=== PATIENT | female | born 2000 | race African-American/Black ===

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

== ENCOUNTER 2020-06-28 12:19 | Emergency (ER) | payer OTHER ==
--- OUTSIDE RECORDS SUMMARY | 2020-06-28 12:22 | XMS REPORT | Summary of Care ---
:1999 Author Organization [facility] Address [address] [place] [address] Care Team Providers Name Role Phone Lucy Quezada Primary Care Provider Reason for Referral (Routine) Status Reason Specialty Diagnoses / Referred By Referred To Procedures Contact Contact New Request Maternal Diagnoses Supervision of high risk in first trimester Johnna Portillo Medicine Procedures CONSULT MATERNAL MEDICINE ULTRASOUND Preferred Location: [facility] [address] [place] [address] Reason for Visit Reason Comments Care Encounter Details Date Type Department Care Team Description 04/19/2020 Routine [facility]- Johnna Portillo upervision of high risk in first trimester (Primary Dx); Visit [facility] Primigravida in first trimester; [address] [facility] [address] Elevated blood pressure reading without diagnosis of hypertension; [facility] Nausea and vomiting in prior t o 22 weeks gestation; [place], [place] Gonorrhea [phone] Allergies No Known Allergiesdocumented as of this encounter (statuses as of 04/19/2020) Medications Medication Sig Dispensed Refills Start Date End Date Status vit Take 1 Packet by 30 Each 6 04/19/2020 Active 68-yymt-nxnfu-dha mouth daily. (SELECT-OB + DHA) 29 mg iron-1 mg -250 mg combo packIndications: Supervision of high risk in first trimester documented as of this encounter (statuses as of 04/19/2020) Active Problems Problem Noted Date Nausea and vomiting in prior to 22 weeks ges tation 04/19/2020 Gonorrhea 04/19/2020 Supervision of high risk in first trimester 03/22/2020 Primigravida in first trimester 03/22/2020 Elevated blood pressure reading without diagnosis of h ypertension 03/22/2020 Left breast lump 03/22/2020 BMI 25.0-25.9,adult 03/22/2020 Estimated Date of Delivery Comments Yes 12/04/2020 Based on last menstr ual period of 02/28/2020 (Approximate) documented as of this encounter (statuses as of 04/19/2020) Social History Tobacco Use Types Packs/Day Years Used Date Never Smoker Smokeless Tobacco: Never Used Alcohol Use Drinks/Week oz/Week Comments Not Currently Estimated Date of Delivery Comments Yes 12/04/2020 Based on last menstr ual period of 02/28/2020 (Approximate) Sex Assigned at Date Recorded Not on file Job Start Date Occupation Industry Not on file Not on file Not on file Travel History Travel Start Travel End No recent travel history available. COVID-19 Exposure Response Date Recorded In the last month, have you been in contact with No / Unsure 04/19/2020 10:03 AM CDT someone who was confirmed or suspected to have Coronavirus / COVID-19? documented as of this encounter Last Filed Vital Signs Vital Sign Reading Time Taken Comments Blood Pressure 138/85 04/19/2020 10:03 AM CDT Pulse 70 04/19/2020 10:03 AM CDT Temperature 36.8 C (98.2 F) 04/19/2020 10:03 AM CDT Respiratory Rate 16 04/19/2020 10:03 AM CDT Oxygen Saturation - - Inhaled Oxygen Concentration - - Weight 67.2 kg (148 lb 3 oz) 04/19/2020 10:03 AM CDT Height 160 cm (5' 3") 04/19/2020 10:03 AM CDT Body Mass Index 26.25 04/19/2020 10:03 AM CDT documented in this encounter Progress Notes Johnna Portillo, TC - 04/19/2020 9:30 AM CDT Chief complaint: Chief Complaint Patient presents with Care HPI CC: Follow Up Visit Tea Collazo is a 19 year old, , /White female. Patient's last menstrual period was 02/28/2020 (approximate). She is 7w2d with an intrauterine . Her estimated date of delivery is 12/04/2020, by Last Menstrual Period. She has no complaints today. She denies FM, contractions, LOFand bleeding today. Patient denies current or past physical, sexual or emotional abuse. Histories OB History Para Term AB Living 1 0 SAB TAB Ectopic Multiple Live Births # Outcome Date GA Lbr Mau/2nd Weight Sex Delivery Anes PTL Lv 1 Current Past Medical History: Diagnosis Date Anemia 2009 as a child, not on meds Anxiety 2018 not on meds Gonorrhea 04/19/2020 Hypertension 2012 never been put on meds Family History Problem Relation Age of Onset No Significant Medical Problems Mother Diabetes Father Hypertension Father Heart Father Family Status Relation Name Status Mo Alive Fa Alive No past surgical history on file. Social History Socioeconomic History Marital status: Single Spouse name: Not on file Number of children: Not on file Years of education: Not on file Highest education level: Not on file Occupational History Not on file Social Needs Financial resource strain: Not on file Food insecurity: Worry: Not on file Inability: Not on file Transportation needs: Medical: Not on file Non-medical: Not on file Tobacco Use Smoking status: Never Smoker Smokeless tobacco: Never Used Substance and Sexual Activity Alcohol use: Not Currently Drug use: Not Currently Sexual activity: Yes Partners: Male control/protection: None Comment: Last intercourse: 03/10/2020 Lifestyle Physical activity: Days per week: Not on file Minutes per session: Not on file Stress: Not on file Relationships Social connections: Talks on phone: Not on file Gets together: Not on file Attends quaker service: Not on file Active member of club or organization: Not on file Attends meetings of clubs or organizations: Not on file Relationship status: Not on file Intimate partner violence: Fear of current or ex partner: Not on file Emotionally abused: Not on file Physically abused: Not on file Forced sexual activity: Not on file Other Topics Concern Not on file Social History Narrative Patient lives with her father, patient feels safe at home. Patient denies any cats. Social History Substance and Sexual Activity Sexual Activity Yes Partners: Male control/protection: None Comment: Last intercourse: 03/10/2020 Labs Labs are pending. Radiology No new radiology. Allergies Tea has No Known Allergies. Medications Tea has a current medication list which includes the following prescription(s): vit 14-myvf-wwiya-dha. Review of Systems BP 138/85 (BP Location: Right arm, Patient Position: Sitting, BP CUFF SIZE: Adult Medium) | Pulse 70 | Temp 36.8 C (98.2 F) (Oral) | Resp 16 | Ht 5' 3" (1.6 m) | Wt 148 lb 3 oz (67.2 kg) | LMP 02/28/2020 (Approximate) | BMI 26.25 kg/m Pregravid BMI: 25.7 Physical Exam PHYSICAL: General Exam: Neurological: Normal Abdomen: Normal Extremities: Normal Pelvic Exam: Uterus: 8cm Weeks Assessment/Plan Supervision of high risk in first trimester (primary encounter diagnosis) Primigravida in first trimester Comment: Routine Visit Plan: POCT URINALYSIS W SPECIFIC GRAVITY, CONSULT MATERNAL MEDICINE ULTRASOUND Preferred Location: [facility] vit 88-ssxh-qwote-dha (SELECT-OB + DHA) 29 mg iron-1 mg -250 mg combo pack Denies zika virus risk, signs and symptoms such as fever,rash,joint pain, conjunctivitis (red eyes), muscle pain, headaches; outside [place] travel to areas affected by zika, and FOB exposure to zika.Educated on use of mosquito repellent. Elevated blood pressure reading without diagnosis of hypertension Comment: elevated ion initial visit x3 Plan: PROTEIN QUANT U/24H, CREATININE U 24 HR Nausea and vomiting in prior to 22 weeks gestation Comment: patient complains of symptoms Plan: patient declines need for medication. Gonorrhea Comment: complete medication Plan: GC & CHLAMYDIA AMPLIFIED ASSAY Return to clinic in 4 weeks. Discussed treatment options. Medications as ordered. Reviewed patient instructions and provided printed copy. This visit did not involve counseling and coordination that comprised more than 50% of the visit time. TC Parker 04/19/2020 10:17 AM documented in this encounter Plan of Treatment Name Type Priority Associated Diagnoses Order S chedule GC & CHLAMYDIA AMPLIFIED LAB Routine Gonorrhea Exp ected: 04/19/2020, ASSAY Expires: 2020 PROTEIN QUANT U/24H LAB Routine Elevated blood pressu re Ordered: 04/19/2020 reading without diagnosis of hypertension CREATININE U 24 HR LAB Routine Elevated blood pressur e Ordered: 04/19/2020 reading without diagnosis of hypertension Health Maintenance Due Date Last Done Comments INFLUENZA VACCINE (#1) 2020 HPV VACCINES (1 - Female 03/13/2021 Postpon ed from 2010 2-dose series) ( or ) WELL CARE VISIT: 12-21 YEARS 03/21/2021 Pos tponed from 2011 (yearly) ( or ) CHLAMYDIA SCREENING 03/22/2021 03/22/2020, 03/22/2020 DTaP,Tdap,and Td Vaccines (1 03/22/2021 Pos tponed from 2010 - Tdap) (Alternative Neil delines) Depression Screening 03/22/2021 03/22/2020 MENINGOCOCCAL B VACCINES (1 03/22/2021 Post poned from 2009 of 2 - Risk Bexsero 2-dose (Preg nant or series) ) MENINGOCOCCAL VACCINE Aged Out No longer eligible based on patient's age to complete this to pic PNEUMOCOCCAL 0-64 YEARS Aged Out No longe r eligible based COMBINED SERIES on patient's age to complete this to pic documented as of this encounter Procedures Procedure Name Priority Date/Time Associated Diagnosis Comme nts POCT URINALYSIS Routine 04/19/2020 10:06 AM Supervision of eliseo villa Results for this CDT risk in procedure are in first trimester the results section. documented in this encounter Results POCT URINALYSIS W SPECIFIC GRAVITY (04/19/2020 10:06 AM CDT) Pathologist Sig nature POCT U SP GRAV . 1.005 - 1.025 mg/dl POCT PH U . 5 - 8 mg/dl POCT U LEUK EST . Negative - Negative POCT U NIT . Negative - Negative POCT U PROT trace Negative - Negative POCT U GLU negative Negative - Negative POCT U KETONE . Negative - Negative POCT U UROBILI . 0.2 - 1 mg/dl POCT U BILI . Negative - Negative POCT U BLD . Negative - Negative POCT U COLOR POCT U APPEAR Specimen Urine - URINE, CLEAN CATCH documented in this encounter Visit Diagnoses Diagnosis Supervision of high risk in fi rst trimester - Primary Unspecified high-risk Primigravida in first trimester Elevated blood pressure reading without diagnosis of hypertension Nausea and vomiting in prior t o 22 weeks gestation Mild hyperemesis gravidarum, unspecified as to episode of care Gonorrhea Gonococcal infection (acute) of lower ge nitourinary tract documented in this encounter Insurance Payer Benefit Plan / Subscriber ID Effective Phone Address T ype Group Dates [facility] xxxxxxxxx 2020-Prese P.O. BOX Medic aid HEALTH CHOICE - HE[place] nt [id number] 1 MANAGED MEDICAID [place], [place] MEDICAID [phone] documented as of this encounter
--- OUTSIDE RECORDS SUMMARY | 2020-06-28 12:22 | XMS REPORT | Clinical Summary ---
:1999 Author Organization [facility] Address [address] [place] [address] Care Team Providers Name Role Phone Asked, No Pcp Primary Care Provider Unavailable Allergies Active Allergy Reactions Severity Noted Date Comments Honey Anaphylaxis High 03/27/2018 Medications No known medications Active Problems Problem Noted Date Ingestion of unknown medication 03/27/2018 Major depressive disorder, recurrent episode, severe 0 03/27/2018 Family History Medical History Relation Name Comments Depression Father Relation Name Status Comments Father Social History Tobacco Use Types Packs/Day Years Used Date Never Smoker Smokeless Tobacco: Never Used Alcohol Use Drinks/Week oz/Week Comments No Sex Assigned at Date Recorded Not on file Last Filed Vital Signs Not on file Plan of Treatment Not on file Results Not on fileafter 06/28/2019 Advance Directives For more information, please contact: [phone] Type Date Recorded 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
--- OUTSIDE RECORDS SUMMARY | 2020-06-28 12:22 | XMS REPORT | Summary of Care ---
:1999 Author Organization [facility] Address [address] [place] [address] Care Team Providers Name Role Phone Lucy Quezada Primary Care Provider Reason for Referral (Routine) Status Reason Specialty Diagnoses / Referred By Referred To Procedures Contact Contact New Request Maternal Diagnoses Supervision of high risk in first trimester Johnna Portillo Medicine Procedures CONSULT MATERNAL MEDICINE ULTRASOUND Preferred Location: [facility] [address] [place] [address] Reason for Visit Reason Comments Care Encounter Details Date Type Department Care Team Description 04/19/2020 Routine [facility]- Johnna Portillo upervision of high risk in first trimester (Primary Dx); Visit [facility] Primigravida in first trimester; [address] [facility] [address] Elevated blood pressure reading without diagnosis of hypertension; [facility] Nausea and vomiting in prior t o 22 weeks gestation; [place], [place] Gonorrhea [phone] [phone] Allergies No Known Allergiesdocumented as of this encounter (statuses as of 04/19/2020) Medications Medication Sig Dispensed Refills Start Date End Date Status vit Take 1 Packet by 30 Each 6 04/19/2020 Active 60-kuqa-uuxwg-dha mouth daily. (SELECT-OB + DHA) 29 mg [...] file Gets together: Not on file Attends spiritism service: Not on file Active member of [...] list which includes the following prescription(s): vit 99-sutg-psobd-dha. Review of Systems BP 138/85 (BP Location: [...] GRAVITY, CONSULT MATERNAL MEDICINE ULTRASOUND Preferred Location: [facility] vit 74-byli-rafgw-dha (SELECT-OB + DHA) 29 mg iron-1 mg [...] documented in this encounter Plan of Treatment Date Type Specialty Care Team Description 05/17/2020 Routine Visit [facility] Fany Portillo R, NETWORK STRATEGIST [address] [place], [place] [address] [phone] Name Type Priority Associated Diagnoses Date/Ti me PROTEIN QUANT U/24H LAB Routine Elevated blood pressu re 04/19/2020 10:24 AM CDT reading without diagnosis of hypertension CREATININE U 24 HR LAB Routine Elevated blood pressur e 04/19/2020 10:24 AM CDT reading without diagnosis of hypertension Name Type Priority Associated Diagnoses Order S chedule GC & CHLAMYDIA AMPLIFIED LAB Routine Gonorrhea Exp ected: 04/19/2020, ASSAY Expires: 2020 Health Maintenance Due Date Last Done Comments [...] Diagnoses Diagnosis Supervision of high risk in rst trimester - Primary Unspecified high-risk Primigravida in first trimester Elevated blood pressure reading without diagnosis of hypertension Nausea and vomiting in prior t o 22 weeks gestation Mild hyperemesis gravidarum, unspecified as to episode of care Gonorrhea Gonococcal infection (acute) of lower ge nitourinary tract documented in this encounter Insurance Payer Benefit Plan / Subscriber ID Effective Phone Address T e Group [facility] xxxxxxxxx 2020-Prese P.O. BOX Medic aid HEALTH CHOICE - HEALTH CHOICE nt [id number] 1 MANAGED MEDICAID [place], [place] MED[place]ID [phone] documented as of this encounter
--- OUTSIDE RECORDS SUMMARY | 2020-06-28 12:22 | XMS REPORT | Summary of Care ---
:1999 Author Organization [facility] Address [address] [place] [address] Care Team Providers Name Role Phone Lucy Quezada Primary Care Provider Reason for Referral (Routine) Status Reason Specialty Diagnoses / Referred By Referred To Procedures Contact Contact New Request Maternal Diagnoses Supervision of high risk in first trimester Johnna Portillo Medicine Procedures CONSULT MATERNAL MEDICINE ULTRASOUND Preferred Location: [facility] [address] [place] [address] Reason for Visit Reason Comments Care Encounter Details Date Type Department Care Team Description 04/19/2020 Routine [facility]- Johnna Portillo upervision of high risk in first trimester (Primary Dx); Visit [facility] Primigravida in first trimester; [address] [facility] [address] Elevated blood pressure reading without diagnosis of hypertension; [facility] Nausea and vomiting in prior t o 22 weeks gestation; [place], [place] Gonorrhea [address] [phone] Allergies No Known Allergiesdocumented as of this encounter (statuses as of 04/19/2020) Medications Medication Sig Dispensed Refills Start Date End Date Status vit Take 1 Packet by 30 Each 6 04/19/2020 Active 25-ssdn-erigd-dha mouth daily. (SELECT-OB + DHA) 29 mg [...] file Gets together: Not on file Attends denominational service: Not on file Active member of [...] list which includes the following prescription(s): vit 52-qscx-pqgec-dha. Review of Systems BP 138/85 (BP Location: [...] GRAVITY, CONSULT MATERNAL MEDICINE ULTRASOUND Preferred Location: [facility] vit 60-jxbw-gdzyt-dha (SELECT-OB + DHA) 29 mg iron-1 mg [...] Treatment Date Type Specialty Care Team Description 05/08/2020 Phlebotomist Associate Visit Maternal Medicine 05/17/2020 Routine Visit [facility] Johnna Portillo, DERMATOLOGIST [address] [place] [address] [phone] Name Type Priority Associated Diagnoses Date/Ti me [...] ID Effective Phone Address T e Group [facility] xxxxxxxxx 2020-Prese P.O. BOX Medic aid HEALTH CHOICE - HEALTH CHOICE nt [id number] 1 MANAGED MEDICAID [place]ID [phone] documented as of this encounter
--- OUTSIDE RECORDS SUMMARY | 2020-06-28 12:22 | XMS REPORT | Summary of Care ---
:1999 Author Organization [facility] Address [address] [place] [address] Care Team Providers Name Role Phone Lucy Quezada Primary Care Provider Reason for Referral (Routine) Status Reason Specialty Diagnoses / Referred By Referred To Procedures Contact Contact New Request Maternal Diagnoses Supervision of high risk in first trimester Johnna Portillo Medicine Procedures CONSULT MATERNAL MEDICINE ULTRASOUND Preferred Location: [facility] [address] [place] [address] Reason for Visit Reason Comments Care Encounter Details Date Type Department Care Team Description 04/19/2020 Routine [facility]- Johnna Portillo upervision of high risk in first trimester (Primary Dx); Visit [facility] Primigravida in first trimester; [address] [facility] [address] Elevated blood pressure reading without diagnosis of hypertension; [facility] Nausea and vomiting in prior t o 22 weeks gestation; [place], [place] Gonorrhea [phone] [phone] Allergies No Known Allergiesdocumented as of this encounter (statuses as of 04/19/2020) Medications Medication Sig Dispensed Refills Start Date End Date Status vit Take 1 Packet by 30 Each 6 04/19/2020 Active 53-idlh-zbowx-dha mouth daily. (SELECT-OB + DHA) 29 mg [...] file Gets together: Not on file Attends sikh service: Not on file Active member of [...] list which includes the following prescription(s): vit 85-vune-mkanv-dha. Review of Systems BP 138/85 (BP Location: [...] GRAVITY, CONSULT MATERNAL MEDICINE ULTRASOUND Preferred Location: [facility], [place]) vit 05-ojqh-gzfgy-dha (SELECT-OB + DHA) 29 mg iron-1 mg [...] Routine Visit [facility]ell[facility] Fany Portillo R, CODING SUPPORT SPECIALIST [address] [place] [id number] [phone] Name Type Priority Associated Diagnoses Order S [...] on patient's age to complete this to [facility] PNEUMOCOCCAL 0-64 YEARS Aged Out No longe r eligible based COMBINED SERIES on patient's age to complete this to [facility] documented as of this encounter Procedures Procedure [...] Subscriber ID Effective Phone Address T e [facility] xxxxxxxxx 2020-Prese P.O. BOX Medic aid HEALTH CHOICE - HEALTH CHOICE nt [id number] 1 MANAGED MEDICAID [place], [place] [phone] documented as of this encounter
--- OUTSIDE RECORDS SUMMARY | 2020-06-28 12:22 | XMS REPORT | Summary of Care ---
:1999 Author Organization [facility] Address [address] [place] [address] Care Team Providers Name Role Phone Lucy Quezada Primary Care Provider Reason for Referral (Routine) Status Reason Specialty Diagnoses / Referred By Referred To Procedures Contact Contact New Request Maternal Diagnoses Supervision of high risk in first trimester Johnna Portillo Medicine Procedures CONSULT MATERNAL MEDICINE ULTRASOUND Preferred Location: [facility] [address] [place] [address] Reason for Visit Reason Comments Care Encounter Details Date Type Department Care Team Description 04/19/2020 Routine [facility]- Johnna Portillo upervision of high risk in first trimester (Primary Dx); Visit [facility] Primigravida in first trimester; [address] [facility] [address] Elevated blood pressure reading without diagnosis of hypertension; [facility] Nausea and vomiting in prior t o 22 weeks gestation; [place], [place]hea [phone] [phone] Allergies No Known Allergiesdocumented as of this encounter (statuses as of 04/19/2020) Medications Medication Sig Dispensed Refills Start Date End Date Status vit Take 1 Packet by 30 Each 6 04/19/2020 Active 09-thae-jocdy-dha mouth daily. (SELECT-OB + DHA) 29 mg [...] file Gets together: Not on file Attends orthodox service: Not on file Active member of [...] list which includes the following prescription(s): vit 39-yeyn-korex-dha. Review of Systems BP 138/85 (BP Location: [...] CONSULT MATERNAL MEDICINE ULTRASOUND Preferred Location: [facility] vit 07-xdvo-gcndz-dha (SELECT-OB + DHA) 29 mg iron-1 mg [...] Routine Visit [facility] Fany Portillo R, MINUTE CLERK FOR BASIC TRAFFIC [address] [place] [phone] [phone] Name Type Priority Associated Diagnoses Order S [...] on patient's age to complete this to [facility] PNEUMOCOCCAL 0-64 YEARS Aged Out No longe r eligible based COMBINED SERIES on patient's age to complete this to [facility] documented as of this encounter Procedures [...] Subscriber ID Effective Phone Address T e [facility] xxxxxxxxx 2020-Prese P.O. BOX Medic aid HEALTH CHOICE - [place] nt [id number] 1 MANAGED MEDICAID [place], [place] [phone] documented as of this encounter
--- OUTSIDE RECORDS SUMMARY | 2020-06-28 12:22 | XMS REPORT | Continuity of Care Document ---
:1999 Author Organization [facility] t Address [address] [place] [address] Care Team Providers Name Role Phone Asked, No Pcp Primary Care Physician Unavailable Fany Serrato Attending Clinician Ultrasound Attending Clinician Unavailable Problems Condition Condition Condition Status Onset Resolution Last Treating Co mments Source Name Details Category Date Date Treatment Clinician Date Ingestion Ingestion Disease Active [facility] st 00 Major Major Disease Active [place] 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-27 [facility] disorder, disorder, 00:00: st recurrent recurrent 00 episode, episode, severe severe Allergies, Adverse Reactions, Alerts Allergy Allergy Status Severity Reaction(s) Onset Inactive Treating Comm ents Source Name Type Date Date Clinician Honey Propensi Active Anaphylaxis Matilde ston ty to 03-27 Methodi adverse 00:00: st reaction 00 s to drug Family History Family Member Diagnosis Comments Start Date Stop Date Source Natural father [facility] Social History Social Habit Start Date Stop Date Quantity Comments Source Sex Assigned At [facility] ethodist Tobacco use and 2018-03-27 2018-03-27 Never used [facility] ethodist exposure 00:00:00 00:00:00 Alcohol intake 2018-03-27 2018-03-27 [facility] 00:00:00 non-drinker of alcohol (finding) Smoking Status Start Date Stop Date Source Never smoker Lacy Alondra baumann Medications This patient has no known medications. Procedures This patient has no known procedures. Encounters Start End Encounter Admission Attending Care Care Encounter Source Date/Time Date/Time Type Type Clinicians Facility Department ID 2020-06-15 2020-06-15 Routine Bandar ARJUAN PABLO [id number] 10:55:39 11:26:19 Roshunda R ROPEWALK ROPE MAKER [id number] Visit REGIONAL [id number] MATERNAL [id number] & CHILD 107 [facility] 2020-05-17 2020-05-17 [facility] [id number] 10:25:19 11:25:41 Roshunda R ROPEWALK ROPE MAKER [id number] Visit REGIONAL [id number] MATERNAL [id number] & CHILD 107 [facility] 2020-05-09 2020-05-09 [facility] [id number] 00:00:00 00:00:00 Roshunda R ROPEWALK ROPE MAKER [id number] REGIONAL [id number] MATERNAL [id number] & CHILD 107 [facility] 2020-05-08 2020-05-08 Cigarette Examiner Ultrasound, [facility] [id number] 11:36:57 12:06:57 Visit Ang-M[facility] [employer]OPEWALK ROPE MAKER [id number] REGIONAL [id number] MATERNAL [id number] & CHILD 369 [facility] 2020-04-19 2020-04-19 [facility] [id number] 09:47:03 10:21:03 Roshunda R ROPEWALK ROPE MAKER [id number] Visit REGIONAL [id number] MATERNAL [id number] & CHILD 107 [facility] Results This patient has no known results.
--- OUTSIDE RECORDS SUMMARY | 2020-06-28 12:23 | XMS REPORT | Summary of Care ---
:1999 Author Organization [facility] Address [address] [place] [address] Care Team Providers Name Role Phone Lucy Quezada Primary Care Provider Encounter Details Date Type Department Care Team Description 05/09/2020 Abstract [facility]- A Johnna Ochoa, TELECOM ANALYST [facility] [facility] [address] [place] [address] [address] [place] [address] [phone] Allergies No Known Allergiesdocumented as of this encounter (statuses as of 05/09/2020) Medications Medication Sig Dispensed Refills Start Date End Date Status vit Take 1 Packet by 30 Each 6 04/19/2020 Active 30-kcyh-jgxpa-dha mouth daily. (SELECT-OB + DHA) 29 mg iron-1 mg -250 mg combo packIndications: Supervision of high risk in first trimester documented as of this encounter (statuses as of 05/09/2020) Active Problems Problem Noted Date Nausea and vomiting in prior to 22 weeks ges tation 04/19/2020 Gonorrhea 04/19/2020 Supervision of high risk in first trimester 03/22/2020 Primigravida in first trimester 03/22/2020 Elevated blood pressure reading without diagnosis of h ypertension 03/22/2020 Left breast lump 03/22/2020 BMI 25.0-25.9,adult 03/22/2020 Estimated Date of Delivery Comments Yes 11/26/2020 Based on Ultrasound, FHT: 161, Transverse Presentation, Placen ta too early to evaulate, Placenta Posterior documented as of this encounter (statuses as of 05/09/2020) Social History Tobacco Use Types Packs/Day Years Used Date Never Smoker Smokeless Tobacco: Never Used Alcohol Use Drinks/Week oz/Week Comments Not Currently Estimated Date of Delivery Comments Yes 11/26/2020 Based on Ultrasound, FHT: 161, Transverse Presentation, Placen ta too early to evaulate, Placenta Posterior Sex Assigned at Date Recorded Not on file COVID-19 Exposure Response Date Recorded In the last month, have you been in contact with No / Unsure 04/19/2020 10:48 AM CDT someone who was confirmed or suspected to have Coronavirus / COVID-19? documented as of this encounter Last Filed Vital Signs Not on filedocumented in this encounter Plan of Treatment Date Type Specialty Care Team Description 05/17/2020 Routine Visit OB Satellites Fany Portillo, TELECOM ANALYST [address] [place] [address] 15 [phone] Health Maintenance Due Date Last Done Comments PAP SMEAR 2020 INFLUENZA VACCINE (#1) 2020 HPV VACCINES (1 - 2-dose 03/13/2021 Postpon ed from 2010 series) ( or ) WELL CARE VISIT: 12-21 YEARS 03/21/2021 Pos tponed from 2011 (yearly) ( or ) CHLAMYDIA SCREENING 03/22/2021 03/22/2020, 03/22/2020 DTaP,Tdap,and Td Vaccines (1 03/22/2021 Pos tponed from 2018 - Tdap) (Alternative Neil delines) Depression Screening [...] to pic documented as of this encounter Results Not on filedocumented in this encounter Insurance Payer Benefit Plan / Subscriber ID Effective Phone Address T e Group [facility] [id number] 2020-Pamela [address] BOX Medic aid [facility] nt [id number] 1 MANAGED MEDICAID [place], [place] MEDICAID [phone] documented as of this encounter
--- OUTSIDE RECORDS SUMMARY | 2020-06-28 12:23 | XMS REPORT | Summary of Care ---
:1999 Author Organization [facility] Address [address] [place] [address] Care Team Providers Name Role Phone Lucy Quezada Primary Care Provider Reason for Referral (Routine) Status Reason Specialty Diagnoses / Referred By Referred To Procedures Contact Contact New Request Maternal Diagnoses Supervision of high risk in first trimester Johnna Portillo Medicine Procedures CONSULT MATERNAL MEDICINE ULTRASOUND Preferred Location: [facility] [address] [place] [address] Reason for Visit Reason Comments ROUTINE VISIT Encounter Details Date Type Department Care Team Description 05/17/2020 Routine [facility]- Johnna Portillo upervision of high risk in first trimester (Primary Dx); Visit [facility] Primigravida in first trimester; [address] Elevated blood pressure reading without diagnosis of hypertension; [place] Nausea and vomiting in prior t o 22 weeks gestation; [place], [place] Gonorrhea [id number] Allergies No Known Allergiesdocumented as of this encounter (statuses as of 05/17/2020) Medications Medication Sig Dispensed Refills Start Date End Date Status vit Take 1 Packet by 30 Each 6 04/19/2020 Active 22-uipw-umqnq-dha mouth daily. (SELECT-OB + DHA) 29 mg iron-1 mg -250 mg combo packIndications: Supervision of high risk in first trimester documented as of this encounter (statuses as of 05/17/2020) Active Problems Problem Noted Date Nausea and [...] as of this encounter (statuses as of 05/17/2020) Social History Tobacco Use Types Packs/Day Years [...] been in contact with No / Unsure 05/17/2020 11:08 AM CDT someone who was confirmed or suspected to have Coronavirus / COVID-19? documented as of this encounter Last Filed Vital Signs Vital Sign Reading Time Taken Comments Blood Pressure 137/82 05/17/2020 11:11 AM CDT Pulse 68 05/17/2020 11:08 AM CDT Temperature 37.1 C (98.7 F) 05/17/2020 11:08 AM CDT Respiratory Rate 16 05/17/2020 11:08 AM CDT Oxygen Saturation - - Inhaled Oxygen Concentration - - Weight 74.1 kg (163 lb 6.4 oz) 05/17/2020 11:08 AM CDT Height 160 cm (5' 3") 05/17/2020 11:08 AM CDT Body Mass Index 28.95 05/17/2020 11:08 AM CDT documented in this encounter Progress Notes Johnna Portillo, CLINICAL NURSE REVIEWER - 05/17/2020 10:45 AM CDT Chief complaint: Chief Complaint Patient presents with ROUTINE VISIT HPI CC: Follow Up Visit Tea Collazo is a 20 year old, , Black or , /White female. Patient's last menstrual period was 02/28/2020 (approximate). She is 12w3d with an intrauterine . Her estimated date of delivery is 11/26/2020, by Ultrasound. She has no complaints today. She denies contractions, LOF and bleeding today. Patient denies current or past [...] Financial resource strain: Not on file Food insecurity Worry: Not on file Inability: Not on file Transportation needs Medical: Not on file Non-medical: Not on file Tobacco Use Smoking status: Never Smoker Smokeless tobacco: Never Used Substance and Sexual Activity Alcohol use: Not Currently Drug use: Not Currently Sexual activity: Yes Partners: Male control/protection: None Comment: Last intercourse: 03/10/2020 Lifestyle Physical activity Days per week: Not on file Minutes per session: Not on file Stress: Not on file Relationships Social connections Talks on phone: Not on file Gets together: Not on file Attends pres[employer]beterian service: Not on file Active member of club or organization: Not on file Attends meetings of clubs or organizations: Not on file Relationship status: Not on file Intimate partner violence Fear of current or ex partner: Not [...] list which includes the following prescription(s): vit 69-smqp-gqlhf-dha. Review of Systems Eyes: Negative for visual disturbance. Cardiovascular: Negative for leg swelling. Gastrointestinal: Negative for abdominal pain, nausea and vomiting. Genitourinary: Negative for vaginal bleeding, vaginal discharge and pelvic pain. Neurological: Negative for headaches. BP 137/82 (BP Location: Right arm, Patient Position: Sitting, BP CUFF SIZE: Adult Medium) | Pulse 68 | Temp 37.1 C (98.7 F) (Oral) | Resp 16 | Ht 5' 3" (1.6 m) | Wt 163 lb 6.4 oz (74.1 kg) | LMP 02/28/2020 (Approximate) | BMI 28.95 kg/m Pregravid BMI: 25.69 Physical Exam PHYSICAL: General Exam: Neurological: Normal Abdomen: Normal Extremities: Normal Pelvic Exam: Uterus: 12cm Weeks Assessment/Plan Supervision of high risk in first trimester (primary encounter diagnosis) Primigravida in first trimester Comment: Routine Visit Plan: POCT URINALYSIS W SPECIFIC GRAVITY, CONSULT MATERNAL MEDICINE ULTRASOUND Preferred Location: [place] Denies zika virus risk, signs and symptoms such as fever,rash,joint pain, conjunctivitis (red eyes), muscle pain, headaches; outside [place] travel to areas affected by zika, and FOB exposure to zika.Educated on use of mosquito repellent. Covid x12 screening done, screening results are negative. Elevated blood pressure reading without diagnosis of hypertension Comment: elavted today Plan:will continue to monitor Nausea and vomiting in prior to 22 weeks gestation Comment: improving Plan: will continue to monitor Gonorrhea Comment: treated Plan: GARY one today Return to clinic in 4 weeks. Discussed treatment options. Medications as ordered. Reviewed patient instructions and provided printed copy. This visit did not involve counseling and coordination that comprised more than 50% of the visit time. [facility] 05/17/2020 11:23 AM documented in this encounter Plan of Treatment Date Type Specialty Care Team Description 06/15/2020 Routine Visit OB Satellites Fany Portillo, CLINICAL NURSE REVIEWER [address] [place] [address] 15 [phone] Health Maintenance Due Date Last Done Comments [...] on patient's age to complete this to [facility] documented as of this encounter Procedures Procedure Name Priority Date/Time Associated Diagnosis Comme nts POCT URINALYSIS Routine 05/17/2020 Supervision of high risk Results for this in first procedure are in the trimester results section . documented in this encounter Results POCT URINALYSIS W SPECIFIC GRAVITY (05/17/2020) Pathologist Sig nature POCT U SP GRAV . 1.005 - 1.025 mg/dl POCT PH U . 5 - 8 mg/dl POCT U LEUK EST . Negative - Negative POCT U NIT . Negative - Negative POCT U PROT trace Negative - Negative POCT U GLU normal Negative - Negative POCT U KETONE . [...] Effective Phone Address T ype Group Dates [facility] [id number] 2020-Prese [address] Medic aid HEALTH CHOICE - HEALTH CHOICE nt [phone] 1 MANAGED MEDICAID [place], [place] MEDICAID [phone] documented as of this encounter
--- OUTSIDE RECORDS SUMMARY | 2020-06-28 12:23 | XMS REPORT | Summary of Care ---
:1999 Author Organization [facility] Address [address] [place] [address] Care Team Providers Name Role Phone Lucy Quezada Primary Care Provider Reason for Visit Reason Comments ULTRASOUND (Routine) Status Reason Specialty Diagnoses / Referred By Referred To Procedures Contact Contact Closed Maternal Diagnoses Supervision of high risk in first trimester Johnna Portillo Medicine Procedures CONSULT MATERNAL MEDICINE ULTRASOUND Preferred Location: [facility] [address] [place] [address] Encounter Details Date Type Department Care Team Description 05/08/2020 American History Professor [facility]-date Ultras[facility]- Rose Campos discrepancy, [address] [facility] [address] Kelley MD antepartum [place], [place] [address] [facility] [phone] [id number] [place], [place] [id number] Allergies No Known Allergiesdocumented as of this encounter (statuses as of 05/08/2020) Medications Medication Sig Dispensed Refills Start Date End Date Status vit Take 1 Packet by 30 Each 6 04/19/2020 Active 98-kdqs-pomcz-dha mouth daily. (SELECT-OB + DHA) 29 mg iron-1 mg -250 mg combo packIndications: Supervision of high risk in first trimester documented as of this encounter (statuses as of 05/08/2020) Active Problems Problem Noted Date Nausea and [...] as of this encounter (statuses as of 05/08/2020) Social History Tobacco Use Types Packs/Day Years [...] 05/17/2020 Routine Visit OB Satellites Fany Portillo, OIL AND GAS EXPLORATION TECHNICIAN [address] [address] [phone] Health Maintenance Due Date Last Done Comments [...] Results Not on filedocumented in this encounter Visit Diagnoses Diagnosis Uterine size-date discrepancy, antepartu m Uterine size date discrepancy, antepartu m condition or complication documented in this encounter Insurance Payer Benefit Plan / Subscriber ID Effective Phone Address T e Group [facility] [id number] 2020-Prese [address]OX Medic aid HEALTH CHOICE - HEALTH CHOICE nt [id number] 1 MANAGED MEDICAID [place], [place] [phone] documented as of this encounter
--- OUTSIDE RECORDS SUMMARY | 2020-06-28 12:23 | XMS REPORT | Summary of Care ---
:1999 Author Organization [facility] Address [address] [place] [address] Care Team Providers Name Role Phone Lucy Quezada Primary Care Provider Reason for Visit Reason Comments ROUTINE VISIT Encounter Details Date Type Department Care Team Description 06/15/2020 Routine [facility] RMCHP- Johnna Portillo upervision of high risk in second trimester (Primary Dx); Visit Rose R, SEISMOMETER OPERATOR Primigravida in second trimester; [address] [place] [address] Elevated blood pressure reading without diagnosis of hypertension; [address] [place] Nausea and vomiting in prior t o 22 weeks gestation; [place], [place] Gonorrhea [address] [phone] Allergies No Known Allergiesdocumented as of this encounter (statuses as of 06/15/2020) Medications Medication Sig Dispensed Refills Start Date End Date Status vit Take 1 Packet by 30 Each 6 04/19/2020 Active 50-jpgu-xsgyj-dha mouth daily. (SELECT-OB + DHA) 29 mg iron-1 mg -250 mg combo packIndications: Supervision of high risk in first trimester documented as of this encounter (statuses as of 06/15/2020) Active Problems Problem Noted Date Nausea and [...] as of this encounter (statuses as of 06/15/2020) Social History Tobacco Use Types Packs/Day Years [...] been in contact with No / Unsure 06/15/2020 11:10 AM CDT someone who was confirmed or suspected to have Coronavirus / COVID-19? documented as of this encounter Last Filed Vital Signs Vital Sign Reading Time Taken Comments Blood Pressure 143/86 06/15/2020 11:11 AM CDT Pulse 59 06/15/2020 11:10 AM CDT Temperature 36.6 C (97.9 F) 06/15/2020 11:10 AM CDT Respiratory Rate 16 06/15/2020 11:10 AM CDT Oxygen Saturation - - Inhaled Oxygen Concentration - - Weight 74.7 kg (164 lb 9.6 oz) 06/15/2020 11:10 AM CDT Height 157.5 cm (5' 2") 06/15/2020 11:10 AM CDT Body Mass Index 30.11 06/15/2020 11:10 AM CDT documented in this encounter Progress Notes Johnna Portillo, SEISMOMETER OPERATOR - 06/15/2020 10:45 AM CDT Chief complaint: Chief Complaint Patient presents with ROUTINE VISIT HPI CC: Follow Up Visit Tea Collazo is a 20 year old, , Black or , /White female. Patient's last menstrual period was 02/28/2020 (approximate). She is 16w4d with an intrauterine . Her estimated date of delivery is 11/26/2020, by Ultrasound. She has no complaints today. She reports +FMand denies contractions, LOF and bleeding today. Histories OB History Para Term AB Living [...] file Gets together: Not on file Attends faith service: Not on file Active member of [...] intercourse: 03/10/2020 Labs Labs are pending. Radiology Radiology pending. Allergies Tea has No Known Allergies. Medications Tea has a current medication list which includes the following prescription(s): vit 90-pqhe-fikps-dha. Review of Systems BP (!) 143/86 (BP Location: Right arm, Patient Position: Sitting, BP CUFF SIZE: Adult Medium) | Pulse 59 | Temp 36.6 C (97.9 F) (Oral) | Resp 16 | Ht 5' 2" (1.575 m) | Wt 164 lb 9.6 oz (74.7 kg) | LMP 02/28/2020 (Approximate) | BMI 30.11 kg/m Pregravid BMI: 26.51 Physical Exam Assessment/Plan Supervision of high risk in second trimester (primary encounter diagnosis) Primigravida in second trimester Comment: Routine Visit Plan: GC & CHLAMYDIA AMPLIFIED ASSAY, POCT URINALYSIS W SPECIFIC GRAVITY, QUAD SCRN, QUAD SCRN, CANCELED: QUAD SCRN Denies zika virus risk, signs and symptoms such as fever,rash,joint pain, conjunctivitis (red eyes), muscle pain, headaches; outside [place] travel to areas affected by zika, and FOB exposure to zika.Educated on use of mosquito repellent. Covid x12 screening done, screening results are negative. Elevated blood pressure reading without diagnosis of hypertension Comment: 147/91 and 143/86 Plan: provider will continue to watch B/P if blood pressure is above 160/-90-100, provider will notify MFM. Nausea and vomiting in prior to 22 weeks gestation Comment: resolved Plan: will continue to assess Gonorrhea Comment: treated Plan: GARY done today Return to clinic in 4 weeks. Discussed treatment options. Medications as ordered. Reviewed patient instructions and provided printed copy. This visit did not involve counseling and coordination that comprised more than 50% of the visit time. [facility] 06/15/2020 1:56 PM documented in this encounter Plan of Treatment Date Type Specialty Care Team Description 07/11/2020 Secondary Education Professor Visit Maternal Medicine 07/13/2020 Routine Visit OB Satellites Johnna Portillo FNP [address] [place], [place] [address] [phone] Name Type Priority Associated Diagnoses Date/Ti me GC & CHLAMYDIA LAB Routine Supervision of high risk 0 06/15/2020 11:26 AM CDT AMPLIFIED ASSAY in second trimester QUAD SCRN LAB Routine Supervision of high risk 07/2020 11:26 AM CDT in second trimester Name Type Priority Associated Diagnoses Order S chedule QUAD SCRN LAB Routine Supervision of high risk Exp ected: 06/15/2020, in second trimeste r Expires: 06/15/2021 Health Maintenance Due Date Last Done Comments [...] Associated Diagnosis Comme nts POCT URINALYSIS Routine 06/15/2020 Supervision of high risk Results for this in second procedur e are in the trimester results section . documented in this encounter Results POCT URINALYSIS W SPECIFIC GRAVITY (06/15/2020) Pathologist Sig nature POCT U SP GRAV [...] Diagnoses Diagnosis Supervision of high risk in se cond trimester - Primary Unspecified high-risk Primigravida in second trimester Elevated blood pressure reading without diagnosis of hypertension Nausea and vomiting in prior t o 22 weeks gestation Mild hyperemesis gravidarum, unspecified as to episode of care Gonorrhea Gonococcal infection (acute) of lower ge nitourinary tract documented in this encounter Insurance Payer Benefit Plan / Subscriber ID Effective Phone Address T ype Group Dates [facility] [id number] 2020-Prese [address] Medic aid HEALTH CHOICE - HEALTH Snaptracs nt [id number] 1 MANAGED MEDICAID [place], [place] [phone] documented as of this encounter
[2020-06-28] MEDS ORDERED: ACETAMINOPHEN 325 MG TABLET ONE (12:58)
--- NOTE | 2020-06-28 14:17 | EDPHYS ---
Physician Documentation [facility] Name: Tea Collazo Age: 20 yrs Sex: Female : 2000 Arrival Date: 06/28/2020 Time: 12:21 Bed 7 Private MD: ED Physician Shay Ball HPI: 06/28 14:25 This 20 yrs old Black Female presents to ER via Ambulatory with complaints of Sinus kb Congestion, Headache. 14:25 The patient or guardian reports cough, that is intermittent, described as mild, with no kb sputum, flu symptoms, myalgias. Onset: The symptoms/episode began/occurred 2 day(s) ago. Severity of symptoms: At their worst the symptoms were mild, moderate, in the emergency department the symptoms are unchanged. Modifying factors: The symptoms are alleviated by nothing, the symptoms are aggravated by nothing. Associated signs and symptoms: Pertinent positives: cough, congestion, loss of smell, diarrhea. The patient has not experienced similar symptoms in the past. The patient has not recently seen a physician. 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 - Social history:: Smoking status: Patient denies any tobacco usage or history of. ROS: 14:26 Constitutional: Negative for fever, chills, and weight loss, Cardiovascular: Negative kb for chest pain, palpitations, and edema, Back: Negative for injury and pain, MS/Extremity: Negative for injury and deformity, Skin: Negative for injury, rash, and discoloration. 14:26 ENT: Positive for rhinorrhea, sinus congestion. 14:26 Respiratory: Positive for cough, Negative for dyspnea on exertion, hemoptysis, orthopnea, pleurisy, shortness of breath, sputum production, wheezing. 14:26 Abdomen/GI: Positive for diarrhea, Negative for abdominal pain, nausea and vomiting. 14:26 Neuro: Positive for headache, Negative for altered mental status, dizziness, gait disturbance, hearing loss, loss of consciousness, numbness, seizure activity, speech changes, syncope, near syncope, tingling, tinnitus, tremor, visual changes, weakness. Exam: 14:28 Constitutional: This is a well developed, well nourished patient who is awake, alert, kb and in no acute distress. Head/Face: Normocephalic, atraumatic. ENT: Nares patent. No nasal discharge, no septal abnormalities noted. Tympanic membranes are normal and external auditory canals are clear. Oropharynx with no redness, swelling, or masses, exudates, or evidence of obstruction, uvula midline. Mucous membranes moist. Neck: Trachea midline, no thyromegaly or masses palpated, and no cervical lymphadenopathy. Supple, full range of motion without nuchal rigidity, or vertebral point tenderness. No Meningismus. Chest/axilla: Normal chest wall appearance and motion. Nontender with no deformity. No lesions are appreciated. Cardiovascular: Regular rate and rhythm with a normal S1 and S2. No gallops, murmurs, or rubs. Normal PMI, no JVD. No pulse deficits. Respiratory: Lungs have equal breath sounds bilaterally, clear to auscultation and percussion. No rales, rhonchi or wheezes noted. No increased work of breathing, no retractions or nasal flaring. Abdomen/GI: Soft, non-tender, with normal bowel sounds. No distension or tympany. No guarding or rebound. No evidence of tenderness throughout. Skin: Warm, dry with normal turgor. Normal color with no rashes, no lesions, and no evidence of cellulitis. MS/ Extremity: Pulses equal, no cyanosis. Neurovascular intact. Full, normal range of motion. Neuro: Awake and alert, GCS 15, oriented to person, place, time, and situation. Cranial nerves II-XII grossly intact. Motor strength 5/5 in all extremities. Sensory grossly intact. Cerebellar exam normal. Normal gait. Vital Signs: 12:35 BP 137 / 81; Pulse 66; Resp 17 S; Temp 98.3(O); Pulse Ox 100% on R/A; Weight 74.84 kg ca1 (R); Height 5 ft. 3 in. (160.02 cm) (R); 13:39 BP 132 / 84; Pulse 66; Resp 17; Pulse Ox 100% ; Pain 8/10; jl7 12:35 Body Mass Index 29.23 (74.84 kg, 160.02 cm) ca1 MDM: 12:44 Patient medically screened. kb 14:27 Data reviewed: vital signs, nurses notes. Data interpreted: Pulse oximetry: on room air kb is 100 %. Interpretation: normal. Counseling: I had a detailed discussion with the patient and/or guardian regarding: the historical points, exam findings, and any diagnostic results supporting the discharge/admit diagnosis, lab results, the need for outpatient follow up, a family practitioner, to return to the emergency department if symptoms worsen or persist or if there are any questions or concerns that arise at home. 06/28 12:54 Order name: Flu; Complete Time: 14:16 kb 06/28 12:54 Order name: COVID-19 kb Administered Medications: 12:50 Drug: Tylenol 650 mg Route: PO; jl7 13:30 Follow up: Response: No adverse reaction; Pain is unchanged, physician notified jl7 Disposition: 14:41 Co-signature as Attending Physician, Shay Ball MD I agree with the assessment and kdr plan of care. Disposition: 06/28/20 14:17 Discharged to Home. Impression: Acute upper respiratory infection, unspecified. - Condition is Stable. - Discharge Instructions: Viral Respiratory Infection, Jmls-Hp-Gjen, COVID-19. - Medication Reconciliation Form, Thank You Letter, Antibiotic Education, Prescription Opioid Use form. - Follow up: Emergency Department; When: As needed; Reason: Worsening of condition. Follow up: Private Physician; When: 2 - 3 days; Reason: Recheck today's complaints, Continuance of care, Re-evaluation by your physician. Signatures: Dispatcher [employer] [facility] Sydney Galvez, SHUTTLE VAN DRIVER-C SHUTTLE VAN DRIVER-Shay Reyes MD MD [facility] Jazzmine Wing RN RN jl7 Chloé Watkins RN RN ca1 Corrections: (The following items were deleted from the chart) 14:29 14:17 06/28/2020 14:17 Discharged to Home. Impression: Acute upper respiratory jl7 infection, unspecified. Condition is Stable. Forms are Medication Reconciliation Form, Thank You Letter, Antibiotic Education, Prescription Opioid Use. Follow up: Emergency Department; When: As needed; Reason: Worsening of condition. Follow up: Private Physician; When: 2 - 3 days; Reason: Recheck today's complaints, Continuance of care, Re-evaluation by your physician. kb
--- NOTE | 2020-06-28 14:17 | ER ---
Nurse's Notes [facility] Name: Tea Collazo Age: 20 yrs Sex: Female : 2000 Arrival Date: 06/28/2020 Time: 12:21 Bed 7 Private MD: Diagnosis: Acute upper respiratory infection, unspecified Presentation: 06/28 12:35 Chief complaint: Patient states: Headache, cough, congestion, diarrhea, loss of sense ca1 of smell x 2 days. Pt states, "I am 18 weeks and I am just afraid of COVID". Coronavirus screen: Client denies travel out of the [place] in the last 14 days. congestion, cough unrelated to allergies, diarrhea, headache, loss of taste or smell. Ebola Screen: Patient negative for fever greater than or equal to 101.5 degrees Fahrenheit, and additional compatible Ebola Virus Disease symptoms Patient denies exposure to infectious person. Patient denies travel to an Ebola-affected area in the 21 days before illness onset. No symptoms or risks identified at this time. Initial Sepsis Screen: Does the patient meet any 2 criteria? No. Patient's initial sepsis screen is negative. Does the patient have a suspected source of infection? No. Patient's initial sepsis screen is negative. Risk Assessment: Do you want to hurt yourself or someone else? Patient reports no desire to harm self or others. Onset of symptoms was June 28, 2020. 12:35 Method Of Arrival: Ambulatory ca1 12:35 Acuity: LARISA 4 ca1 HEALTH AND SAFETY COORDINATOR: 12:40 [facility] 03/2020 ca1 Historical: - Allergies: 12:40 honey; ca1 - Home Meds: 12:40 None [Active]; ca1 - PMHx: 12:40 Depression; Hypertension; SUICIDE ATTEMPT; ca1 - PSHx: 12:40 None; ca1 - Immunization history:: Adult Immunizations not up to date. - Social history:: Smoking status: Patient denies any tobacco usage or history of. Screenin:48 Abuse screen: Denies threats or abuse. Denies injuries from another. Nutritional jl7 screening: No deficits noted. Tuberculosis screening: No symptoms or risk factors identified. Fall Risk None identified. Assessment: 12:48 General: Appears in no apparent distress. uncomfortable, Behavior is calm, cooperative, jl7 appropriate for age. Pain: Complains of pain in TOMAS Pain does not radiate. Pain currently is 8 out of 10 on a pain scale. Neuro: Level of Consciousness is awake, alert, obeys commands, Oriented to person, place, time, situation. Cardiovascular: Patient's skin is warm and dry. Respiratory: Airway is patent Respiratory effort is even, unlabored, Respiratory pattern is regular, symmetrical. Derm: Skin is pink, warm \\T\\ dry. 13:39 Reassessment: Patient appears in no apparent distress at this time. No changes from jl7 previously documented assessment. Patient and/or family updated on plan of care and expected duration. Pain level reassessed. Patient is alert, oriented x 3, equal unlabored respirations, skin warm/dry/pink. Vital Signs: 12:35 BP 137 / 81; Pulse 66; Resp 17 S; Temp 98.3(O); Pulse Ox 100% on R/A; Weight 74.84 kg ca1 (R); Height 5 ft. 3 in. (160.02 cm) (R); 13:39 BP 132 / 84; Pulse 66; Resp 17; Pulse Ox 100% ; Pain 8/10; jl7 12:35 Body Mass Index 29.23 (74.84 kg, 160.02 cm) ca1 ED Course: 12:21 Patient arrived in ED. ag5 12:39 Triage completed. ca1 12:40 Arm band placed on right wrist. ca1 12:41 Jazzmine Wing, HÉCTOR is Primary Nurse. jl7 12:44 Sydney Galvez FNP-C [facility]. kb 12:44 Shay Ball MD is Attending Physician. kb 12:48 Patient has correct armband on for positive identification. Bed in low position. Call jl7 light in reach. Side rails up X 1. Pulse ox on. NIBP on. Warm blanket given. 13:26 Flu and/or RSV swab sent to lab. COVID-19 swab sent to lab. jl7 14:28 No provider procedures requiring assistance completed. Patient did not have IV access jl7 during this emergency room visit. Administered Medications: 12:50 Drug: Tylenol 650 mg Route: PO; jl7 13:30 Follow up: Response: No adverse reaction; Pain is unchanged, physician notified jl7 Outcome: 14:17 Discharge ordered by . kb 14:28 Discharged to home ambulatory. jl7 14:28 Condition: stable 14:28 Discharge instructions given to patient, Instructed on discharge instructions, follow up and referral plans. Demonstrated understanding of instructions, follow-up care. 14:29 Patient left the ED. jl7 Signatures: Sydney Galvez, STONEMASON-C STONEMASON-Jazzmine Pagan RN RN jl7 Chloé Watkins RN RN ca1 Ramses Marin [facility]
[2020-06-28 14:49] VITALS: TEMP 98.3; O2SAT 100
[2020-06-28 14:55] VITALS: BP 132/84
== END 2020-06-28 14:29 | disposition home or self-care (01) ==
LOC: ER 12:19
DX: O98.512 Other viral diseases complicating pregnancy, second trimester (principal); U07.1 COVID-19; J98.8 Other specified respiratory disorders; O26.892 Other specified pregnancy related conditions, second trimester; Z3A.18 18 weeks gestation of pregnancy; Z91.018 Allergy to other foods
CPT/HCPCS: 87804 ×2; 99283; U0002

== ENCOUNTER 2020-09-10 15:31 | Inpatient (IN) | payer OTHER ==
--- OUTSIDE RECORDS SUMMARY | 2020-09-10 15:33 | XMS REPORT | Continuity of Care Document ---
:2000 Author Organization [facility] t Address 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 Social [facility] Social Habit Start Date Stop Date Quantity Comments Source Sex Assigned At [facility] ethodist Tobacco use and 2018-03-27 2018-03-27 Never used [facility] ethodist exposure 00:00:00 00:00:00 Alcohol intake 2018-03-27 2018-03-27 [facility] 00:00:00 non-drinker of alcohol (finding) Smoking Status Start Date Stop Date Source Never smoker Harned [facility] t Medications This patient has no known medications. Procedures This patient has no known procedures. Encounters Start End Encounter Admission Attending Care Care Encounter Source Date/Time Date/Time Type Type Clinicians Facility Department ID 2020-09-07 2020-09-07 [facility] [id number] 08:47:13 09:56:09 Roshunda R CREATIVE WRITING ENGLISH PROFESSOR [id number] Visit REGIONAL [id number] MATERNAL [id number] & CHILD 107 [facility] 2020-08-29 2020-08-29 Upsetting Machine Operator Lab, [facility] [id number] 08:24:12 08:34:11 Visit Lateshamary ellen CREATIVE WRITING ENGLISH PROFESSOR [id number] REGIONAL [id number] MATERNAL [id number] & CHILD 107 [facility] Results This patient has no known results.
--- OUTSIDE RECORDS SUMMARY | 2020-09-10 15:33 | XMS REPORT | Clinical Summary ---
:2000 Author Organization [facility] Address [address] [place] [id number] Care Team Providers Name Role Phone Asked, [...] Not on file Results Not on fileafter 09/10/2019 Advance Directives For more information, please contact: [phone] Type Date Recorded Patient Pin Worker Explanati on Advance Directives, Living Will 03/27/2018 6:52 PM and Medical Power of Switchboard Operator Helper Code Status Date Activated Date Inactivated Comments Full Code 03/27/2018 8:46 PM 03/31/2018 10:51 PM Code Status decision reached by: Patient
--- OUTSIDE RECORDS SUMMARY | 2020-09-10 15:34 | XMS REPORT | Summary of Care ---
:2000 Author Organization [facility] Address [address] [place] [id number] Care Team Providers Name Role Phone Damien Lucy Walton Primary Care Provider Reason for Visit Reason Comments LAB Encounter Details Date Type Department Care Team Description 08/29/2020 Youth Services Librarian Visit [facility]- Leslye Portillo, REPRODUCTION PRODUCTION MANAGER [address] [place], [place] [id number] Supervision of [facility], [facility] risk in [address] [place] [phone] Allergies No Known Allergiesdocumented as of this encounter (statuses as of 08/29/2020) Medications Medication Sig Dispensed Refills Start Date End Date Status vit Take 1 Packet by 30 Each 6 04/19/2020 Active 64-xbyd-ubqbe-dha mouth daily. (SELECT-OB + DHA) 29 mg iron-1 mg -250 mg combo packIndications: Supervision of high risk in first trimester documented as of this encounter (statuses as of 08/29/2020) Active Problems Problem Noted Date Obesity in 08/24/2020 26 weeks gestation of 08/24/2020 Chronic hypertension in obstetric context in second tr imester 08/24/2020 COVID-19 virus infection 08/24/2020 Nausea and vomiting in prior to 22 weeks ges tation 04/19/2020 Gonorrhea 04/19/2020 Supervision of high risk in second trimester 03/22/2020 Primigravida in second trimester 03/22/2020 Elevated blood pressure reading without diagnosis of h ypertension 03/22/2020 Left breast lump 03/22/2020 Over weight 03/22/2020 Estimated Date of Delivery Comments Yes 11/26/2020 Based on Ultrasound, FHT: 161, Transverse Presentation, Placen ta too early to evaulate, Placenta Posterior documented as of this encounter (statuses as of 08/29/2020) Immunizations Name Administration Dates Next Due Influenza Virus Vaccine Quad .5 mL IM 6+ MO 07/13/2020 documented as of this encounter Social History Tobacco Use Types Packs/Day Years [...] been in contact with No / Unsure 08/29/2020 8:59 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 documented as of this encounter Last Filed Vital Signs Not on filedocumented in this encounter Plan of Treatment Date Type Specialty Care Team Description 09/07/2020 Routine Visit OB Satellites Fany Portillo, REPRODUCTION PRODUCTION MANAGER [address] [place] [id number] 15 [phone] Health Maintenance Due Date Last Done Comments PAP SMEAR 2020 HPV VACCINES (1 - 2-dose 03/13/2021 Postpon ed from series) 2010 (Preg nant or ) WELL CARE VISIT: 09-2503/21/2021 Postponed from YEARS (yearly) 2011 (Preg nant or ) DTaP,Tdap,and Td Vaccines 03/22/2021 Postpo eduardo from (1 - Tdap) 2018 ([place] Guidelines) Depression Screening 03/22/2021 03/22/2020 MENINGOCOCCAL B VACCINES (1 03/22/2021 Post poned from of 2 - Risk Bexsero 2-dose 04/26 ( or series) ) CHLAMYDIA SCREENING 08/24/2021 08/24/2020, 06/15/2020, 03/22/2020, Additional history exists INFLUENZA VACCINE Completed 07/13/2020 MENINGOCOCCAL VACCINE Aged Out No longer eligible based on patient 's age to complete this topic PNEUMOCOCCAL 0-64 YEARS Aged Out No longe r eligible COMBINED SERIES based on patient 's age to complete this topic documented as of this encounter Results Not on filedocumented in this encounter Visit Diagnoses Diagnosis Supervision of high risk in se cond trimester Unspecified high-risk documented in this encounter Additional Health Concerns Infection Onset Date Last Indicated Resolved Time COVID-19 Confirmed 08/24/2020 08/24/2020 documented as of this encounter Insurance Payer Benefit Plan / Subscriber ID Effective Phone Address [facility] [id number] 2020-Prese [address] Medic aid HEALTH CHOICE - [place] [id number] MANAGED MEDICAID [place], [place] [id number] documented as of this encounter
--- OUTSIDE RECORDS SUMMARY | 2020-09-10 15:34 | XMS REPORT | Summary of Care ---
:1999 Author Organization [facility] Address [address] [place] [address] Care Team Providers Name Role Phone Lucy Quezada Primary Care Provider Reason for Visit Reason Comments ROUTINE VISIT Encounter Details Date Type Department Care Team Description 07/13/2020 Routine [facility]- Johnna Portillo upervision of high risk in second trimester (Primary Dx); Visit Rose R, GANG INVESTIGATOR Primigravida in second trimester; [address] [place] [address] Elevated blood pressure reading without diagnosis of hypertension; [address] [place] Nausea and vomiting in prior t o 22 weeks gestation; [place], [place] Needs flu shot; [id number] Over weight [phone] Allergies No Known Allergiesdocumented as of this encounter (statuses as of 07/13/2020) Medications Medication Sig Dispensed Refills Start Date End Date Status vit Take 1 Packet by 30 Each 6 04/19/2020 Active 71-lwcu-dyzps-dha mouth daily. (SELECT-OB + DHA) 29 mg iron-1 mg -250 mg combo packIndications: Supervision of high risk in first trimester documented as of this encounter (statuses as of 07/13/2020) Active Problems Problem Noted Date Nausea and [...] as of this encounter (statuses as of 07/13/2020) Immunizations Name Administration Dates Next Due Influenza [...] been in contact with No / Unsure 07/13/2020 11:08 AM CDT someone who was confirmed or suspected to have Coronavirus / COVID-19? documented as of this encounter Last Filed Vital Signs Vital Sign Reading Time Taken Comments Blood Pressure 140/86 07/13/2020 11:11 AM CDT Pulse 74 07/13/2020 11:08 AM CDT Temperature 36.8 C (98.2 F) 07/13/2020 11:08 AM CDT Respiratory Rate 16 07/13/2020 11:08 AM CDT Oxygen Saturation - - Inhaled Oxygen Concentration - - Weight 74.4 kg (164 lb 1.6 oz) 07/13/2020 11:08 AM CDT Height 160 cm (5' 3") 07/13/2020 11:08 AM CDT Body Mass Index 29.07 07/13/2020 11:08 AM CDT documented in this encounter Progress Notes Johnna Portillo, GANG INVESTIGATOR - 07/13/2020 11:00 AM CDT Chief complaint: Chief Complaint Patient presents with ROUTINE VISIT HPI CC: Follow Up Visit Tea Collazo is a 20 year old, , Black or , /White female. Patient's last menstrual period was 02/28/2020 (approximate). She is 20w4d with an intrauterine . Her estimated date of delivery is 11/26/2020, by Ultrasound. She has no complaints today. She reports +FMand denies contractions, LOF and bleeding today. Patient [...] file Gets together: Not on file Attends pentecostalism service: Not on file Active member of [...] list which includes the following prescription(s): vit 48-yqmg-iprjk-dha. Review of Systems Eyes: Negative for visual disturbance. Cardiovascular: Negative for leg swelling. Gastrointestinal: Negative for abdominal pain, nausea and vomiting. Genitourinary: Negative for vaginal bleeding, vaginal discharge and pelvic pain. Neurological: Negative for headaches. BP (!) 140/86 (BP Location: Right arm, Patient Position: Sitting, BP CUFF SIZE: Adult Medium) | Pulse 74 | Temp 36.8 C (98.2 F) (Oral) | Resp 16 | Ht 5' 3" (1.6 m) | Wt 164 lb 1.6 oz (74.4 kg) | LMP 02/28/2020 (Approximate) | BMI 29.07 kg/m Pregravid BMI: 25.69 Physical Exam PHYSICAL: General Exam: Neurological: Normal Abdomen: Normal Extremities: Normal Pelvic Exam: Uterus: 20cm Weeks Assessment/Plan Supervision of high risk in second trimester (primary encounter diagnosis) Primigravida in second trimester Comment: Routine Visit Plan: POCT URINALYSIS W SPECIFIC GRAVITY Denies zika virus risk, signs and symptoms such as fever,rash,joint pain, conjunctivitis (red eyes), muscle pain, headaches; outside [place] travel to areas affected by zika, and FOB exposure to zika.Educated on use of mosquito repellent. Covid x12 screening done, screening results are negative. Elevated blood pressure reading without diagnosis of hypertension Comment: elavted, will continue t monitor Plan: patient given PIH and encouraged patient to go to [facility] for any signs and symptoms of PIH occur. Nausea and vomiting in prior to 22 weeks gestation Comment: improving Plan: will continue to monitor Needs flu shot Comment: patient deisres Plan: FLU VACC([id number]), 6+ MONTHS, IM, QUAD (FLUZONE/FLULAVAL/FLUARIX) Over weight Comment: BMI: 29.07 Plan: Patient encouraged to limit weight gain and advised to eat healthy diet, fruits, vegetables, increased fiber and water intake and protein low in fat. Encouraged exercise for 30 min everyday; begin regimen with caution to prevent injury. Encouraged to decrease BMI to <25. Patient educated onthe effects of chronic health problems of obesity on future pregnancies and/or ocean transportation intermediary health. Return to clinic in 4 weeks. Discussed treatment options. Medications as ordered. Reviewed patient instructions and provided printed copy. This visit did not involve counseling and coordination that comprised more than 50% of the visit time. TC Parker 07/13/2020 11:41 AM documented in this encounter Plan of Treatment Date Type Specialty Care Team Description 08/10/2020 Routine Visit OB Satellites Fany Portillo FNP [address] [place] [id number] 15 [phone] Health Maintenance Due Date Last Done Comments PAP SMEAR 2020 HPV VACCINES (1 - 2-dose 03/13/2021 Postpon ed from 2010 series) ( or ) WELL CARE VISIT: 12-21 YEARS 03/21/2021 Pos tponed from 2011 (yearly) ( or ) DTaP,Tdap,and Td Vaccines (1 03/22/2021 Pos tponed from 2018 - Tdap) (Alternative Neil delines) Depression Screening 03/22/2021 03/22/2020 MENINGOCOCCAL B VACCINES (1 03/22/2021 Post poned from 2009 of 2 - Risk Bexsero 2-dose (Preg nant or series) ) CHLAMYDIA SCREENING 06/15/2021 06/15/2020, 03/22/2020, 03/22/2020 INFLUENZA VACCINE Completed 07/13/2020 MENINGOCOCCAL VACCINE Aged Out No longer eligible based on patient's age to complete this to [facility] PNEUMOCOCCAL 0-64 YEARS Aged Out No longe r eligible based COMBINED SERIES on patient's age to complete this to [facility] documented as of this encounter Procedures Procedure Name Priority Date/Time Associated Diagnosis Comme nts FLU VACC Routine 07/13/2020 11:21 Needs flu shot ([id number]), 6+ AM CDT MONTHS, IM, QUAD POCT URINALYSIS Routine 07/13/2020 Supervision of high Resul ts for this risk in procedure are in second trimester the results section. documented in this encounter Results POCT URINALYSIS W SPECIFIC GRAVITY (07/13/2020) Pathologist Sig nature POCT U SP GRAV . 1.005 - 1.025 mg/dl POCT PH U . 5 - 8 mg/dl POCT U LEUK EST . Negative - Negative POCT U NIT . Negative - Negative POCT U PROT trace Negative - Negative POCT U GLU neg Negative - Negative POCT U KETONE . Negative - Negative POCT U UROBILI . 0.2 - 1 mg/dl POCT U BILI . Negative - Negative POCT U BLD . Negative - Negative POCT U COLOR . POCT U APPEAR Specimen Urine - URINE, CLEAN CATCH documented in this encounter Visit Diagnoses Diagnosis Supervision of high risk in se cond trimester - Primary Unspecified high-risk Primigravida in second trimester Elevated blood pressure reading without diagnosis of hypertension Nausea and vomiting in prior t o 22 weeks gestation Mild hyperemesis gravidarum, unspecified as to episode of care Needs flu shot Need for prophylactic vaccination and in oculation against influenza Over weight Overweight documented in this encounter Insurance Payer Benefit Plan / Subscriber ID Effective Phone Address T e Group [facility] [id number] 2020-Prese [address] BOX Medic aid HEALTH CHOICE - HEALTH CHOICE nt [id number] 1 MANAGED MEDICAID [place], [place]ID [phone] documented as of this encounter
--- OUTSIDE RECORDS SUMMARY | 2020-09-10 15:34 | XMS REPORT | Summary of Care ---
:[address] [facility] Address [address] [place] [address] Care Team Providers Name Role Phone Lucy Quezada Primary Care Provider Reason for Visit Reason Comments ULTRASOUND (Routine) Status Reason Specialty Diagnoses / Referred By Referred To Procedures Contact Contact Closed Maternal Diagnoses Supervision of high risk in first trimester Johnna Portillo Medicine Procedures CONSULT MATERNAL MEDICINE ULTRASOUND Preferred Location: [facility] [address] [place] [address] Encounter Details Date Type Department Care Team Description 07/11/2020 Music Arranger Visit [facility] La Nena Rojas rvision of high risk in second trimester; Ultrasound- Rose Terrazas MD screening for malformation usi ng ultrasonics; [address] Encounter for screening for risk of pre-term labor [place], [place] [id number] [place], [place] [phone] Allergies No Known Allergiesdocumented as of this encounter (statuses as of 07/11/2020) Medications Medication Sig Dispensed Refills Start Date End Date Status vit Take 1 Packet by 30 Each 6 04/19/2020 Active 85-atuv-nvuwd-dha mouth daily. (SELECT-OB + DHA) 29 mg iron-1 mg -250 mg combo packIndications: Supervision of high risk in first trimester documented as of this encounter (statuses as of 07/11/2020) Active Problems Problem Noted Date Nausea and [...] as of this encounter (statuses as of 07/11/2020) Social History Tobacco Use Types Packs/Day Years [...] Treatment Date Type Specialty Care Team Description 07/13/2020 Routine Visit OB Satellites Fany Portillo, MOBILE ARCHITECT [address] [place] [address] [phone] Health Maintenance Due Date Last Done Comments [...] ) CHLAMYDIA SCREENING 06/15/2021 06/15/2020, 03/22/2020, 03/22/2020 MENINGOCOCCAL VACCINE Aged Out No longer eligible based on patient's age to complete this to pic PNEUMOCOCCAL 0-64 YEARS Aged Out No longe r eligible based COMBINED SERIES on patient's age to complete this to pic documented as of this encounter Results Not on filedocumented in this encounter Visit Diagnoses Diagnosis Supervision of high risk in se cond trimester Unspecified high-risk screening for malformation usi ng ultrasonics Encounter for routine screening for malf ormation using ultrasonics Encounter for screening for risk of pre- term labor documented in this encounter Insurance Payer Benefit Plan / Subscriber ID Effective Phone Address [facility] [id number] 2020-Prese P[address]O. BOX Medic aid HEALTH CHOICE - HEALTH CHOICE nt [id number] 1 MANAGED MEDICAID [place] MEDICAID [phone] documented as of this encounter
--- OUTSIDE RECORDS SUMMARY | 2020-09-10 15:34 | XMS REPORT | Summary of Care ---
:1999 Author Organization [facility] Address [address] [place] [address] Care Team Providers Name Role Phone Lucy Quezada Primary Care Provider Reason for Visit Reason Comments ROUTINE VISIT Encounter Details Date Type Department Care Team Description 08/10/2020 Routine [facility]- Johnna Portillo upervision of high risk in second trimester (Primary Dx); Visit Rose R, ROSS FURNACE OPERATOR Primigravida in second trimester; [address] [place] [address] Elevated blood pressure reading without diagnosis of hypertension; [address] [place] Nausea and vomiting in prior t o 22 weeks gestation; [place], [place] Over weight [phone] [phone] Allergies No Known Allergiesdocumented as of this encounter (statuses as of 08/10/2020) Medications Medication Sig Dispensed Refills Start Date End Date Status vit Take 1 Packet by 30 Each 6 04/19/2020 Active 18-wkca-unlst-dha mouth daily. (SELECT-OB + DHA) 29 mg iron-1 mg -250 mg combo packIndications: Supervision of high risk in first trimester documented as of this encounter (statuses as of 08/10/2020) Active Problems Problem Noted Date Nausea and [...] as of this encounter (statuses as of 08/10/2020) Immunizations Name Administration Dates Next Due Influenza [...] been in contact with No / Unsure 08/10/2020 11:14 AM DENTAL APPLIANCE MECHANIC someone who was confirmed or suspected to have Coronavirus / COVID-19? documented as of this encounter Last Filed Vital Signs Vital Sign Reading Time Taken Comments Blood Pressure 143/91 08/10/2020 11:16 AM DENTAL APPLIANCE MECHANIC Pulse 56 08/10/2020 11:15 AM DENTAL APPLIANCE MECHANIC Temperature 36.8 C (98.2 F) 08/10/2020 11:15 AM DENTAL APPLIANCE MECHANIC Respiratory Rate 16 08/10/2020 11:15 AM DENTAL APPLIANCE MECHANIC Oxygen Saturation - - Inhaled Oxygen Concentration - - Weight 79.1 kg (174 lb 4.8 oz) 08/10/2020 11:15 AM DENTAL APPLIANCE MECHANIC Height 157.5 cm (5' 2") 08/10/2020 11:15 AM DENTAL APPLIANCE MECHANIC Body Mass Index 31.88 08/10/2020 11:15 AM DENTAL APPLIANCE MECHANIC documented in this encounter Progress Notes Johnna Portillo, TC - 08/10/2020 11:00 AM CST Chief complaint: Chief Complaint Patient presents with ROUTINE VISIT HPI CC: Follow Up Visit Tea Collazo is a 20 year old, , Black or , /White female. Patient's last menstrual period was 02/28/2020 (approximate). She is 24w4d with an intrauterine . Her estimated date [...] file Gets together: Not on file Attends sabianist service: Not on file Active member of [...] control/protection: None Comment: Last intercourse: 03/10/2020 Labs No new labs Radiology No new radiology. Allergies Tea has No Known Allergies. Medications Tea has a current medication list which includes the following prescription(s): vit 58-buly-ednpu-dha. Review of Systems Eyes: Negative for visual disturbance. Cardiovascular: Negative for leg swelling. Gastrointestinal: Negative for abdominal pain, nausea and vomiting. Genitourinary: Negative for vaginal bleeding, vaginal discharge and pelvic pain. Neurological: Negative for headaches. BP (!) 143/91 (BP Location: Right arm, Patient Position: Sitting, BP CUFF SIZE: Adult Medium) | Pulse 56 | Temp 36.8 C (98.2 F) (Oral) | Resp 16 | Ht 5' 2" (1.575 m) | Wt 174 lb 4.8 oz (79.1 kg) | LMP 02/28/2020 (Approximate) | BMI 31.88 kg/m Pregravid BMI: 26.51 Physical Exam PHYSICAL: General Exam: Neurological: Normal Abdomen: Normal Extremities: Normal Pelvic Exam: Uterus: 22cm Weeks Assessment/Plan Supervision of high risk in second trimester (primary encounter diagnosis) Primigravida in second trimester Comment: Routine Visit Plan: POCT URINALYSIS W SPECIFIC GRAVITY, Glucose 1 Hour Post Prandial, CBC with Differential Denies zika virus risk, signs and symptoms such as fever,rash,joint pain, conjunctivitis (red eyes), muscle pain, headaches; outside [place] travel to areas affected by zika, and FOB exposure to zika.Educated on use of mosquito repellent. Covid x12 screening done, screening results are negative. Elevated blood pressure reading without diagnosis of hypertension Comment: elavated blood pressure x2, patient denies PIH symptoms Plan: consult with RICCI Baxter continue to monitor Nausea and vomiting in prior to 22 weeks gestation Comment: resolved Plan: will continue to monitor Over weight Comment: BMI: 31.88 Plan: Patient encouraged to limit weight gain and advised to eat healthy diet, fruits, vegetables, increased fiber and water intake and protein low in fat. Encouraged exercise for 30 min everyday; begin regimen with caution to prevent injury. Encouraged to decrease BMI to <25. Patient educated onthe effects of chronic health problems of obesity on future pregnancies and/or jail health. Return to clinic in 2 weeks. Discussed treatment options. Medications as ordered. Reviewed patient instructions and provided printed copy. This visit did not involve counseling and coordination that comprised more than 50% of the visit time. TC Parker 08/10/2020 11:26 AM AL APPLIANCE MECHANIC documented in this encounter Plan of Treatment Name Type Priority Associated Diagnoses Order S chedule Glucose 1 Hour Post LAB Routine Supervision of high r isk Expected: 08/10/2020, Prandial in second Expires: 08/10/2021 trimester CBC with Differential LAB Routine Supervision of high risk Expected: 08/10/2020, in second Expires: 08/10/2021 trimester Health Maintenance Due Date Last Done Comments [...] Associated Diagnosis Comme nts POCT URINALYSIS Routine 08/10/2020 Supervision of high risk Results for this in second procedur e are in the trimester results section . documented in this encounter Results POCT URINALYSIS W SPECIFIC GRAVITY (08/10/2020) Pathologist Sig nature POCT U SP GRAV [...] gravidarum, unspecified as to episode of care Over weight Overweight documented in this encounter Insurance Payer Benefit Plan / Subscriber ID Effective Phone Address [facility] [id number] 2020-Prese P[address]O. BOX Medic aid HEALTH CHOICE - [employer] nt [id number] 1 MANAGED MEDICAID [place], [place] MEDICAID [phone] documented as of this encounter
--- OUTSIDE RECORDS SUMMARY | 2020-09-10 15:34 | XMS REPORT | Summary of Care ---
:1999 Author Organization [facility] Address [address] [place] [address] Care Team Providers Name Role Phone Lucy Quezada Primary Care Provider Reason for Visit Reason Comments Assessment Encounter Details Date Type Department Care Team Description 06/28/2020 Telephone [facility]- A Lucy Hernandez Assessment [address] [place] [address] [place], [place] [phone] [address] Allergies No Known Allergiesdocumented as of this encounter (statuses as of 06/28/2020) Medications Medication Sig Dispensed Refills Start Date End Date Status vit Take 1 Packet by 30 Each 6 04/19/2020 Active 14-xpvb-sswdy-dha mouth daily. (SELECT-OB + DHA) 29 mg iron-1 mg -250 mg combo packIndications: Supervision of high risk in first trimester documented as of this encounter (statuses as of 06/28/2020) Active Problems Problem Noted Date Nausea and [...] as of this encounter (statuses as of 06/28/2020) Social History Tobacco Use Types Packs/Day Years [...] Signs Not on filedocumented in this encounter Miscellaneous Notes Telephone Encounter - Yoly Vides LVN - 06/28/2020 3:54 PM CDBETTYjudy Collazo is a 20 year old female Patient stated she went to [facility] for headache and congestion. Stated she was tested for flu and covid-19 and that flu was negative. Stated she is waiting on her results for covid-19. Stated she is not able to smell at this time either. Referred patient to safe medication list and advised to treat symptoms, ER warnings given, verbalized understanding. elephone Encounter - Andrew Hilario - 06/28/2020 1:35 PM CDPierremagen Collazo is a 20 year old female 18 weeks headache Congestion headache x 1 day documented in this encounter Plan of Treatment Date Type Specialty Care Team Description 07/11/2020 Refrigeration Systems Installer Visit Maternal Medicine 07/13/2020 Routine Visit OB Satellites Johnna Portillo, FITTINGS TIGHTENER [address] [place], [place] [address] [phone] Health Maintenance Due Date Last Done Comments [...] ID Effective Phone Address T e [facility] [id number] 2020-Prese P[address]O. BOX Medic aid HEALTH CHOICE - HEALTH CHOICE nt [id number] 1 [facility] MEDICAID [place], [place] MEDICAID [phone] documented as of this encounter
--- OUTSIDE RECORDS SUMMARY | 2020-09-10 15:34 | XMS REPORT | Summary of Care ---
:1999 Author Organization [facility] Address [address] [place] [address] Care Team Providers Name Role Phone Damien, Lucy Isabelle Primary Care Provider Encounter Details Date Type Department Care Team Description 07/11/2020 Abstract [facility] RMCHP- A Johnna Ochoa, VICE PRESIDENT OF FINANCE [address] [facility] [address] [place] [address]55 [place] [address] [phone] Allergies No Known Allergiesdocumented as of this encounter (statuses as of 07/11/2020) Medications Medication Sig Dispensed Refills Start Date End Date Status vit Take 1 Packet by 30 Each 6 04/19/2020 Active 46-dqvu-auduj-dha mouth daily. (SELECT-OB + DHA) 29 mg [...] 07/13/2020 Routine Visit OB Satellites Fany Portillo, VICE PRESIDENT OF FINANCE [address] [address] [phone] Health Maintenance Due Date Last Done Comments [...] on patient's age to complete this to [facility] PNEUMOCOCCAL 0-64 YEARS Aged Out No longe r eligible based COMBINED SERIES on patient's age to complete this to pic documented as of this encounter Results Not on filedocumented in this encounter Insurance Payer Benefit Plan / Subscriber ID Effective Phone Address T [facility] [id number] 2020-Pamela [address] BOX Medic aid HEALTH CHOICE - HEALTH CHOICE nt [id number] 1 MANAGED MEDICAID [place], [place] [phone] documented as of this encounter
--- OUTSIDE RECORDS SUMMARY | 2020-09-10 15:34 | XMS REPORT | Summary of Care ---
:1999 Author Organization [facility] Address [address] [place] [address] Care Team Providers Name Role Phone Damien Lucy Walton Primary Care Provider Reason for Visit Reason Comments LAB Encounter Details Date Type Department Care Team Description 08/29/2020 Ice Skating Teacher Visit [facility]- Leslye Portillo, HOOP PUNCH AND COILER OPERATOR HELPER [address] [place], [place] [id number] Supervision of [facility] risk in [address] [place] [phone] Allergies No Known Allergiesdocumented as of this encounter (statuses as of 08/29/2020) Medications Medication Sig Dispensed Refills Start Date End Date Status vit Take 1 Packet by 30 Each 6 04/19/2020 Active 65-ojhw-xxecf-dha mouth daily. (SELECT-OB + DHA) 29 mg [...] with No / Unsure 08/29/2020 8:59 AM HYPERTRICHOLOGIST someone who was confirmed or suspected to have Coronavirus / COVID-19? documented as of this encounter Last Filed Vital Signs Not on filedocumented in this encounter Plan of Treatment Date Type Specialty Care Team Description 09/07/2020 Routine Visit OB Satellites Fany Portillo, HOOP PUNCH AND COILER OPERATOR HELPER [address] [place] [address] [phone] Health Maintenance Due Date Last Done Comments [...] / Subscriber ID Effective Phone Address T [facility] [id number] 2020-Prese P[address]O. BOX Medic aid HEALTH CHOICE - HEALTH CHOICE nt [id number] 1 MANAGED MEDICAID [place] [phone] documented as of this encounter
--- OUTSIDE RECORDS SUMMARY | 2020-09-10 15:34 | XMS REPORT | Summary of Care ---
:1999 Author Organization [facility] Address [address] [place] [address] Care Team Providers Name Role Phone Lucy Quezada Primary Care Provider Reason for Visit Reason Comments ROUTINE VISIT Encounter Details Date Type Department Care Team Description 08/10/2020 Routine [facility]- Johnna Portillo upervision of high risk in second trimester (Primary Dx); Visit Rose R, PROCESS CONTROLLER Primigravida in second trimester; [address] Elevated blood pressure reading without diagnosis of hypertension; [address] Nausea and vomiting in prior t o 22 weeks gestation; [place], [place] Over weight [id number] [phone] Allergies No Known Allergiesdocumented as of this encounter (statuses as of 08/10/2020) Medications Medication Sig Dispensed Refills Start Date End Date Status vit Take 1 Packet by 30 Each 6 04/19/2020 Active 20-rxue-tadej-dha mouth daily. (SELECT-OB + DHA) 29 mg [...] with No / Unsure 08/10/2020 11:14 AM PARKING METER COLLECTOR someone who was confirmed or suspected to have Coronavirus / COVID-19? documented as of this encounter Last Filed Vital Signs Vital Sign Reading Time Taken Comments Blood Pressure 143/91 08/10/2020 11:16 AM PARKING METER COLLECTOR Pulse 56 08/10/2020 11:15 AM PARKING METER COLLECTOR Temperature 36.8 C (98.2 F) 08/10/2020 11:15 AM PARKING METER COLLECTOR Respiratory Rate 16 08/10/2020 11:15 AM PARKING METER COLLECTOR Oxygen Saturation - - Inhaled Oxygen Concentration - - Weight 79.1 kg (174 lb 4.8 oz) 08/10/2020 11:15 AM PARKING METER COLLECTOR Height 157.5 cm (5' 2") 08/10/2020 11:15 AM PARKING METER COLLECTOR Body Mass Index 31.88 08/10/2020 11:15 AM PARKING METER COLLECTOR documented in this encounter Progress Notes Johnna [...] file Gets together: Not on file Attends anglican service: Not on file Active member of [...] list which includes the following prescription(s): vit 19-tvhp-pypsn-dha. Review of Systems Eyes: Negative for visual [...] problems of obesity on future pregnancies and/or chcf health. Return to clinic in 2 weeks. Discussed treatment options. Medications as ordered. Reviewed patient instructions and provided printed copy. This visit did not involve counseling and coordination that comprised more than 50% of the visit time. TC Parker 08/10/2020 11:26 AM ING METER COLLECTOR documented in this encounter Plan of Treatment [...] ID Effective Phone Address T ype Group [facility] [id number] 2020-Prese [address] Medic aid HEALTH CHOICE - HEALTH [employer] nt [id number] 1 MANAGED MEDICAID [place], [place] MEDICAID [phone] documented as of this encounter
--- OUTSIDE RECORDS SUMMARY | 2020-09-10 15:34 | XMS REPORT | Summary of Care ---
:1999 Author Organization [facility] Address [address] [place] [address] Care Team Providers Name Role Phone Lucy Quezada Primary Care Provider Reason for Visit Reason Comments ROUTINE VISIT Encounter Details Date Type Department Care Team Description 08/24/2020 Routine [facility]- Johnna Portillo upervision of high risk in second trimester (Primary Dx); Visit Rose R, CRYSTALIZER OPERATOR Primigravida in second trimester; [address] Elevated blood pressure reading without diagnosis of hypertension; [address] [place] [address] [phone] Allergies No Known Allergiesdocumented as of this encounter (statuses as of 08/24/2020) Medications Medication Sig Dispensed Refills Start Date End Date Status vit Take 1 Packet by 30 Each 6 04/19/2020 Active 36-smne-xatcm-dha mouth daily. (SELECT-OB + DHA) 29 mg iron-1 mg -250 mg combo packIndications: Supervision of high risk in first trimester documented as of this encounter (statuses as of 08/24/2020) Active Problems Problem Noted Date Obesity in 08/24/2020 Nausea and vomiting in prior to [...] as of this encounter (statuses as of 08/24/2020) Immunizations Name Administration Dates Next Due Influenza [...] been in contact with No / Unsure 08/24/2020 11:06 AM ACCOUNT INSTALLER someone who was confirmed or suspected to have Coronavirus / COVID-19? documented as of this encounter Last Filed Vital Signs Vital Sign Reading Time Taken Comments Blood Pressure 154/100 08/24/2020 11:07 AM ACCOUNT INSTALLER Pulse 97 08/24/2020 11:06 AM ACCOUNT INSTALLER Temperature 36.3 C (97.4 F) 08/24/2020 11:06 AM ACCOUNT INSTALLER Respiratory Rate 16 08/24/2020 11:06 AM ACCOUNT INSTALLER Oxygen Saturation - - Inhaled Oxygen Concentration - - Weight 82.3 kg (181 lb 8 oz) 08/24/2020 11:06 AM ACCOUNT INSTALLER Height 160 cm (5' 3") 08/24/2020 11:06 AM ACCOUNT INSTALLER Body Mass Index 32.15 08/24/2020 11:06 AM ACCOUNT INSTALLER documented in this encounter Progress Notes Johnna Portillo, CRYSTALIZER OPERATOR - 08/24/2020 11:00 AM CST Chief complaint: Chief Complaint Patient presents with ROUTINE VISIT HPI CC: Follow Up Visit Tea Collazo is a 20 year old, , Black or , /White female. Patient's last menstrual period was 02/28/2020 (approximate). She is 26w4d with an intrauterine . Her estimated date [...] file Gets together: Not on file Attends church service: Not on file Active member of [...] list which includes the following prescription(s): vit 94-gmbm-zrdzx-dha. Review of Systems BP (!) 154/100 (BP Location: Right arm, Patient Position: Sitting, BP CUFF SIZE: Adult Medium) | Pulse 97 | Temp 36.3 C (97.4 F) (Oral) | Resp 16 | Ht 5' 3" (1.6 m) | Wt 181 lb 8 oz (82.3 kg)| LMP 02/28/2020 (Approximate) | BMI 32.15 kg/m Pregravid BMI: 25.69 Physical Exam PHYSICAL: General Exam: Neurological: Normal Abdomen: Normal Extremities: Normal Pelvic Exam: Uterus: 26cm Weeks Assessment/Plan Supervision of high risk in second trimester (primary encounter diagnosis) Primigravida in second trimester Comment: Routine Parental Visit Plan: Glucose 1 Hour Post Prandial, CBC with Differential, POCT URINALYSIS W SPECIFIC GRAVITY Denies zika virus risk, signs and symptoms such as fever,rash,joint pain, conjunctivitis (red eyes), muscle pain, headaches; outside [place] travel to areas affected by zika, and FOB exposure to zika.Educated on use of mosquito repellent. Covid x12 screening done, screening results are negative. Elevated blood pressure reading without diagnosis of hypertension Comment: elevated blood pressure x3, no symptoms Plan: Report called for [facility] Labor and Delivery at 1130 report given to Kelsey for [facility] evaluation Obesity in Comment: BMI: 32.15 Plan: Patient encouraged to limit weight gain and advised to eat healthy diet, fruits, vegetables, increased fiber and water intake and protein low in fat. Encouraged exercise for 30 min everyday; begin regimen with caution to prevent injury. Encouraged to decrease BMI to <25. Patient educated onthe effects of chronic health problems of obesity on future pregnancies and/or oysterman health. Return to clinic in 2 weeks. Discussed treatment options. Medications as ordered. Reviewed patient instructions and provided printed copy. This visit did not involve counseling and coordination that comprised more than 50% of the visit time. TC Parker 08/24/2020 1:30 PM UNT INSTALLER documented in this encounter Plan of Treatment Date Type Specialty Care Team Description 08/29/2020 Copier And Printer Field Technician Visit [facility], [facility] 09/07/2020 Routine Visit [facility]ellites Fany Portillo FNP [address] [place], [place] [address] [phone] Name Type Priority Associated Diagnoses Date/Ti me GC & CHLAMYDIA AMPLIFIED LAB Routine 11:07 AM ACCOUNT INSTALLER ASSAY Health Maintenance Due Date Last Done Comments [...] on patient's age to complete this to [facility] PNEUMOCOCCAL 0-64 YEARS Aged Out No longe r eligible based COMBINED SERIES on patient's age to complete this to [facility] documented as of this encounter Procedures Procedure Name Priority Date/Time Associated Diagnosis Comme nts POCT URINALYSIS Routine 08/24/2020 Supervision of high risk Results for this in second procedur e are in the trimester results section . documented in this encounter Results POCT URINALYSIS W SPECIFIC GRAVITY (08/24/2020) Pathologist Sig nature POCT U SP GRAV . 1.005 - 1.025 mg/dl POCT PH U . 5 - 8 mg/dl POCT U LEUK EST . Negative - Negative POCT U NIT . Negative - Negative POCT U PROT trace Negative - Negative POCT U GLU Neg Negative - Negative POCT U KETONE . [...] blood pressure reading without diagnosis of hypertension Obesity in Obesity complicating , childbir th, or the puerperium, unspecified as to episode of care or not applicable documented in this encounter Insurance Payer Benefit Plan / Subscriber ID Effective Phone Address T ype Group Dates [facility] [id number] 2020-Pamela [address] Medic aid HEALTH CHOICE - HEALTH [employer] nt [phone] 1 MANAGED MEDICAID [place], [place]ICAID [phone] documented as of this encounter
--- OUTSIDE RECORDS SUMMARY | 2020-09-10 15:34 | XMS REPORT | Summary of Care ---
:1999 Author Organization [facility] Address [address] [place] [address] Care Team Providers Name Role Phone Lucy Quezada Primary Care Provider Encounter Details Date Type Department Care Team Description 08/24/2020 Hospital Encounter Labor and Delivery Dread Rowe 26 weeks gestation ([id number] Terarzas MD of [address] [place] [address] [place] [address] [place] [address] [phone] Allergies No Known Allergiesdocumented as of this encounter (statuses as of 08/24/2020) Medications Medication Sig Dispensed Refills Start Date End Date Status vit Take 1 Packet by 30 Each 6 04/19/2020 Active 79-jood-slokl-dha mouth daily. (SELECT-OB + DHA) 29 mg [...] in contact with No / Unsure 08/24/2020 2:09 PM EVENT COORDINATOR someone who was confirmed or suspected to have Coronavirus / COVID-19? documented as of this encounter Last Filed Vital Signs Vital Sign Reading Time Taken Comments Blood Pressure 151/90 08/24/2020 5:30 PM EVENT COORDINATOR Pulse 53 08/24/2020 5:30 PM EVENT COORDINATOR Temperature 36.7 C (98 F) 08/24/2020 2:47 PM EVENT COORDINATOR Respiratory Rate 20 08/24/2020 5:00 PM EVENT COORDINATOR Oxygen Saturation 100% 08/24/2020 5:30 PM EVENT COORDINATOR Inhaled Oxygen Concentration - - Weight - - Height - - Body Mass Index - - documented in this encounter Plan of Treatment Date Type Specialty Care Team Description 08/29/2020 Pump Tester Visit [facility], [facility] 09/07/2020 Routine Visit [facility] Fany Portillo, REFRIGERATION MECHANIC [address] [place] [address] [phone] Name Type Priority Associated Diagnoses Date/Ti me LAB ONLY COVID LAB Routine 08/24/2020 2 :36 PM INTERPRETATION EVENT COORDINATOR Name Type Priority Associated Diagnoses Order S chedule LAB ONLY COVID LAB ALFA ONCE for 1 Oc currences INTERPRETATION starting 08/06 until 0, 1 completed Health Maintenance Due Date Last Done Comments [...] encounter Procedures Procedure Name Priority Date/Time Associated Comments Diagnosis PROTEIN CREAT RATIO STAT 08/24/2020 3:01 Resu lts for this URINE RANDOM PM EVENT COORDINATOR procedure are i n the results section. URINALYSIS STAT 08/24/2020 3:01 Results for this PM EVENT COORDINATOR procedure are i n the results section. CBC WITH DIFF STAT 08/24/2020 3:01 Results fo r this PM EVENT COORDINATOR procedure are i n the results section. URIC ACID STAT 08/24/2020 3:01 Results for this PM EVENT COORDINATOR procedure are i n the results section. LACTATE DEHYDROGENASE STAT 08/24/2020 3:01 Re sults for this PM EVENT COORDINATOR procedure are i n the results section. ALANINE AMINO STAT 08/24/2020 3:01 Results fo r this TRANSFERASE(SGPT PM EVENT COORDINATOR procedure a re in the results section. CREATININE STAT 08/24/2020 3:01 Results for this PM EVENT COORDINATOR procedure are i n the results section. SGOT (ASPARTATE AMINO STAT 08/24/2020 3:01 Re sults for this TRANSFER) PM EVENT COORDINATOR procedure are i n the results section. COVID-19 (ID NOW RAPID ALFA 08/24/2020 2:36 R esults for this TESTING) PM EVENT COORDINATOR procedure are i n the results section. documented in this encounter Results Urinalysis (08/24/2020 3:01 PM EVENT COORDINATOR) APPEARANCE Hazy (A) Clear [facility] COLOR Yellow Yellow [facility] PH 6.0 4.8 - 8.0 [facility] SP GRAVITY 1.008 1.003 - 1.030 [facility] GLU U QUAL Normal Normal [facility] BLOOD NegativeComment: Negative [facility] Interference from SERVICES ascorbic acid may cause false negative results. KETONES Negative Negative [facility] PROTEIN Negative Negative [facility] UROBILIN Normal Normal [facility] BILIRUBIN Negative Negative [facility] NITRITE Negative Negative [facility] LEUK FAM 75/uL (A) Negative [facility] RBC/HPF 2 0 - [address] [facility] WBC/HPF 1 0 - [address] [facility] BACTERIA Negative Negative [facility] SQ EPITH 8 (H) <=[address] [facility] ASCORBIC ACID 20 mg/dL [facility] Specimen Urine - URINE, CLEAN CATCH Performing Organization Address City/[facility] Phone Number [facility] CLIA: [id number] [place] [address] [place] [address] Lactate Dehydrogenase (08/24/2020 3:01 PM EVENT COORDINATOR) Pathologist Sig nature LDH 411 300 - 600 U/L [facility] Specimen Blood - VENOUS Performing Organization Address [facility] Phone Number [facility] CLIA: [id number] [place] [address] [place] [address] Alanine Amino Transferase (SGPT) (08/24/2020 3:01 PM EVENT COORDINATOR) Pathologist Sig nature ALTv 16 5 - 35 U/L [facility] Specimen Blood - VENOUS Performing Organization Address [facility] Phone Number [facility] CLIA: [id number] [place] [address] [place] [address] SGOT (Asparate Amino Transfer) (08/24/2020 3:01 PM EVENT COORDINATOR) Pathologist Sig nature AST(SGOT) 20 13 - 40 U/L [facility] Specimen Blood - VENOUS Performing Organization Address [facility]/Zipcode Phone Number [facility] CLIA: [id number] [place] [address] [place] [address] Serum Creatinine (08/24/2020 3:01 PM EVENT COORDINATOR) Coby bhatia CREATININE 0.72 0.50 - 1.04 [facility] mg/dL SERVICES eGFR Calculation 102.3 mL/min/1.73m2 [facility] (Non-) SERVICES eGFR Calculation 123.9 mL/min/1.73m2 [facility] () SERVICES Specimen Blood - VENOUS Narrative Performed At Association of Glomerular Filtration Rate (GFR) and St aging [facility] of Kidney Disease* + + +------- ------ + | GFR (mL/min/1.73 m2) | With Kidney Damage | Wi thout Kidney Damage + + +------- ------ + | >90 | Stage one | Normal + + +------- ------ + | 60-89 | Stage two | Decreased GFR + + +------- ------ + | 30-59 | Stage three | Stage three + + +------- ------ + | 15-29 | Stage four | Stage four + + +------- ------ + | <15 (or dialysis) | Stage five | Stage five + + +------- ------ + *Each stage assumes the associated GFR level has been in effect for at least three months. Stages 1 to 5, wit h or without kidney disease, indicate chronic kidney disease. Notes: Determination of stages one and two (with eGFR >59mL/min/1.73 m2) requires estimation of kidney damag e for at least three months as defined by structural or func tional abnormalities of the kidney, manifested by either: Pathological abnormalities or Markers of kidney damage (including abnormalities in the composition of the blo od or urine or abnormalities in imaging tests) . Performing Organization Address City/[facility] Phone Number [facility] CLIA: [id number] [place], [place] [address] [address] [place] [address] Protein CREAT Ratio Urine Random (08/24/2020 3:01 PM EVENT COORDINATOR) Pathologist Herman Gonzalez PROT U 11 mg/dL [facility] CREAT U 70.5 mg/dL [facility] Protein/Creatinine 0.2 0.0 - 2.0 [facility]IC ES Ratio Urine Specimen Urine - URINE, CLEAN CATCH Performing Organization Address [facility]/Zipcode Phone Number [facility] CLIA: [id number] [place] [address] [place] [address] Uric Acid Serum (08/24/2020 3:01 PM EVENT COORDINATOR) Pathologist Sig nature URIC ACID 6.5 (H) 2.9 - 6.0 mg/dL [facility] Specimen Blood - VENOUS Performing Organization Address City/State/Zipcode Phone Number [facility] CLIA: [id number] [place] [address] [place] [address] CBC with Differential (08/24/2020 3:01 PM EVENT COORDINATOR) Pathologist Sig nature WBC 11.56 (H) 4.30 - 11.10 [facility] 10*3/L SERVICES RBC 3.83 (L) 3.93 - 5.25 [facility] 10*6/L SERVICES HGB 11.8 11.6 - 15.0 [facility] g/dL SERVICES HCT 34.4 (L) 35.7 - 45.2 % [facility] MCV 89.8 80.6 - 95.5 fL [facility] MCH 30.8 25.9 - 32.8 pg [facility] MCHC 34.3 31.6 - 35.1 [facility] g/dL SERVICES RDW-SD 39.3 39.0 - 49.9 fL [facility] RDW-CV 12.0 12.0 - 15.5 % [facility] PLT 270 166 - 358 [facility] 10*3/L SERVICES MPV 10.6 9.5 - 12.9 fL [facility] NRBC/100 WBC 0.0 0.0 - 10.0 /100 [facility] WBCs SERVICES NRBC x10^3 <0.01 10*3/L [facility] GRAN MAT (NEUT) % 72.7 % [facility] IMM GRAN % 0.50 % [facility] LYMPH % 17.6 % [facility] MONO % 8.4 % [facility] EOS % 0.6 % [facility] BASO % 0.2 % [facility] GRAN MAT x10^3(ANC) 8.41 (H) 1.88 - 7.09 [facility] 10*3/uL SERVICES IMM GRAN x10^3 0.06 0.00 - 0.06 [facility] 10*3/uL SERVICES LYMPH x10^3 2.03 1.32 - 3.29 [facility] 10*3/uL SERVICES MONO x10^3 0.97 (H) 0.33 - 0.92 [facility] 10*3/uL SERVICES EOS x10^3 0.07 0.03 - 0.39 [facility] 10*3/uL SERVICES BASO x10^3 <0.03 0.01 - 0.07 [facility] 10*3/uL SERVICES Specimen Blood - VENOUS Performing Organization Address City/State/Zipcode Phone Number [facility] CLIA: [id number] [place] [address] [place] [address] COVID-19 (ID NOW RAPID TESTING) (08/24/2020 2:36 PM EVENT COORDINATOR) SARS-CoV-2 Rapid ID Positive (A) Not Detected [facility] NOW SERVICES Specimen Swab - NASOPHARYNGEAL SWAB Narrative Performed At [place] [facility] COVID-19 Assay is an isothermal nucleic acid [facility]OR[facility] SERVICES amplification test intended for the qualitative detect ion of nucleic acid from SARS-CoV-2 viral RNA in nasopharynge al (CAUSTIC PURIFICATION OPERATOR) specimens. It is used under Emergency Use Authori zation (EUA) by FDA. The limit of detection (LOD) of the assa y is 125 Genome Equivalents/mL. A positive result is indicative of the presence of SARS-CoV-2 RNA. Clinical correlation with patient hi story and other diagnostic information is necessary to deter mine patient infection status. A negative (Not Detected) result does not preclude SARS-CoV-2 infection. In patients with clinical sympto ms and other tests that are consistent with SARS-CoV-2 infect ion, negative results should be treated as presumptive nega tive and a new specimen should be tested with alternative P CR molecular test. Invalid: Please collect a new specimen for repeat javier ent testing if clinically indicated. Performing Organization Address City/State/Zipcode Phone Number [facility] CLIA: [id number] [place] [address] [place] [address] documented in this encounter Visit Diagnoses Diagnosis 26 weeks gestation of state, incidental Obesity in Obesity complicating , childbir th, or the puerperium, unspecified as to episode of care or not applicable Chronic hypertension in obstetric contex t in second trimester COVID-19 virus infection documented in this encounter Additional Health Concerns Infection Onset Date Last Indicated Resolved Time COVID-19 Rule Out 08/24/2020 08/24/2020 08/24/2020 3: 09 PM EVENT COORDINATOR COVID-19 Confirmed 08/24/2020 08/24/2020 documented as of this encounter Insurance Payer Benefit Plan / Subscriber ID Effective Phone Address T ype Group Dates [facility] [id number] 2020-Prese [address] Medic aid HEALTH CHOICE - HEALTH CHOICE nt [id number] 1 MANAGED MEDICAID [place], [place] MEDICAID [phone] documented as of this encounter"
--- OUTSIDE RECORDS SUMMARY | 2020-09-10 15:35 | XMS REPORT | Summary of Care ---
:2000 Author Organization [facility] Address [address] [place] [id number] Care Team Providers Name Role Phone Lucy Quezada Primary Care Provider Reason for Visit Reason Comments ROUTINE VISIT Encounter Details Date Type Department Care Team Description 09/07/2020 Routine [facility]- Johnna Portillo upervision of high risk in third trimester (Primary Dx); Visit Rose R, FOSTER WINDER Primigravida in third trimester; [address] [place] [address] Elevated blood pressure reading without diagnosis of hypertension; [address] [place] Need for Tdap vaccination; [place], [place] Obesity in preg [place] [id number] [phone] Allergies No Known Allergiesdocumented as of this encounter (statuses as of 09/07/2020) Medications Medication Sig Dispensed Refills Start Date End Date Status vit Take 1 Packet by 30 Each 6 04/19/2020 Active 31-ihmk-ilird-dha mouth daily. (SELECT-OB + DHA) 29 mg iron-1 mg -250 mg combo packIndications: Supervision of high risk in first trimester documented as of this encounter (statuses as of 09/07/2020) Active Problems Problem Noted Date Need for Tdap vaccination 09/07/2020 Obesity in 08/24/2020 26 weeks gestation of [...] as of this encounter (statuses as of 09/07/2020) Immunizations Name Administration Dates Next Due Influenza Virus Vaccine Quad .5 mL IM 6+ MO 07/13/2020 TDAP 09/07/2020 documented as of this encounter Social History [...] been in contact with No / Unsure 09/07/2020 9:06 AM EXTENSION SERVICE SPECIALIST someone who was confirmed or suspected to have Coronavirus / COVID-19? documented as of this encounter Last Filed Vital Signs Vital Sign Reading Time Taken Comments Blood Pressure 180/100 09/07/2020 9:46 AM EXTENSION SERVICE SPECIALIST Pulse 108 09/07/2020 9:07 AM EXTENSION SERVICE SPECIALIST Temperature 35.8 C (96.4 F) 09/07/2020 9:07 AM EXTENSION SERVICE SPECIALIST Respiratory Rate 16 09/07/2020 9:07 AM EXTENSION SERVICE SPECIALIST Oxygen Saturation - - Inhaled Oxygen Concentration - - Weight 86.4 kg (190 lb 8 oz) 09/07/2020 9:07 AM EXTENSION SERVICE SPECIALIST Height 160 cm (5' 3") 09/07/2020 9:07 AM EXTENSION SERVICE SPECIALIST Body Mass Index 33.75 09/07/2020 9:07 AM EXTENSION SERVICE SPECIALIST documented in this encounter Progress Notes Pippa Thakur RN - 09/07/2020 8:45 AM CSTPatient provided with 28 weeks packet; stressed the importance of the kick count of 10 x within 2 hours; patient verbalized understanding. Tdap given IM to right deltoid per aseptic tech; site massaged; band-aid applied; tolerated well; VIS given and reviewed with patient at this time. Shared decision plan completed today. Reviewed s/s of labor. PHQ2 done at this time. Patient denies any complications at this time. Johnna Lara FNP - 09/07/2020 8:45 AM CST Chief complaint: Chief Complaint Patient presents with ROUTINE VISIT HPI CC: Follow Up Visit Tea Collazo is a 20 year old, , Black or , /White female. Patient's last menstrual period was 02/28/2020 (approximate). She is 28w4d with an intrauterine . Her estimated date of delivery is 11/26/2020, by Ultrasound. She has no complaints today. She reports +FMand denies contractions, LOF and bleeding today. Will review labs and f/u as needed. OB/ER, PIH, PTL and movement precautions given. Patient denies current or past physical, sexual [...] file Gets together: Not on file Attends mosque service: Not on file Active member of [...] list which includes the following prescription(s): vit 86-qsqe-pcqor-dha. Review of Systems Eyes: Negative for visual disturbance. Cardiovascular: Negative for leg swelling. Gastrointestinal: Negative for abdominal pain, nausea and vomiting. Genitourinary: Negative for vaginal bleeding, vaginal discharge and pelvic pain. Neurological: Negative for headaches. BP (!) 179/113 (BP Location: Right arm, Patient Position: Sitting, BP CUFF SIZE: Adult Medium) | Pulse 108 | Temp 35.8 C (96.4 F) (Oral) | Resp 16 | Ht 5' 3" (1.6 m) | Wt 190 lb 8 oz (86.4 kg) | LMP 02/28/2020 (Approximate) | BMI 33.75 kg/m Pregravid BMI: 25.69 Physical Exam PHYSICAL: General Exam: Neurological: Normal Abdomen: Normal Extremities: Normal Pelvic Exam: Uterus: 28cm Weeks Assessment/Plan Supervision of high risk in third trimester (primary encounter diagnosis) Primigravida in third trimester Comment: Routine Visit Plan: CBC with Differential, HIV 1/2 AG-AB WITH REFLEX, GALV ONLY - SYPHILIS IGG/IGM, Glycosylated Hemoglobin (A1C), Glucose 1 Hour Post Prandial, POCT URINALYSIS W SPECIFIC GRAVITY, CBC with Differential, GALV ONLY - SYPHILIS IGG/IGM, Glucose 1 Hour Post Prandial, CANCELED: Glucose 1 Hour Post Prandial Denies zika virus risk, signs and symptoms such as fever,rash,joint pain, conjunctivitis (red eyes), muscle pain, headaches; outside [place] travel to areas affected by zika, and FOB exposure to zika.Educated on use of mosquito repellent. Covid x12 screening done, screening results are negative. Elevated blood pressure reading without diagnosis of hypertension Comment: elevated blood pressure readings Plan: Manual blood pressure was done by a RN and MFM provider which was 180/100. Recommendation was to report to Labor and Delivery for evaluation. Patient verbalized transportation issue. Provider advised to report to Labor and Delivery in [place]. Report given to Makeda in Labor and Delivery in [place]. Need for Tdap vaccination Comment: per protocol Plan: TDAP VACCINE, >10 YRS, IM Obesity in Comment: BMI: 33.75 Plan: Patient encouraged to limit weight gain and advised to eat healthy diet, fruits, vegetables, increased fiber and water intake and protein low in fat. Encouraged exercise for 30 min everyday; begin regimen with caution to prevent injury. Encouraged to decrease BMI to <25. Patient educated onthe effects of chronic health problems of obesity on future pregnancies and/or termite control technician health. Return to clinic in 2 weeks. Discussed treatment options. Medications as ordered. Reviewed patient instructions and provided printed copy. This visit did not involve counseling and coordination that comprised more than 50% of the visit time. TC Parker 09/07/2020 9:25 AM NSION SERVICE SPECIALIST documented in this encounter Plan of Treatment Date Type Specialty Care Team Description 09/08/2020 Railroad Signal Technician Visit OB Segundo Rizvi FNP [address] [place] [address] [phone] Lab, [place] 09/21/2020 Routine Visit OB Fany Rizvi FNP [address] [place], [place] [address] [phone] Name Type Priority Associated Diagnoses Date/Ti me CBC with Differential LAB Routine Supervision of high risk 09/07/2020 9:19 AM in third EXTENSION SERVICE SPECIALIST trimester HIV 1/2 AG-AB WITH REFLEX LAB Routine Supervision of high risk 09/07/2020 9:19 AM in third EXTENSION SERVICE SPECIALIST trimester GALV ONLY - SYPHILIS LAB Routine Supervision of high risk 09/07/2020 9:19 AM IGG/IGM in third EXTENSION SERVICE SPECIALIST trimester Glycosylated Hemoglobin LAB Routine Supervision of h igh risk 09/07/2020 9:19 AM (A1C) in third EXTENSION SERVICE SPECIALIST trimester Name Type Priority Associated Diagnoses Order S chedule CBC with Differential LAB Routine Supervision of high risk Expected: 09/07/2020, in third Expires: 09/07/2021 trimester GALV ONLY - SYPHILIS LAB Routine Supervision of high risk Expected: 09/07/2020, IGG/IGM in third Expires: 09/07/2021 trimester Glucose 1 Hour Post LAB Routine Supervision of high r isk Expected: 09/07/2020, Prandial in third Expires: 09/07/2021 trimester Health Maintenance Due Date Last Done Comments PAP SMEAR 2020 HPV VACCINES (1 - 2-dose 03/13/2021 Postpon ed from series) 2010 (Preg nant or ) WELL CARE VISIT: -03/21/2021 Postponed from YEARS (yearly) 2011 (Preg nant [...] this topic documented as of this encounter Procedures Procedure Name Priority Date/Time Associated Diagnosis Comme nts TDAP VACCINE, >11 Routine 09/07/2020 9:03 Need for Tdap YRS, IM AM EXTENSION SERVICE SPECIALIST vaccination POCT URINALYSIS Routine 09/07/2020 Supervision of high Resul ts for this risk in procedure are in third trimester the results section. documented in this encounter Results POCT URINALYSIS W SPECIFIC GRAVITY (09/07/2020) Pathologist Sig nature POCT U SP GRAV [...] Diagnoses Diagnosis Supervision of high risk in th ird trimester - Primary Unspecified high-risk Primigravida in third trimester Elevated blood pressure reading without diagnosis of hypertension Need for Tdap vaccination Need for prophylactic vaccination with c ombined hkkbezeddh-dedkrqg-fvdhyzujy (DTP) vaccine Obesity in Obesity complicating , childbir , or the puerperium, unspecified as to episode of care or not applicable documented in this encounter Additional Health Concerns Infection Onset Date Last Indicated Resolved Time COVID-19 Confirmed 08/24/2020 08/24/2020 documented as of this encounter Insurance Payer Benefit Plan / Subscriber ID Effective Phone Address T e Group [facility] [id number] 2020-Prese [address] Medic aid HEALTH CHOICE - HEALTH CHOICE nt [id number] 1 MANAGED MEDICAID [place], [place] [id number] documented as of this encounter
[2020-09-10 16:20] LABS: Absolute Lymphocytes (CBC) 1.9 K/uL (0.7-4.9); Basophils % 0.2 % (0-1.3); Lymphocytes % 10.4 % (15.3-44.8); RBC Red Blood Cell Count 3.98 M/uL (3.86-4.86)
[2020-09-10] MEDS ORDERED: ACETAMINOPHEN 500 MG TAB PO PRN ×2 (16:27)
[2020-09-10] MEDS ORDERED: IBUPROFEN 200 MG TAB PO PRN (16:27)
[2020-09-10] MEDS ORDERED: ONDANSETRON 4 MG (ODT) TAB PO PRN (16:27)
[2020-09-10] MEDS ORDERED: KETOROLAC 30 MG/ML INJ IM PRN (16:27)
[2020-09-10] MEDS ORDERED: DIPHENHYDRAMINE 25 MG TAB/CAP PO PRN (16:27)
[2020-09-10] MEDS ORDERED: CEFAZOLIN 1GM (PREMIX IV) 50 ML IV ONE (16:27)
[2020-09-10] MEDS ORDERED: KETOROLAC 30 MG/ML INJ IV PRN ×2 (16:27→16:52)
[2020-09-10] MEDS ORDERED: BISACODYL 10 MG RECTAL SUPP PR PRN (16:27)
[2020-09-10] MEDS ORDERED: ONDANSETRON 4 MG/2 ML VIAL IV PRN (16:27)
[2020-09-10 16:39] LABS: ALT/SGPT 18 U/L (12-78); AST/SGOT 17 U/L (15-37); Albumin 3.1 g/dL (3.4-5.0); Alkaline Phosphatase 206 U/L (45-117); BUN Blood Urea Nitrogen 9 mg/dL (7-18); Bicarbonate 20 mmol/L (21-32); Bilirubin Total 0.5 mg/dL (0.2-1.0); Glucose Level 68 mg/dL (74-106); Potassium 4.2 mmol/L (3.5-5.1); Protein, Total 6.6 g/dL (6.4-8.2); Sodium Level 142 mmol/L (136-145)
[2020-09-10] MEDS ORDERED: OXYTOCIN 10 UNIT/ML ML IV ONE ×2 (16:45→16:46)
[2020-09-10] MEDS ORDERED: MIDAZOLAM HCL 2 MG/2 ML INJ ONE (16:46)
[2020-09-10] MEDS ORDERED: LIDOCAINE 1% MPF 5 ML VIAL ONE (16:46)
[2020-09-10] MEDS ORDERED: EPHEDRINE SULF 50 MG/ML VIAL ONE (16:46)
[2020-09-10] MEDS ORDERED: EPINEPHRINE/PF 1 MG/ML AMP ONE (16:46)
[2020-09-10] MEDS ORDERED: OXYTOCIN/LR 20 UNIT/1,000 ML BAG IV SCH (17:00)
[2020-09-10] MEDS ORDERED: MAGNESIUM SULF/STERILE WATER 1,000 ML IV SCH (17:00)
[2020-09-10] MEDS ORDERED: CEFAZOLIN/SWI 1gm 1 GM/10 ML SYR IV SCH (17:00)
[2020-09-10] MEDS ORDERED: D5LR 1,000 ML with OXYTOCIN 20 UNIT IV SCH ×2 (17:00)
[2020-09-10] MEDS ORDERED: MAGNESIUM SULF/STERILE WATER 1,000 ML IV ONE (17:14)
[2020-09-10] MEDS ORDERED: LABETALOL HCL 100 MG/20 ML ONE (17:14)
[2020-09-10 17:48] LABS: Urine Appearance CLEAR; Urine Bilirubin NEGATIVE (NEG); Urine Blood TRACE (NEG); Urine Color YELLOW; Urine Glucose NEGATIVE (NEG); Urine Protein 3+ (NEG); Urine Urobilinogen 0.2 mg/dL (0.2-1.0); Urine pH 6.5 (5.0-7.0)
[2020-09-10] MEDS ORDERED: MORPHINE 2 MG/ML SYR IV PRN (18:00)
[2020-09-10] MEDS ORDERED: PROMETHAZINE INJ 25 MG/ML AMP IM PRN (18:15)
[2020-09-10 18:24] LABS: Urine Bacteria <20 /HPF (<20)
[2020-09-10] MEDS ORDERED: LABETALOL 20 MG/4ML SYRINGE IV ONE ×2 (18:27→21:51)
[2020-09-10] MEDS ORDERED: cloNIDine HCL 0.1 MG TAB PO ONE (18:28)
[2020-09-10] MEDS ORDERED: KETOROLAC 30 MG/ML INJ ONE (18:32)
[2020-09-10 18:57] VITALS: BMI 29.0
[2020-09-10] MEDS ORDERED: cloNIDine HCL 0.1 MG TAB ONE (20:00)
--- NOTE | 2020-09-10 20:55 | PN ---
The patient is doing quite well. The effects in the spine are wearing off and her blood pressure is rising again at 150 systolic at this point. The patient and state that every time they went to [facility] in [place], they were sent to [place] because of her blood pressure. She was never put on a ny kind of blood pressure medications, but always told that there could be complications because of h er blood pressure. The patient further states that last night in the late hours, she had a very ingrid p pain and then it subsided. She is of course disconsolate that she did come to the hospital them, b wy she knows that I think she did everything she could. As soon as she started having contractions t hat she recognized today, she headed to the hospital, but on the way started bleeding. Review of the tracing is somewhat equivocal. Indeed, we could have been picking up her heart tones instead of the baby's in any event. At the time of delivery, the baby showed no signs of muscle tone or hear t beat, and only got a heartbeat after epinephrine was given to the baby. We will of course treat th e patient's blood pressures tonight if it exceeds 165 systolic or 105 diastolic probably with labetal ol or clonidine. We will get a urine specimen and if she shows any signs of preeclampsia, we will st art magnesium sulfate as well. Right now, the patient is quite stable, alert. Blood loss was mostly from the intrauterine bleeding. Blood loss from the incision and from the uterus after delivery was minimal. All labs are pending at this point. DI/TULIO Voice ID: [id number] Report ID: [id number]
--- NOTE | 2020-09-10 21:37 | PN ---
We are evaluating the patient for chronic hypertension with possible superimposed pre-eclampsia. I h ave ordered urine specimen for protein. If it is positive, we will start her on magnesium sulfate. I have already ordered labetalol 10 mg every hour if systolic meets or exceeds 165, her diastolic 105 . I have ordered 2 more grams of Ancef 8 hours postop. I do not expect H and H on the patient to ch tammi much as most of the bleeding I think was from the abruption. Initial blood pressure when the ovidio saez came in I was told was 205/118. DI/MODNesha Voice ID: [id number] Report ID: [id number]
[2020-09-10] MEDS: Oxycodone HCl/Acetaminophen 1 TAB TAB PO PRN (23:00)
[2020-09-10] MEDS ORDERED: CEFAZOLIN/SWI 2gm 2 GM/20 ML SYR IV SCH (23:53)
[2020-09-10] MEDS ORDERED: CEFAZOLIN 2 GM in NA CHLORIDE 0.9% 100 ML IVPB ONE (23:53)
[2020-09-11] MEDS: Oxycodone HCl/Acetaminophen 1 TAB TAB PO PRN ×4 (05:10→23:46)
[2020-09-11] MEDS ORDERED: MORPHINE 4 MG/ML SYR IV PRN (07:22)
--- NOTE | 2020-09-11 08:11 | PN ---
Tea Wolfe looks much better this morning. Output is excellent. She is starting to diurese. Blo od pressures are coming down well, last one was 143/77. No WATER QUALITY ANALYST symptoms. H and H dropped a little b it lower than I thought it would, but I think she was hemoconcentrated when she came in. She certain ly looks good. So, I do not think blood loss is an issue here. We will remove Martin later today if she continues to diurese as well as what she is doing. She has put out over 350 cc in last hour. [facility] magnesium level was 5.9. We will check that again now. When we will stop the magnesium, we will start her on phenobarbital 60 mg 3 times a day and I told her I would give her enough to last it for 7 days. She needs to have her rupal removed probably next Friday, but blood pressure check I think is important. She can easily come to my office and have her blood pressure checked or go back to [facility]. We will figure that out as we go along Tdap. She has already had flu shot offered before she le aves. As far as other considerations, she seems to be coping quite well. She was last seen at [facility] in [place] about 2 weeks ago. They kept her, did some blood work, did some blood pressures, then salima d her to go home. The [facility] in [place] had sent her straight to [place] and told her not to c ome to their clinic because her blood pressure was so elevated. Exactly what their plan was, I am no t sure. Doing well. Expect her to go home probably tomorrow afternoon. DI/TULIO Voice ID: [id number] Report ID: [id number]
[2020-09-11] MEDS: LABETALOL 20 MG/4ML SYRINGE IV PRN ×2 (08:20→11:45)
--- NOTE | 2020-09-11 11:45 | PREOPHP ---
Date of Admission: 09/10/2020 History Of Present Illness: This is a 20-year-old primigravida at 29 weeks 1 day, followed antepartu m at [facility] apparently with chronic hypertension. The patient was told on numerous occasions that she could have seizures or other complications because of her blood pressure. Came into our Labor and De livery area with blood running down her legs, said she had been at home, having contractions, and cam e to the hospital for evaluation. On the way to the hospital, she said she began bleeding significan tly. When she got here, the patient had at least 200 cc to 300 cc of clot and blood in the vagina. Cervix is basically close, although there was fluid that appeared to be possibly amniotic fluid. At that time, it was thought there were heart tones, although looking at the tracing, it could hav e been the patient's heart tones. Immediate section was called. Dr. Kruse for anesthesia , Dr. Keller for Pediatrics, and Dr. Chadwick. Within 20 minutes, the patient was on the table be ing prepped. Full discussion prior to this about infection, bleeding, and complications that could o ccur and necessity of an immediate delivery. She knew that the baby would have to be transferred to [facility], but she would stay here. After testing the spinal block, a Pfannenstiel incision was created, incision was carried to the fascia, the fascia was incised and incision carried transversely bilatera lly. Anterior fascial plane was developed with both blunt and sharp dissection, underlying rectus mu scle , peritoneum entered bluntly. Low transverse bladder flap developed. Low transverse u terine incision created. A 2 to 3 pounds female infant was delivered through the incision, very depr essed, and handed over to Dr. Keller and Dr. Kruse helped. The baby was intubated. There was a heart tone for a while and then that has stopped. Resuscitation efforts are continuing, but the baby does not look viable at this point. The was completed with the placenta showing basically total abruption. Cervical os was dilated. Uterus was closed with a running lock stitch of 1 chromic followed by imbricating stitch of 1 chromic followed by a single jhyqex-ia-lqyap stitch in the midli ne for complete hemostasis. Estimated blood loss 1000 cc. Gutters clear of clot and blood. Remaind er of the pelvis looked normal. Uterus replaced in the peritoneal cavity. Rectus muscles were broug ht together with 2 sutures of 0 Vicryl. The fascia was closed with 1 Vicryl running from either angl e to the midline. Subcutaneous tissue closed with 2-0 plain. Lashonda used for the skin. The patien t had been given 2 g of Ancef prior to the procedure. Tolerated all procedures well. Family History: Not contributory. Allergies: SHE HAD NO ALLERGIES. Medications: Did not mention whether she was on blood pressure medicines because of the chronic hype rtension diagnosis. Physical Examination: Heart and Lungs: When she came in, heart and lungs were clear. Breasts: Not examined. Abdomen: Smaller than 29 weeks size, probably because of ruptured membranes. Extremities: Clear without edema, cyanosis, or clubbing. Impression: The patient was diagnosed at 29 weeks 1 day with placental abruption for immediate surge ry, which was performed within 20 minutes. DI/TULIO Voice ID: [id number]
--- NOTE | 2020-09-11 12:17 | PN ---
Review of her chart from [facility] showed the patient has had elevated blood pressure. The last recording that I saw was September 07 and was 179/113. No mention of any treatment at that time. No hospital ization. Since delivery, the patient's output has been dramatically improved. We have stopped the m agnesium sulfate, but I have started the phenobarbital 3 times a day. Her blood pressures are again labile. The respond to the labetalol, but within a short period of time go back up again. We have k ept the IV as a keep open to give her more labetalol. I will get an Internal Medicine consult to see how best to approach her blood pressure treatment in the near future. She is completely without sym ptoms of her blood pressure. Another note is that the patient has been seen to be positive for COVID , which at this point, she has again no symptoms. DI/TULIO Voice ID: [id number] Report ID: [id number]
[2020-09-11] MEDS ORDERED: HYDRALAZINE HCL 25 MG TABLET PO SCH (13:11)
[2020-09-11] MEDS ORDERED: HYDRALAZINE HCL 20 MG/ML VIAL IV PRN (13:14)
--- NOTE | 2020-09-11 13:27 | P.CNS ---
Date of Consult: 09/11/20 Reason for Consult: HTN Requesting Physician: Allie Marquis Primary Care Provider: none Chief Complaint: Elevated BP History of Present Illness: 20-year-old female primigravida at 29 weeks 1 day presented to the labor and delivery department yesterday due to vaginal bleeding. The patient had been getting her care at [facility]. Patient with history of chronic hypertension. She was apparently at home having contractions. She came to the hospital for further evaluation. When she arrived to the labor and delivery department. She had around 200 cc to 300 cc of clot and blood from the vagina. She was taking for emergency . Upon a 2-3 lb female infant was delivered. It appeared distressed. Baby was intubated. Heart tones were noted but then stop. Resuscitation efforts continued. The baby did not look viable after certain point. The infant did not survive. The Caesarean was complete showing total placental abruption. The patient has been stabilized. I was consulted today by Ob GN due to elevated blood pressure. Patient has been treated with labetalol. Patient with chronic hypertension. The patient further reports that she had had hypertension on her last Ob GN visit. Patient denies any headaches, dizziness, chest pain or shortness of breath. Family history of hypertension noted. Allergies honey Allergy (Mild, Verified 09/10/20 23:23) Unknown Home medications list reviewed: Yes Home Medications: Pnv Cmb#95/Ferrous Fumarate/FA [ Tablet] 1 each PO DAILY 09/10/20 - Past Medical/Surgical History Diabetic: No -: Chronic hypertension Past Surgical History: Patient denies surgical history Psychosocial/ Personal History: Patient has a girlfriend. This was her 1st - Family History Father Medical History: Heart disease, Hypertension - Social History Smoking Status: Current some day smoker, Never smoker Alcohol use: No CD- Drugs: No Caffeine use: Yes Place of Residence: Home Review of Systems General: As per HPI Eyes: Unremarkable ENT: Unremarkable Respiratory: Unremarkable Cardiovascular: Unremarkable Gastrointestinal: Unremarkable Genitourinary: As per HPI Musculoskeletal: Unremarkable Integumentary: Unremarkable Neurological: Unremarkable Lymphatics: Unremarkable Physical Examination Temp Pulse Resp BP Pulse Ox 98.7 F 66 18 182/108 H 100 09/11/20 07:22 09/11/20 08:20 09/11/20 07:22 09/11/20 08:20 09/11/20 05:10 General: Alert, In no apparent distress, Oriented x3, Cooperative HEENT: Atraumatic, Normocephalic, Mucous membr. moist/pink Neck: Supple Respiratory: Clear to auscultation bilaterally, Normal air movement Cardiovascular: Normal pulses, Regular rate/rhythm Gastrointestinal: Normal bowel sounds, Soft and benign, Non-distended, No tende rness, No masses, No rebound, No guarding Musculoskeletal: No erythema, No tenderness, No warmth Integumentary: No tenderness/swelling, No erythema, No warmth, No cyanosis Neurological: Normal speech, Normal strength at 5/5 x4 extr, Normal tone, Normal affect Laboratory Data (last 24 hrs) 09/11/20 07:20: Magnesium 6.9 H* D 09/11/20 05:00: Hct Cancelled 09/11/20 04:30: Hct 27.2 L D 09/11/20 00:00: Magnesium Cancelled 09/10/20 23:00: Magnesium 5.9 H* 09/10/20 15:30: Sodium 142, Potassium 4.2, BUN 9, Creatinine 0.81, Glucose 68 L, Total Bilirubin 0.5, AST 17, ALT 18, Alkaline Phosphatase 206 H 09/10/20 15:30: WBC 17.8 H, Hgb 12.2, Hct 37.0, Plt Count 215 Conclusions/Impression: Impression: Acute Hypertension with history of chronic hypertension Placental abruption status post emergency with demise Plan: I was consulted for medical management to address her hypertension. Patient with acute hypertension with history of chronic hypertension. This had not been treated with any medications in the recent past. Blood pressures have been elevated in her last OB visit. Patient asymptomatic at this time. Patient has been given several doses of labetalol and clonidine. Medications reviewed. Will discontinue clonidine. Will also discontinue nonsteroidal anti- inflammatories due to side effect of hypertension. Will start labetalol 100 mg 1 pill twice daily and hydralazine 50 mg 3 times a day. Will provide IV medication if blood pressure elevated. Will check manual blood pressure. Will obtain echocardiogram to further evaluate her condition. Further adjustment in medication may be required if blood pressure remains elevated. Will check urine drug screen and lab including tsh and free T4 tomorrow. Obtain COVID test. Patient is status post emergency with demise. Patient stable at this time. Will discuss further with Ob GN. Continue to monitor and adjust medication appropriately. Time Spent Managing Pts care (In Minutes): 55
[2020-09-11] MEDS ORDERED: Ringers Lactate 1,000 ML IV ONE ×2 (14:12→14:21)
[2020-09-11] MEDS: LABETALOL HCL 100 MG TAB PO SCH (20:30)
[2020-09-12 05:34] LABS: BUN Blood Urea Nitrogen 9 mg/dL (7-18); Bicarbonate 24 mmol/L (21-32); Glucose Level 72 mg/dL (74-106); Magnesium 2.7 mg/dL (1.8-2.4); Potassium 4.4 mmol/L (3.5-5.1); Sodium Level 140 mmol/L (136-145)
--- NOTE | 2020-09-12 07:59 | DS ---
20-year-old primigravida, 29 weeks 1 day, seen antepartum several times by [facility]. DICTATION ENDS HERE DI/TULIO Voice ID: [id number] Report ID: [id number]
--- NOTE | 2020-09-12 08:08 | P.PN ---
Subjective Date of Service: 09/12/20 Primary Care Provider: none Chief Complaint: Elevated BP Subjective: Improving, Doing well Physical Examination - Vital Signs Temperature: 99 F Blood Pressure: 142/74 Pulse: 91 Respirations: 14 Pulse Ox (%): 99 - Physical Exam General: Alert, In no apparent distress, Oriented x3, Cooperative HEENT: Atraumatic Cardiovascular: Other (BP better controlled) - Studies Laboratory Data (last 24 hrs) 09/12/20 04:18: Sodium 140, Potassium 4.4, BUN 9, Creatinine 0.86, Glucose 72 L, Magnesium 2.7 H D Medications List Reviewed: Yes Assessment & Plan Discharge Plan: Home Plan to discharge in: 24 Hours Physician Review Additional Text: Impression: Acute Hypertension with history of chronic hypertension Placental abruption status post emergency with demise Subclinical hypothyroidism Plan: Patient was placed on labetalol. Blood pressure better controlled. Case discussed at length with Ob GN. Ob GN plans to discharge the patient today. Patient will continue with labetalol 100 mg 1 pill twice daily. Recommend to keep a blood pressure log. Recommend blood pressures to remain less than 140/90. If blood pressures remain greater than 140/90 then additional medication hydralazine 50 mg twice daily may need to be added. This can be further addressed by her PCP or Ob GN. Tsh abnormal with normal free T4. Patient may have subclinical hypothyroidism. Recommend to recheck tsh and free T4 in 4-6 weeks. Patient will establish care with a local PCP to further evaluate and monitor. Time Spent Managing Pts Care (In Minutes): 55
--- NOTE | 2020-09-12 08:14 | DS ---
Hospital Course: A 20-year-old primigravida, 29 weeks 1 day, seen by [facility] on numerous occasio ns, noted to have chronic hypertension, was told that this could develop into preeclampsia. Came to our Labor and Delivery area bleeding and having significant contractions. Placental abruption was di agnosed at that time. The fundal height was not compatible with 29 weeks. Initially, we were gettin g what be thought were FHTs of 80 to 90 beats per minute. I think that was probably the mother's hea rt tones. She was apprised of the situation along with her . Taken immediately to Surgery wi thin 20 minutes, delivered of a 2 pounds 2 ounce , nonviable. No heartbeat. Dr. Keller in P ediatric attendance gave the baby IV epinephrine and for a short period time had some response from c ardiac response, but then stopped. She continued resuscitative efforts for at least 20 to 30 minutes and then stopped. The patient had massive abruption basically total. I think the baby was probably nonviable when she came into the hospital, possibly sometime before that. Her hematocrit was 37 on admission, went to 27. The patient is ambulating, voiding, lochia is normal. She had a blood pressu re initially of 205/110. Her blood pressures have been very difficult to lower. She has been put on Apresoline and labetalol. Blood pressures have moderated down into the 150 range systolic. This mo rning was 169. She has been seen in consultation with Dr. Jenkins, who had suggested we keep her on labetalol 100 mg twice a day. She will be seen by Dr. Gustafson next week for a blood pressure. She is to come to my office next Friday for staple removal. She can follow up with [facility] thereafter if she w awais. She is Rh positive, immune to Rubella. She was positive for SARS, earlier in the n egative on a quick test. I will also keep her on phenobarbital for the next week or so to reduce the chance for any type of seizure activity. She will be dismissed with tramadol for analgesia. She is offered flu shot. She has already had her Tdap shot. She has no post spinal block problems. Final Diagnoses: 1.Intrauterine gestation 29 weeks 1 day. 2.History of chronic hypertension with superimposed severe preeclampsia. 3.Total placental abruption. 4.Primary section, spinal block anesthesia. 5.Nonviable 2 pounds 2 ounces female. Now stable and dismissed for followup with me in my office, Dr. Gustafson in his office in [facility] later. DI/TULIO Voice ID: [id number] Report ID: [id number]
[2020-09-12] MEDS: LABETALOL HCL 100 MG TAB PO SCH (08:15)
[2020-09-12] MEDS ORDERED: PRENATAL VITAMIN PO SCH (09:00)
--- NOTE | 2020-09-12 09:57 | ECHO ---
HEIGHT: 5 ft 6 in WEIGHT: 180 lb 0 oz DATE OF STUDY: 09/11/[address]: Khanh Early DO 2-DIMENSIONAL: YES M.MODE: YES DOPPLER: YES COLOR FLOW: YES TDS: NO PORTABLE: NO DEFINITY: NO BUBBLE STUDY: NO DIAGNOSIS: HYPERTENSION CARDIAC HISTORY: CATHERIZATION: NO SURGERY: NO PROSTHETIC VALVE: NO PACEMAKER: NO MEASUREMENTS (cm) DIASTOLIC (NORMALS) SYSTOLIC (NORMALS) IVSd 1.1 (0.6-1.2) LA Diam 3.1 (1.9-4.0) LVEF 71% LVIDd 3.6 (3.5-5.7) LVIDs 2.2 (2.0-3.5) %FS 40% LVPWd 1.1 (0.6-1.2) Ao Diam 2.4 (2.0-3.7) 2 DIMENSIONAL ASSESSMENT: RIGHT ATRIUM: NORMAL LEFT ATRIUM: NORMAL RIGHT VENTRICLE: NORMAL LEFT VENTRICLE: NORMAL TRICUSPID VALVE: NORMAL MITRAL VALVE: NORMAL PULMONIC VALVE: NORMAL AORTIC VALVE: NORMAL PERICARDIAL EFFUSION: NONE AORTIC ROOT: NORMAL LEFT VENTRICULAR WALL MOTION: NORMAL DOPPLER/COLOR FLOW: NORMAL COMMENTS: NORMAL LEFT VENTRICULAR EJECTION FRACTION 55-60%. NORMAL STUDY. TECHNOLOGIST: Lisa SU
[2020-09-12] MEDS: Oxycodone HCl/Acetaminophen 1 TAB TAB PO PRN (11:40)
[2020-09-12 12:11] LABS: Barbiturates NEGATIVE (NEGATIVE); Benzodiazepines NEGATIVE (NEGATIVE); Cocaine NEGATIVE (NEGATIVE); METHAMPHETAM NEGATIVE (NEGATIVE); Methadone NEGATIVE (NEGATIVE); Opiates NEGATIVE (NEGATIVE); Phencyclidine NEGATIVE (NEGATIVE); THC Cannibis NEGATIVE (NEGATIVE)
[2020-09-12] MEDS ORDERED: HYDRALAZINE HCL 20 MG/ML VIAL IV ONE (13:17)
[2020-09-12] MEDS ORDERED: cloNIDine HCL 0.1 MG TAB PO ONE (13:44)
[2020-09-12 13:58] VITALS: BP 152/74; TEMP 98.9
--- NOTE | 2020-09-21 12:05 | OP ---
Surgeon: Calixto Marquis MD The patient came into our facility with major abruption and progress whether or not the baby was aliv e, at that point was debatable. We were getting a heartbeat of 80 to 90, which could have been the p atient. Full discussion quickly about the need for immediate surgical intervention with the patient agreed. She was taken to surgery. After prepping and draping, a Pfannenstiel incision was made. Th e incision was carried to the fascia. Fascia incised and incision carried transversely bilaterally. Anterior fascial plane was developed with both blunt and sharp dissection. Peritoneum was entered. Low transverse bladder flap was developed and low transverse uterine incision created. Total abrupt ion was noted. A 2 pounds 2 ounces female was delivered, nonviable. The uterus was evacuated of eddie t and blood. Placenta was sent to pathology. Uterus was closed after cervical dilation with a runni ng lock chromic 1 layer. The gutters were cleared of clot and blood. The rectus muscles were reappr oximated with 0 Vicryl interrupted sutures. Fascia was closed with 1 PDS running from either angle t o the midline. Subcutaneous tissue closed with 2-0 plain. Lashonda used for the skin. The patient t olerated these procedures well, although her blood pressure of course was the major issue. She was s ent back to her room in good condition. Final Diagnoses: Intrauterine gestation 29 weeks 1 day. History of chronic hypertension. Major tot al placental abruption. Primary section, nonviable female fetus. DI/TULIO Voice ID: [id number] Report ID: [id number]
== END 2020-09-12 16:35 | disposition home or self-care (01) | DRG 788 ==
LOC: 2ND-WC 15:31
PROVIDERS: ADMIT Specialist; ATTEND Specialist
PROC: 10D00Z1 Extraction of Products of Conception, Low, Open Approach (ICD-10-PCS; 2020-09-10)
PROC: 10907ZC Drainage of Amniotic Fluid, Therapeutic from Products of Conception, Via Natural or Artificial Opening (ICD-10-PCS; principal; 2020-09-10 15:30)
DX: O45.93 Premature separation of placenta, unspecified, third trimester (principal); O11.4 Pre-existing hypertension with pre-eclampsia, complicating childbirth; Z3A.29 29 weeks gestation of pregnancy; Z37.1 Single stillbirth; Z20.828 Contact with and (suspected) exposure to other viral communicable diseases
CPT/HCPCS: 36415; 80048; 80053; 80307; 81001; 83735; 84439; 84443; 85014; 85025; 86850; 86900; 86901; 88307; 93306; J0171; J0360; J0690; J2250; J2270; J2590; J3475; J7120; J7121; U0003

== ENCOUNTER 2020-12-29 05:42 | Emergency (ER) | payer OTHER ==
--- OUTSIDE RECORDS SUMMARY | 2020-12-29 05:45 | XMS REPORT | Continuity of Care Document ---
:[address] [facility] t Address 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-27 [facility] disorder, disorder, 00:00: st recurrent recurrent [...] Date Stop Date Source Natural father Depression [facility] thodist Social History Social Habit Start Date Stop Date Quantity Comments Source Tobacco use and 2018-03-27 2018-03-27 Never used [facility] ethodist exposure 00:00:00 00:00:00 Alcohol intake 2018-03-27 2018-03-27 Current [facility] thodist 00:00:00 00:00:00 non-drinker of alcohol (finding) Sex Assigned At [birth year] R[facility]razas ethodist 00:00:00 00:00:00 Smoking Status Start Date Stop Date Source Never smoker Regino Methodis t Medications This patient has no known medications. Procedures This patient has no known procedures. Encounters Start End Encounter Admission Attending Care Care Encounter Source Date/Time Date/Time Type Type Clinicians Facility Department ID 2020-09-11 2020-09-11 [facility] [id number] 00:00:00 00:00:00 Roshunda R FIRE PROTECTION INSPECTOR [id number] [facility] [id number] MATERNAL [id number] & CHILD 107 [facility] 2020-09-11 2020-09-11 Orders Doctor JANEY [id number] 00:00:00 00:00:00 Only Unassigned, TRICIA [id number] [place] [id number] 2020-09-07 2020-09-07 Routine [facility] [id number] 01 08:47:13 09:56:09 Raenda R FIRE PROTECTION INSPECTOR [id number] Visit [facility] [id number] MATERNAL [id number] & CHILD 107 [facility] 2020-08-29 2020-08-29 Field Representative Lab, [facility] [id number] 08:24:12 08:34:[address] [facility] FIRE PROTECTION INSPECTOR [id number] [facility] [id number] MATERNAL [id number] & CHILD 107 [facility] Results This patient has no known results.
[2020-12-29] MEDS ORDERED: HYDROCODONE/APAP 5/325 MG TAB ONE (06:31)
[2020-12-29] MEDS ORDERED: DIPHENHYDRAMINE 25 MG TAB/CAP ONE (06:31)
--- NOTE | 2020-12-29 07:01 | ER ---
Nurse's Notes [facility] Name: Tea Collazo Age: 20 yrs Sex: Female : 2000 Arrival Date: 12/29/2020 Time: 05:44 Bed 20 Private MD: Diagnosis: Abrasion, right foot-STUNG BY A FISH Presentation: 12/29 05:56 Chief complaint: Patient states: We were fishing for Hard head catfish and when taking jb4 the hook out it flopped onto my foot and the spine stung my right foot. Coronavirus screen: Client denies travel out of the [place] in the last 14 days. At this time, the client does not indicate any symptoms associated with coronavirus-19. Ebola Screen: No symptoms or risks identified at this time. Initial Sepsis Screen: Does the patient meet any 2 criteria? No. Patient's initial sepsis screen is negative. Does the patient have a suspected source of infection? No. Patient's initial sepsis screen is negative. Risk Assessment: Do you want to hurt yourself or someone else? Patient reports no desire to harm self or others. Onset of symptoms was December 29, 2020. Transition of care: patient was not received from another setting of care. 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 - Social history:: Smoking status: Patient denies any tobacco usage or history of. Patient uses alcohol, occasionally. street drugs, marijuana, Patient/guardian denies using alcohol, street drugs, The patient lives with family. - Family history:: not pertinent. Screenin:29 Abuse screen: Denies threats or abuse. Denies injuries from another. Nutritional rr5 screening: No deficits noted. Tuberculosis screening: No symptoms or risk factors identified. Fall Risk None identified. Total Del Toro Fall Scale indicates No Risk (0-24 pts). Assessment: 06:00 General: Appears in no apparent distress. comfortable, uncomfortable, Behavior is rr5 anxious. 06:00 Pain: Complains of pain in in between third and fourth toe Pain currently is 10 out of rr5 10 on a pain scale. Quality of pain is described as aching, Pain began suddenly, gradually, Is intermittent. Neuro: Level of Consciousness is awake, alert, Oriented to person, place, time. Cardiovascular: Capillary refill < 3 seconds Patient's skin is warm and dry. Respiratory: Airway is patent Respiratory effort is even, unlabored, Respiratory pattern is regular, symmetrical. Derm: Skin temperature is warm Wound noted in between third and fourth toe Wound is punctured wound. Musculoskeletal: Capillary refill < 3 seconds. 07:06 Reassessment: Patient appears in no apparent distress at this time. Patient is alert, rr5 oriented x 3, equal unlabored respirations, skin warm/dry/pink. discharge instruction given and explained without complaints made. Vital Signs: 05:56 BP 171 / 102; Pulse 70; Resp 16; Temp 97.4; Pulse Ox 100% on R/A; Weight 70.31 kg (R); jb4 Height 5 ft. 3 in. (160.02 cm); Pain 10/10; 06:33 BP 163 / 92; Pulse 75; Resp 17; Pulse Ox 98% ; rr5 07:07 BP 155 / 89; Pulse 70; Resp 16; Pulse Ox 98% ; rr5 05:56 Body Mass Index 27.46 (70.31 kg, 160.02 cm) jb4 ED Course: 05:44 Patient arrived in ED. ag3 05:50 Ravi Lora MD is Attending Physician. ma2 05:58 Triage completed. jb4 05:58 Arm band placed on right wrist. jb4 06:00 Patient has correct armband on for positive identification. Bed in low position. Call rr5 light in reach. 06:27 Shad Fairchild RN is Primary Nurse. rr5 06:30 No provider procedures requiring assistance completed. Patient did not have IV access rr5 during this emergency room visit. 06:31 Wound care: to puncture located on right third toe and right fourth toe was cleaned rr5 with Hibiclens, irrigated with normal saline, dressed with Neosporin, band aid, Patient tolerated well. Administered Medications: 06:15 Drug: Benadryl 25 mg Route: PO; rr5 07:08 Follow up: Response: No adverse reaction rr5 06:15 Drug: [place] 5 mg-325 mg 1 tabs {Note: rass 0.} Route: PO; rr5 07:07 Follow up: Response: No adverse reaction; Pain is decreased; RASS: Alert and Calm (0) rr5 Outcome: 07:00 Discharge ordered by MD. tobar 07:08 Discharged to home ambulatory. rr5 07:08 Condition: stable 07:08 Discharge instructions given to patient, Instructed on discharge instructions, follow up and referral plans. medication usage, Demonstrated understanding of instructions, follow-up care, medications, Prescriptions given X 3. 07:08 Patient left the ED. rr5 Signatures: Augustin Bermeo, RN RN flex4 Ravi Lora MD MD ma2 Kirsty Hancock Raymond, RN RN rr5
--- NOTE | 2020-12-29 07:01 | EDPHYS ---
Physician Documentation [facility] Name: Tea Collazo Age: 20 yrs Sex: Female : 2000 Arrival Date: 12/29/2020 Time: 05:44 Bed 20 Private MD: ED Physician Ravi Lora HPI: 12/29 06:26 This 20 yrs old Black Female presents to ER via Wheelchair with complaints of FISH ma2 STING. 06:26 The patient presents with an abrasion. Onset: The symptoms/episode began/occurred ma2 suddenly, 1 hour(s) ago. Associated signs and symptoms: Pertinent positives: PAIN, Pertinent negatives: nausea, swelling, vomiting, warmth. The patient has not experienced similar symptoms in the past. STUNG BY CAT FISH . 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 - Social history:: Smoking status: Patient denies any tobacco usage or history of. Patient uses alcohol, occasionally. street drugs, marijuana, Patient/guardian denies using alcohol, street drugs, The patient lives with family. - Family history:: not pertinent. ROS: 06:26 MS/extremity: Positive for pain, tingling, Negative for bite, contusion. ma2 06:26 Constitutional: Negative for fever, chills, and weight loss. 06:26 All other systems are negative. Exam: 06:26 Constitutional: This is a well developed, well nourished patient who is awake, alert, ma2 and in no acute distress. Chest/axilla: Normal chest wall appearance and motion. Nontender with no deformity. No lesions are appreciated. Cardiovascular: Regular rate and rhythm with a normal S1 and S2. No gallops, murmurs, or rubs. Normal PMI, no JVD. No pulse deficits. Respiratory: Lungs have equal breath sounds bilaterally, clear to auscultation and percussion. No rales, rhonchi or wheezes noted. No increased work of breathing, no retractions or nasal flaring. Abdomen/GI: Soft, non-tender, with normal bowel sounds. No distension or tympany. No guarding or rebound. No evidence of tenderness throughout. Back: No spinal tenderness. No costovertebral tenderness. Full range of motion. Skin: Warm, dry with normal turgor. Normal color with no rashes, no lesions, and no evidence of cellulitis. MS/ Extremity: RIGHT FOOT SMALL PUNCTURE WOUND, NO ACTIVE BLEEDING Pulses equal, no cyanosis. Neurovascular intact. Full, normal range of motion. Neuro: Awake and alert, GCS 15, oriented to person, place, time, and situation. Cranial nerves II-XII grossly intact. Motor strength 5/5 in all extremities. Sensory grossly intact. Cerebellar exam normal. Normal gait. Vital Signs: 05:56 BP 171 / 102; Pulse 70; Resp 16; Temp 97.4; Pulse Ox 100% on R/A; Weight 70.31 kg (R); jb4 Height 5 ft. 3 in. (160.02 cm); Pain 10/10; 06:33 BP 163 / 92; Pulse 75; Resp 17; Pulse Ox 98% ; rr5 07:07 BP 155 / 89; Pulse 70; Resp 16; Pulse Ox 98% ; rr5 05:56 Body Mass Index 27.46 (70.31 kg, 160.02 cm) jb4 MDM: 05:50 Patient medically screened. ma2 06:26 Differential diagnosis: sprain, cellulitis, NO FOREIGN BODY SEEN. Data reviewed: vital ma2 signs, nurses notes. Counseling: I had a detailed discussion with the patient and/or guardian regarding: the historical points, exam findings, and any diagnostic results supporting the discharge/admit diagnosis, the presence of at least one elevated blood pressure reading (>120/80) during this emergency department visit, the need for outpatient follow up. Response to treatment: the patient's symptoms have markedly improved after treatment. 12/29 06:12 Order name: Dressing - Wound; Complete Time: 06:30 ma2 Administered Medications: 06:15 Drug: Benadryl 25 mg Route: PO; rr5 07:08 Follow up: Response: No adverse reaction rr5 06:15 Drug: [place] 5 mg-325 mg 1 tabs {Note: rass 0.} Route: PO; rr5 07:07 Follow up: Response: No adverse reaction; Pain is decreased; RASS: Alert and Calm (0) rr5 Disposition: 12/29/20 07:00 Discharged to Home. Impression: Abrasion, right foot - STUNG BY A FISH . - Condition is Stable. - Discharge Instructions: Animal Bite, [id number], Wound Check. - Prescriptions for Benadryl 25 mg Oral Capsule - take 1 capsule by ORAL route every 6 hours As needed; 30 tablet. Clindamycin HCl 300 mg Oral Capsule - take 1 capsule by ORAL route every 6 hours for 10 days; 40 capsule. Diclofenac Sodium 75 mg Oral Tablet Sustained Release - take 1 tablet by ORAL route 2 times per day; 30 tablet. - Medication Reconciliation Form, Thank You Letter, Antibiotic Education, Prescription Opioid Use form. - Follow up: Private Physician; When: Tomorrow; Reason: If symptoms return, Continuance of care. Signatures: Augustin Bermeo RN RN jb4 Ravi Lora MD MD ma2 Shad Fairchild RN RN rr5 Corrections: (The following items were deleted from the chart) 07:08 07:00 12/29/2020 07:00 Discharged to Home. Impression: Abrasion, right foot - STUNG BY rr5 A FISH . Condition is Stable. Discharge Instructions: Animal Bite, [id number], Wound Check. Prescriptions for Benadryl 25 mg Oral Capsule - take 1 capsule by ORAL route every 6 hours As needed; 30 tablet, Clindamycin HCl 300 mg Oral Capsule - take 1 capsule by ORAL route every 6 hours for 10 days; 40 capsule, Diclofenac Sodium 75 mg Oral Tablet Sustained Release - take 1 tablet by ORAL route 2 times per day; 30 tablet. and Forms are Medication Reconciliation Form, Thank You Letter, Antibiotic Education, Prescription Opioid Use. Follow up: Private Physician; When: Tomorrow; Reason: If symptoms return, Continuance of care. ma2
[2020-12-29 07:15] VITALS: TEMP 97.4
[2020-12-29 07:17] VITALS: O2SAT 98
[2020-12-29 07:18] VITALS: BP 155/89
== END 2020-12-29 07:08 | disposition home or self-care (01) ==
LOC: ER 05:42
DX: T63.591A Toxic effect of contact with other venomous fish, accidental (unintentional), initial encounter (principal); S90.811A Abrasion, right foot, initial encounter; F32.9 Major depressive disorder, single episode, unspecified; I10 Essential (primary) hypertension
CPT/HCPCS: 99284

== ENCOUNTER 2020-12-29 21:14 | Emergency (ER) | payer OTHER ==
--- OUTSIDE RECORDS SUMMARY | 2020-12-29 21:17 | XMS REPORT | Continuity of Care Document ---
:[address] [facility] t Address [address] [place] [address] Care Team Providers Name Role Phone Asked, No Pcp Primary Care Physician Unavailable Fany Serrato Attending Clinician Doctor Unassigned, Name Attending Clinician Unavailable Lab Attending Clinician Unavailable Problems Condition Condition Condition Status Onset Resolution Last Treating Co mments Source Name Details Category Date Date Treatment Clinician Date Ingestion Ingestion Disease [facility] Major Major Disease Active [place] 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-27 [facility] disorder, disorder, 00:00: st recurrent recurrent [...] Date Stop Date Source Natural father Depression [facility] thodist Social History Social Habit Start Date Stop Date Quantity Comments Source Tobacco use and 2018-03-27 2018-03-27 Never used [facility] ethodist exposure 00:00:00 00:00:00 Alcohol intake 2018-03-27 2018-03-27 Current [facility] thodist 00:00:00 00:00:00 non-drinker of alcohol (finding) [...] Clinicians Facility Department ID 2020-09-11 2020-09-11 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 APPRENTICE [id number] [facility] [id number] MATERNAL [id number] & CHILD 107 [facility] 2020-09-11 2020-09-11 Orders Doctor JANEY [id number] 00:00:00 00:00:00 Only Unassigned, TRICIA [id number] [place] [facility] [id number] 2020-09-07 2020-09-07 Routine [facility] [id number] 08:47:13 09:56:09 Raenda R LITHOGRAPHIC PROOFER APPRENTICE [id number] Visit [facility] [id number] MATERNAL [id number] & CHILD 107 [facility] 2020-08-29 2020-08-29 Aquatic Director Lab, [facility] [id number] 08:24:12 08:34:11 Visit [facility] LITHOGRAPHIC PROOFER APPRENTICE [id number] [facility] [id number] MATERNAL [id number] & CHILD 107 [facility] Results This patient has no known results.
[2020-12-29] MEDS ORDERED: FAMOTIDINE 20 MG/2 ML VIAL IV ONE (22:46)
[2020-12-29] MEDS ORDERED: ONDANSETRON 4 MG/2 ML VIAL ONE (22:46)
[2020-12-29] MEDS ORDERED: NA CHLORIDE 0.9% 1,000 ML ONE (22:47)
[2020-12-29 22:58] LABS: Absolute Lymphocytes (CBC) 0.4 K/uL (0.7-4.9); Basophils % 0.1 % (0-1.3); Hematocrit 48.4 % (36.0-45.0); Lymphocytes % 2.5 % (15.3-44.8); MPV 8.7 fL (7.6-11.3); RBC Red Blood Cell Count 5.79 M/uL (3.86-4.86)
[2020-12-29 23:27] LABS: Albumin 4.4 g/dL (3.4-5.0); Bilirubin Direct 0.4 mg/dL (0-0.2); Bilirubin Total 2.1 mg/dL (0.2-1.0); Potassium 3.8 mmol/L (3.5-5.1)
[2020-12-30 00:49] LABS: Urine Blood NEGATIVE (Negative); Urine Glucose NEGATIVE (Negative); Urine Protein NEGATIVE (NEG); Urine Specific Gravity 1.015 (1.005-1.030); Urine Specific Gravity/Preg 1.015 (1.005-1.030)
[2020-12-30 00:54] LABS: Barbiturates NEGATIVE (NEGATIVE); Benzodiazepines NEGATIVE (NEGATIVE); Cocaine NEGATIVE (NEGATIVE); METHAMPHETAM NEGATIVE (NEGATIVE); Methadone NEGATIVE (NEGATIVE); Opiates NEGATIVE (NEGATIVE); Phencyclidine NEGATIVE (NEGATIVE); THC Cannibis POSITIVE (NEGATIVE)
--- NOTE | 2020-12-30 01:03 | EDPHYS ---
Physician Documentation [facility] Name: Tea Collazo Age: 20 yrs Sex: Female : 2000 Arrival Date: 12/29/2020 Time: 21:16 Bed 16 Private MD: ED Physician Ravi Lora HPI: 12/29 22:30 This 20 yrs old Black Female presents to ER via Ambulatory with complaints of cp Nausea/Vomiting/Diarrhea. 22:30 The patient presents to the emergency department with nausea, with "dry heaves", cp vomiting, that is continuous, described as bilious. Onset: The symptoms/episode began/occurred today. Possible causes: antibiotics. Associated signs and symptoms: Pertinent negatives: abdominal pain, constipation, diarrhea, fever, GI bleeding. Severity of symptoms: in the emergency department the symptoms are unchanged despite home interventions. BISQUE BRUSHER: 12/30 01:58 0 cr4 01:58 0, Full Term 0, Premature 0, 0, Living 0 cr4 Historical: - Allergies: 12/29 21:29 honey; ll1 - PMHx: 21:29 Depression; Hypertension; SUICIDE ATTEMPT; ll1 - PSHx: 21:29 ; ll1 - Immunization history:: Flu vaccine is up to date. - Social history:: Smoking status: Patient denies any tobacco usage or history of. ROS: 22:35 Constitutional: Positive for poor PO intake, Negative for fever. cp 22:35 Eyes: Negative for injury, pain, redness, and discharge. cp 22:35 ENT: Negative for ear pain, sore throat, difficulty swallowing, difficulty handling secretions. 22:35 Cardiovascular: Negative for chest pain, palpitations. 22:35 Respiratory: Negative for cough, wheezing. 22:35 Abdomen/GI: Positive for nausea and vomiting, anorexia, Negative for abdominal pain, diarrhea, constipation, hematemesis, black/tarry stool, rectal bleeding. 22:35 Back: Negative for radiated pain. 22:35 Neuro: Negative for altered mental status, headache, weakness. 22:35 All other systems are negative. Exam: 22:40 Constitutional: The patient appears alert, awake, non-toxic, well developed, well cp nourished. 22:40 Head/Face: Normocephalic, atraumatic. cp 22:40 Eyes: Periorbital structures: appear normal, Conjunctiva: normal, no exudate, no cp injection, Sclera: no appreciated abnormality, Lids and lashes: appear normal, bilaterally. 22:40 ENT: External ear(s): are unremarkable, Nose: is normal, Mouth: Lips: moist, Oral mucosa: moist, Posterior pharynx: Airway: no evidence of obstruction, patent. 22:40 Chest/axilla: Inspection: normal. 22:40 Cardiovascular: Rate: tachycardic, Rhythm: regular. 22:40 Respiratory: the patient does not display signs of respiratory distress, Respirations: normal, no use of accessory muscles, no retractions, labored breathing, is not present. 22:40 Abdomen/GI: Inspection: abdomen appears normal, Palpation: abdomen is soft and non-tender, in all quadrants. 22:40 Back: pain, is absent, ROM is normal. 22:44 Skin: Wound recheck: Puncture: no discharge, no erythema, mild swelling, scant bleeding cp of puncture wound to right foot. Vital Signs: 21:29 BP 160 / 113; Pulse 110; Resp 20; Temp 98.0; Pulse Ox 100% ; Weight 68.04 kg; Height 5 ll1 ft. 3 in. (160.02 cm); Pain 0/10; 23:38 BP 151 / 95; Pulse 81; Resp 18; Temp 98.8; Pulse Ox 100% ; Pain 0/10; cr4 12/30 00:15 BP 133 / 81; Pulse 82; Resp 16; Temp 98.8; Pulse Ox 96% ; Pain 0/10; cr4 12/29 21:29 Body Mass Index 26.57 (68.04 kg, 160.02 cm) ll1 MDM: 12/29 22:29 Patient medically screened. cp 23:00 Differential diagnosis: gastritis, viral gastroenteritis, gastroenteritis, dehydration, cp electrolyte abnormality. 12/30 01:01 Data reviewed: vital signs, nurses notes, lab test result(s), radiologic studies, CT cp scan, and as a result, I will discharge patient. Response to treatment: the patient's symptoms have markedly improved after treatment. ED course: VSS. Nausea and vomiting resolved. Patient tolerating po fluids. Will discharge to home for continued monitoring. 12/29 22:25 Order name: Basic Metabolic Panel cp 12/29 22:25 Order name: CBC with Diff cp 12/29 22:25 Order name: Hepatic Function cp 12/29 22:25 Order name: Lipase cp 12/29 22:26 Order name: UDS; Complete Time: 00:20 cp 12/29 22:26 Order name: Basic Metabolic Panel; Complete Time: 23:47 EDMS 12/29 22:26 Order name: CBC with Automated Diff; Complete Time: 23:47 EDMS 12/29 22:26 Order name: Liver (Hepatic) Function; Complete Time: 23:47 EDMS 12/29 22:26 Order name: Lipase; Complete Time: 23:47 EDMS 12/29 23:47 Order name: CT Abd/Pelvis - IV Contrast Only; Complete Time: 00:20 cp 12/30 00:20 Order name: Urine Dipstick--Ancillary (enter results); Complete Time: 00:20 mw2 12/30 00:20 Order name: Urine --Ancillary (enter results); Complete Time: 00:20 mw2 12/29 22:25 Order name: IV Saline Lock; Complete Time: 23:13 cp 12/29 22:25 Order name: Labs collected and sent; Complete Time: 23:13 cp Administered Medications: 12/29 22:48 Drug: NS 0.9% 1000 ml Route: IV; Rate: 1 bolus; Site: left antecubital; cr4 12/30 00:08 Follow up: IV Status: Completed infusion; IV Intake: 1000ml cr4 12/29 22:49 Drug: Zofran (Ondansetron) 4 mg Route: IVP; Site: left antecubital; cr4 23:37 Follow up: Response: No adverse reaction; Nausea is decreased; Vomiting decreased cr4 22:49 Drug: Pepcid (famotidine) 20 mg Route: IVP; Site: left antecubital; cr4 23:37 Follow up: Response: No adverse reaction cr4 12/30 01:50 Drug: Zofran (Ondansetron) 4 mg Route: PO; cr4 02:00 Follow up: Response: No adverse reaction cr4 Disposition: 05:47 Co-signature as Attending Physician, Ravi Lora MD. ma2 Disposition: 12/30/20 01:03 Discharged to Home. Impression: Nausea and vomiting. - Condition is Stable. - Discharge Instructions: Nausea and Vomiting, Adult. - Prescriptions for Zofran 4 mg Oral Tablet - take 1 tablet by ORAL route every 12 hours As needed; 20 tablet. Pepcid 20 mg Oral Tablet - take 1 tablet by ORAL route every 12 hours for 10 days; 20 tablet. - Medication Reconciliation Form, Thank You Letter, Antibiotic Education, Prescription Opioid Use form. - Follow up: Private Physician; When: 2 - 3 days; Reason: Recheck today's complaints. - Problem is new. - Symptoms have improved. Signatures: Dispatcher [employer] EDMS Naomy Rajput, RN RN cr4 Isiah Iniguez PA PA cp Alzahri, Mohammad, MD MD ma2 Mitchell Denis RN RN ll1 Giuseppe Richardson RN RN sf Corrections: (The following items were deleted from the chart) 01:35 01:03 12/30/2020 01:03 Discharged to Home. Impression: Nausea and vomiting. Condition sf is Stable. Forms are Medication Reconciliation Form, Thank You Letter, Antibiotic Education, Prescription Opioid Use. Follow up: Private Physician; When: 2 - 3 days; Reason: Recheck today's complaints. Problem is new. Symptoms have improved. cp 02:09 01:35 12/30/2020 01:03 Discharged to Home. Impression: Nausea and vomiting. Condition cr4 is Stable. Discharge Instructions: Nausea and Vomiting, Adult. Prescriptions for Zofran 4 mg Oral Tablet - take 1 tablet by ORAL route every 12 hours As needed; 20 tablet, Pepcid 20 mg Oral Tablet - take 1 tablet by ORAL route every 12 hours for 10 days; 20 tablet. and Forms are Medication Reconciliation Form, Thank You Letter, Antibiotic Education, Prescription Opioid Use. Follow up: Private Physician; When: 2 - 3 days; Reason: Recheck today's complaints. Problem is new. Symptoms have improved. sf 12/31 00:19 12/29 22:44 Skin: Wound recheck: Puncture: no discharge, no erythema, mild swelling, cp scant bleeding of puncture wound to left foot, cp
--- NOTE | 2020-12-30 01:03 | ER ---
Nurse's Notes [facility] Name: Tea Collazo Age: 20 yrs Sex: Female : 2000 Arrival Date: 12/29/2020 Time: 21:16 Bed 16 Private MD: Diagnosis: Nausea and vomiting Presentation: 12/29 21:29 Chief complaint: Patient states: N/V/D started today after taking the medications we ll1 gave her last night for stepping on catfish. No fever. Coronavirus screen: Client denies travel out of the [place] in the last 14 days. diarrhea, nausea, vomiting. Client presents with at least one sign or symptom that may indicate coronavirus-19. Standard/surgical mask placed on the client. Ebola Screen: Patient denies travel to an Ebola-affected area in the 21 days before illness onset. Initial Sepsis Screen: Does the patient meet any 2 criteria? HR > 90 bpm. No. Patient's initial sepsis screen is negative. Does the patient have a suspected source of infection? Yes: Other: N/V/D. Risk Assessment: Do you want to hurt yourself or someone else? Patient reports no desire to harm self or others. Onset of symptoms was December 29, 2020. 21:29 Method Of Arrival: Ambulatory [facility] 21:29 Acuity: LARISA 3 ll1 CARD LACER JACQUARD: 12/30 01:58 0 cr4 01:58 0, Full Term 0, Premature 0, 0, Living 0 cr4 Historical: - Allergies: 12/29 21:29 honey; ll1 - PMHx: 21:29 Depression; Hypertension; SUICIDE ATTEMPT; ll1 - PSHx: 21:29 ; ll1 - Immunization history:: Flu vaccine is up to date. - Social history:: Smoking status: Patient denies any tobacco usage or history of. Screenin/27 00:47 Abuse screen: Denies threats or abuse. Nutritional screening: No deficits noted. cr4 Tuberculosis screening: No symptoms or risk factors identified. Fall Risk None identified. Assessment: 12/29 21:15 Reassessment: pt screaming and crying in ER lobby at this time, pt remains seated in a sg wheelchair in an upright position, pt transported to exam room 16 and stand by assist to exam room stretcher, pt stopped screaming and crying and is in a supine position with hob elevated 35 degrees, srx2 call light within reach, Jorge at bedside assisting patient with placement onto monitor. 21:20 Reassessment: pt denies pain, reports only nausea as the reason for screaming and sg crying. 22:26 General: Appears uncomfortable, well groomed, Behavior is cooperative, crying. Pain: cr4 Denies pain. Neuro: Reports dizziness, since now. Neuro: Level of Consciousness is awake, alert, obeys commands, Oriented to person, place, time, Valet Parker are equal bilaterally. Cardiovascular: No deficits noted. Respiratory: No deficits noted. GI: Abdomen is flat, non-distended, Pt is actively vomiting bile, Bowel sounds present X 4 quads. Abd is soft and non tender Reports nausea, vomiting, Patient currently denies pain. : Denies burning with urination, incontinence. EENT: No deficits noted. Derm: Wound noted right foot Wound is bandaid in place. 23:30 Reassessment: Patient and/or family updated on plan of care and expected duration. Pain cr4 level reassessed. Patient states feeling better. Patient states symptoms have improved. 12/30 00:47 Reassessment: Patient and/or family updated on plan of care and expected duration. Pain cr4 level reassessed. Patient states feeling better. Patient states symptoms have improved. . 01:35 Reassessment: Patient states feeling better. Patient states symptoms have improved. cr4 01:49 GI: Reports nausea, since reported felling slightly nauseated after drinking water. cr4 Isiah Beckford nofied. Vital Signs: 12/29 21:29 BP 160 / 113; Pulse 110; Resp 20; Temp 98.0; Pulse Ox 100% ; Weight 68.04 kg; Height 5 ll1 ft. 3 in. (160.02 cm); Pain 0/10; 23:38 BP 151 / 95; Pulse 81; Resp 18; Temp 98.8; Pulse Ox 100% ; Pain 0/10; cr4 12/30 00:15 BP 133 / 81; Pulse 82; Resp 16; Temp 98.8; Pulse Ox 96% ; Pain 0/10; cr4 12/29 21:29 Body Mass Index 26.57 (68.04 kg, 160.02 cm) ll1 ED Course: 12/29 21:16 Patient arrived in ED. cf2 21:28 Arm band placed on. ll1 21:31 Triage completed. ll1 22:25 Isiah Iniguez PA is PHCP. cp 22:25 Ravi Lora MD is Attending Physician. cp 22:31 Naomy Rajput, HÉCTOR is Primary Nurse. cr4 23:00 Patient has correct armband on for positive identification. Bed in low position. Side cr4 rails up X2. 23:40 Inserted saline lock: 20 gauge in left antecubital area, using aseptic technique. cr4 12/30 00:41 CT Abd/Pelvis - IV Contrast Only In Process Unspecified. EDMS 00:47 Awaiting radiology results. cr4 00:47 No provider procedures requiring assistance completed. cr4 01:34 IV discontinued, intact, bleeding controlled, No redness/swelling at site. Pressure sf dressing applied. 02:03 Primary Nurse role handed off by Naomy Rajput, RN cr4 02:03 Naomy Rajput, RN is Primary Nurse. cr4 Administered Medications: 12/29 22:48 Drug: NS 0.9% 1000 ml Route: IV; Rate: 1 bolus; Site: left antecubital; cr4 12/30 00:08 Follow up: IV Status: Completed infusion; IV Intake: 1000ml cr4 12/29 22:49 Drug: Zofran (Ondansetron) 4 mg Route: IVP; Site: left antecubital; cr4 23:37 Follow up: Response: No adverse reaction; Nausea is decreased; Vomiting decreased cr4 22:49 Drug: Pepcid (famotidine) 20 mg Route: IVP; Site: left antecubital; cr4 23:37 Follow up: Response: No adverse reaction cr4 12/30 01:50 Drug: Zofran (Ondansetron) 4 mg Route: PO; cr4 02:00 Follow up: Response: No adverse reaction cr4 Intake: 00:08 IV: 1000ml; Total: 1000ml. cr4 Outcome: 01:03 Discharge ordered by . cp 01:34 Discharged to home ambulatory. sf 01:34 Condition: stable 01:34 Discharge instructions given to patient, Instructed on discharge instructions, follow up and referral plans. medication usage, Demonstrated understanding of instructions, follow-up care, medications, Prescriptions given X 2. 01:35 Patient left the ED. sf 02:09 Patient left the ED. cr4 Signatures: Dispatcher [employer] EDMS Giuseppe Kelley, RN Naomy Douglas RN RN cr4 Isiah Iniguez PA PA cp Frazier, Celesta cf2 Mitchell Denis RN RN ll1 Giuseppe Richardson RN RN sf Corrections: (The following items were deleted from the chart) 02:02 01:45 Reassessment: Patient states feeling better. Patient states symptoms have cr4 improved. cr4
[2020-12-30] MEDS ORDERED: ONDANSETRON 4 MG (ODT) TAB ONE (02:08)
[2020-12-30 18:02] VITALS: BP 133/81; TEMP 98.8; O2SAT 96
--- NOTE | 2020-12-30 20:27 | RAD REPORT ---
EXAM DESCRIPTION: CT - Abdomen Pelvis W Contrast - 12/30/2020 6:31 am CLINICAL HISTORY: NAUSEA / VOMITING. COMPARISON: None. TECHNIQUE: CT of the abdomen and pelvis was performed following intravenous administration of iodina lucero contrast. Arterial phase images through the abdomen, and portal venous phase images through the a bdomen and pelvis were obtained. Oral contrast was not administered. Axial, coronal, and sagittal sof t tissue window reconstructions were created and sent to PACS. This exam was performed according to our departmental dose-optimization program, which includes autom ated exposure control, adjustment of the mA and/or kV according to patient size and/or use of iterati ve reconstruction technique. FINDINGS: Thoracic: No significant abnormality. Hepatobiliary: No concerning hepatic lesion identified. The hepatic and portal veins are patent. The gallbladder is unremarkable. No biliary ductal dilatation. Pancreas: Unremarkable. Spleen: Unremarkable. Gastrointestinal: No evidence of bowel obstruction or perienteric inflammation. The appendix is jose l. Small amount of fecal material throughout the colon. Adrenals: No abnormality identified in either adrenal gland. Renal: Atrophic right kidney with multiple regions of chronic renal cortical scarring. Suspected bottler helper zuly mild right-sided hydronephrosis. Patchy regions of faint hypoenhancement in the cortex of the rig ht kidney. No walled off fluid collections identified. No concerning parenchymal abnormality in the l eft kidney. No left-sided hydronephrosis. No urolithiasis identified bilaterally. Bladder/Reproductive: Mild diffuse wall thickening of the urinary bladder. Unremarkable CT appearance of the uterus and ovaries. Vascular/Lymphatics: No lymphadenopathy identified by CT size criteria. Abdominal aorta is normal in caliber. The major visceral vessels are patent. Musculoskeletal: No concerning osseous lesion identified. Fluid / peritoneum: No significant free fluid. No free intraperitoneal air identified. IMPRESSION 1. Atrophic right kidney with multiple regions of chronic renal cortical scarring and m ild right-sided hydronephrosis. No urolithiasis identified bilaterally. 2. Mild diffuse wall thickening of the urinary bladder. Patchy regions of faint hypoenhancement in the cortex of the right kidney, which can be seen with acute pyelonephritis. Correlate for urinary tr act infection. Electronically signed by: Kiki Castro MD 12/30/2020 12:52 AM CDT Due to temporary technical issues with the PACS/Fluency reporting system, reports are being signed by the in house radiologists without review as a courtesy to insure prompt reporting. The interpreting radiologist is fully responsible for the content of the report.
== END 2020-12-30 02:09 | disposition home or self-care (01) ==
LOC: ER 21:14
DX: R11.2 Nausea with vomiting, unspecified (principal); I10 Essential (primary) hypertension; Z91.018 Allergy to other foods
CPT/HCPCS: 96361; 85025; 80048; 36415; 81025; 80076; 80307 ×8; 81003; 83690; 74177; 96375; 96374; 99284; Q9967; J7030; J2405

== ENCOUNTER 2021-04-17 20:10 | Emergency (ER) | payer OTHER ==
--- OUTSIDE RECORDS SUMMARY | 2021-04-17 20:13 | XMS REPORT | Continuity of Care Document ---
:2000 Author Organization [facility] t Address [address] [place] [address] Care Team Providers Name Role Phone Asked, No Pcp Primary Care Physician Unavailable Ricky TAFOYA Attending Clinician Fany Serrato Attending Clinician Doctor Unassigned, Name Attending Clinician Unavailable Lab Attending Clinician Unavailable Problems Condition Condition Condition Status Onset Resolution Last Treating Co mments Source Name Details Category Date Date Treatment Clinician Date Ingestion Ingestion Disease Active [facility] st 00 Major Major Disease Active [place] 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[facility] disorder, disorder, 00:00: st recurrent recurrent 00 episode, episode, severe severe Allergies, Adverse Reactions, Alerts Allergy Allergy Status Severity Reaction(s) Onset Inactive Treating Comm ents Source Name Type Date Date Clinician Honey Propensi Active Anaphylaxis Matilde ston ty to 03-27 [facility] adverse 00:00: st reaction 00 s to drug Family History Family Member Diagnosis Comments Start Date Stop Date Source Natural father Depression [facility] thodist Social History Social Habit Start Date Stop Date Quantity Comments Source Tobacco use and 2018-03-27 2018-03-27 Never used [facility] ethodist exposure 00:00:00 00:00:00 Alcohol intake 2018-03-27 2018-03-27 Current [facility] thodist 00:00:00 00:00:00 non-drinker of alcohol (finding) Sex Assigned At [birth year] Regino Terrazas ethodist 00:00:00 00:00:00 Smoking Status Start Date Stop Date Source Never smoker Regino Methodis t Medications This patient has no known medications. Procedures This patient has no known procedures. Encounters Start End Encounter Admission Attending Care Care Encounter Source Date/Time Date/Time Type Type Clinicians Facility Department ID 2021-03-28 2021-03-28 Emergency [facility] [id number] 12:28:00 14:08:00 [place] [id number] [place] [id number] [place] [id number] 2020-09-11 2020-09-11 [facility] [id number] 00:00:00 00:00:00 Roscarolenda R CLASSIFIED ADVERTISING CLERK [id number] [facility] [id number] MATERNAL [id number] & CHILD 107 [facility] 2020-09-11 2020-09-11 Orders Doctor JANEY [id number] 00:00:00 00:00:00 Only Unassigned, TRICIA [id number] [facility] [id number] 2020-09-07 2020-09-07 Routine [facility] [id number] 08:47:13 09:56:09 Raenda R CLASSIFIED ADVERTISING CLERK [id number] [facility] [id number] MATERNAL [id number] & CHILD 107 [facility] 2020-08-29 2020-08-29 Electronic Bench Technician Lab, [facility] [id number] 08:24:12 08:34:11 [facility] CLASS[facility] ADVERTISING CL[facility] [id number] [facility] [id number] MATERNAL [id number] & CHILD 107 [facility] Results This patient has no known results.
[2021-04-17 23:33] LABS: Urine Blood Negative (Negative); Urine Glucose Negative (Negative); Urine Protein Negative (Negative); Urine Specific Gravity 1.015 (1.005-1.030)
[2021-04-17 23:41] LABS: Urine Specific Gravity/Preg 1.015 (1.005-1.030)
[2021-04-17 23:41] LABS: Absolute Lymphocytes (CBC) 0.8 K/uL (0.7-4.9); Basophils % 0.1 % (0-1.3); Hematocrit 36.2 % (36.0-45.0); Lymphocytes % 8.5 % (15.3-44.8); MPV 8.9 fL (7.6-11.3); RBC Red Blood Cell Count 4.12 M/uL (3.86-4.86)
[2021-04-17] MEDS ORDERED: ONDANSETRON 4 MG/2 ML VIAL ONE (23:46)
[2021-04-17 23:56] LABS: ALT/SGPT 18 U/L (12-78); AST/SGOT 16 U/L (15-37); Albumin 3.1 g/dL (3.4-5.0); Alkaline Phosphatase 71 U/L (45-117); BUN Blood Urea Nitrogen 6 mg/dL (7-18); Bicarbonate 22 mmol/L (21-32); Bilirubin Direct 0.2 mg/dL (0-0.2); Bilirubin Total 1.1 mg/dL (0.2-1.0); Glucose Level 90 mg/dL (74-106); Lipase 15 U/L (73-393); Potassium 3.5 mmol/L (3.5-5.1); Protein, Total 7.1 g/dL (6.4-8.2); Sodium Level 136 mmol/L (136-145)
--- NOTE | 2021-04-18 00:22 | ER ---
Nurse's Notes [facility] Name: Tea Collazo Age: 20 yrs Sex: Female : 2000 Arrival Date: 04/17/2021 Time: 20:11 Bed 5 Private MD: Diagnosis: Mild hyperemesis gravidarum;17 weeks gestation of ;UTI/ Urinary tract infection, site not specified Presentation: 04/17 20:36 Chief complaint: Chief complaint: Patient states: "I've been vomiting since last night, vg1 I cant eat anything or hold anything down. Pt also c/o diarrhea and nausea. Pt is approximately 17 weeks .". Coronavirus screen: Client denies travel out of the [place] in the last 14 days. Client presents with at least one sign or symptom that may indicate coronavirus-19. Standard/surgical mask placed on the client. Ebola Screen: Patient negative for fever greater than or equal to 101.5 degrees Fahrenheit, and additional compatible Ebola Virus Disease symptoms. Initial Sepsis Screen: Does the patient meet any 2 criteria? No. Patient's initial sepsis screen is negative. Does the patient have a suspected source of infection? No. Patient's initial sepsis screen is negative. Risk Assessment: Do you want to hurt yourself or someone else? Patient reports no desire to harm self or others. Onset of symptoms was April 16, 2021. 20:36 Method Of Arrival: Ambulatory vg1 20:36 Acuity: LARISA 3 vg1 Triage Assessment: 20:38 General: Appears in no apparent distress. uncomfortable, Behavior is calm, cooperative. vg1 Pain: Complains of pain in epigastric area and umbilical area. GI: Reports diarrhea, nausea, vomiting. 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 - Social history:: Smoking status: Patient denies any tobacco usage or history of. Screenin/14 00:46 Abuse screen: Denies threats or abuse. Denies injuries from another. Nutritional ak2 screening: No deficits noted. Tuberculosis screening: No symptoms or risk factors identified. Fall Risk None identified. Vital Signs: 04/17 20:36 BP 155 / 87; Pulse 118; Resp 20; Temp 98.0; Pulse Ox 99% on R/A; Weight 73.48 kg; vg1 Height 5 ft. 3 in. (160.02 cm); Pain 7/10; 04/18 00:46 BP 126 / 70; Pulse 75; Resp 16; Pulse Ox 100% on R/A; ak2 04/17 20:36 Body Mass Index 28.70 (73.48 kg, 160.02 cm) vg1 ED Course: 04/17 20:11 Patient arrived in ED. cf2 20:38 Triage completed. vg1 20:38 Arm band placed on Patient placed in waiting room, Patient notified of wait time. vg1 23:04 Isiah Glover MD is Attending Physician. [facility] 04/18 00:21 Calixto Marquis MD is Referral Physician. apryl 00:46 Patient has correct armband on for positive identification. ak2 00:46 No provider procedures requiring assistance completed. IV discontinued. ak2 Administered Medications: 04/17 23:35 Drug: NS 0.9% 1000 ml Route: IV; Rate: 1 bolus; Site: right antecubital; ak2 23:35 Drug: NS 0.9% 1000 ml Route: IV; Rate: 1 bolus; Site: right antecubital; ak2 23:35 Drug: Zofran (Ondansetron) 4 mg Route: IVP; Site: right antecubital; ak2 04/18 00:14 Drug: Rocephin (cefTRIAXone) 1 grams Route: IV; Rate: per protocol; Site: right jm8 antecubital; Outcome: 00:21 Discharge ordered by . apryl 00:48 Discharged to home ambulatory. ak2 00:48 Condition: good 00:48 Discharge instructions given to patient, Prescriptions given X 00:48 Patient left the ED. ak2 Signatures: Isiah Glover MD MD cha Frazier, Celesta cf2 Carmelina Flores RN RN vg1 Davonte Rdz RN RN 8 Jeanmarie Wright ak2
--- NOTE | 2021-04-18 00:22 | EDPHYS ---
Physician Documentation [facility] Name: Tea Collazo Age: 20 yrs Sex: Female : 2000 Arrival Date: 04/17/2021 Time: 20:11 Bed 5 Private MD: ED Physician Isiah Glover HPI: 04/18 00:01 This 20 yrs old Black Female presents to ER via Ambulatory with complaints of Vomiting, apryl 17WKS . 00:01 The patient presents to the emergency department with nausea, vomiting, that is apryl continuous. Onset: The symptoms/episode began/occurred 1 day(s) ago. Possible causes: . The symptoms are aggravated by nothing. The symptoms are alleviated by nothing. Associated signs and symptoms: The patient has no apparent associated signs or symptoms. Severity of symptoms: At their worst the symptoms were mild in the emergency department the symptoms are unchanged. The patient has not experienced similar symptoms in the past. [employer] SAL[employer]: 04/17 20:38 LMP 12/23/2020 vg1 Historical: - Allergies: 20:38 HONEY; vg1 - Home Meds: 20:38 Metoprolol Tartrate Oral [Active]; Vitamin Oral [Active]; vg1 - PMHx: 20:38 Depression; Hypertension; SUICIDE ATTEMPT; vg1 - Immunization history:: Adult Immunizations up to date, Client reports receiving the 2nd dose of the Covid vaccine. - Social history:: Smoking status: Patient denies any tobacco usage or history of. ROS: 04/18 00:02 Constitutional: Negative for fever, chills, and weight loss, Eyes: Negative for injury, apryl pain, redness, and discharge, ENT: Negative for injury, pain, and discharge, Neck: Negative for injury, pain, and swelling, Cardiovascular: Negative for chest pain, palpitations, and edema, Respiratory: Negative for shortness of breath, cough, wheezing, and pleuritic chest pain, Back: Negative for injury and pain, : Negative for injury, bleeding, discharge, and swelling, MS/Extremity: Negative for injury and deformity, Skin: Negative for injury, rash, and discoloration, Neuro: Negative for headache, weakness, numbness, tingling, and seizure, Psych: Negative for depression, anxiety, suicide ideation, homicidal ideation, and hallucinations, Allergy/Immunology: Negative for hives, rash, and allergies, Endocrine: Negative for neck swelling, polydipsia, polyuria, polyphagia, and marked weight changes, Hematologic/Lymphatic: Negative for swollen nodes, abnormal bleeding, and unusual bruising. Abdomen/GI: Positive for nausea and vomiting, abdominal distension. 00:08 Abdomen/GI: Negative for no ctx, no vaginal bleeding, no lof. apryl Exam: 00:02 Constitutional: This is a well developed, well nourished patient who is awake, alert, apryl and in no acute distress. Head/Face: Normocephalic, atraumatic. Eyes: Pupils equal round and reactive to light, extra-ocular motions intact. Lids and lashes normal. Conjunctiva and sclera are non-icteric and not injected. Cornea within normal limits. Periorbital areas with no swelling, redness, or edema. ENT: Nares patent. No nasal discharge, no septal abnormalities noted. Tympanic membranes are normal and external auditory canals are clear. Oropharynx with no redness, swelling, or masses, exudates, or evidence of obstruction, uvula midline. Mucous membranes moist. Neck: Trachea midline, no thyromegaly or masses palpated, and no cervical lymphadenopathy. Supple, full range of motion without nuchal rigidity, or vertebral point tenderness. No Meningismus. Chest/axilla: Normal chest wall appearance and motion. Nontender with no deformity. No lesions are appreciated. Cardiovascular: Regular rate and rhythm with a normal S1 and S2. No gallops, murmurs, or rubs. Normal PMI, no JVD. No pulse deficits. Respiratory: Lungs have equal breath sounds bilaterally, clear to auscultation and percussion. No rales, rhonchi or wheezes noted. No increased work of breathing, no retractions or nasal flaring. Back: No spinal tenderness. No costovertebral tenderness. Full range of motion. Pelvic Exam: Normal external genitalia. Speculum exam with closed cervical os, no discharge or bleeding noted. Bimanual exam with normal adnexa, no adnexal or cervical motion tenderness. Normal uterus. Female : Normal external genitalia. Skin: Warm, dry with normal turgor. Normal color with no rashes, no lesions, and no evidence of cellulitis. MS/ Extremity: Pulses equal, no cyanosis. Neurovascular intact. Full, normal range of motion. Neuro: Awake and alert, GCS 15, oriented to person, place, time, and situation. Cranial nerves II-XII grossly intact. Motor strength 5/5 in all extremities. Sensory grossly intact. Cerebellar exam normal. Normal gait. Psych: Awake, alert, with orientation to person, place and time. Behavior, mood, and affect are within normal limits. 00:02 Abdomen/GI: Inspection: distension, that is moderate, gravid appearance, is noted, Bowel sounds: normal, Palpation: abdomen is soft and non-tender, Liver: no appreciated palpable abnormalities, Hernia: not appreciated. Vital Signs: 04/17 20:36 BP 155 / 87; Pulse 118; Resp 20; Temp 98.0; Pulse Ox 99% on R/A; Weight 73.48 kg; vg1 Height 5 ft. 3 in. (160.02 cm); Pain 04/14; 04/18 00:46 BP 126 / 70; Pulse 75; Resp 16; Pulse Ox 100% on R/A; ak2 04/17 20:36 Body Mass Index 28.70 (73.48 kg, 160.02 cm) vg1 MDM: 04/17 23:04 Patient medically screened. [facility] 04/18 00:03 Differential diagnosis: gastritis, pancreatitis, viral gastroenteritis, apryl gastroenteritis. Data reviewed: vital signs, nurses notes, lab test result(s), EKG, radiologic studies. Data interpreted: court monitor: rate is 118 beats/min, rhythm is regular, Pulse oximetry: on room air is 99 %. Counseling: I had a detailed discussion with the patient and/or guardian regarding: the historical points, exam findings, and any diagnostic results supporting the discharge/admit diagnosis, lab results, the need for outpatient follow up, for definitive care, an OB/Gyne specialist. 04/17 23:05 Order name: Basic Metabolic Panel; Complete Time: 00:01 apryl 04/17 23:05 Order name: CBC with Diff; Complete Time: 00:01 apryl 04/17 23:05 Order name: Hepatic Function; Complete Time: 00:01 apryl 04/17 23:05 Order name: Lipase; Complete Time: 00:01 apryl 04/17 23:05 Order name: Urine Culture [facility] 04/17 23:32 Order name: Urine Dipstick-Ancillary; Complete Time: 00:01 EDMS 04/17 23:05 Order name: IV Saline Lock; Complete Time: 23:55 [facility] 04/17 23:05 Order name: Labs collected and sent; Complete Time: 23:55 [facility] 04/17 23:39 Order name: Urine --Ancillary (enter results); Complete Time: 00:01 2 04/17 23:05 Order name: Urine Dipstick-Ancillary (obtain specimen); Complete Time: 23:38 [facility] Administered Medications: 04/17 23:35 Drug: NS 0.9% 1000 ml Route: IV; Rate: 1 bolus; Site: right antecubital; or2 23:35 Drug: NS 0.9% 1000 ml Route: IV; Rate: 1 bolus; Site: right antecubital; or2 23:35 Drug: Zofran (Ondansetron) 4 mg Route: IVP; Site: right antecubital; or2 04/18 00:14 Drug: Rocephin (cefTRIAXone) 1 grams Route: IV; Rate: per protocol; Site: right jm8 antecubital; Disposition Summary: 04/18/21 00:21 Discharge Ordered Location: Home [facility] Problem: new [facility] Symptoms: have improved apryl Condition: Stable apryl Diagnosis - Mild hyperemesis gravidarum apryl - 17 weeks gestation of apryl - UTI/ Urinary tract infection, site not specified apryl Followup: apryl - With: Private Physician - When: 2 - 3 days - Reason: Recheck today's complaints, Continuance of care, Re-evaluation by your physician Followup: apryl - With: - When: 2 - 3 days - Reason: Recheck today's complaints, Continuance of care, Re-evaluation by your physician Discharge Instructions: - Discharge Summary Sheet apryl - Dysuria apryl - Hyperemesis Gravidarum [facility] - Care apryl - Urinary Tract Infection, Adult apryl - Urinary Tract Infection, Adult, [id number]-lv-[id number] [facility] Forms: - Medication Reconciliation Form [facility] - Thank You Letter [facility] - Antibiotic Education [facility] - Prescription Opioid Use [facility] Prescriptions: - promethazine 25 mg Rectal suppository - insert 1 suppository by RECTAL route every 6 hours; 15 suppository; Refills: 0, [facility] Product Selection Permitted - Zofran 4 mg Oral Tablet - take 1 tablet by ORAL route every 12 hours As needed; 20 tablet; Refills: 0, [facility] Product Selection Permitted Signatures: Dispatcher [employer] Isiah Soliz MD MD cha Garcia, Victoria, RN RN vg1 Davonte Rdz RN RN jm8 Jeanmarie Wright
[2021-04-18] MEDS ORDERED: NA CHLORIDE 0.9% 100 ML ONE (00:24)
[2021-04-18] MEDS ORDERED: CEFTRIAXONE/SWI 1gm 1 GM/10 ML SYR ONE (00:24)
[2021-04-18 00:54] VITALS: TEMP 98
[2021-04-18 00:56] VITALS: BP 126/70; O2SAT 100
== END 2021-04-18 00:48 | disposition home or self-care (01) ==
LOC: ER 20:10
DX: O21.0 Mild hyperemesis gravidarum (principal); O23.42 Unspecified infection of urinary tract in pregnancy, second trimester; O16.2 Unspecified maternal hypertension, second trimester; Z3A.17 17 weeks gestation of pregnancy; Z91.018 Allergy to other foods
CPT/HCPCS: 87088; 85025; 87086; 80048; 36415; 81025; 80076; 81003; 83690; 96375; 96374; 99283; J0696; J2405

== ENCOUNTER 2021-05-10 02:56 | Emergency (ER) | payer OTHER ==
--- OUTSIDE RECORDS SUMMARY | 2021-05-10 02:59 | XMS REPORT | Continuity of Care Document ---
:2000 Author Organization [facility] t Address [address] [place] [address] Care Team Providers Name Role Phone Asked, No Pcp Primary Care Physician Unavailable Ricky TAFOYA Attending Clinician Fany Serrato Attending Clinician Doctor Unassigned, Name Attending Clinician Unavailable Lab Attending Clinician Unavailable Problems Condition Condition Condition Status Onset Resolution Last Treating Co mments Source Name Details Category Date Date Treatment Clinician Date Ingestion Ingestion Disease Active Met hodi of unknown of unknown 03-27 medication medication 00:00: Ho spita 00 l Major Major Disease Active Methodi 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-27 disorder, disorder, 00:00: Hosp jennifer recurrent recurrent 00 l episode, episode, severe severe Allergies, Adverse Reactions, Alerts Allergy Allergy Status Severity Reaction(s) Onset Inactive Treating Comm ents Source Name Type Date Date Clinician Honey Propensi Active Anaphylaxis Met hodi ty to 03-27 st adverse 00:00: Hospita reaction 00 l s to drug Family History Family Member Diagnosis Comments Start Date Stop Date Source Natural father Depression [facility] Social History Social Habit Start Date Stop Date Quantity Comments Source Tobacco use and 2018-03-27 2018-03-27 Never used [facility] 00:[facility]00:00 Hospital Alcohol intake 2018-03-27 2018-03-27 Current [facility] 00:00:00 00:00:00 non-drinker of Hospital alcohol (finding) Sex Assigned At [birth year] [facility] 00:[facility]00 [facility] Smoking Status Start Date Stop Date Source [facility] smoker [facility] Medications Ordered Filled Start Stop Current Ordering Indication Dosage Frequency Signature Comments Components Source Medication Medication Date Date Medication? Clinician (SIG) Name Name No known No [facility] No known No [facility] Procedures This patient has no known procedures. Encounters Start End Encounter Admission Attending Care Care Encounter Source Date/Time Date/Time Type Type Clinicians Facility Department ID 2021-03-28 2021-03-28 Emergency [facility] [id number] 12:28:00 14:08:00 Lion [place] [id number] [place] [id number] Story [id number] 2020-09-11 2020-09-11 Telephone [facility] [id number] 00:00:00 00:00:00 Roshunda R ASSISTANT BANQUET MANAGER [id number] [facility] [id number] MATERNAL [id number] & CHILD 107 [facility] 2020-09-11 2020-09-11 Orders Doctor JANEY [id number] 00:00:00 00:00:00 Only Unassigned, TRICIA [id number] Gonzalez [facility] [id number] 2020-09-07 2020-09-07 Routine [facility] [id number] 08:47:13 09:56:09 Roshunda R ASSISTANT BANQUET MANAGER [id number] Visit [facility] [id number] MATERNAL [id number] & CHILD 107 [facility] 2020-08-29 2020-08-29 Hand Trucker [facility] [id number] 08:24:12 08:34:11 Visit [facility] ASSISTANT BANQUET MANAGER [id number] [facility] [id number] MATERNAL [id number] & CHILD 107 [facility] Results This patient has no known results.
[2021-05-10 04:08] LABS: Basophils % 0.3 % (0-1.3); Hematocrit 34.8 % (36.0-45.0); Lymphocytes % 24.3 % (15.3-44.8); MPV 8.4 fL (7.6-11.3); RBC Red Blood Cell Count 3.85 M/uL (3.86-4.86)
[2021-05-10 04:25] LABS: Urine Blood Negative (Negative); Urine Glucose Negative (Negative); Urine Protein Negative (Negative); Urine Specific Gravity 1.015 (1.005-1.030); Urine pH 6.5 (5.0-7.0)
[2021-05-10 04:29] LABS: ALT/SGPT 17 U/L (12-78); AST/SGOT 13 U/L (15-37); Albumin 3.3 g/dL (3.4-5.0); Alkaline Phosphatase 84 U/L (45-117); BUN Blood Urea Nitrogen 10 mg/dL (7-18); Bicarbonate 25 mmol/L (21-32); Bilirubin Direct 0.1 mg/dL (0-0.2); Bilirubin Total 0.6 mg/dL (0.2-1.0); Glucose Level 81 mg/dL (74-106); Lipase 54 U/L (73-393); Potassium 4.1 mmol/L (3.5-5.1); Protein, Total 7.3 g/dL (6.4-8.2); Sodium Level 137 mmol/L (136-145)
--- NOTE | 2021-05-10 05:59 | ER ---
Nurse's Notes [facility] Name: Tea Collazo Age: 21 yrs Sex: Female : 2000 Arrival Date: 05/10/2021 Time: 02:58 Bed 11 Private MD: Diagnosis: Abdominal pain. 2 nd Trimester Presentation: 05/10 03:00 Chief complaint: Patient states: I started having abdominal pain yesterday at around jb4 5pm. It was not that bad then so I tried to tough it out. It got worse when I laid down. It feels like a sharp stabbing pain of my stomach. 03:00 Coronavirus screen: At this time, the client does not indicate any symptoms associated jb4 with coronavirus-19. Ebola Screen: No symptoms or risks identified at this time. Initial Sepsis Screen: Does the patient meet any 2 criteria? No. Patient's initial sepsis screen is negative. Does the patient have a suspected source of infection? No. Patient's initial sepsis screen is negative. Risk Assessment: Do you want to hurt yourself or someone else? Patient reports no desire to harm self or others. Onset of symptoms was May 08, 2021. 03:00 Method Of Arrival: Ambulatory jb4 03:00 Acuity: LARISA 3 jb4 Historical: - Allergies: 04:34 HONEY; jb4 - Home Meds: 04:34 Metoprolol Tartrate Oral [Active]; Vitamin Oral [Active]; jb4 - PMHx: 04:34 SUICIDE ATTEMPT; Hypertension; Depression; jb4 - Immunization history:: Adult Immunizations up to date. - Social history:: Smoking status: Patient denies any tobacco usage or history of. Patient/guardian denies using alcohol, street drugs. Screenin:00 Abuse screen: Denies threats or abuse. Nutritional screening: No deficits noted. jb4 Difficulty chewing/swallowing?. Tuberculosis screening: No symptoms or risk factors identified. Fall Risk None identified. Assessment: 03:00 General: Appears in no apparent distress. comfortable, Behavior is calm, cooperative, jb4 appropriate for age. Pain: Complains of pain in abdomen Pain does not radiate. Pain currently is 6 out of 10 on a pain scale. at worst was 10 out of 10 on a pain scale. Neuro: Level of Consciousness is awake, alert, obeys commands, Oriented to person, place, time, situation. Cardiovascular: Patient's skin is warm and dry. Respiratory: Airway is patent Respiratory effort is even, unlabored, Respiratory pattern is regular, symmetrical. GI: Abdomen is round non-distended. : No signs and/or symptoms were reported regarding the genitourinary system. EENT: No signs and/or symptoms were reported regarding the EENT system. Derm: Skin Skin is pink, warm \T\ dry. Musculoskeletal: Circulation, motion, and sensation intact. Range of motion: intact in all extremities. 04:00 Reassessment: Patient appears in no apparent distress at this time. Patient and/or jb4 family updated on plan of care and expected duration. Pain level reassessed. Patient is alert, oriented x 3, equal unlabored respirations, skin warm/dry/pink. 05:00 Reassessment: Patient appears in no apparent distress at this time. Patient and/or jb4 family updated on plan of care and expected duration. Pain level reassessed. Patient is alert, oriented x 3, equal unlabored respirations, skin warm/dry/pink. 06:00 Reassessment: Patient appears in no apparent distress at this time. Patient and/or jb4 family updated on plan of care and expected duration. Pain level reassessed. Patient is alert, oriented x 3, equal unlabored respirations, skin warm/dry/pink. Vital Signs: 03:00 BP 135 / 81; Pulse 71; Resp 16; Temp 98.6; Pulse Ox 100% on R/A; Weight 74.84 kg (R); jb4 Height 5 ft. 3 in. (160.02 cm); Pain 6/10; 05:00 BP 132 / 63; Pulse 81; Resp 16; Pulse Ox 100% on R/A; jb4 06:00 BP 126 / 76; Pulse 76; Resp 16; Pulse Ox 98% on R/A; jb4 03:00 Body Mass Index 29.23 (74.84 kg, 160.02 cm) 4 ED Course: 02:58 Patient arrived in ED. wm 03:00 Arm band placed on right wrist. jb4 03:00 Patient has correct armband on for positive identification. Bed in low position. Call [facility] light in reach. Side rails up X 1. Pulse ox on. NIBP on. 03:17 Augustin Bermeo, RN is Primary Nurse. jb4 03:22 Triage completed. jb4 03:41 Inserted saline lock: 20 gauge in right antecubital area, using aseptic technique. mw2 Blood collected. 03:44 Steven Mason MD is Attending Physician. pkl 05:57 Calixto Marquis MD is Referral Physician. pkl 06:00 No provider procedures requiring assistance completed. IV discontinued, intact, jb4 bleeding controlled, No redness/swelling at site. Pressure dressing applied. Administered Medications: 04:05 Drug: Tylenol 650 mg Route: PO; jb4 05:00 Follow up: Response: No adverse reaction; Marked relief of symptoms; Pain is decreased jb4 04:05 Drug: NS 0.9% 500 ml Route: IV; Rate: bolus; Site: right antecubital; jb4 04:45 Follow up: Response: No adverse reaction; IV Status: Completed infusion; IV Intake: jb4 500ml Intake: 04:45 IV: 500ml; Total: 500ml. jb4 Outcome: 05:58 Discharge ordered by . pkl 06:00 Discharged to home ambulatory. jb4 06:00 Condition: stable 06:00 Discharge instructions given to patient, Instructed on discharge instructions, follow up and referral plans. Demonstrated understanding of instructions, follow-up care. 06:14 Patient left the ED. jb4 Signatures: Steven Mason MD MD pk Augustin Bermeo, RN RN jb4 Sayra Alvarez mw2 Swati Tapia
--- NOTE | 2021-05-10 05:59 | EDPHYS ---
Physician Documentation [facility] Name: Tea Collazo Age: 21 yrs Sex: Female : 2000 Arrival Date: 05/10/2021 Time: 02:58 Bed 11 Private MD: ED Physician Steven Mason HPI: 05/10 03:57 This 21 yrs old Black Female presents to ER via Ambulatory with complaints of Abdominal pkl Pain - 20WKS PREG, L\T\D PRESCREENED. 03:57 The patient presents with abdominal pain in the upper abdomen. Onset: The pkl symptoms/episode began/occurred today. The symptoms do not radiate. Associated signs and symptoms: none. Patient is 20 weeks . Historical: - Allergies: 04:34 HONEY; jb4 - Home Meds: 04:34 Metoprolol Tartrate Oral [Active]; Vitamin Oral [Active]; jb4 - PMHx: 04:34 SUICIDE ATTEMPT; Hypertension; Depression; jb4 - Immunization history:: Adult Immunizations up to date. - Social history:: Smoking status: Patient denies any tobacco usage or history of. Patient/guardian denies using alcohol, street drugs. ROS: 03:57 Eyes: Negative for injury, pain, redness, and discharge, ENT: Negative for injury, pkl pain, and discharge, Neck: Negative for injury, pain, and swelling, Cardiovascular: Negative for chest pain, palpitations, and edema, Respiratory: Negative for shortness of breath, cough, wheezing, and pleuritic chest pain. 03:57 Abdomen/GI: Positive for abdominal pain, of the right upper quadrant and left upper quadrant. 03:57 Back: Negative for acute changes. 03:57 : Negative for urinary symptoms, acute changes. 03:57 MS/extremity: Negative for acute changes. 03:57 Skin: Negative for rash. 03:57 Neuro: Negative for altered mental status, loss of consciousness. Exam: 03:57 Head/Face: Normocephalic, atraumatic. Eyes: Pupils equal round and reactive to light, pkl extra-ocular motions intact. Lids and lashes normal. Conjunctiva and sclera are non-icteric and not injected. Cornea within normal limits. Periorbital areas with no swelling, redness, or edema. ENT: Nares patent. No nasal discharge, no septal abnormalities noted. Tympanic membranes are normal and external auditory canals are clear. Oropharynx with no redness, swelling, or masses, exudates, or evidence of obstruction, uvula midline. Mucous membranes moist. Neck: Trachea midline, no thyromegaly or masses palpated, and no cervical lymphadenopathy. Supple, full range of motion without nuchal rigidity, or vertebral point tenderness. No Meningismus. Chest/axilla: Normal chest wall appearance and motion. Nontender with no deformity. No lesions are appreciated. Cardiovascular: Regular rate and rhythm with a normal S1 and S2. No gallops, murmurs, or rubs. Normal PMI, no JVD. No pulse deficits. Respiratory: Lungs have equal breath sounds bilaterally, clear to auscultation and percussion. No rales, rhonchi or wheezes noted. No increased work of breathing, no retractions or nasal flaring. 03:57 Abdomen/GI: Bowel sounds: normal, Palpation: abdomen is soft and non-tender, in all quadrants. 03:57 Back: Exam negative for acute changes. 03:57 : Exam negative for acute changes. 03:57 Musculoskeletal/extremity: Exam is negative for acute changes. 03:57 Skin: Exam negative for rash. 03:57 Neuro: Orientation: is normal, Mentation: is normal, Cranial nerves: grossly normal, Motor: is normal. Vital Signs: 03:00 BP 135 / 81; Pulse 71; Resp 16; Temp 98.6; Pulse Ox 100% on R/A; Weight 74.84 kg (R); jb4 Height 5 ft. 3 in. (160.02 cm); Pain 6/10; 05:00 BP 132 / 63; Pulse 81; Resp 16; Pulse Ox 100% on R/A; jb4 06:00 BP 126 / 76; Pulse 76; Resp 16; Pulse Ox 98% on R/A; jb4 03:00 Body Mass Index 29.23 (74.84 kg, 160.02 cm) jb4 MDM: 03:44 Patient medically screened. pkl 05:55 Data reviewed: vital signs, nurses notes, lab test result(s). ED course: Patient pkl feeling better. Discussed lab results with patient. Advised to keep appt. with Dr. Marquis today. Patient understood instructions. 05/10 03:36 Order name: Basic Metabolic Panel; Complete Time: :52 bb 05/10 03:36 Order name: CBC with Diff; Complete Time: 05:52 bb 05/10 03:36 Order name: Hepatic Function; Complete Time: 05:52 bb 05/10 03:36 Order name: Lipase; Complete Time: 05:52 bb 05/10 04:24 Order name: Urine Dipstick-Ancillary; Complete Time: 05:52 EDMS 05/10 03:36 Order name: IV Saline Lock; Complete Time: 03:45 bb 05/10 03:36 Order name: Labs collected and sent; Complete Time: 03:45 bb Administered Medications: 04:05 Drug: Tylenol 650 mg Route: PO; jb4 05:00 Follow up: Response: No adverse reaction; Marked relief of symptoms; Pain is decreased jb4 04:05 Drug: NS 0.9% 500 ml Route: IV; Rate: bolus; Site: right antecubital; jb4 04:45 Follow up: Response: No adverse reaction; IV Status: Completed infusion; IV Intake: jb4 500ml Disposition Summary: 05/10/21 05:58 Discharge Ordered Location: Home pkl Condition: Stable pkl Diagnosis - Abdominal pain. 2 nd Trimester pkl Followup: pkl - With: Calixto Marquis MD - When: Today - Reason: Re-evaluation by your physician Forms: - Medication Reconciliation Form pkl - Thank You Letter pkl - Antibiotic Education pkl - Prescription Opioid Use pkl Signatures: Dispatcher [employer] Steven Kirby MD MD pkl Kristie Torres RN RN Augustin Rizo RN RN jb4 Corrections: (The following items were deleted from the chart) 03:59 03:56 FHT's ordered. pkl mw2
[2021-05-10 06:22] VITALS: TEMP 98.6
[2021-05-10 06:27] VITALS: BP 126/76; O2SAT 98
== END 2021-05-10 06:14 | disposition home or self-care (01) ==
LOC: ER 02:56
DX: O26.892 Other specified pregnancy related conditions, second trimester (principal); O16.2 Unspecified maternal hypertension, second trimester; Z3A.20 20 weeks gestation of pregnancy; Z91.018 Allergy to other foods
CPT/HCPCS: 36415; 80048; 80076; 81003; 83690; 85025; 96360; 99284

== ENCOUNTER 2022-05-23 12:53 | Emergency (ER) | payer OTHER ==
--- OUTSIDE RECORDS SUMMARY | 2022-05-23 12:58 | XMS REPORT | Continuity of Care Document ---
:2000 Author Organization [facility] t Address [address] [place] [address] Care Team Providers Name Role Phone Asked, No Pcp Primary Care Physician Unavailable ASHA NELSON Attending Clinician Unavailable Lion García MD Attending Clinician JOHNNA HICKEY Attending Clinician Unavailable NILAM EVANS Attending Clinician Unavailable Johnna Serrato Attending Clinician Doctor Unassigned, [place] Attending Clinician [facility]available [facility] Unavailable Andre Rowe MD Attending Clinician Ultrasound, Lateshakaran Attending Clinician Unavailable La Nena Rojas MD Attending Clinician Lucy Quezada Attending Clinician Oseas Campos MD, Allie Attending Clinician [phone] Visit, Lateshamary ellen Nurse Attending Clinician Unavailable Em Garrido Attending Clinician EM RUSSELL Attending Clinician Unavailable MARY BASS Attending Clinician Unavailable ANDRE ROWE Admitting Clinician Unavailable ASHA NELSON Admitting Clinician Unavailable Andre Rowe MD Admitting Clinician Payers Payer Name Policy Type Policy Number Effective Date Expiration Date Amaya farmer [facility] MEDICAID STAR [id number] 2020 2024 00:00:00 00:00:00 [facility] [id number] 2020 CHOICE MEDICAID 00:00:00 MEDICAID PENDING PENDING 2020 00:00:00 KILO [id number] 2011 00:00:00 Problems Condition Condition Condition Status Onset Resolution Last Treating Co mments Source Name Details Category Date Date Treatment Clinician Date Need for Need for Disease Active 2020- Unive rs Tdap Tdap 2-03 [place] [facility] Obesity in Obesity in Disease Active 2020-1 U nivers 1-19 ity of 00:00: [address] 26 weeks 26 weeks Disease Active 2020- Unive rs gestation gestation 1-19 ity of of of 00:00: [place] 00 [facility] Chronic Chronic Disease Active 2020- Univers hypertensi hypertensi 1-19 it y of on in on in 00:00: [place] obstetric obstetric 00 [facility] context in context in Br anch second second trimester trimester COVID-19 COVID-19 Disease Active 2020- Unive rs virus virus 1-19 [place] [facility] Nausea and Nausea and Disease Active 2020-0 U nivers vomiting vomiting 7-15 ity of in in 00:00: [place] 00 [facility] prior to prior to Branch 22 weeks 22 weeks gestation gestation Gonorrhea Gonorrhea Disease Active 2020-0 Uni vers 7-15 ity of 00:00: [address] Over Over Disease Active 2020-0 Univers weight weight 6-17 ity of 00:00: [place] 00 [facility] Supervisio Supervisio Disease Active 2020-0 U nivers n of high n of high 6-17 ity of risk risk 00:00: [place] 00 [facility] in second in second Bran ch trimester trimester Primigravi Primigravi Disease Active 2020-0 U nivers da in da in 6-17 ity of second second 00:00: [place] trimester trimester 00 Medi stephanie Branch Elevated Elevated Disease Active Unive rs blood blood 03-22 ity of pressure pressure 00:00: [place] reading reading 00 Medical without without Branch diagnosis diagnosis of of hypertensi hypertensi on on Left Left Disease Active Univers breast breast 03-22 ity of lump lump 00:00: [address] BMI BMI Disease Active Univers 25.0-25.9, 25.0-25.9, 6-17 it y of adult adult 00:00: [place] [facility] Ingestion Ingestion Disease Active Met hodi of [...] Active Anaphylaxis Met hodi ty to 03-27 adverse 00:00: Hospita reaction 00 l s to drug NO KNOWN Drug Active Univers ALLERGIE Class ity of S [facility] Family History Family Member Diagnosis Comments Start Date Stop Date Source Natural father Depression [facility] Social History Social Habit Start Date Stop Date Quantity Comments Source ASSERTION 2020-03-05 [facility] 00:00:00 [facility] Exposure to Not sure [facility] SARS-CoV-2 [facility] (event) [place] Tobacco use and 2021-02-18 2021-02-18 Never used Universit y of exposure 00:00:00 00:00:00 [facility] Alcohol intake 2021-02-18 2021-02-18 Ex-drinker [facility] 00:00:00 00:00:00 (finding) [facility] Sex Assigned At [birth year] Universit y of 00:00:00 00:00:00 [facility] Smoking Status Start Date Stop Date Source Never smoker [facility] Unknown if ever smoked [facility] Medications Ordered Filled Start Stop Current Ordering Indication Dosage Frequency Signature Comments Components Source Medication Medication Date Date Medication? Clinician (SIG) Name Name amoxicillin Yes [id number] 500mg Take 1 Univers 500 mg 6-23 capsule by ity of capsule 00:00: mouth 3 [place] 00 (three) Medical times Branch daily. 2020-0 Yes [id number] 1{packe Take 1 Univers vit 7-15 t} Packet by ity of 33-iron-fol 00:00: mouth [place] ic-dha 00 daily. Medical (SELECT-OB Branch + DHA) 29 mg iron-1 mg -250 mg combo pack 2020-0 Yes [id number] 1{packe Take 1 Univers vit 7-15 t} Packet by ity of 33-iron-fol 00:00: mouth [place] ic-dha 00 daily. Medical (SELECT-OB Branch + DHA) 29 mg iron-1 mg -250 mg combo pack 2020-0 Yes [id number] 1{packe Take 1 Univers vit 7-15 t} Packet by ity of 33-iron-fol 00:00: mouth [place] ic-dha 00 daily. Medical (SELECT-OB Branch + DHA) 29 mg iron-1 mg -250 mg combo pack 2020-0 Yes [id number] 1{packe Take 1 Univers vit 7-15 t} Packet by ity of 33-iron-fol 00:00: mouth [place] ic-dha 00 daily. Medical (SELECT-OB Branch + DHA) 29 mg iron-1 mg -250 mg combo pack 2020-0 Yes [id number] 1{packe Take 1 Univers vit 7-15 t} Packet by ity of 33-iron-fol 00:00: mouth [place] ic-dha 00 daily. Medical (SELECT-OB Branch + DHA) 29 mg iron-1 mg -250 mg combo pack 2020-0 Yes [id number] 1{packe Take 1 Univers vit 7-15 t} Packet by ity of 33-iron-fol 00:00: mouth [place] ic-dha 00 daily. Medical (SELECT-OB Branch + DHA) 29 mg iron-1 mg -250 mg combo pack 2020-0 Yes [id number] 1{packe Take 1 Univers vit 7-15 t} Packet by ity of 33-iron-fol 00:00: mouth [place] ic-dha 00 daily. Medical (SELECT-OB Branch + DHA) 29 mg iron-1 mg -250 mg combo pack 2020-0 Yes [id number] 1{packe Take 1 Univers vit 7-15 t} Packet by ity of 33-iron-fol 00:00: mouth [place] ic-dha 00 daily. Medical (SELECT-OB Branch + DHA) 29 mg iron-1 mg -250 mg combo pack 2020-0 Yes [id number] 1{packe Take 1 Univers vit 7-15 t} Packet by ity of 33-iron-fol 00:00: mouth [place] ic-dha 00 daily. Medical (SELECT-OB Branch + DHA) 29 mg iron-1 mg -250 mg combo pack 2020-0 Yes [id number] 1{packe Take 1 Univers vit 7-15 t} Packet by ity of 33-iron-fol 00:00: mouth [place] ic-dha 00 daily. Medical (SELECT-OB Branch + DHA) 29 mg iron-1 mg -250 mg combo pack 2020-0 Yes [id number] 1{packe Take 1 Univers vit 7-15 t} Packet by ity of 33-iron-fol 00:00: mouth [place] ic-dha 00 daily. Medical (SELECT-OB Branch + DHA) 29 mg iron-1 mg -250 mg combo pack 2020-0 Yes [id number] 1{packe Take 1 Univers vit 7-15 t} Packet by ity of 33-iron-fol 00:00: mouth [place] ic-dha 00 daily. Medical (SELECT-OB Branch + DHA) 29 mg iron-1 mg -250 mg combo pack 2020-0 Yes [id number] 1{packe Take 1 Univers vit 7-15 t} Packet by ity of 33-iron-fol 00:00: mouth [place] ic-dha 00 daily. Medical (SELECT-OB Branch + DHA) 29 mg iron-1 mg -250 mg combo pack 2020-0 Yes [id number] 1{packe Take 1 Univers vit 7-15 t} Packet by ity of 33-iron-fol 00:00: mouth [place] ic-dha 00 daily. Medical (SELECT-OB Branch + DHA) 29 mg iron-1 mg -250 mg combo pack 2020-0 Yes [id number] 1{packe Take 1 Univers vit 7-15 t} Packet by ity of 33-iron-fol 00:00: mouth [place] ic-dha 00 daily. Medical (SELECT-OB Branch + DHA) 29 mg iron-1 mg -250 mg combo pack 2020-0 Yes [id number] 1{packe Take 1 Univers vit 7-15 t} Packet by ity of 33-iron-fol 00:00: mouth [place] ic-dha 00 daily. Medical (SELECT-OB Branch + DHA) 29 mg iron-1 mg -250 mg combo pack 2020-0 Yes [id number] 1{packe Take 1 Univers vit 7-15 t} Packet by ity of 33-iron-fol 00:00: mouth [place] ic-dha 00 daily. Medical (SELECT-OB Branch + DHA) 29 mg iron-1 mg -250 mg combo pack 2020-0 Yes [id number] 1{packe Take 1 Univers vit 7-15 t} Packet by ity of 33-iron-fol 00:00: mouth [place] ic-dha 00 daily. Medical (SELECT-OB Branch + DHA) 29 mg iron-1 mg -250 mg combo pack 2019-0 Yes [id number] 1{packe Take 1 Univers vit 7-15 t} Packet by ity of 33-iron-fol 00:00: mouth [place] ic-dha 00 daily. Medical (SELECT-OB Branch + DHA) 29 mg iron-1 mg -250 mg combo pack 2019-0 Yes [id number] 1{packe Take 1 Univers vit 7-15 t} Packet by ity of 33-iron-fol 00:00: mouth [place] ic-dha 00 daily. Medical (SELECT-OB Branch + DHA) 29 mg iron-1 mg -250 mg combo pack 2019-0 Yes [id number] 1{packe Take 1 Univers vit 7-15 t} Packet by ity of 33-iron-fol 00:00: mouth [place] ic-dha 00 daily. Medical (SELECT-OB Branch + DHA) 29 mg iron-1 mg -250 mg combo pack 2019-0 Yes [id number] 1{packe Take 1 Univers vit 7-15 t} Packet by ity of 33-iron-fol 00:00: mouth [place] ic-dha 00 daily. Medical (SELECT-OB Branch + DHA) 29 mg iron-1 mg -250 mg combo pack 2020-0 Yes [id number] 1{packe Take 1 Univers vit 7-15 t} Packet by ity of 33-iron-fol 00:00: mouth [place] ic-dha 00 daily. Medical (SELECT-OB Branch + DHA) 29 mg iron-1 mg -250 mg combo pack cefTRIAXone 2020-0 2020- No 250mg Univ ers (ROCEPHIN) 6-22 06-22 ity of 250 mg in 20:45: 19:50 [place] lidocaine 00 :00 Medical 1% (PF) Branch (XYLOCAINE) 1 mL injection cefTRIAXone 2019- No 250mg 250 mg, U nivers (ROCEPHIN) 03-27 Intramuscu it y of 250 mg in 20:45: 19:50 [place], ONCE, [place] lidocaine 00 :00 1 dose, Medical 1% (PF) Mon Branch (XYLOCAINE) 03/27/20 at 1 mL 1545, 1 injection mL
Reas on for Anti-Infec tive: Documented Infection< br>Documen lucero Infection Site: Urine
D uration of Therapy: 7 days azithromyci 2019- 2020- No [id number] 1000mg Take 2 Univers n 500 mg 03-23-20 tablets by ity of tablet 00:00: 04:59 mouth [place] 00 :00 daily for Medical 1 day. Branch azithromyci 2019-0 2020- No [id number] 1000mg Take 2 Univers n 500 mg -18 06-20 tablets by ity of tablet 00:00: 04:59 mouth [place] 00 :00 daily for Medical 1 day. Branch azithromyci 2019-0 2020- No [id number] 1000mg Take 2 Univers n 500 mg 6-18 06-20 tablets by ity of tablet 00:00: 04:59 mouth [place] 00 :00 daily for Medical 1 day. Branch acetaminoph 2019- No 1000mg 1,000 mg, Univers en 03-21 Oral, ity of (TYLENOL) 17:30: 16:21 ONCE, 1 [place] tablet [place] :[place] dose, Tue Medical 1,000 mg 03/21/20 at [facility] h 1230, Routine No known 2018-0 No No known Metho di medications - medication st 22:34: s [facility]osp[facility] 21 l No known 2018-0 No No known Metho di medications - medication st 22:34: s Hospita 21 l No known No Methodi medications [facility] No known No [facility] No Univers medications ity [facility] No known No [facility] No known No Method[facility] medications [facility] l Immunizations Ordered Filled Immunization Date Status Comments [facility] e Immunization Name Name TDAP 2020-09-07 Completed [facility] 00:00:00 [place] [facility] TDAP 2020-09-07 Completed [facility] 00:00:00 [place] [facility] TDAP 2020-09-07 Completed [facility] 00:00:00 [place] [facility] TDAP 2020-09-07 Completed [facility] 00:00:00 [place] [facility] [place] Influenza Virus 2020-07-13 Completed Universit y of Vaccine Quad .5 mL 00:00:00 [place] Medical IM 6+ MO Branch Influenza Virus 2020-07-13 Completed Universit y of Vaccine Quad .5 mL 00:00:00 [place] [facility] IM 6+ MO Branch Influenza Virus 2020-07-13 Completed Universit y of Vaccine [place] .5 mL 00:00:00 [place] [facility] IM 6+ MO Branch Influenza Virus 2020-07-13 Completed Universit y of Vaccine [place] .5 mL 00:00:00 [place] [facility] IM 6+ MO Branch Influenza Virus 2020-07-13 Completed Universit y of Vaccine [place] .5 mL 00:00:00 [place] [facility] IM 6+ MO Branch Influenza Virus 2020-07-13 Completed Universit y of Vaccine [place] .5 mL 00:00:00 [place] [facility] IM 6+ MO Branch Influenza Virus 2020-07-13 Completed Universit y of Vaccine [place] .5 mL 00:00:00 [place] [facility] IM 6+ MO Branch Influenza Virus 2020-07-13 Completed Universit y of Vaccine [place] .5 mL 00:00:00 [place] [facility] IM 6+ MO Branch Influenza Virus 2020-07-13 Completed Universit y of Vaccine [place] .5 mL 00:00:00 [place] [facility] IM 6+ MO Branch Influenza Virus 2020-07-13 Completed Universit y of Vaccine [place] .5 mL 00:00:00 [place] [facility] IM 6+ MO Branch Influenza Virus 2020-07-13 Completed Universit y of Vaccine [place] .5 mL 00:00:00 [place] [facility] IM 6+ MO Branch Vital Signs Vital Name Observation Time Observation Value Comments Source Systolic blood 2021-03-28 17:23:00 143 mm[Hg] Univer sity of pressure [facility] Diastolic blood 2021-03-28 17:23:00 77 mm[Hg] Unive rsity of pressure [facility] Heart rate 2021-03-28 17:23:00 65 /min Universi ty of [facility] Body temperature 2021-03-28 17:23:00 36.94 Bel Univ ersity of [place] [facility] Respiratory rate 2021-03-28 17:23:00 16 /min Univ ersity of [place] [facility] Body height 2021-03-28 17:23:00 160 cm Universi ty of [place] [facility] Body weight 2021-03-28 17:23:00 74.844 kg Universi ty of [place] [facility] BMI 2021-03-28 17:23:00 29.23 kg/m2 Universi ty of [place] [facility] Oxygen saturation in 2021-03-28 17:23:00 100 /min University of Arterial blood by [facility] Pulse oximetry Branch Systolic blood 2021-03-28 17:23:00 143 mm[Hg] Univer sity of pressure [place] [facility] Diastolic blood 2021-03-28 17:23:00 77 mm[Hg] Unive rsity of pressure [place] [facility] Heart rate 2021-03-28 17:23:00 65 /min Universi ty of [place] [facility] Body temperature 2021-03-28 17:23:00 36.94 Bel Univ ersity of [place] [facility] Respiratory rate 2021-03-28 17:23:00 16 /min Univ ersity of [place] [facility] Body height 2021-03-28 17:23:00 160 cm Universi ty of [place] [facility] Body weight 2021-03-28 17:23:00 74.844 kg Universi ty of [place] [facility] BMI 2021-03-28 17:23:00 29.23 kg/m2 Universi ty of [place] [facility] Oxygen saturation in 2021-03-28 17:23:00 100 /min University of Arterial blood by [facility] [place] [facility] Pulse oximetry Branch Systolic blood 2020-09-07 15:46:00 180 mm[Hg] Univer sity of pressure [place] [facility] Diastolic blood 2020-09-07 15:46:00 100 mm[Hg] Unive rsity of pressure [place] [facility] Heart rate 2020-09-07 15:07:00 108 /min Universi ty of [place] [facility] Body temperature 2020-09-07 15:07:00 35.78 Bel Univ ersity of [place] [facility] Respiratory rate 2020-09-07 15:07:00 16 /min Univ ersity of [place] [facility] Body height 2020-09-07 15:07:00 160 cm Universi ty of [place] [facility] Body weight 2020-09-07 15:07:00 86.41 kg Universi ty of [place] [facility] BMI 2020-09-07 15:07:00 33.75 kg/m2 Universi ty of [facility] Branch Systolic blood 2020-09-07 15:46:00 180 mm[Hg] Univer sity of pressure [place] [facility] Diastolic blood 2020-09-07 15:46:00 100 mm[Hg] Unive rsity of pressure [facility] Branch Heart rate 2020-09-07 15:07:00 108 /min Universi ty of [place] [facility] Body temperature 2020-09-07 15:07:00 35.78 Bel Univ ersity of [facility] Branch Respiratory rate 2020-09-07 15:07:00 16 /min Univ ersity of [facility] Body height 2020-09-07 15:07:00 160 cm Universi ty of [facility] Body weight 2020-09-07 15:07:00 86.41 kg Universi ty of [facility] BMI 2020-09-07 15:07:00 33.75 kg/m2 Universi ty of [facility] Branch Systolic blood 2020-08-24 23:30:00 151 mm[Hg] Univer sity of pressure [facility] Branch Diastolic blood 2020-08-24 23:30:00 90 mm[Hg] Unive rsity of pressure [facility] Branch Heart rate 2020-08-24 23:30:00 53 /min Universi ty of [facility] Branch Oxygen saturation in 2020-08-24 23:30:00 100 /min University of Arterial blood by [facility] [place] [facility] Pulse oximetry Branch Respiratory rate 2020-08-24 23:00:00 20 /min Univ ersity of [facility] Body temperature 2020-08-24 20:47:00 36.67 Bel Univ ersity of [facility] Branch Systolic blood 2020-08-24 17:07:00 154 mm[Hg] Univer sity of pressure [facility] Branch Diastolic blood 2020-08-24 17:07:00 100 mm[Hg] Unive rsity of pressure [place] [facility] Heart rate 2020-08-24 17:06:00 97 /min Universi ty of [facility] Body temperature 2020-08-24 17:06:00 36.33 Bel Univ ersity of [facility] Branch Respiratory rate 2020-08-24 17:06:00 16 /min Univ ersity of [place] [facility] Body height 2020-08-24 17:06:00 160 cm Universi ty of [place] [facility] Body weight 2020-08-24 17:06:00 82.328 kg Universi ty of [place] [facility] BMI 2020-08-24 17:06:00 32.15 kg/m2 Universi ty of [place] [facility] Systolic blood 2020-08-10 17:16:00 143 mm[Hg] Univer sity of pressure [place] [facility] Diastolic blood 2020-08-10 17:16:00 91 mm[Hg] Unive rsity of pressure [place] [facility] Heart rate 2020-08-10 17:15:00 56 /min Universi ty of [place] [facility] Body temperature 2020-08-10 17:15:00 36.78 Bel Univ ersity of [place] [facility] Respiratory rate 2020-08-10 17:15:00 16 /min Univ ersity of [place] [facility] Body height 2020-08-10 17:15:00 157.5 cm Universi ty of [place] [facility] Body weight 2020-08-10 17:15:00 79.062 kg Universi ty of [place] [facility] BMI 2020-08-10 17:15:00 31.88 kg/m2 Universi ty of [place] [facility] Systolic blood 2020-07-13 16:11:00 140 mm[Hg] Univer sity of pressure [place] [facility] Diastolic blood 2020-07-13 16:11:00 86 mm[Hg] Unive rsity of pressure [place] [facility] Heart rate 2020-07-13 16:08:00 74 /min Universi ty of [place] [facility] Body temperature 2020-07-13 16:08:00 36.78 Bel Univ ersity of [place] [facility] Respiratory rate 2020-07-13 16:08:00 16 /min Univ ersity of [place] [facility] Body height 2020-07-13 16:08:00 160 cm Universi ty of [place] [facility] Body weight 2020-07-13 16:08:00 74.435 kg Universi ty of [place] [facility] BMI 2020-07-13 16:08:00 29.07 kg/m2 Universi ty of [place] [facility] Systolic blood 2020-06-15 16:11:00 143 mm[Hg] Univer sity of pressure [place] [facility] Diastolic blood 2020-06-15 16:11:00 86 mm[Hg] Unive rsity of pressure [place] [facility] Heart rate 2020-06-15 16:10:00 59 /min Universi ty of [place] [facility] Body temperature 2020-06-15 16:10:00 36.61 Bel Univ ersity of [place] [facility] Respiratory rate 2020-06-15 16:10:00 16 /min Univ ersity of [place] [facility] Body height 2020-06-15 16:10:00 157.5 cm Universi ty of [place] [facility] Body weight 2020-06-15 16:10:00 74.662 kg Universi ty of [place] [facility] BMI 2020-06-15 16:10:00 30.11 kg/m2 Universi ty of [place] [facility] Systolic blood 2020-05-17 16:11:00 137 mm[Hg] Univer sity of pressure [place] [facility] Diastolic blood 2020-05-17 16:11:00 82 mm[Hg] Unive rsity of pressure [place] [facility] Heart rate 2020-05-17 16:08:00 68 /min Universi ty of [place] [facility] Body temperature 2020-05-17 16:08:00 37.06 Bel Univ ersity of [place] [facility] Respiratory rate 2020-05-17 16:08:00 16 /min Univ ersity of [place] [facility] Body height 2020-05-17 16:08:00 160 cm Universi ty of [place] [facility] Body weight 2020-05-17 16:08:00 74.118 kg Universi ty of [place] [facility] BMI 2020-05-17 16:08:00 28.95 kg/m2 Universi ty of [place] [facility] Systolic blood 2020-04-19 15:03:00 138 mm[Hg] Univer sity of pressure [place] [facility] Diastolic blood 2020-04-19 15:03:00 85 mm[Hg] Unive rsity of pressure [place] [facility] Heart rate 2020-04-19 15:03:00 70 /min Universi ty of [place] [facility] Body temperature 2020-04-19 15:03:00 36.78 Bel Univ ersity of [place] [facility] Respiratory rate 2020-04-19 15:03:00 16 /min Univ ersity of [place] [facility] Body height 2020-04-19 15:03:00 160 cm Universi ty of [place] [facility] Body weight 2020-04-19 15:03:00 67.217 kg Universi ty of [place] [facility] BMI 2020-04-19 15:03:00 26.25 kg/m2 Universi ty of [place] [facility] Systolic blood 2020-03-27 19:36:00 157 mm[Hg] Univer sity of pressure [place] [facility] Diastolic blood 2020-03-27 19:36:00 95 mm[Hg] Unive rsity of pressure [place] [facility] Heart rate 2020-03-27 19:21:00 71 /min Universi ty of [place] [facility] Body temperature 2020-03-27 19:21:00 36.61 Ebl Univ ersity of [place] [facility] Respiratory rate 2020-03-27 19:21:00 16 /min Univ ersity of [place] [facility] Body height 2020-03-27 19:21:00 157.5 cm Universi ty of [place] [facility] Body weight 2020-03-27 19:21:00 64.921 kg Universi ty of [place] [facility] BMI 2020-03-27 19:21:00 26.18 kg/m2 Universi ty of [place] [facility] Systolic blood 2020-03-22 15:12:00 142 mm[Hg] Univer sity of pressure [place] [facility] Diastolic blood 2020-03-22 15:12:00 72 mm[Hg] Unive rsity of pressure [place] [facility] Heart rate 2020-03-22 14:57:00 56 /min Universi ty of [place] [facility] Body temperature 2020-03-22 14:57:00 35.94 Bel Univ ersity of [place] [facility] Respiratory rate 2020-03-22 14:57:00 16 /min Univ ersity of [place] [facility] Body height 2020-03-22 14:57:00 160 cm Universi ty of [place] [facility] Body weight 2020-03-22 14:57:00 67.274 kg Universi ty of [place] [facility] BMI 2020-03-22 14:57:00 26.27 kg/m2 Universi ty of [place] [facility] Systolic blood 2020-03-21 15:33:00 152 mm[Hg] Univer sity of pressure [place] [facility] Diastolic blood 2020-03-21 15:33:00 106 mm[Hg] Unive rsity of pressure [place] [facility] Heart rate 2020-03-21 15:33:00 71 /min Universi ty of [place] [facility] Body temperature 2020-03-21 15:33:00 36.89 Bel Univ ersity of [place] [facility] Respiratory rate 2020-03-21 15:33:00 17 /min [facility] Body height 2020-03-21 15:33:00 160 cm [facility] Body weight 2020-03-21 15:33:00 68.04 kg [facility] BMI 2020-03-21 15:33:00 26.57 kg/m2 [facility] Oxygen saturation in 2020-03-21 15:33:00 99 /min [facility] Arterial blood by [facility] Pulse oximetry Branch Procedures Procedure Date / Time Performing Clinician Source Performed URINALYSIS 2021-03-28 18:19:00 [facility] HEPATIC FUNCTION PANEL 2021-03-28 17:46:00 Lion [facility] ([id number]) (ALB,T.PRO,BILI Medical Branch T,BU/BC,ALT,AST,ALK PHOS) BASIC METABOLIC PANEL 2021-03-28 17:46:00 Ricky Lion [facility] (NA, K, CL, CO2, Medical Branch GLUCOSE, BUN, CREATININE, CA) CBC WITH DIFF 2021-03-28 17:46:00 [facility] AUTHORIZATION FOR 2020-09-11 06:01:00 Doctor Unassigned, No [facility] RELEASE OF PHI Name Medical Branch TDAP VACCINE, >11 YRS, 2020-09-07 15:03:46 [facility] 2020-09-07 00:00:00 Johnna Hickey [facility] SGOT (ASPARTATE AMINO 2020-08-24 21:01:00 Eddi [facility] TRANSFER) Medical Branch CREATININE 2020-08-24 21:01:00 [facility] ALANINE AMINO 2020-08-24 21:01:00 [place] [facility] TRANSFERASE(SGPT Medical Branch LACTATE DEHYDROGENASE 2020-08-24 21:01:00 Eddi [facility] URIC ACID 2020-08-24 21:01:00 [facility] CBC WITH DIFF 2020-08-24 21:01:00 [facility] URINALYSIS 2020-08-24 21:01:00 [place] [facility] PROTEIN CREAT RATIO 2020-08-24 21:01:00 Tierney Montague [facility] URINE RANDOM Medical Branch COVID-19 (ID NOW RAPID 2020-08-24 20:36:00 Andre Rwoe [facility] TESTING) Medical Branch POCT URINALYSIS 2020-08-24 00:00:00 Johnna Hickey [facility] POCT URINALYSIS 2020-08-10 00:00:00 Johnna Hickey [facility] FLU VACC ([id number]), 6+ 2020-07-13 16:21:35 Johnna Hickey [facility] MONTHS, IM, QUAD [facility] [place] POCT URINALYSIS 2020-07-13 00:00:00 Johnna Hickey [facility] POCT URINALYSIS 2020-06-15 00:00:00 Johnna Hickey [facility] POCT URINALYSIS 2020-05-17 00:00:00 Johnna Hickey [facility] POCT URINALYSIS 2020-04-19 15:06:00 Johnna Hickey [facility] POCT TEST 2020-03-22 14:56:00 Johnna Hickey [facility] POCT URINALYSIS W/O 2020-03-22 14:56:00 [facility] SPECIFIC GRAVITY [facility] [place] POCT TEST 2020-03-21 15:58:00 Em [facility] NOTICE OF PRIVACY 2020-03-21 15:27:48 Doctor Unassigned, No [facility] CONSENT/REFUSAL FOR 2020-03-21 15:27:09 Doctor Unassigned, No [facility]REATMENT Name Medical Branch Encounters Start End Encounter Admission Attending Care Care Encounter Source Date/Time Date/Time Type Type Clinicians Facility Department ID 2021-11-14 Outpatient [facility] [id number] [place] 01:04:55 Health 2021-08-06 Emergency [facility] [id number] Univers 03:15:28 ity of [facility] 2021-08-04 Outpatient P [facility] ERICK [id number] Univers 06:46:37 ity of [facility] 2021-08-04 Outpatient [facility] [id number] Univers 06:42:00 ity [facility] 2021-08-15 2021-08-15 Inpatient Tami NELSON, KM [facility]KM 7500 Memoria 05:19:00 02:12:00 ASHA Lopez Memoria l 2021-03-28 2021-03-28 [facility] [id number] Univers 12:28:00 14:08:00 Lion Rose 350.1.13.10 i ty of [place] 4.2.7.2.686 [facility] [id number] [facility] stephanie 08 Branch 2021-03-28 2021-03-28 [facility] [id number] 12:28:00 14:08:00 Lion Rose 350.1.13.10 [place] 4.2.7.2.686 [place] [id number] 2020-10-12 2020-10-12 Outpatient Fany HICKEY [facility] [id number] -[id number] Univers 10:45:00 10:45:00 JOHNNA [id number] seany o f [facility] 2020-10-12 2020-10-12 [facility] [id number] Univers 10:45:00 10:45:[address] [facility] 2020-09-21 2020-09-21 Outpatient Fany HICKEY [facility] [id number] -[id number] Univers 08:30:00 08:30:00 JOHNNA [id number] ity o f [facility] 2020-09-21 2020-09-21 Outpatient Fany HICKEY [facility] [id number] Univers 08:30:00 08:30:[address] [facility] 2020-09-18 2020-09-18 Outpatient R [facility] [id number] -[id number] Univers 08:00:00 08:00:00 [id number] ity [facility] 2020-09-18 2020-09-18 Outpatient R CRISTINA [facility] [id number] Univers 08:00:00 08:00:00 NILAM ity o f [facility] 2020-09-11 2020-09-11 Telephone [facility] [id number] Univers 00:00:00 00:00:00 Roshunda R LINUX ADMINISTRATOR 350.1.13.10 ity of REGIONAL 4.2.7.2.686 Varun as MATERNAL [id number] Med ical & CHILD [address] [place] [address] 2020-09-11 2020-09-11 Orders Doctor JANEY 1.2.840.114 [id number] Univers 00:00:00 00:00:00 Only Unassigned, TRICIA 350.1.13.10 ity of [place] [facility] 4.2.7.2.686 Varun as [id number] [address] 2020-09-11 2020-09-11 Telephone [facility] [id number] 00:00:00 00:00:00 Roshunda R LINUX ADMINISTRATOR 350.1.13.10 REGIONAL 4.2.7.2.686 MATERNAL [id number] & CHILD [address] [place] [address] 2020-09-11 2020-09-11 Orders Doctor JANEY 1.2.840.114 [id number] 00:00:00 00:00:00 Only Unassigned, TRICIA 350.1.13.10 [place] [facility] 4.2.7.2.686 [id number] 2020-09-08 2020-09-08 Outpatient R [facility] [id number] -[id number] Univers 08:30:00 08:30:00 [id number] ity [facility] 2020-09-08 2020-09-08 Outpatient [facility] [id number] Univers 08:30:00 08:30:00 JOSE CRUZNDA ity o f [facility] 2020-09-07 2020-09-07 Routine [facility] 1.2.840.114 [id number] Univers 08:47:13 09:56:09 Roshunda R LINUX ADMINISTRATOR 350.1.13.10 ity of Visit REGIONAL 4.2.7.2.686 Varun as MATERNAL [id number] Med ical & CHILD [address] [place] [address] 2020-09-07 2020-09-07 Routine Edelmira [facility] 1.2.840.114 [id number] 08:47:13 09:56:09 Johnna R LINUX ADMINISTRATOR 350.1.13.10 Visit REGIONAL 4.2.7.2.686 MATERNAL [id number] & CHILD [address] [place] [address] 2020-09-07 2020-09-07 Outpatient [facility] [id number] -[id number] Univers 08:45:00 08:45:[id number] ity [address] [facility] 2020-09-07 2020-09-07 Outpatient R EDELMIRA [facility] [id number] Univers 08:45:00 08:45:[address]DA ity o 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 114 [id number] Univers 08:24:12 08:34:11 Visit Johnna Hickey R LINUX ADMINISTRATOR 350.1.13.10 ity of REGIONAL 4.2.7.2.686 Varun as MATERNAL [id number] Med ical & CHILD [address] [place] [address] 2020-08-29 2020-08-29 Wrecking Supervisor Lab, [facility] 1.2.840.114 [id number] 08:24:12 08:34:11 Visit [facility] LINUX ADMINISTRATOR 350.1.13.10 REGIONAL 4.2.7.2.686 MATERNAL [id number] & CHILD [address] [place] [address] 2020-08-29 2020-08-29 Outpatient R [facility] [id number] Univers 08:00:00 08:00:00 [id number] ity of [facility] 2020-08-29 2020-08-29 Outpatient R [facility] [id number] Univers 08:00:00 08:00:00 ity [facility] 2020-08-24 2020-08-24 [facility] JANEY Rowe 1.2.311.124 [id number] Univers 14:10:00 18:15:00 Encounter Andre Terrazas TRICIA 350.1.13.10 [id number] [address] 2020-08-24 2020-08-24 Routine [facility] 1.2.840.114 [id number] Univers 10:59:45 11:26:10 Roshunda R LINUX ADMINISTRATOR 350.1.13.10 ity of Visit REGIONAL 4.2.7.2.686 Varun as MATERNAL [id number] [facility] ical & CHILD [address] [place] [address] 2020-08-24 2020-08-24 Outpatient [facility] [id number] Univers 11:00:00 11:00:00 ROSHUNDA [id number] ity o [facility] 2020-08-24 2020-08-24 Outpatient F[facility] [id number] Univers 11:00:00 11:00:[address] [facility] 2020-08-10 2020-08-10 Routine [facility] 1.2.840.114 [id number] Univers 10:59:05 11:14:05 Roshunda R LINUX ADMINISTRATOR 350.1.13.10 ity of Visit REGIONAL 4.2.7.2.686 Varun as MATERNAL [id number] [facility] ical & CHILD [address] [place] [address] 2020-08-10 2020-08-10 Outpatient R [facility] [id number] Univers 11:00:00 11:00:[address] [facility] 2020-08-10 2020-08-10 Outpatient R [facility] [id number] Univers 11:00:00 11:00:[address] [facility] 2020-07-13 2020-07-13 Routine [facility] 1.2.840.114 [id number] Univers 11:00:20 11:28:29 Roshunda R LINUX ADMINISTRATOR 350.1.13.10 ity of Visit REGIONAL 4.2.7.2.686 Varun as MATERNAL [id number] [facility] ical & CHILD [address] [place] [address] 2020-07-13 2020-07-13 Outpatient R EDELMIRA, [facility] [id number] Univers 11:00:00 11:00:00 JOSE CRUZNDA ity o f [facility] 2020-07-13 2020-07-13 Outpatient R EDELMIRA [facility] [id number] Univers 11:00:00 11:00:00 ROSREGINANDA ity o f [facility] 2020-07-11 2020-07-11 Wrecking Supervisor Ultrasound, [facility] 1.2 .840.114 [id number] Univers 10:05:09 11:05:09 Visit [place] Nena Rojas LINUX ADMINISTRATOR 350.1.13.10 ity of REGIONAL 4.2.7.2.686 Varun as MATERNAL [id number] Med ical & CHILD [address] [facility] 2020-07-11 2020-07-11 Outpatient R [facility] [id number] Univers 10:00:00 10:00:00 ity of [facility] 2020-07-11 2020-07-11 Outpatient P [facility] [id number] Univers 10:00:00 10:00:00 ity of [facility] 2020-07-11 2020-07-11 Abstract [facility] 1.2.840.114 [id number] Univers 00:00:00 00:00:00 Johnna R LINUX ADMINISTRATOR 350.1.13.10 ity of REGIONAL 4.2.7.2.686 Varun as MATERNAL [id number] [facility] ical & CHILD [address] [place] [address] 2020-06-28 2020-06-28 Telephone Damien [facility] 1.2.840.114 [id number] Univers 00:00:00 00:00:00 Lucy Walton LINUX ADMINISTRATOR 350.1.13.10 ity of REGIONAL 4.2.7.2.686 Varun as MATERNAL [id number] [facility] ical & CHILD [address] [place] [address] 2020-06-15 2020-06-15 Routine Edelmira [facility] 1.2.840.114 [id number] Univers 10:55:39 11:26:19 Roshunda R LINUX ADMINISTRATOR 350.1.13.10 ity of Visit REGIONAL 4.2.7.2.686 Varun as MATERNAL [id number] [facility] & CHILD [address] [place] [address] 2020-06-15 2020-06-15 Outpatient Fany HICKEY [facility] [id number] Univers 10:45:00 10:45:[address] [facility] 2020-06-15 2020-06-15 Outpatient Fany HICKEY [facility] [id number] Univers 10:45:00 10:45:[address] [facility] 2020-05-17 2020-05-17 Routine [facility] 1.2.840.114 [id number] Univers 10:25:19 11:25:41 Roshunda R LINUX ADMINISTRATOR 350.1.13.10 ity of Visit [facility] 4.2.7.2.686 Varun as MATERNAL [id number] [facility] & CHILD [address] [place] [address] 2020-05-17 2020-05-17 Outpatient Fany HICKEY [facility] [id number] Univers 10:45:00 10:45:[id number] ity o [facility] 2020-05-17 2020-05-17 Outpatient Fany HICKEY [facility] [id number] Univers 10:45:00 10:45:[address] [facility] 2020-05-09 2020-05-09 Abstract Edelmira [facility] 1.2.840.114 [id number] Univers 00:00:00 00:00:00 Rosreginanda R LINUX ADMINISTRATOR 350.1.13.10 ity of REGIONAL 4.2.7.2.686 Varun as MATERNAL [id number] [facility] & CHILD [address] [place] [address] 2020-05-08 2020-05-08 Wrecking Supervisor Ultrasound, [facility] 1.2 .840.114 [id number] Univers 11:36:57 12:06:57 Visit Allie Muro LINUX ADMINISTRATOR 350.1. 13.10 ity of [facility] 4.2.7.2.686 Varun as MATERNAL [id number] [facility] & CHILD [address] [facility] 2020-05-08 2020-05-08 Outpatient R [facility] [id number] Univers 11:30:00 11:30:00 ity of [facility] 2020-05-08 2020-05-08 Outpatient P [facility] [id number] Univers 11:30:00 11:30:00 ity of [facility] 2020-04-19 2020-04-19 Routine Edelmira [facility] 1.2.840.114 [id number] Univers 09:47:03 10:21:03 Johnna R LINUX ADMINISTRATOR 350.1.13.10 ity of Visit REGIONAL 4.2.7.2.686 Varun as MATERNAL [id number] Med ical & CHILD [address] [place] [address] 2020-04-19 2020-04-19 Outpatient R EDELMIRA [facility] [id number] Univers 09:30:00 09:30:00 JOHNNA [id number] ity o f [facility] 2020-04-19 2020-04-19 Outpatient R HICKEY [facility] [id number] Univers 09:30:00 09:30:00 JOHNNA ity o f [facility] 2020-03-27 2020-03-27 Nurse Visit, Ang-Rmchp Nurse [facility] 1.2 .840.114 [id number] Univers 14:12:56 15:21:18 Visit Johnna Hickey LINUX ADMINISTRATOR 350.1.13.10 ity of REGIONAL 4.2.7.2.686 Varun as MATERNAL [id number] [facility] & CHILD [address] [place] [address] 2020-03-27 2020-03-27 Outpatient R [facility] [id number] Univers 13:30:00 13:30:00 [id number] ity of [facility] 2020-03-27 2020-03-27 Outpatient R [facility] [id number] Univers 13:30:00 13:30:00 ity of [facility] 2020-03-23 2020-03-23 Telephone Edelmira [facility] [id number] Univers 00:00:00 00:00:00 Johnna Soares LINUX ADMINISTRATOR 350.1.13.10 ity of REGIONAL 4.2.7.2.686 Varun as MATERNAL [id number] Med ical & CHILD [address] [place] [address] 2020-03-22 2020-03-22 Initial [facility] 1.2.840.114 [id number] Univers 09:37:22 11:02:45 Johnna Soares LINUX ADMINISTRATOR 350.1.13.10 ity of [facility] 4.2.7.2.686 Varun as MATERNAL [id number] [facility] & [address] 2020-03-22 2020-03-22 Outpatient [facility] [id number] Univers 09:15:00 09:15:00 JOHNNA beavers o f [facility] 2020-03-22 2020-03-22 Outpatient [facility] [id number] Univers 08:45:00 08:45:00 BRIANNEREGINAJOSE L seanteresa o f [facility] 2020-03-21 2020-03-21 [facility] 1.2.840.114 [id number] Univers 10:29:34 11:25:[address] [facility] 350.1.13.10 ity [facility] 4.2.7.2.[place] [id number] [address] 2020-03-21 2020-03-21 Emergency [facility] [id number] Univers 10:29:34 10:29:34 [facility] 2016-11-13 2016-11-13 Emergency X [facility] ERT [id number] Univers 00:25:49 01:36:00 MARY [facility] Results Test Description Test Time Test Comments Results Result Comments Source Urinalysis 2021-03-28 18:40:09 Test Item Value Reference Range Interpretation Comme nts APPEARANCE (test code = Clear Clear 4508976039) COLOR (test code = 6818099911) Yellow Yellow PH (test code = 7120421504) 4.8-8.0 SP GRAVITY (test code = 1.003-1.030 1598532673) GLU U QUAL (test code = Normal Normal 3908102080) BLOOD (test code = 4394381013) Negative Negative KETONES (test code = 4631933741) Negative Negative PROTEIN (test code = 2887-8) Negative Negative UROBILIN (test code = 2461418019) Normal Normal BILIRUBIN (test code = Negative Negative 9047003157) NITRITE (test code = 7088787155) Negative Negative LEUK FAM (test code = 500/uL Negative A 4875942454) RBC/HPF (test code = 1156124619) See_Comment [Automated message] The system which ge nerated this result transmit lucero reference range: 0 - 3 HP F. The reference range was not used to interpret th is result as normal/abnormal . WBC/HPF (test code = 1215764614) See_Comment H [Automated message] The system which ge nerated this result transmit lucero reference range: 0 - 5 HP F. The reference range was not used to interpret th is result as normal/abnormal . BACTERIA (test code = 8870374150) Few Negative A SQ EPITH (test code = 7006338081) HPF OSVALDO EPITH (test code = See_Comment [Aut omated message] The 8394722010) system which ge nerated this result transmit lucero reference range: <=1 HPF. The reference range was not u sed to interpret this result as normal/abnormal . Lab Interpretation (test code = Abnormal 88386-2) [facility] (NA, K, CL, CO2, GLUCOSE, BUN, CREATININE, CA)2021-03-28 18:15:18 Test Item Value Reference Range Interpretation Comments NA (test code = 135 mmol/L 135-145 4407657291) K (test code = 4.2 mmol/L 3.5-5.0 9631685560) CL (test code = 105 mmol/L 98-108 1660247500) CO2 TOTAL (test code 23 mmol/L 23-31 = 1199598584) AGAP (test code = 2-16 2909870479) BUN (test code = 8 mg/dL 7-23 4137112286) GLUCOSE (test code = 86 mg/dL 70-110 4926733818) CREATININE (test code 0.75 mg/dL 0.50-1.04 = 9447490887) CALCIUM (test code = 9.7 mg/dL 8.6-10.6 9537814184) eGFR (test code = mL/min/1.73m2 1476094258) MIGUEL ANGEL (test code = MIGUEL ANGEL) Association of Glomerular Filtration Rate (GFR) and Staging of Kidney Disease* + + +- +| GFR (mL/min/1.73 m2) ?| With Kidney Damage ?| ?Without Kidney Damage+ ------+ ----+ ------+| ?>90 ?| ?Stage one ?| ? Normal ?+ -+ + -+| ?60-89 ?| ?Stage two ?| ? Decreased GFR ? + + +- +| ?30-59 ?| ?Stage three ?| ? Stage three ? + + +- +| ?15-29 ?| ?Stage four ? | ? Stage four ?+ -+ + -+| ?<15 (or dialysis) ? ?| ?Stage five ? | ? Stage five ?+ -+ + -+ *Each stage assumes the associated GFR level has been in effect for at least three months. ?Stages 1 to 5, with or without kidney disease, indicate chronic kidney disease. Notes: Determination of stages one and two (with eGFR >59mL/min/1.73 m2) requires estimation of kidney damage for at least three months as defined by structural or functional abnormalities of the kidney, manifested by either:Pathological abnormalities or Markers of kidney damage (including abnormalities in the composition of the blood or urine or abnormalities in imaging tests). [facility] (ALB, T.PRO, BILI T, BU/BC, ALT, AST, ALK PHOS)2021-03-28 18:15:18 Test Item Value Reference Range Interpretation Comments TOTAL BILI (test code = 4805432466) 1.3 mg/dL 0.1-1.1 H BILI UNCON (test code = 9215554136) 1.2 mg/dL 0.1-1.1 H BILI CONJ (test code = 1058185203) 0.0 mg/dL 0.0-0.3 T PROTEIN (test code = 0855183516) 8.0 g/dL 6.3-8.2 ALBUMIN (test code = 1141740430) 4.4 g/dL 3.5-5.0 ALK PHOS (test code = 0299935870) 67 U/L 34-122 ALTv (test code = 1742-6) 12 U/L 5-35 AST(SGOT) (test code = 0426135630) 20 U/L 13-40 Lab Interpretation (test code = Abnormal 23679-5) [facility] with Ywtomyratctp1506-14-29 17:51:55 Test Item Value Reference Range Interpretation Comments WBC (test code = See_Comment H [Automated 6690-2) message] The sy stem which generated this result transmitted reference range : 4.30 - 11.10 10*3/?L. The reference range was not used to interpret this result as normal/abnormal . RBC (test code = See_Comment [Automated 789-8) message] The sy stem which generated this result transmitted reference range : 3.93 - 5.25 10*6/?L. The reference range was not used to interpret this result as normal/abnormal . HGB (test code = 12.9 g/dL 11.6-15.0 718-7) HCT (test code = 36.4 % 35.7-45.2 4544-3) MCV (test code = 85.4 fL 80.6-95.5 787-2) MCH (test code = 30.3 pg 25.9-32.8 785-6) MCHC (test code = 35.4 g/dL 31.6-35.1 H 786-4) RDW-SD (test code = 44.0 fL 39.0-49.9 21970-5) RDW-CV (test code = 14.2 % 12.0-15.5 788-0) PLT (test code = See_Comment [Automated 777-3) message] The sy stem which generated this result transmitted reference range : 166 - 358 10*3/ ?L. The reference r tammi was not used to interpret this result as normal/abnormal . MPV (test code = 10.6 fL 9.5-12.9 77728-6) NRBC/100 WBC (test See_Comment [Automat ed code = 0791408805) message] The system which generated this result transmitted reference range : 0.0 - 10.0 /100 WBCs. The refer ence range was not u sed to interpret th is result as normal/abnormal . NRBC x10^3 (test code <0.01 See_Comment [Auto mated = 2914369583) message] The s ystem which generated this result transmitted reference range : 10*3/?L. The reference range was not used to interpret this result as normal/abnormal . GRAN MAT (NEUT) % 71.1 % (test code = 770-8) IMM GRAN % (test code 0.50 % = 0489944583) LYMPH % (test code = 20.9 % 736-9) MONO % (test code = 6.6 % 5905-5) EOS % (test code = 0.6 % 713-8) BASO % (test code = 0.3 % 706-2) GRAN MAT x10^3(ANC) 8.38 10*3/uL 1.88-7.09 H (test code = 5155984051) IMM GRAN x10^3 (test 0.06 10*3/uL 0.00-0.06 code = 7741312079) LYMPH x10^3 (test code 2.47 10*3/uL 1.32-3.29 = 731-0) MONO x10^3 (test code 0.78 10*3/uL 0.33-0.92 = 742-7) EOS x10^3 (test code = 0.07 10*3/uL 0.03-0.39 711-2) BASO x10^3 (test code 0.03 10*3/uL 0.01-0.07 = 704-7) Lab Interpretation Abnormal (test code = 00034-7) [facility] URINALYSIS W SPECIFIC [id number] 15:09:00 Test Item Value Reference Range Interpretation Comments POCT U SP GRAV (test code = 3255) . 1.005-1.025 POCT PH U (test code = 3254) . 5-8 POCT U LEUK EST (test code = 3263) . Negative - Negative POCT U NIT (test code = 3262) . Negative - Negative POCT U PROT (test code = 3259) trace Negative - Negative POCT U GLU (test code = 3256) neg Negative - Negative POCT U KETONE (test code = 3258) . Negative - Negative POCT U UROBILI (test code = 3260) . 0.2-1 POCT U BILI (test code = 3261) . Negative - Negative POCT U BLD (test code = 3257) . Negative - Negative POCT U COLOR (test code = 3266) POCT U APPEAR (test code = 3267) [facility] BranchUric Acid [id number] 21:47:00 Test Item Value Reference Range Interpretation Comments URIC ACID (test code = 4219432041) 6.5 mg/dL 2.9-6 H Lab Interpretation (test code = Abnormal 90361-5) [facility] Gzteumxdtf1980-37-05 21:47:00 Test Item Value Reference Range Interpretation Comments CREATININE (test code 0.72 mg/dL 0.5-1.04 = 6582816780) eGFR Calculation mL/min/1.73m2 (Non-) (test code = 5580694720) eGFR Calculation mL/min/1.73m2 () (test code = 8545599709) MIGUEL ANGEL (test code = MIGUEL ANGEL) Association of Glomerular Filtration Rate (GFR) and Staging of Kidney Disease* + -+ + ---+| GFR (mL/min/1.73 m2) ?| With Kidney Damage ?| ?Without Kidney Damage+ -------+ ------+ ---------+| ?>90 ?| ?Stage one ?| ? Normal ?+ --+ -+ ----+| ?60-89 ?| ?Stage two ?| ? Decreased GFR ? + -+ + ---+| ?30-59 ?| ?Stage three ?| ? Stage three ? + -+ + ---+| ?15-29 ?| ?Stage four ? | ? Stage four ?+ --+ -+ ----+| ?<15 (or dialysis) ? ?| ?Stage five ? | ? Stage five ?+ --+ -+ ----+ *Each stage assumes the associated GFR level has been in effect for at least three months. ?Stages 1 to 5, with or without kidney disease, indicate chronic kidney disease. Notes: Determination of stages one and two (with eGFR >59mL/min/1.73 m2) requires estimation of kidney damage for at least three months as defined by structural or functional abnormalities of the kidney, manifested by either:Pathological abnormalities or Markers of kidney damage (including abnormalities in the composition of the blood or urine or abnormalities in imaging tests). [facility] (Asparate Amino Transfer)2020-08-24 21:47:00 Test Item Value Reference Range Interpretation Comments AST(SGOT) (test code = 6154745978) 20 U/L 13-40 Lab Interpretation (test code = Normal 14690-7) [facility] Hospital[facility]anine Amino Transferase (SGPT)2020-08-24 21:47:00 Test Item Value Reference Range Interpretation Comments ALTv (test code = 1742-6) 16 U/L 5-35 Lab Interpretation (test code = Normal 68685-7) [facility] HospitalLactate Zlgbnqogxoahv4809-37-41 21:46:00 Test Item Value Reference Range Interpretation Comments LDH (test code = 2047454888) 411 U/L 300-600 Lab Interpretation (test code = Normal 24469-4) [facility] CREAT Ratio Urine Fxficu0274-27-31 21:45:00 Test Item Value Reference Range Interpretation Comments T. PROT U (test code = 2888-6) 11 mg/dL CREAT U (test code = 5019657551) 70.5 mg/dL Protein/Creatinine Ratio Urine 0.0-2.0 (test code = 9662247343) [facility] 21:26:00 Test Item Value Reference Range Interpretation Comments APPEARANCE (test code = Hazy Clear A 0321827856) COLOR (test code = Yellow Yellow 3665334183) PH (test code = 4.8-8.0 0438079393) SP GRAVITY (test code = 1.003-1.030 0592932973) GLU U QUAL (test code = Normal Normal 7955563907) BLOOD (test code = Negative Negative Interfere nce from 3083515507) ascorbic acid m ay cause false neg ative results. KETONES (test code = Negative Negative 6046697533) PROTEIN (test code = Negative Negative 2887-8) UROBILIN (test code = Normal Normal [id number]) BILIRUBIN (test code = Negative Negative [id number]) NITRITE (test code = Negative Negative [id number]) LEUK FAM (test code = 75/uL Negative A 4560278625) RBC/HPF (test code = See_Comment [Autom ated message] [id number]) The system [employer] generated this result transmitted ref erence range: 0 - 3 HP F. The reference range was not used to int erpret this result as normal/abnormal . WBC/HPF (test code = See_Comment [Autom ated message] [id number]) The system [employer] generated this result transmitted ref erence range: 0 - 5 HP F. The reference range was not used to int erpret this result as normal/abnormal . BACTERIA (test code = Negative Negative 7763462256) SQ EPITH (test code = See_Comment H [Auto mated message] [id number]) The system [employer] generated this result transmitted ref erence range: <=2 HPF. The reference range was not used to int erpret this result as normal/abnormal . ASCORBIC ACID (test code 20 mg/dL = 8433746536) Lab Interpretation (test Abnormal code = 47557-1) [facility] with [id number] 21:12:00 Test Item Value Reference Range Interpretation Comments WBC (test code = See_Comment H [Automated 6690-2) message] The sy stem which generated this result transmitted reference range : 4.30 - 11.10 10*3/?L. The reference range was not used to interpret this result as normal/abnormal . RBC (test code = See_Comment L [Automated 759-8) message] The sy stem which generated this result transmitted reference range : 3.93 - 5.25 10*6/?L. The reference range was not used to interpret this result as normal/abnormal . HGB (test code = 11.8 g/dL 11.6-15 718-7) HCT (test code = 34.4 % 35.7-45.2 L 4544-3) MCV (test code = 89.8 fL 80.6-95.5 787-2) MCH (test code = 30.8 pg 25.9-32.8 785-6) MCHC (test code = 34.3 g/dL 31.6-35.1 786-4) RDW-SD (test code = 39.3 fL 39-49.9 24141-4) RDW-CV (test code = 12.0 % 12-15.5 788-0) PLT (test code = See_Comment [Automated 777-3) message] The sy stem which generated this result transmitted reference range : 166 - 358 10*3/ ?L. The reference r tammi was not used to interpret this result as normal/abnormal . MPV (test code = 10.6 fL 9.5-12.9 67701-4) NRBC/100 WBC (test See_Comment [Automat ed code = [id number]) message] The system which generated this result transmitted reference range : 0.0 - 10.0 /100 WBCs. The refer ence range was not u sed to interpret th is result as normal/abnormal . NRBC x10^3 (test code <0.01 See_Comment [Auto mated = [id number]) message] The s ystem which generated this result transmitted reference range : 10*3/?L. The reference range was not used to interpret this result as normal/abnormal . GRAN MAT (NEUT) % 72.7 % (test code = 770-8) IMM GRAN % (test code 0.50 % = 3808467663) LYMPH % (test code = 17.6 % 736-9) MONO % (test code = 8.4 % 5905-5) EOS % (test code = 0.6 % 713-8) BASO % (test code = 0.2 % 706-2) GRAN MAT x10^3(ANC) 8.41 10*3/uL 1.88-7.09 H (test code = 8229254229) IMM GRAN x10^3 (test 0.06 10*3/uL 0-0.06 code = 4605110388) LYMPH x10^3 (test code 2.03 10*3/uL 1.32-3.29 = 731-0) MONO x10^3 (test code 0.97 10*3/uL 0.33-0.92 H = 742-7) EOS x10^3 (test code = 0.07 10*3/uL 0.03-0.39 711-2) BASO x10^3 (test code <0.03 0.01-0.07 = 704-7) Lab Interpretation Abnormal (test code = 59629-5) [facility] 21:09:00 Test Item Value Reference Range Interpretation Comments SARS-CoV-2 Rapid ID NOW Positive Not Detected A (test code = 08498-7) MIGUEL ANGEL (test code = MIGUEL ANGEL) ID NOW COVID-19 Assay is an isothermal nucleic acid amplification test intended for the qualitative detection of nucleic acid from SARS-CoV-2 viral RNA in nasopharyngeal (RECYCLABLE MATERIALS SORTER) specimens. It is used under Emergency Use Authorization (EUA) by FDA. The limit of detection (LOD) of the assay is 125 Genome Equivalents/mL. A positive result is indicative of the presence of SARS-CoV-2 RNA. ?Clinical correlation with patient history and other diagnostic information is necessary to determine patient infection status. A negative (Not Detected) result does not preclude SARS-CoV-2 infection. In patients with clinical symptoms and other tests that are consistent with SARS-CoV-2 infection, negative results should be treated as presumptive negative and a new specimen should be tested with alternative PCR molecular test. Invalid: Please collect a new specimen for repeat patient testing if clinically indicated. Lab Interpretation Abnormal (test code = 71787-9) [facility] URINALYSIS W SPECIFIC [id number] 17:08:00 Test Item Value Reference Range Interpretation Comments POCT U SP GRAV (test code = 3255) . 1.005-1.025 POCT PH U (test code = 3254) . 5-8 POCT U LEUK EST (test code = 3263) . Negative - Negative POCT U NIT (test code = 3262) . Negative - Negative POCT U PROT (test code = 3259) trace Negative - Negative POCT U GLU (test code = 3256) Neg Negative - Negative POCT U KETONE (test code = 3258) . Negative - Negative POCT U UROBILI (test code = 3260) . 0.2-1 POCT U BILI (test code = 3261) . Negative - Negative POCT U BLD (test code = 3257) . Negative - Negative POCT U COLOR (test code = 3266) POCT U APPEAR (test code = 3267) [facility] URINALYSIS W SPECIFIC [id number] 17:18:00 Test Item Value Reference Range Interpretation Comments POCT U SP GRAV (test code = 3255) . 1.005-1.025 POCT PH U (test code = 3254) . 5-8 POCT U LEUK EST (test code = 3263) . Negative - Negative POCT U NIT (test code = 3262) . Negative - Negative POCT U PROT (test code = 3259) trace Negative - Negative POCT U GLU (test code = 3256) neg Negative - Negative POCT U KETONE (test code = 3258) . Negative - Negative POCT U UROBILI (test code = 3260) . 0.2-1 POCT U BILI (test code = 3261) . Negative - Negative POCT U BLD (test code = 3257) . Negative - Negative POCT U COLOR (test code = 3266) POCT U APPEAR (test code = 3267) [facility] URINALYSIS W SPECIFIC [id number] 17:18:00 Test Item Value Reference Range Interpretation Comments POCT U SP GRAV (test code = 3255) . 1.005-1.025 POCT PH U (test code = 3254) . 5-8 POCT U LEUK EST (test code = 3263) . Negative - Negative POCT U NIT (test code = 3262) . Negative - Negative POCT U PROT (test code = 3259) trace Negative - Negative POCT U GLU (test code = 3256) neg Negative - Negative POCT U KETONE (test code = 3258) . Negative - Negative POCT U UROBILI (test code = 3260) . 0.2-1 POCT U BILI (test code = 3261) . Negative - Negative POCT U BLD (test code = 3257) . Negative - Negative POCT U COLOR (test code = 3266) POCT U APPEAR (test code = 3267) [facility] URINALYSIS W SPECIFIC [id number] 16:09:00 Test Item Value Reference Range Interpretation Comments POCT U SP GRAV (test code = 3255) . 1.005-1.025 POCT PH U (test code = 3254) . 5-8 POCT U LEUK EST (test code = 3263) . Negative - Negative POCT U NIT (test code = 3262) . Negative - Negative POCT U PROT (test code = 3259) trace Negative - Negative POCT U GLU (test code = 3256) neg Negative - Negative POCT U KETONE (test code = 3258) . Negative - Negative POCT U UROBILI (test code = 3260) . 0.2-1 POCT U BILI (test code = 3261) . Negative - Negative POCT U BLD (test code = 3257) . Negative - Negative POCT U COLOR (test code = 3266) . POCT U APPEAR (test code = 3267) [facility] URINALYSIS W SPECIFIC [id number] 16:11:00 Test Item Value Reference Range Interpretation Comments POCT U SP GRAV (test code = 3255) . 1.005-1.025 POCT PH U (test code = 3254) . 5-8 POCT U LEUK EST (test code = 3263) . Negative - Negative POCT U NIT (test code = 3262) . Negative - Negative POCT U PROT (test code = 3259) trace Negative - Negative POCT U GLU (test code = 3256) normal Negative - Negative POCT U KETONE (test code = 3258) . Negative - Negative POCT U UROBILI (test code = 3260) . 0.2-1 POCT U BILI (test code = 3261) . Negative - Negative POCT U BLD (test code = 3257) . Negative - Negative POCT U COLOR (test code = 3266) POCT U APPEAR (test code = 3267) [facility] URINALYSIS W SPECIFIC [id number] 16:10:00 Test Item Value Reference Range Interpretation Comments POCT U SP GRAV (test code = 3255) . 1.005-1.025 POCT PH U (test code = 3254) . 5-8 POCT U LEUK EST (test code = 3263) . Negative - Negative POCT U NIT (test code = 3262) . Negative - Negative POCT U PROT (test code = 3259) trace Negative - Negative POCT U GLU (test code = 3256) normal Negative - Negative POCT U KETONE (test code = 3258) . Negative - Negative POCT U UROBILI (test code = 3260) . 0.2-1 POCT U BILI (test code = 3261) . Negative - Negative POCT U BLD (test code = 3257) . Negative - Negative POCT U COLOR (test code = 3266) POCT U APPEAR (test code = 3267) [facility] URINALYSIS W SPECIFIC [id number] 15:06:00 Test Item Value Reference Range Interpretation Comments POCT U SP GRAV (test code = . 1.005-1.025 3255) POCT PH U (test code = 3254) . 5-8 POCT U LEUK EST (test code = . Negative - Negative 3263) POCT U NIT (test code = 3262) . Negative - Negative POCT U PROT (test code = 3259) trace Negative - Negative POCT U GLU (test code = 3256) negative Negative - Negative POCT U KETONE (test code = 3258) . Negative - Negative POCT U UROBILI (test code = . 0.2-1 3260) POCT U BILI (test code = 3261) . Negative - Negative POCT U BLD (test code = 3257) . Negative - Negative POCT U COLOR (test code = 3266) POCT U APPEAR (test code = 3267) [facility] URINALYSIS W SPECIFIC [id number] 15:06:00 Test Item Value Reference Range Interpretation Comments POCT U SP GRAV (test code = . 1.005-1.025 3255) POCT PH U (test code = 3254) . 5-8 POCT U LEUK EST (test code = . Negative - Negative 3263) POCT U NIT (test code = 3262) . Negative - Negative POCT U PROT (test code = 3259) trace Negative - Negative POCT U GLU (test code = 3256) negative Negative - Negative POCT U KETONE (test code = 3258) . Negative - Negative POCT U UROBILI (test code = . 0.2-1 3260) POCT U BILI (test code = 3261) . Negative - Negative POCT U BLD (test code = 3257) . Negative - Negative POCT U COLOR (test code = 3266) POCT U APPEAR (test code = 3267) [facility] URINALYSIS W SPECIFIC [id number] 15:06:00 Test Item Value Reference Range Interpretation Comments POCT U SP GRAV (test code = . 1.005-1.025 3255) POCT PH U (test code = 3254) . 5-8 POCT U LEUK EST (test code = . Negative - Negative 3263) POCT U NIT (test code = 3262) . Negative - Negative POCT U PROT (test code = 3259) trace Negative - Negative POCT U GLU (test code = 3256) negative Negative - Negative POCT U KETONE (test code = 3258) . Negative - Negative POCT U UROBILI (test code = . 0.2-1 3260) POCT U BILI (test code = 3261) . Negative - Negative POCT U BLD (test code = 3257) . Negative - Negative POCT U COLOR (test code = 3266) POCT U APPEAR (test code = 3267) [facility] URINALYSIS W SPECIFIC [id number] 15:06:00 Test Item Value Reference Range Interpretation Comments POCT U SP GRAV (test code = . 1.005-1.025 3255) POCT PH U (test code = 3254) . 5-8 POCT U LEUK EST (test code = . Negative - Negative 3263) POCT U NIT (test code = 3262) . Negative - Negative POCT U PROT (test code = 3259) trace Negative - Negative POCT U GLU (test code = 3256) negative Negative - Negative POCT U KETONE (test code = 3258) . Negative - Negative POCT U UROBILI (test code = . 0.2-1 3260) POCT U BILI (test code = 3261) . Negative - Negative POCT U BLD (test code = 3257) . Negative - Negative POCT U COLOR (test code = 3266) POCT U APPEAR (test code = 3267) [facility] URINALYSIS W SPECIFIC [id number] 15:06:00 Test Item Value Reference Range Interpretation Comments POCT U SP GRAV (test code = . 1.005-1.025 3255) POCT PH U (test code = 3254) . 5-8 POCT U LEUK EST (test code = . Negative - Negative 3263) POCT U NIT (test code = 3262) . Negative - Negative POCT U PROT (test code = 3259) trace Negative - Negative POCT U GLU (test code = 3256) negative Negative - Negative POCT U KETONE (test code = 3258) . Negative - Negative POCT U UROBILI (test code = . 0.2-1 3260) POCT U BILI (test code = 3261) . Negative - Negative POCT U BLD (test code = 3257) . Negative - Negative POCT U COLOR (test code = 3266) POCT U APPEAR (test code = 3267) [facility] [id number] 14:56:00 Test Item Value Reference Range Interpretation Comments POCT PREG (test code = 1605) Positive On board controls acceptable with C Yes Line (test code = 3574) POCT PREG LOT # (test code = 3575) POCT PREG TEST DATE (test code = 357) [facility] URINALYSIS W/O SPECIFIC [id number] 14:56:00 Test Item Value Reference Range Interpretation Comments POCT PH U (test code = 3254) 6 mg/dl 5-8 POCT U LEUK EST (test code = Trace Negative - Negative 3263) POCT U NIT (test code = 3262) Neg Negative - Negative POCT U PROT (test code = 3259) Trace Negative - Negative POCT U GLU (test code = 3256) Neg Negative - Negative POCT U KETONE (test code = 3258) None Negative - Negative POCT U BLD (test code = 3257) Neg Negative - Negative [facility] [id number] 14:56:00 Test Item Value Reference Range Interpretation Comments POCT PREG (test code = 1605) Positive On board controls acceptable with C Yes Line (test code = 3574) POCT PREG LOT # (test code = 3575) POCT PREG TEST DATE (test code = 3576) [facility] URINALYSIS W/O SPECIFIC [id number] 14:56:00 Test Item Value Reference Range Interpretation Comments POCT PH U (test code = 3254) 6 mg/dl 5-8 POCT U LEUK EST (test code = Trace Negative - Negative 3263) POCT U NIT (test code = 3262) Neg Negative - Negative POCT U PROT (test code = 3259) Trace Negative - Negative POCT U GLU (test code = 3256) Neg Negative - Negative POCT U KETONE (test code = 3258) None Negative - Negative POCT U BLD (test code = 3257) Neg Negative - Negative [facility] [id number] 16:03:00 Test Item Value Reference Range Interpretation Comments POCT PREG (test code = 1605) Positive On board controls acceptable with Yes C Line (test code = 3574) POCT PREG LOT # (test code = 3575) [id number] POCT PREG TEST DATE (test 07/05/2021 code = 3576) Lab Interpretation (test code = Abnormal 79016-9) [facility]"
--- NOTE | 2022-05-23 14:09 | RAD REPORT ---
EXAM DESCRIPTION: RAD - Hand Left 3 View - 05/23/2022 1:42 pm CLINICAL HISTORY: PAIN COMPARISON: No comparisons FINDINGS: Soft tissue swelling affects the first finger. No fracture or dislocation.
--- NOTE | 2022-05-23 14:14 | EDPHYS ---
Physician Documentation [facility] Name: Tea Collazo Age: 22 yrs Sex: Female : 2000 Arrival Date: 05/23/2022 Time: 12:56 Bed 12 Private MD: ED Physician Isiah Glover HPI: 05/23 13:32 This 22 yrs old Black Female presents to ER via Ambulatory with complaints of Finger kb Injury. 13:32 The patient or guardian reports decreased range of motion, pain, tenderness. The kb complaints affect the left thumb. Context: The problem was sustained at work, resulted from a crush injury, by a heavy object. Onset: The symptoms/episode began/occurred yesterday. Modifying factors: The symptoms are alleviated by nothing, the symptoms are aggravated by movement. Associated signs and symptoms: The patient has no apparent associated signs or symptoms. Severity of symptoms: At their worst the symptoms were moderate, in the emergency department the symptoms are unchanged. The patient has not experienced similar symptoms in the past. The patient has not recently seen a physician. 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 - Social history:: Smoking status: Reported history of juuling and/or vaping. ROS: 13:30 Constitutional: Negative for fever, chills, and weight loss. kb 13:30 MS/extremity: Positive for decreased range of motion, pain, of the left thumb. 13:30 All other systems are negative. Exam: 13:30 Constitutional: This is a well developed, well nourished patient who is awake, alert, kb and in no acute distress. Head/Face: Normocephalic, atraumatic. ENT: Moist Mucous membranes Cardiovascular: Regular rate and rhythm with a normal S1 and S2. No gallops, murmurs, or rubs. No pulse deficits. Respiratory: Respirations even and unlabored. No increased work of breathing. Talking in full sentences Skin: Warm, dry with normal turgor. Normal color. Neuro: Awake and alert, GCS 15, oriented to person, place, time, and situation. Moves all extremities. Normal gait. Psych: Awake, alert, with orientation to person, place and time. Behavior, mood, and affect are within normal limits. 13:30 Musculoskeletal/extremity: Extremities: grossly normal except: noted in the left thumb: decreased ROM, pain, ROM: limited active range of motion, limited active range of motion due to pain, Circulation is intact in all extremities. Sensation intact. Vital Signs: 13:13 Weight 86.18 kg; Height 5 ft. 3 in. (160.02 cm); ss 13:15 BP 148 / 90; Pulse 58; Resp 16; Pulse Ox 100% on R/A; ss 13:15 Temp 97.9(TE); ss 13:13 Body Mass Index 33.66 (86.18 kg, 160.02 cm) ss MDM: 13:12 Patient medically screened. kb 13:31 Data reviewed: vital signs, nurses notes. Data interpreted: Pulse oximetry: on room air kb is 100 %. Interpretation: normal. 14:12 Counseling: I had a detailed discussion with the patient and/or guardian regarding: the kb historical points, exam findings, and any diagnostic results supporting the discharge/admit diagnosis, radiology results, the need for outpatient follow up, a family practitioner, to return to the emergency department if symptoms worsen or persist or if there are any questions or concerns that arise at home. 05/23 13:14 Order name: Hand Left 3 View XRAY; Complete Time: 14:11 kb Administered Medications: No medications were administered Disposition Summary: 05/23/22 14:13 Discharge Ordered Location: Home kb Condition: Stable kb Diagnosis - Contusion of left thumb without damage to nail kb Followup: kb - With: Emergency Department - When: As needed - Reason: Worsening of condition Followup: kb - With: Private Physician - When: 2 - 3 days - Reason: Recheck today's complaints, Continuance of care, Re-evaluation by your physician Discharge Instructions: - Discharge Summary Sheet kb - Hand Contusion, [id number] kb Forms: - Medication Reconciliation Form kb - Thank You Letter kb - Antibiotic Education kb - Prescription Opioid Use kb - Work release form ss Signatures: Dispatcher [employer] Sydney Vides, SENIOR QA TESTER-C Irlanda Lozoya, RN RN ss
--- NOTE | 2022-05-23 14:14 | ER ---
Nurse's Notes [facility] Name: Tea Collazo Age: 22 yrs Sex: Female : 2000 Arrival Date: 05/23/2022 Time: 12:56 Bed 12 Private MD: Diagnosis: Contusion of left thumb without damage to nail Presentation: 05/23 13:13 Chief complaint: Patient states: smashed L thumb between a pipe and bearing at work ss yesterday. Coronavirus screen: Client denies travel out of the [place] in the last 14 days. Ebola Screen: Patient denies exposure to infectious person. Patient denies travel to an Ebola-affected area in the 21 days before illness onset. Initial Sepsis Screen: Does the patient meet any 2 criteria? No. Patient's initial sepsis screen is negative. Does the patient have a suspected source of infection? No. Patient's initial sepsis screen is negative. Risk Assessment: Do you want to hurt yourself or someone else? Patient reports no desire to harm self or others. Onset of symptoms was May 22, 2022. 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 - Social history:: Smoking status: Reported history of juuling and/or vaping. Screenin:23 Abuse screen: Denies threats or abuse. Denies injuries from another. Nutritional ss screening: No deficits noted. Tuberculosis screening: Never had TB. Fall Risk None identified. Assessment: 14:23 General: Appears in no apparent distress. comfortable, Behavior is calm, cooperative. ss Pain: Complains of pain in left thumb. Neuro: Level of Consciousness is awake, alert, obeys commands, Oriented to person, place, time, situation. Cardiovascular: Capillary refill < 3 seconds is brisk in bilateral fingers. Respiratory: Airway is patent Respiratory effort is even, unlabored, Respiratory pattern is regular, symmetrical. Derm: Skin is intact, is healthy with good turgor, Skin is pink, warm \T\ dry. normal. Musculoskeletal: Circulation, motion, and sensation intact. Capillary refill < 3 seconds, is brisk, in bilateral fingers. Swelling absent. Vital Signs: 13:13 Weight 86.18 kg; Height 5 ft. 3 in. (160.02 cm); ss 13:15 BP 148 / 90; Pulse 58; Resp 16; Pulse Ox 100% on R/A; ss 13:15 Temp 97.9(TE); ss 13:13 Body Mass Index 33.66 (86.18 kg, 160.02 cm) ss ED Course: 12:56 Patient arrived in ED. rg4 13:00 Sydney Galvez FNP-C is PHCP. kb 13:00 Isiah Glover MD is Attending Physician. kb 13:14 Triage completed. ss 13:14 Arm band placed on right wrist. ss 13:44 Hand Left 3 View XRAY In Process Unspecified. EDMS 14:17 Irlanda Martel, RN is Primary Nurse. ss 14:23 Patient has correct armband on for positive identification. Bed in low position. ss 14:23 No provider procedures requiring assistance completed. Patient did not have IV access ss during this emergency room visit. Administered Medications: No medications were administered Medication: 14:23 VIS not applicable for this client. ss Outcome: 14:13 Discharge ordered by . kb 14:23 Discharged to home ambulatory. ss 14:23 Condition: good 14:23 Discharge instructions given to patient, Instructed on discharge instructions, follow up and referral plans. medication usage, Demonstrated understanding of instructions, follow-up care. 14:25 Patient left the ED. ss Signatures: Dispatcher [employer] EDTX Sydney Galvez FNP-C FNP-Ckb Smirch, Shelby, HÉCTOR RN Norma Flores rg4
[2022-05-23 15:10] VITALS: BP 133/93; O2SAT 99
[2022-05-23 15:12] VITALS: TEMP 97.6
== END 2022-05-23 14:25 | disposition home or self-care (01) ==
LOC: ER 12:53
DX: S60.012A Contusion of left thumb without damage to nail, initial encounter (principal); I10 Essential (primary) hypertension; Z91.018 Allergy to other foods
CPT/HCPCS: 99283

== ENCOUNTER 2022-08-29 00:08 | Emergency (ER) | payer OTHER ==
--- OUTSIDE RECORDS SUMMARY | 2022-08-29 00:52 | XMS REPORT | Continuity of Care Document ---
:2000 Author Organization [facility] t Address [address] [place] [address] Care Team Providers Name Role Phone ASHA NELSON Attending Clinician Unavailable ASHA NELSON Admitting Clinician Unavailable Payers Payer Name Policy Type Policy Number Effective Date Expiration Date [facility] MEDICAID STAR [id number] 2020 2024 00:00:00 00:00:00 Problems This patient has no known problems. Allergies, Adverse Reactions, Alerts This patient has no known allergies or adverse reactions. Medications This patient has no known medications. Procedures This patient has no known procedures. Encounters Start End Encounter Admission Attending Care Care Encounter Source Date/Time Date/Time Type Type Clinicians Facility Department ID 2021-11-14 Outpatient [facility] [id number] [place] 01:04:55 Health 2021-08-15 2021-08-15 Inpatient E SCAR NELSON [facility] [id number] 05:19:00 02:12:00 ASHA abarca Results This patient has no known results.
[2022-08-29 02:15] LABS: Absolute Lymphocytes (CBC) 2.4 K/uL (0.7-4.9); Hematocrit 36.4 % (36.0-45.0); Lymphocytes % 16.9 % (15.3-44.8); MCV 88.8 fL (80-100); MPV 8.3 fL (7.6-11.3)
[2022-08-29 02:16] LABS: Urine Blood Negative (Negative); Urine Glucose Negative (Negative); Urine Protein Negative (Negative)
[2022-08-29 02:32] LABS: Urine Bacteria <20 /HPF (<20)
[2022-08-29 03:33] LABS: Potassium 4.2 mmol/L (3.5-5.1)
--- NOTE | 2022-08-29 03:34 | ER ---
Nurse's Notes [facility] Name: Tea Collazo Age: 22 yrs Sex: Female : 2000 Arrival Date: 08/29/2022 Time: 00:11 Bed 8 Private MD: Diagnosis: 12 weeks gestation of ;Abdominal pain, unspecified Presentation: 08/29 00:37 Chief complaint: Patient states: I am from a [place] who has been with another kd3 girl. I have been having cramps. But I do not know if the other person he has been with is clean. Coronavirus screen: Vaccine status: Patient reports receiving the 2nd dose of the covid vaccine. Wavestream. Ebola Screen: No symptoms or risks identified at this time. Initial Sepsis Screen: Does the patient meet any 2 criteria? No. Patient's initial sepsis screen is negative. Does the patient have a suspected source of infection? No. Patient's initial sepsis screen is negative. Risk Assessment: Do you want to hurt yourself or someone else? Patient reports no desire to harm self or others. Onset of symptoms was August 29, 2022. 00:37 Method Of Arrival: Ambulatory kd3 00:37 Acuity: LARISA 4 kd3 Triage Assessment: 00:39 General: Appears in no apparent distress. Behavior is calm, cooperative. Pain: kd3 Complains of pain in suprapubic area. Neuro: Level of Consciousness is awake, alert, obeys commands, Oriented to person, place, time, situation. GI: Abdomen is non-distended, Reports cramping. 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 - Social history:: Smoking status: Patient denies any tobacco usage or history of. - Family history:: not pertinent. - Hospitalizations: : No recent hospitalization is reported. Screenin:40 Abuse screen: Denies threats or abuse. Denies injuries from another. Nutritional kd3 screening: No deficits noted. Tuberculosis screening: No symptoms or risk factors identified. Fall Risk None identified. Assessment: 00:41 GI: kd3 02:07 General: Appears comfortable, well groomed, Behavior is calm, cooperative, appropriate aa9 for age. Pain: Complains of pain in suprapubic area. Neuro: Level of Consciousness is awake, alert, obeys commands, Oriented to person, place, time, situation. Cardiovascular: Patient's skin is warm and dry. Respiratory: Airway is patent Respiratory effort is even, unlabored. : No signs and/or symptoms were reported regarding the genitourinary system. EENT: No signs and/or symptoms were reported regarding the EENT system. Derm: Skin is intact, is healthy with good turgor. Vital Signs: 00:37 BP 142 / 93; Pulse 68; Resp 18; Temp 98.5(O); Pulse Ox 100% ; Weight 81.65 kg; Height 5 kd3 ft. 3 in. (160.02 cm); Pain 5/10; 00:37 Body Mass Index 31.89 (81.65 kg, 160.02 cm) kd3 ED Course: 00:11 Patient arrived in ED. ja2 00:20 Martín Chiang MD is Attending Physician. rn 00:39 Triage completed. kd3 00:39 Arm band placed on right wrist. kd3 00:40 Patient has correct armband on for positive identification. kd3 00:40 No provider procedures requiring assistance completed. kd3 01:26 Transvaginal Ob In Process Unspecified. EDMS 01:56 Nikki Joshi, RN is Primary Nurse. aa9 02:04 Inserted saline lock: 20 gauge in right antecubital area, using aseptic technique. aa9 Blood collected. 02:06 Abo/rh Typing Sent. aa9 02:06 Basic Metabolic Panel Sent. aa9 02:06 CBC with Diff Sent. aa9 02:06 Quantitative Hcg Sent. aa9 02:17 Urine Microscopic Only Sent. aa9 03:46 IV discontinued, intact, bleeding controlled, No redness/swelling at site. Pressure aa9 dressing applied. Administered Medications: No medications were administered Medication: 02:08 VIS not applicable for this client. aa9 Outcome: 03:33 Discharge ordered by . rn 03:46 Discharged to home ambulatory. aa9 03:46 Condition: stable 03:46 Discharge instructions given to patient, Instructed on discharge instructions, follow up and referral plans. Demonstrated understanding of instructions, follow-up care. 03:47 Patient left the ED. aa9 Signatures: Dispatcher [employer] EDMartín Quintanilla MD MD rn Isabel Dickerson Kyli RN RN kd3 Nikki Joshi RN RN aa9
--- NOTE | 2022-08-29 03:34 | EDPHYS ---
Physician Documentation [facility] Name: Tea Collazo Age: 22 yrs Sex: Female : 2000 Arrival Date: 08/29/2022 Time: 00:11 Bed 8 Private MD: ED Physician Martín Chiang HPI: 08/29 01:42 This 22 yrs old Black Female presents to ER via Ambulatory with complaints of Abdominal rn Cramping. 01:42 The patient presents to the emergency department with abdominal pain, of the suprapubic rn area, that started yesterday, described as crampy. The estimated gestational age is 8 weeks. course: care: none, Leakage of Fluid: none appreciated, Ultrasound: the patient has not had an ultrasound, Risk/complications: no obvious risks or complications are appreciated. Associated signs and symptoms: Pertinent positives: abdominal pain, Pertinent negatives: chest pain, diarrhea, dysuria, fever, frequency, vaginal bleeding, vaginal discharge. The patient has not experienced similar symptoms in the past. The patient has not recently seen a physician. Pt reports mild abd cramping, began yesterday, no vaginal bleeding or leakage of fluid. NO fever. Is with LMP 8 weeks ago. . 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 - Social history:: Smoking status: Patient denies any tobacco usage or history of. - Family history:: not pertinent. - Hospitalizations: : No recent hospitalization is reported. ROS: 01:42 Constitutional: Negative for fever, chills, and weight loss, Eyes: Negative for injury, rn pain, redness, and discharge, Neck: Negative for injury, pain, and swelling, Cardiovascular: Negative for chest pain, palpitations, and edema, Respiratory: Negative for shortness of breath, cough, wheezing, and pleuritic chest pain, Abdomen/GI: + abd cramping, negative for diarrhea or blood in stool Back: Negative for injury and pain, : Negative for injury, bleeding, discharge, and swelling, MS/Extremity: Negative for injury and deformity, Skin: Negative for injury, rash, and discoloration, Neuro: Negative for headache, weakness, numbness, tingling, and seizure. Exam: 01:42 Constitutional: This is a well developed, well nourished patient who is awake, alert, rn and in no acute distress. Head/Face: Normocephalic, atraumatic. Cardiovascular: Regular rate and rhythm . No pulse deficits. Respiratory: No increased work of breathing, no retractions or nasal flaring. Abdomen/GI: soft, no focal tenderness or masses Skin: Warm, dry MS/ Extremity: Pulses equal, no cyanosis. Neuro: Awake and alert, GCS 15 Vital Signs: 00:37 BP 142 / 93; Pulse 68; Resp 18; Temp 98.5(O); Pulse Ox 100% ; Weight 81.65 kg; Height 5 kd3 ft. 3 in. (160.02 cm); Pain 5/10; 00:37 Body Mass Index 31.89 (81.65 kg, 160.02 cm) kd3 MDM: 00:20 Patient medically screened. rn 03:32 Differential diagnosis: ectopic . 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 Counseling: I had a detailed discussion with the patient and/or guardian regarding: the historical points, exam findings, and any diagnostic results supporting the discharge/admit diagnosis, lab results, radiology results, the need for outpatient follow up, to return to the emergency department if symptoms worsen or persist or if there are any questions or concerns that arise at home. Response to treatment: the patient's symptoms have mildly improved after treatment, and as a result, I will discharge patient. Special discussion: I discussed with the patient/guardian in detail that at this point there is no indication for admission to the hospital. It is understood, however, that if the symptoms persist or worsen the patient needs to return immediately for re-evaluation. Based on the history and exam findings, there is no indication for further emergent testing or inpatient evaluation. I discussed with the patient/guardian the need to see the OB Gyne specialist for further evaluation of the symptoms. I discussed with the patient/guardian the need to see the primary care provider for further evaluation of the symptoms. ED course: Pt improved, afebrile, abd cramping but no vaginal bleeding. U/S shows 12 week IUP. No peritoneal signs. No vomiting/diarrhea. Will dc home with OB f/u and return precautions. . 08/29 00:47 Order name: Abo/rh Typing; Complete Time: 03:31 rn 08/29 00:47 Order name: Basic Metabolic Panel; Complete Time: 03:34 rn 08/29 00:47 Order name: CBC with Diff; Complete Time: 02:24 rn 08/29 00:47 Order name: Quantitative Hcg; Complete Time: 03:34 rn 08/29 00:47 Order name: Urine Microscopic Only; Complete Time: 02:41 rn 08/29 02:16 Order name: Urine Dipstick-Ancillary; Complete Time: 02:24 EDMI 08/29 00:47 Order name: US Transvaginal Ob rn 08/29 00:47 Order name: IV Saline Lock; Complete Time: 02:06 rn 08/29 00:47 Order name: Labs collected and sent; Complete Time: 02:06 rn 08/29 00:47 Order name: Urine Dipstick-Ancillary (obtain specimen); Complete Time: 02:17 rn 08/29 00:47 Order name: Urine Test (obtain specimen); Complete Time: 02:17 rn 08/29 02:29 Order name: Urine --Ancillary (enter results); Complete Time: 03:34 wm Administered Medications: No medications were administered Disposition Summary: 08/29/22 03:33 Discharge Ordered Location: Home rn Problem: new rn Symptoms: have improved rn Condition: Stable rn Diagnosis - 12 weeks gestation of rn - Abdominal pain, unspecified rn Followup: rn - With: Private Physician - When: As needed - Reason: Recheck today's complaints, Re-evaluation by your physician Discharge Instructions: - Discharge Summary Sheet rn - Abdominal Pain During rn Forms: - Medication Reconciliation Form rn - Thank You Letter rn - Antibiotic manager of internal - Prescription Opioid Use rn Signatures: Dispatcher [employer] Martín Mathew MD MD rn Doucette, Kyli, RN RN kd3
[2022-08-29 03:51] VITALS: BP 142/93; TEMP 98.5; O2SAT 100
--- NOTE | 2022-08-29 14:20 | RAD REPORT ---
EXAM DESCRIPTION: US - Transvaginal OB - 08/29/2022 1:25 am CLINICAL HISTORY: 22 years Female ABD PAIN, LMP: 07/03/2022, EGA: 8 weeks 1 day, RYANNE: 04/09/2023 TECHNIQUE: Sonographic imaging of the pelvis was performed endovaginally on 08/29/2022 at 1: 04 AM COMPARISON: None FINDINGS: The uterus is gravid and measures: 11.6 x 6.4 x 9.2 cm. The cervix measures approximatel y 3.6 cm in length. There is a single intrauterine gestational sac which contains a single fetus. Images of the gestation al sac and fetus are not optimal on this transvaginal study. Doppler imaging reveals a heart ra te of 152 beats per minute. Abdominal circumference measures approximately 5.70 cm corresponding to a gestational age of approxim ately 12 weeks 3 days. Humeral length measures approximately 1.03 cm corresponding to a gestational age of approximately 12 weeks 4 days. The right ovary is grossly normal in size, shape and echogenicity and measures: 4.0 x 1.6 x 3.1 cm. There is normal pulsed and color Doppler flow to the right ovary. There are no right adnexal mass lesions.. The left ovary is not well visualized on this examination. There are no left adnexal mass lesions.. There is no free fluid in the pelvis. IMPRESSION: 1. Single living intrauterine with an estimated ultrasound age of 12 weeks 3 d ays corresponding to an estimated due date of 03/10/2023. These dates do not correspond to the estimate d clinical gestational age of 8 weeks 1 day based on the LMP. Either the clinical dates are inaccurat e or this is a large for gestational age fetus. 2. Suboptimal evaluation of the fetus on this transvaginal study. Electronically signed by: Gracie Zayas DO 08/29/2022 1:42 AM OUTFITTER [employer]IN Due to temporary technical issues with the PACS/Fluency reporting system, reports are being signed by the in house radiologists without review as a courtesy to insure prompt reporting. The interpreting radiologist is fully responsible for the content of the report.
== END 2022-08-29 03:47 | disposition home or self-care (01) ==
LOC: ER 00:08
DX: O26.891 Other specified pregnancy related conditions, first trimester (principal); O99.411 Diseases of the circulatory system complicating pregnancy, first trimester; I10 Essential (primary) hypertension; Z3A.12 12 weeks gestation of pregnancy; Z91.018 Allergy to other foods
CPT/HCPCS: 36415; 76817; 80048; 81003; 81015; 81025; 84702; 85025; 86900; 86901; 99283

== ENCOUNTER 2022-10-20 22:35 | Emergency (ER) | payer OTHER ==
--- OUTSIDE RECORDS SUMMARY | 2022-10-20 22:41 | XMS REPORT | Continuity of Care Document ---
:2000 Author Organization [facility] t Address [address] [place] [address] Care Team Providers Name Role Phone LUCY DANIEL Primary Care Physician Unavailable MARVIN GARCIA Attending Clinician Unavailable BRIAN MILLS Attending Clinician Unavailable ASHA NELSON Attending Clinician Unavailable Lion García MD Attending Clinician JOHNNA HICKEY Attending Clinician Unavailable NILAM EVANS Attending Clinician Unavailable Johnna Serrato Attending Clinician Doctor Unassigned, [place] Attending Clinician Unavailable Lab, [place] Attending Clinician Unavailable Andre Rowe MD Attending Clinician Ultrasound, Nuno Attending Clinician Unavailable La Nena Rojas MD Attending Clinician Lucy Daniel Attending Clinician Oseas Campos MD, Allie Attending Clinician [phone] Visit, [place] ellen Nurse Attending Clinician Unavailable Em Garrido Attending Clinician EM RUSSELL Attending Clinician Unavailable MARY BASS Attending Clinician Unavailable ANDRE ROWE Admitting Clinician Unavailable ASHA NELSON Admitting Clinician Unavailable Andre Rowe MD Admitting Clinician Payers Payer Name Policy Type Policy Number Effective Date Expiration Date Amaya farmer [facility] MEDICAID [place] [id number] 2020 2024 00:00:00 00:00:00 [facility] [id number] 2020 CHOICE MEDICAID 00:00:00 MEDICAID PENDING PENDING 2020 00:00:00 [id number] 2011 00:00:00 Problems Condition Condition Condition Status Onset Resolution Last Treating Co mments Source Name Details Category Date Date Treatment Clinician Date Need for Need for Disease Active 2020- Unive rs Tdap Tdap 2-03 [place] [facility] Obesity in Obesity in Disease Active 2020-1 U nivers 1-19 ity of 00:00: [address] 26 weeks 26 weeks Disease Active 2020-1 Unive rs gestation gestation 1-19 ity of of of 00:00: [place] 00 [facility] Chronic Chronic Disease Active 2020-1 Univers hypertensi hypertensi 1-19 it y of on in on in 00:00: [place] obstetric obstetric [address] [place] [address] context in context in Br anch second second trimester trimester COVID-19 COVID-19 Disease Active 2020- Unive rs virus virus 1-19 [place] of [place] [facility] Nausea and Nausea and Disease Active 2020-0 U nivers vomiting vomiting 7-15 ity of in in 00:00: [place] 00 [facility] prior to prior to Branch 22 weeks 22 weeks gestation gestation Gonorrhea Gonorrhea Disease Active 2020-0 Uni vers 7-15 ity of 00:00: [address] Over Over Disease Active 2020-0 Univers weight weight 6-17 ity of 00:00: [address] Branch Supervisio Supervisio Disease Active 2020-0 U nivers n of high n of high 6-17 ity of risk risk 00:00: [place] 00 [facility] in second in second Bran ch trimester trimester Primigravi Primigravi Disease Active 2020-0 U nivers da in da in 03-22 ity of second second 00:00: [place] trimester trimester 00 [facility] Branch Elevated Elevated Disease Active Unive rs blood blood 03-22 ity of pressure pressure 00:00: [place] reading reading 00 Medical without without Branch diagnosis diagnosis of of hypertensi hypertensi on on Left Left Disease Active Univers breast breast 03-22 ity of lump lump 00:00: [address] BMI BMI Disease Active Univers 25.0-25.9, 25.0-25.9, 6-17 it y of adult adult 00:00: [address] Allergies, Adverse Reactions, Alerts Allergy Allergy Status Severity Reaction(s) Onset Inactive Treating Comm ents Source Name Type Date Date Clinician NO KNOWN Drug Active Univers ALLERGIE Class ity of S [facility] Social History Social Habit Start Date Stop Date Quantity Comments Source ASSERTION 2020-03-05 [facility] 00:00:00 [facility] Exposure to Not sure [facility] SARS-CoV-2 [facility] (event) [place] Tobacco use and 2021-02-18 2021-02-18 Never used Universit y of exposure 00:00:00 00:00:00 [facility] Alcohol intake 2021-02-18 2021-02-18 Ex-drinker [facility] 00:00:00 00:00:00 (finding) [facility] Sex Assigned At [birth year] Universit y of 00:00:00 00:00:00 [facility] Smoking Status Start Date Stop Date Source Never smoker [facility] Unknown if ever smoked [facility] y [facility] Medications Ordered Filled Start Stop Current Ordering Indication Dosage Frequency Signature Comments Components Source Medication Medication Date Date Medication? Clinician (SIG) Name Name amoxicillin Yes [id number] 500mg Take 1 Univers 500 mg 6-23 capsule by ity of capsule 00:00: mouth 3 [place] 00 (three) Medical times Branch daily. Yes [id number] 1{packe Take 1 Univers vit 7-15 t} Packet by ity of 33-iron-fol 00:00: mouth [place] ic-dha 00 daily. Medical (SELECT-OB Branch + DHA) 29 mg iron-1 mg -250 mg combo pack Yes [id number] 1{packe Take 1 Univers vit 7-15 t} Packet by ity of 33-iron-fol 00:00: mouth [place] ic-dha 00 daily. Medical (SELECT-OB Branch + DHA) 29 mg iron-1 mg -250 mg combo pack 2020-0 Yes [id number] 1{packe Take 1 Univers vit 7-15 t} Packet by ity of 33-iron-fol 00:00: mouth [place] ic-dha 00 daily. Medical (SELECT-OB Branch + DHA) 29 mg iron-1 mg -250 mg combo pack 2020-0 Yes [id number] 1{packe Take 1 Univers vit 7-15 t} Packet by ity of 33-iron-fol 00:00: mouth [place] ic-dha 00 daily. Medical (SELECT-OB Branch + DHA) 29 mg iron-1 mg -250 mg combo pack 2020-0 Yes [id number] 1{packe Take 1 Univers vit 7-15 t} Packet by ity of 33-iron-fol 00:00: mouth [place] ic-dha 00 daily. Medical (SELECT-OB Branch + DHA) 29 mg iron-1 mg -250 mg combo pack 2020-0 Yes [id number] 1{packe Take 1 Univers vit 7-15 t} Packet by ity of 33-iron-fol 00:00: mouth [place] ic-dha 00 daily. Medical (SELECT-OB Branch + DHA) 29 mg iron-1 mg -250 mg combo pack 2020-0 Yes [id number] 1{packe Take 1 Univers vit 7-15 t} Packet by ity of 33-iron-fol 00:00: mouth [place] ic-dha 00 daily. Medical (SELECT-OB Branch + DHA) 29 mg iron-1 mg -250 mg combo pack 2020-0 Yes [id number] 1{packe Take 1 Univers vit 7-15 t} Packet by ity of 33-iron-fol 00:00: mouth [place] ic-dha 00 daily. Medical (SELECT-OB Branch + DHA) 29 mg iron-1 mg -250 mg combo pack 2020-0 Yes [id number] 1{packe Take 1 Univers vit 7-15 t} Packet by ity of 33-iron-fol 00:00: mouth [place] ic-dha 00 daily. Medical (SELECT-OB Branch + DHA) 29 mg iron-1 mg -250 mg combo pack 2020-0 Yes [id number] 1{packe Take 1 Univers vit 7-15 t} Packet by ity of 33-iron-fol 00:00: mouth [place] ic-dha 00 daily. Medical (SELECT-OB Branch + DHA) 29 mg iron-1 mg -250 mg combo pack 2020-0 Yes [id number] 1{packe Take 1 Univers vit 7-15 t} Packet by ity of 33-iron-fol 00:00: mouth [place] ic-dha 00 daily. Medical (SELECT-OB Branch + DHA) 29 mg iron-1 mg -250 mg combo pack 2020-0 Yes [id number] 1{packe Take 1 Univers vit 7-15 t} Packet by ity of 33-iron-fol 00:00: mouth [place] ic-dha 00 daily. Medical (SELECT-OB Branch + DHA) 29 mg iron-1 mg -250 mg combo pack 2020-0 Yes [id number] 1{packe Take 1 Univers vit 7-15 t} Packet by ity of 33-iron-fol 00:00: mouth [place] ic-dha 00 daily. Medical (SELECT-OB Branch + DHA) 29 mg iron-1 mg -250 mg combo pack 2020-0 Yes [id number] 1{packe Take 1 Univers vit 7-15 t} Packet by ity of 33-iron-fol 00:00: mouth [place] ic-dha 00 daily. Medical (SELECT-OB Branch + DHA) 29 mg iron-1 mg -250 mg combo pack 2020-0 Yes [id number] 1{packe Take 1 Univers vit 7-15 t} Packet by ity of 33-iron-fol 00:00: mouth [place] ic-dha 00 daily. Medical (SELECT-OB Branch + DHA) 29 mg iron-1 mg -250 mg combo pack 2020-0 Yes [id number] 1{packe Take 1 Univers vit 7-15 t} Packet by ity of 33-iron-fol 00:00: mouth [place] ic-dha 00 daily. Medical (SELECT-OB Branch + DHA) 29 mg iron-1 mg -250 mg combo pack 2020-0 Yes [id number] 1{packe Take 1 Univers vit 7-15 t} Packet by ity of 33-iron-fol 00:00: mouth [place] ic-dha 00 daily. Medical (SELECT-OB Branch + DHA) 29 mg iron-1 mg -250 mg combo pack 2020-0 Yes [id number] 1{packe Take 1 Univers vit 7-15 t} Packet by ity of 33-iron-fol 00:00: mouth [place] ic-dha 00 daily. Medical (SELECT-OB Branch + DHA) 29 mg iron-1 mg -250 mg combo pack 2020-0 Yes [id number] 1{packe Take 1 Univers vit 7-15 t} Packet by ity of 33-iron-fol 00:00: mouth [place] ic-dha 00 daily. Medical (SELECT-OB Branch + DHA) 29 mg iron-1 mg -250 mg combo pack 2020-0 Yes [id number] 1{packe Take 1 Univers vit 7-15 t} Packet by ity of 33-iron-fol 00:00: mouth [place] ic-dha 00 daily. Medical (SELECT-OB Branch + DHA) 29 mg iron-1 mg -250 mg combo pack 2020-0 Yes [id number] 1{packe Take 1 Univers vit 7-15 t} Packet by ity of 33-iron-fol 00:00: mouth [place] ic-dha 00 daily. Medical (SELECT-OB Branch + DHA) 29 mg iron-1 mg -250 mg combo pack 2020-0 Yes [id number] 1{packe Take 1 Univers vit 7-15 t} Packet by ity of 33-iron-fol 00:00: mouth [place] ic-dha 00 daily. Medical (SELECT-OB Branch + DHA) 29 mg iron-1 mg -250 mg combo pack 2020-0 Yes [id number] 1{packe Take 1 Univers vit 7-15 t} Packet by ity of 33-iron-fol 00:00: mouth [place] ic-dha 00 daily. Medical (SELECT-OB Branch + DHA) 29 mg iron-1 mg -250 mg combo pack cefTRIAXone 0 2020- No 250mg Univ ers (ROCEPHIN) 03-27- ity of 250 mg in 20:45: 19:50 [place] lidocaine 00 :00 Medical 1% (PF) Branch (XYLOCAINE) 1 mL injection cefTRIAXone 2020- No 250mg 250 mg, U nivers (ROCEPHIN) 03-27- Intramuscu it y of 250 mg in 20:45: 19:50 [place], ONCE, [place] lidocaine 00 :00 1 dose, Medical 1% (PF) Marita Garcia (XYLOCAINE) 03/27/20 at 1 mL 1545, 1 injection mL
Reas on for Anti-Infec tive: Documented Infection< br>Documen lucero Infection Site: Urine
D uration of Therapy: 7 days azithromyci 2019- 2020- No [id number] 1000mg Take 2 Univers n 500 mg 03-23-20 tablets by ity of tablet 00:00: 04:59 mouth [place] 00 :00 daily for Medical 1 day. Branch azithromyci 2019-2019- No [id number] 1000mg Take 2 Univers n 500 mg 18 -20 tablets by ity of tablet 00:00: 04:59 mouth [place] 00 :00 daily for Medical 1 day. Branch azithromyci 2019-2019- No [id number] 1000mg Take 2 Univers n 500 mg 03-23-20 tablets by ity of tablet 00:00: 04:59 mouth [place] 00 :00 daily for Medical 1 day. Branch acetaminoph 2019- No 1000mg 1,000 mg, Univers en 03-2116 Oral, ity of (TYLENOL) 17:30: 16:21 [place]CE[place] tablet [place] :[place] dose, [facility] 1,000 mg 03/21/20 at [facility] h 1230, Routine No known No Univers medications ity of [facility] No known No Univers medications ity [facility] No known No Univers [facility] Immunizations Ordered Filled Immunization Date Status Comments [facility] e Immunization Name Name TDAP 2020-09-07 Completed [facility] 00:00:00 [facility] TDAP 2020-09-07 Completed [facility] 00:00:00 [facility] TDAP 2020-09-07 Completed [facility] 00:00:00 [facility] TDAP 2020-09-07 Completed [facility] 00:00:00 [facility] Influenza Virus 2020-07-13 Completed Universit y of Vaccine Quad .5 mL 00:00:00 [facility] [place] [facility] 6+ MO [place] Influenza Virus 2020-07-13 Completed Universit y of Vaccine Quad .5 mL 00:00:00 [facility] [place] [facility] 6+ MO [place] Influenza Virus 2020-07-13 Completed Universit y of Vaccine Quad .5 mL 00:00:00 [place] Medical IM 6+ MO Branch Influenza Virus 2020-07-13 Completed Universit y of Vaccine Quad .5 mL 00:00:00 [place] Medical IM 6+ MO Branch Influenza Virus 2020-07-13 Completed Universit y of Vaccine Quad .5 mL 00:00:00 [place] Medical IM 6+ MO Branch Influenza Virus 2020-07-13 Completed Universit y of Vaccine [place] .5 mL 00:00:00 [place] Medical IM 6+ MO Branch Influenza Virus 2020-07-13 Completed Universit y of Vaccine [place] .5 mL 00:00:00 [place] Medical IM 6+ MO Branch Influenza Virus 2020-07-13 Completed Universit y of Vaccine [place] .5 mL 00:00:00 [place] Medical IM 6+ MO Branch Influenza Virus 2020-07-13 Completed Universit y of Vaccine Quad .5 mL 00:00:00 [place] Medical IM 6+ MO Branch Influenza Virus 2020-07-13 Completed Universit y of Vaccine Quad .5 mL 00:00:00 [place] Medical IM 6+ MO Branch Influenza Virus 2020-07-13 Completed Universit y of Vaccine Quad .5 mL 00:00:00 [facility] [place] [facility] 6+ MO Branch Vital Signs Vital Name Observation Time Observation Value Comments Source Systolic blood 2021-03-28 17:23:00 143 mm[Hg] Univer sity of pressure [facility] Diastolic blood 2021-03-28 17:23:00 77 mm[Hg] Unive rsity of pressure [facility] Heart rate 2021-03-28 17:23:00 65 /min [facility] Body temperature 2021-03-28 17:23:00 36.94 Bel [facility] Respiratory rate 2021-03-28 17:23:00 16 /min [facility] Body height 2021-03-28 17:23:00 160 cm [facility] Body weight 2021-03-28 17:23:00 74.844 kg [facility] BMI 2021-03-28 17:23:00 29.23 kg/m2 [facility] Oxygen saturation in 2021-03-28 17:23:00 100 /min [facility] Arterial blood by [facility] Pulse oximetry Branch Systolic blood 2021-03-28 17:23:00 143 mm[Hg] Univer sity of pressure [place] [facility] Diastolic blood 2021-03-28 17:23:00 77 mm[Hg] Unive rsity of pressure [place] [facility] Heart rate 2021-03-28 17:23:00 65 /min Universi ty of [place] [facility] Body temperature 2021-03-28 17:23:00 36.94 Bel Univ ersity of [place] [facility] Respiratory rate 2021-03-28 17:23:00 16 /min Univ ersity of [place] [facility] Body height 2021-03-28 17:23:00 160 cm Universi ty of [place] [facility] Body weight 2021-03-28 17:23:00 74.844 kg Universi ty of [place] [facility] BMI 2021-03-28 17:23:00 29.23 kg/m2 Universi ty of [place] [facility] Oxygen saturation in 2021-03-28 17:23:00 100 /min University of Arterial blood by [facility] Pulse oximetry Branch Systolic blood 2020-09-07 15:46:00 180 mm[Hg] Univer sity of pressure [place] [facility] Diastolic blood 2020-09-07 15:46:00 100 mm[Hg] Unive rsity of pressure [place] [facility] Heart rate 2020-09-07 15:07:00 108 /min Universi ty of [place] [facility] Body temperature 2020-09-07 15:07:00 35.78 Bel Univ ersity of [place] [facility] Respiratory rate 2020-09-07 15:07:00 16 /min Univ ersity of [place] [facility] Body height 2020-09-07 15:07:00 160 cm Universi ty of [place] [facility] Body weight 2020-09-07 15:07:00 86.41 kg Universi ty of [place] [facility] BMI 2020-09-07 15:07:00 33.75 kg/m2 Universi ty of [place] [facility] Systolic blood 2020-09-07 15:46:00 180 mm[Hg] Univer sity of pressure [place] [facility] Diastolic blood 2020-09-07 15:46:00 100 mm[Hg] Unive rsity of pressure [place] [facility] Heart rate 2020-09-07 15:07:00 108 /min Universi ty of [place] [facility] Body temperature 2020-09-07 15:07:00 35.78 Bel Univ ersity of [place] [facility] Respiratory rate 2020-09-07 15:07:00 16 /min Univ ersity of [facility] Body height 2020-09-07 15:07:00 160 cm Universi ty of [place] [facility] Body weight 2020-09-07 15:07:00 86.41 kg Universi ty of [place] [facility] BMI 2020-09-07 15:07:00 33.75 kg/m2 Universi ty of [facility] Branch Systolic blood 2020-08-24 23:30:00 151 mm[Hg] Univer sity of pressure [place] [facility] Diastolic blood 2020-08-24 23:30:00 90 mm[Hg] Unive rsity of pressure [facility] Branch Heart rate 2020-08-24 23:30:00 53 /min Universi ty of [facility] Oxygen saturation in 2020-08-24 23:30:00 100 /min University Arterial blood by [facility] Pulse oximetry Branch Respiratory rate 2020-08-24 23:00:00 20 /min Univ ersity of [facility] Body temperature 2020-08-24 20:47:00 36.67 Bel Univ ersity of [facility] Systolic blood 2020-08-24 17:07:00 154 mm[Hg] Univer sity of pressure [facility] Branch Diastolic blood 2020-08-24 17:07:00 100 mm[Hg] Unive rsity of pressure [facility] Heart rate 2020-08-24 17:06:00 97 /min Universi ty of [facility] Body temperature 2020-08-24 17:06:00 36.33 Bel Univ ersity of [facility] Respiratory rate 2020-08-24 17:06:00 16 /min Univ ersity of [facility] Body height 2020-08-24 17:06:00 160 cm Universi ty of [facility] Body weight 2020-08-24 17:06:00 82.328 kg Universi ty of [facility] BMI 2020-08-24 17:06:00 32.15 kg/m2 Universi ty of [facility] Branch Systolic blood 2020-08-10 17:16:00 143 mm[Hg] Univer sity of pressure [facility] Branch Diastolic blood 2020-08-10 17:16:00 91 mm[Hg] Unive rsity of pressure [facility] Heart rate 2020-08-10 17:15:00 56 /min Universi ty of [facility] Body temperature 2020-08-10 17:15:00 36.78 Bel Univ ersity of [place] [facility] Respiratory rate 2020-08-10 17:15:00 16 /min Univ ersity of [place] [facility] Body height 2020-08-10 17:15:00 157.5 cm Universi ty of [place] [facility] Body weight 2020-08-10 17:15:00 79.062 kg Universi ty of [place] [facility] BMI 2020-08-10 17:15:00 31.88 kg/m2 Universi ty of [place] [facility] Systolic blood 2020-07-13 16:11:00 140 mm[Hg] Univer sity of pressure [place] [facility] Diastolic blood 2020-07-13 16:11:00 86 mm[Hg] Unive rsity of pressure [place] [facility] Heart rate 2020-07-13 16:08:00 74 /min Universi ty of [place] [facility] Body temperature 2020-07-13 16:08:00 36.78 Bel Univ ersity of [place] [facility] Respiratory rate 2020-07-13 16:08:00 16 /min Univ ersity of [place] [facility] Body height 2020-07-13 16:08:00 160 cm Universi ty of [place] [facility] Body weight 2020-07-13 16:08:00 74.435 kg Universi ty of [place] [facility] BMI 2020-07-13 16:08:00 29.07 kg/m2 Universi ty of [place] [facility] Systolic blood 2020-06-15 16:11:00 143 mm[Hg] Univer sity of pressure [place] [facility] Diastolic blood 2020-06-15 16:11:00 86 mm[Hg] Unive rsity of pressure [place] [facility] Heart rate 2020-06-15 16:10:00 59 /min Universi ty of [place] [facility] Body temperature 2020-06-15 16:10:00 36.61 Bel Univ ersity of [place] [facility] Respiratory rate 2020-06-15 16:10:00 16 /min Univ ersity of [place] [facility] Body height 2020-06-15 16:10:00 157.5 cm Universi ty of [place] [facility] Body weight 2020-06-15 16:10:00 74.662 kg Universi ty of [place] [facility] BMI 2020-06-15 16:10:00 30.11 kg/m2 Universi ty of [place] [facility] Systolic blood 2020-05-17 16:11:00 137 mm[Hg] Univer sity of pressure [place] [facility] Diastolic blood 2020-05-17 16:11:00 82 mm[Hg] Unive rsity of pressure [place] [facility] Heart rate 2020-05-17 16:08:00 68 /min Universi ty of [place] [facility] Body temperature 2020-05-17 16:08:00 37.06 Bel Univ ersity of [place] [facility] Respiratory rate 2020-05-17 16:08:00 16 /min Univ ersity of [place] [facility] Body height 2020-05-17 16:08:00 160 cm Universi ty of [place] [facility] Body weight 2020-05-17 16:08:00 74.118 kg Universi ty of [place] [facility] BMI 2020-05-17 16:08:00 28.95 kg/m2 Universi ty of [place] [facility] Systolic blood 2020-04-19 15:03:00 138 mm[Hg] Univer sity of pressure [place] [facility] Diastolic blood 2020-04-19 15:03:00 85 mm[Hg] Unive rsity of pressure [place] [facility] Heart rate 2020-04-19 15:03:00 70 /min Universi ty of [place] [facility] Body temperature 2020-04-19 15:03:00 36.78 Bel Univ ersity of [place] [facility] Respiratory rate 2020-04-19 15:03:00 16 /min Univ ersity of [place] [facility] Body height 2020-04-19 15:03:00 160 cm Universi ty of [place] [facility] Body weight 2020-04-19 15:03:00 67.217 kg Universi ty of [place] [facility] BMI 2020-04-19 15:03:00 26.25 kg/m2 Universi ty of [place] [facility] Systolic blood 2020-03-27 19:36:00 157 mm[Hg] Univer sity of pressure [place] [facility] Diastolic blood 2020-03-27 19:36:00 95 mm[Hg] Unive rsity of pressure [place] [facility] Heart rate 2020-03-27 19:21:00 71 /min Universi ty of [place] [facility] Body temperature 2020-03-27 19:21:00 36.61 Bel Univ ersity of [place] [facility] Respiratory rate 2020-03-27 19:21:00 16 /min Univ ersity of [place] [facility] Body height 2020-03-27 19:21:00 157.5 cm Universi ty of [place] [facility] Body weight 2020-03-27 19:21:00 64.921 kg Universi ty of [place] [facility] BMI 2020-03-27 19:21:00 26.18 kg/m2 Universi ty of [facility] Branch Systolic blood 2020-03-22 15:12:00 142 mm[Hg] Univer sity of pressure [facility] Branch Diastolic blood 2020-03-22 15:12:00 72 mm[Hg] Unive rsity of pressure [facility] Heart rate 2020-03-22 14:57:00 56 /min Universi ty of [facility] Body temperature 2020-03-22 14:57:00 35.94 Bel Univ ersity of [facility] Respiratory rate 2020-03-22 14:57:00 16 /min Univ ersity of [facility] Body height 2020-03-22 14:57:00 160 cm Universi ty of [facility] Body weight 2020-03-22 14:57:00 67.274 kg Universi ty of [facility] BMI 2020-03-22 14:57:00 26.27 kg/m2 Universi ty of [facility] Branch Systolic blood 2020-03-21 15:33:00 152 mm[Hg] Univer sity of pressure [facility] Branch Diastolic blood 2020-03-21 15:33:00 106 mm[Hg] Unive rsity of pressure [facility] Heart rate 2020-03-21 15:33:00 71 /min Universi ty of [facility] Body temperature 2020-03-21 15:33:00 36.89 Bel Univ ersity of [facility] Respiratory rate 2020-03-21 15:33:00 17 /min Univ ersity of [facility] Body height 2020-03-21 15:33:00 160 cm Universi ty of [place] [facility] [place] Body weight 2020-03-21 15:33:00 68.04 kg Universi ty of [place] [facility] BMI 2020-03-21 15:33:00 26.57 kg/m2 Universi ty of [facility] Oxygen saturation in 2020-03-21 15:33:00 99 /min [facility] Arterial blood by [facility] Pulse oximetry Branch Procedures Procedure Date / Time Performing Clinician Source Performed URINALYSIS 2021-03-28 18:19:00 Lion García o f [facility] HEPATIC FUNCTION PANEL 2021-03-28 17:46:00 Lion García [facility] ([id number]) (ALB,T.PRO,BILI Medical Branch T,BU/BC,ALT,AST,ALK PHOS) BASIC METABOLIC PANEL 2021-03-28 17:46:[address] [facility] (NA, K, CL, CO2, Medical Branch GLUCOSE, BUN, CREATININE, CA) CBC WITH DIFF 2021-03-28 17:46:00 Ricky [facility] AUTHORIZATION FOR 2020-09-11 06:01:00 Doctor Unassigned, No [facility] RELEASE OF PHI Name Medical Branch TDAP VACCINE, >11 YRS, 2020-09-07 15:03:46 Johnna Hickey [facility] POCT URINALYSIS 2020-09-07 00:00:[address] [facility] SGOT (ASPARTATE AMINO 2020-08-24 21:01:00 [place] [facility] TRANSFER) Medical Branch CREATININE 2020-08-24 21:01:00 Eddi [facility] ALANINE AMINO 2020-08-24 21:01:00 [place] [facility] TRANSFERASE(SGPT Medical Branch LACTATE DEHYDROGENASE 2020-08-24 21:01:00 [facility] URIC ACID 2020-08-24 21:01:00 Eddi [facility] CBC WITH DIFF 2020-08-24 21:01:00 [place] [facility] URINALYSIS 2020-08-24 21:01:00 [place] [facility] PROTEIN CREAT RATIO 2020-08-24 21:01:00 Eddi [facility] [facility] URINE RANDOM Medical Branch COVID-19 (ID NOW RAPID 2020-08-24 20:36:00 Andre Rowe [facility] TESTING) Medical Branch POCT URINALYSIS 2020-08-24 00:00:[address] [facility] POCT URINALYSIS 2020-08-10 00:00:[address] [facility] FLU VACC ([phone]), 6+ 2020-07-13 16:21:35 Johnna Hickey [facility] MONTHS, IM, QUAD [facility] POCT URINALYSIS 2020-07-13 00:00:[address] [facility] POCT URINALYSIS 2020-06-15 00:00:[address] [facility] POCT URINALYSIS 2020-05-17 00:00:[address] [facility] POCT URINALYSIS 2020-04-19 15:06:[address] [facility] POCT TEST 2020-03-22 14:56:00 Johnna Hickey [facility] POCT URINALYSIS W/O 2020-03-22 14:56:00 Johnna Hickey [facility] [place] [facility] SPECIFIC GRAVITY [facility] POCT TEST 2020-03-21 15:58:00 Em Russell [facility] NOTICE OF PRIVACY 2020-03-21 15:27:48 Doctor Unassigned, No [facility] PRACTICES Name [facility] CONSENT/REFUSAL FOR 2020-03-21 15:27:09 Doctor Unassigned, No [facility] Name [facility] Encounters Start End Encounter Admission Attending Care Care Encounter Source Date/Time Date/Time Type Type Clinicians Facility Department ID 2021-11-14 Outpatient [facility] [id number] [place] 01:04:55 Health 2021-08-06 Emergency [facility] [id number] Univers 03:15:28 ity [facility] 2021-08-04 Outpatient P [facility] ERICK [id number] Univers 06:46:37 ity [facility] 2021-08-04 Outpatient [facility] [id number] Univers 06:42:00 ity [facility] 2022-10-29 2022-10-29 Outpatient R MARVIN GARCIA [facility] [id number] Univers 15:45:00 15:45:00 ity [facility] 2021-08-15 2021-08-15 Inpatient SCAR ALFORD [facility] 7500 [address] 05:19:00 02:12:00 ASHA l Oni abarca 2021-03-28 2021-03-28 Emergency [facility] [id number] Univers 12:28:00 14:08:00 Lion Rose 350.1.13.10 i [place] [id number] [facility] 084 [place] 2021-03-28 2021-03-28 Emergency [facility] [id number] 12:28:00 14:08:00 Lion Rose 350.1.13.10 [place] 4.2.7.2.686 [place] [id number] 08 2020-10-12 2020-10-12 [facility] [id number] Univers 10:45:00 10:45:00 JOHNNA marinelli [facility] 2020-09-21 2020-09-21 Outpatient R EDELMIRA [facility] [id number] Univers 08:30:00 08:30:00 JHONNA marinelli [facility] 2020-09-18 2020-09-18 Outpatient R AKINSIVIVIEN [facility] [id number] Univers 08:00:00 08:00:00 NILAM marinelli [facility] 2020-09-11 2020-09-11 Telephone [facility] [id number] Univers 00:00:00 00:00:00 Johnna Soares FACILITY MAINTENANCE SUPERVISOR 350.1.13.10 ity of [facility] 4.2.7.2.686 Varun as MATERNAL [phone] Med ical & [place]ILD [address] [place] [address] 2020-09-11 2020-09-11 Orders Doctor JANEY 1.2.840.114 [id number] Univers 00:00:00 00:00:00 Only Unassigned, TRICIA 350.1.13.[address] [place] [facility] 4.2.7.2.686 Varun as [phone] [facility] 009 Branch 2020-09-11 2020-09-11 Telephone [facility] [id number] 00:00:00 00:00:00 Roshunda R FACILITY MAINTENANCE SUPERVISOR 350.1.13.10 REGIONAL 4.2.7.2.686 MATERNAL [id number] & CHILD [address] [place] [address] 2020-09-11 2020-09-11 Orders Doctor JANEY 1.2.840.114 [id number] 00:00:00 00:00:00 Only Unassigned, TRICIA 350.1.13.[address] [place] [facility] 4.2.7.2.686 [id number] 009 2020-09-08 2020-09-08 Outpatient R HICKEY [facility] [id number] Univers 08:30:00 08:30:00 JOSE CRUZNDA ity o f [facility] 2020-09-07 2020-09-07 [facility] 1.2.840.114 [id number] Univers 08:47:13 09:56:09 Roshunda R FACILITY MAINTENANCE SUPERVISOR 350.1.13.10 ity of Visit [facility] 4.2.7.2.686 Varun as MATERNAL [id number] [facility] ical & CHILD [address] [place] [address] 2020-09-07 2020-09-07 [facility] 1.2.840.114 [id number] 08:47:13 09:56:09 Roshunda R FACILITY MAINTENANCE SUPERVISOR 350.1.13.10 Visit [facility] 4.2.7.2.686 MATERNAL [id number] & CHILD [address] [place] [address] 2020-09-07 2020-09-07 Outpatient R EDELMIRA [facility] [id number] Univers 08:45:00 08:45:00 JOSE CRUZNDBernardino marinelli [facility] 2020-08-29 2020-08-29 [facility] 1.2.840. 114 [id number] Univers 08:24:12 08:34:11 Visit Johnna Hickey R FACILITY MAINTENANCE SUPERVISOR 350.1.13.10 ity of REGIONAL 4.2.7.2.686 Varun as MATERNAL [phone] Med ical & [place]ILD [address] [place] [address] 2020-08-29 2020-08-29 Motion Picture [facility]ritic Lab, [facility] 1.2.840.114 [id number] 08:24:12 08:34:11 Visit [facility] FACILITY MAINTENANCE SUPERVISOR 350.1.13.10 REGIONAL 4.2.7.2.686 MATERNAL [id number] & CHILD [address] [place] [address] 2020-08-29 2020-08-29 Outpatient R [facility] [id number] Univers 08:00:00 08:00:00 ity of [facility] 2020-08-24 2020-08-24 [facility] JANEY Rowe [id number] Univers 14:10:00 18:15:00 Encounter Andre Terrazas TRICIA 350.1.13.10 [place] [id number] [address] 2020-08-24 2020-08-24 [facility] 1.2.840.114 [id number] Univers 10:59:45 11:26:10 Roshunda R FACILITY MAINTENANCE SUPERVISOR 350.1.13.10 ity of Visit REGIONAL 4.2.7.2.686 Varun as MATERNAL [id number] Med ical & CHILD [address] [place] [address] 2020-08-24 2020-08-24 Out[facility] [id number] Univers 11:00:00 11:00:00 ROSHUNDA ity o f [facility] 2020-08-10 2020-08-10 [facility] 1.2.840.114 [id number] Univers 10:59:05 11:14:05 Roshunda R FACILITY MAINTENANCE SUPERVISOR 350.1.13.10 ity of Visit REGIONAL 4.2.7.2.686 Varun as MATERNAL [id number] [facility] & CHILD [address] [place] [address] 2020-08-10 2020-08-10 Outpatient [facility] [id number] Univers 11:00:00 11:00:00 ROSHUNDA ity o f [facility] 2020-07-13 2020-07-13 [facility] 1.2.840.114 [id number] Univers 11:00:20 11:28:29 Roshunda R FACILITY MAINTENANCE SUPERVISOR 350.1.13.10 ity of Visit REGIONAL 4.2.7.2.686 Varun as MATERNAL [id number] Med ical & CHILD [address] [place] [address] 2020-07-13 2020-07-13 Outpatient R EDELMIRA [facility] [id number] Univers 11:00:00 11:00:00 JOHNNA beavers o f [facility] 2020-07-11 2020-07-11 Motion Picture Critic [facility] 1.2 .840.114 [id number] Univers 10:05:09 11:05:09 Visit La Nena Rojas FACILITY MAINTENANCE SUPERVISOR 350.1.13.10 ity of REGIONAL 4.2.7.2.686 Varun as MATERNAL [id number] Med ical & CHILD [address] [facility] 2020-07-11 2020-07-11 Outpatient P [facility] [id number] Univers 10:00:00 10:00:00 ity of [facility] 2020-07-11 2020-07-11 Abstract [facility] 1.2.840.114 [id number] Univers 00:00:00 00:00:00 Rosberthaa R FACILITY MAINTENANCE SUPERVISOR 350.1.13.10 ity of REGIONAL 4.2.7.2.686 Varun as MATERNAL [id number] [facility] & CHILD [address] [place] [address] 2020-06-28 2020-06-28 Telephone Damien [facility] 1.2.840.114 [id number] Univers 00:00:00 00:00:00 Lucy Walton FACILITY MAINTENANCE SUPERVISOR 350.1.13.10 ity of REGIONAL 4.2.7.2.686 Varun as MATERNAL [id number] [facility] & CHILD [address] [place] [address] 2020-06-15 2020-06-15 [facility] 1.2.840.114 [id number] Univers 10:55:39 11:26:19 Rosreginanda R FACILITY MAINTENANCE SUPERVISOR 350.1.13.10 ity of Visit REGIONAL 4.2.7.2.686 Varun as MATERNAL [id number] [facility] & CHILD [address] [place] [address] 2020-06-15 2020-06-15 Outpatient R EDELMIRA [facility] [id number] Univers 10:45:00 10:45:00 JOHNNA beavers o f [facility] 2020-05-17 2020-05-17 Routine Hickey [facility] 1.2.840.114 [id number] Univers 10:25:19 11:25:41 Roshunda R FACILITY MAINTENANCE SUPERVISOR 350.1.13.10 ity of Visit REGIONAL 4.2.7.2.686 Varun as MATERNAL [id number] [facility] & CHILD [address] [place] [address] 2020-05-17 2020-05-17 Outpatient R EDELMIRA [facility] [id number] Univers 10:45:00 10:45:00 ROSHUNDA itteresa o f [facility] 2020-05-09 2020-05-09 Abstract Hickey, [facility] 1.2.840.114 [id number] Univers 00:00:00 00:00:00 Roshunda R FACILITY MAINTENANCE SUPERVISOR 350.1.13.10 ity of REGIONAL 4.2.7.2.686 Varun as MATERNAL [id number] [facility] & [address] 2020-05-08 2020-05-08 Motion Picture Critic Ultrasound, Nuno [facility] 1.2 .840.114 [id number] Univers 11:36:57 12:06:57 Visit Allie Muro FACILITY MAINTENANCE SUPERVISOR 350.1. 13.10 ity of REGIONAL 4.2.7.2.686 Varun as MATERNAL [id number] [facility] & CHILD [address] [place] [address] 2020-05-08 2020-05-08 Outpatient P [facility] [id number] Univers 11:30:00 11:30:00 ity of [facility] 2020-04-19 2020-04-19 Routine Edelmira [facility] 1.2.840.114 [id number] Univers 09:47:03 10:21:03 Roshunda R FACILITY MAINTENANCE SUPERVISOR 350.1.13.10 ity of Visit REGIONAL 4.2.7.2.686 Varun as MATERNAL [id number] [facility] & [address] 2020-04-19 2020-04-19 Outpatient R EDELMIRA [facility] [id number] Univers 09:30:00 09:30:00 ROSHUNDA itteresa o f [facility] 2020-03-27 2020-03-27 Nurse Visit, [place] Nurse [facility] 1.2 .840.114 [id number] Univers 14:12:56 15:21:18 Visit Johnna Hickey R FACILITY MAINTENANCE SUPERVISOR 350.1.13.10 ity of REGIONAL 4.2.7.2.686 Varun as MATERNAL [id number] [facility] ical & CHILD [address] [place] [address] 2020-03-27 2020-03-27 Outpatient R [facility] [id number] Univers 13:30:00 13:30:00 ity of [facility] 2020-03-23 2020-03-23 Telephone Edelmira [facility] 1.2.364.124 [id number] Univers 00:00:00 00:00:00 Johnna R FACILITY MAINTENANCE SUPERVISOR 350.1.13.10 ity of [facility] 4.2.7.2.686 Varun as MATERNAL [id number] Med ical & CHILD [address] [place] [address] 2020-03-22 2020-03-22 Initial Edelmira [facility] 1.2.840.114 [id number] Univers 09:37:22 11:02:45 Johnna R FACILITY MAINTENANCE SUPERVISOR 350.1.13.10 ity of Visit REGIONAL 4.2.7.2.686 Varun as MATERNAL [id number] [facility] & [address] 2020-03-22 2020-03-22 Outpatient R EDELMIRA [facility] [id number] Univers 09:15:00 09:15:00 BRIANNEREGINANDA ity o f [facility] 2020-03-22 2020-03-22 Outpatient R EDELMIRA [facility] [id number] Univers 08:45:00 08:45:00 JOSE CRUZNDA ity o f [facility] 2020-03-21 2020-03-21 Emergency Drew [facility] 1.2.840.114 [id number] Univers 10:29:34 11:25:00 Em Marinelli [place] 350.1.13.10 ity [facility] 4.2.7.2.[place] [id number] [facility] [address] [place] 2020-03-21 2020-03-21 Emergency X DREW [facility] ERT [id number] Univers 10:29:34 10:29:34 FOLUSHO [facility] 2016-11-13 2016-11-13 Emergency X SHELIA [facility] ERT [id number] Univers 00:25:49 01:36:00 MARY [facility] Results Test Description Test Time Test Comments Results Result Comments Source Urinalysis 2021-03-28 18:40:09 Test Item Value Reference Range Interpretation Comme nts APPEARANCE (test code = Clear Clear 0479759591) COLOR (test code = 2698384255) Yellow Yellow PH (test code = 8046429464) 4.8-8.0 SP GRAVITY (test code = 1.003-1.030 5399737955) GLU U QUAL (test code = Normal Normal 8838153764) BLOOD (test code = 5813556266) Negative Negative KETONES (test code = 6926762570) Negative Negative PROTEIN (test code = 2887-8) Negative Negative UROBILIN (test code = 3920188216) Normal Normal BILIRUBIN (test code = Negative Negative 7978251276) NITRITE (test code = 6412667717) Negative Negative LEUK FAM (test code = 500/uL Negative A 7981966582) RBC/HPF (test code = 5710974804) See_Comment [Automated message] The system which ge nerated this result transmit lucero reference range: 0 - 3 HP F. The reference range was not used to interpret th is result as normal/abnormal . WBC/HPF (test code = 1409421687) See_Comment H [Automated message] The system which ge nerated this result transmit lucero reference range: 0 - 5 HP F. The reference range was not used to interpret th is result as normal/abnormal . BACTERIA (test code = 3711559475) Few Negative A SQ EPITH (test code = 3682724537) HPF OSVALDO EPITH (test code = See_Comment [Aut omated message] The 6442447678) system which ge nerated this result transmit lucero reference range: <=1 HPF. The reference range was not u sed to interpret this result as normal/abnormal . Lab Interpretation (test code = Abnormal 90333-6) [facility] (NA, K, CL, CO2, GLUCOSE, BUN, CREATININE, CA)2021-03-28 18:15:18 Test Item Value Reference Range Interpretation Comments NA (test code = 135 mmol/L 135-145 8025986450) K (test code = 4.2 mmol/L 3.5-5.0 2053350508) CL (test code = 105 mmol/L 98-108 6636159996) CO2 TOTAL (test code 23 mmol/L 23-31 = 0890723399) AGAP (test code = 2-16 8941247506) BUN (test code = 8 mg/dL 7-23 7083897285) GLUCOSE (test code = 86 mg/dL 70-110 2202169184) CREATININE (test code 0.75 mg/dL 0.50-1.04 = 7139660086) CALCIUM (test code = 9.7 mg/dL 8.6-10.6 3368665293) eGFR (test code = mL/min/1.73m2 1686464319) MIGUEL ANGEL (test code = MIGUEL ANGEL) [...] or urine or abnormalities in imaging tests). [facility] (ALB, T.PRO, BILI T, BU/BC, ALT, AST, ALK PHOS)2021-03-28 18:15:18 Test Item Value Reference Range Interpretation Comments TOTAL BILI (test code = 2618105997) 1.3 mg/dL 0.1-1.1 H BILI UNCON (test code = 4121239552) 1.2 mg/dL 0.1-1.1 H BILI CONJ (test code = 1391574142) 0.0 mg/dL 0.0-0.3 T PROTEIN (test code = 5689481166) 8.0 g/dL 6.3-8.2 ALBUMIN (test code = 1921302427) 4.4 g/dL 3.5-5.0 ALK PHOS (test code = 5174341244) 67 U/L 34-122 ALTv (test code = 1742-6) 12 U/L 5-35 AST(SGOT) (test code = 8752252615) 20 U/L 13-40 Lab Interpretation (test code = Abnormal 03716-5) [facility] with Eqnjkjsrifhm1481-53-59 17:51:55 Test Item Value Reference Range Interpretation Comments WBC (test code = See_Comment H [Automated 7290-2) message] The sy stem which generated this result transmitted reference range : 4.30 - 11.10 10*3/?L. The reference range was not used to interpret this result as normal/abnormal . RBC (test code = See_Comment [Automated 499-8) message] The sy stem which generated this [...] RDW-SD (test code = 44.0 fL 39.0-49.9 13425-9) RDW-CV (test code = 14.2 % 12.0-15.5 788-0) PLT (test code = See_Comment [Automated 777-3) message] The sy stem which generated this result transmitted reference range : 166 - 358 10*3/ ?L. The reference r tammi was not used to interpret this result as normal/abnormal . MPV (test code = 10.6 fL 9.5-12.9 00904-3) NRBC/100 WBC (test See_Comment [Automat ed code = 6068235882) message] The system which generated this result transmitted reference range : 0.0 - 10.0 /100 WBCs. The refer ence range was not u sed to interpret th is result as normal/abnormal . NRBC x10^3 (test code <0.01 See_Comment [Auto mated = 8243220502) message] The s ystem which generated this result transmitted reference range : 10*3/?L. The reference range was not used to interpret this result as normal/abnormal . GRAN MAT (NEUT) % 71.1 % (test code = 770-8) IMM GRAN % (test code 0.50 % = 5714515130) LYMPH % (test code = 20.9 % 736-9) MONO % (test code = 6.6 % 5905-5) EOS % (test code = 0.6 % 713-8) BASO % (test code = 0.3 % 706-2) GRAN MAT x10^3(ANC) 8.38 10*3/uL 1.88-7.09 H (test code = 2845840751) IMM GRAN x10^3 (test 0.06 10*3/uL 0.00-0.06 code = 4181893402) LYMPH x10^3 (test code 2.47 10*3/uL 1.32-3.29 = 731-0) MONO x10^3 (test code 0.78 10*3/uL 0.33-0.92 = 742-7) EOS x10^3 (test code = 0.07 10*3/uL 0.03-0.39 711-2) BASO x10^3 (test code 0.03 10*3/uL 0.01-0.07 = 704-7) Lab Interpretation Abnormal (test code = 58994-1) [facility] W SPECIFIC [id number] 15:09:00 Test Item Value Reference Range Interpretation [...] POCT U APPEAR (test code = 3267) [facility] HospitalUric Acid Epjaf9179-78-96 21:47:00 Test Item Value Reference Range Interpretation Comments URIC ACID (test code = 1100250313) 6.5 mg/dL 2.9-6 H Lab Interpretation (test code = Abnormal 13175-2) [facility] HospitalSer [id number] 21:47:00 Test Item Value Reference Range Interpretation Comments CREATININE (test code 0.72 mg/dL 0.5-1.04 = 7804711006) eGFR Calculation mL/min/1.73m2 (Non-) (test code = 2522885619) eGFR Calculation mL/min/1.73m2 () (test code = 7900260995) MIGUEL ANGEL (test code = MIGUEL ANGEL) [...] or urine or abnormalities in imaging tests). [facility] Hospital[facility]OT (Asparate Amino Transfer)2020-08-24 21:47:00 Test Item Value Reference Range Interpretation Comments AST(SGOT) (test code = 7685449535) 20 U/L 13-40 Lab Interpretation (test code = Normal 72022-1) [facility] HospitalAlanine Amino Transferase (SGPT)2020-08-24 21:47:00 Test Item Value Reference Range Interpretation Comments ALTv (test code = 1742-6) 16 U/L 5-35 Lab Interpretation (test code = Normal 38803-8) [facility] HospitalLactate Jftmeuviautly2107-64-91 21:46:00 Test Item Value Reference Range Interpretation Comments LDH (test code = 6172422756) 411 U/L 300-600 Lab Interpretation (test code = Normal 88712-0) [facility] HospitalProtein CREAT Ratio Urine [id number] 21:45:00 Test Item Value Reference Range Interpretation Comments T. PROT U (test code = 2888-6) 11 mg/dL CREAT U (test code = 8869729180) 70.5 mg/dL Protein/Creatinine Ratio Urine 0.0-2.0 (test code = 0375836261) [facility] HospitalUrinalysis2020-11-19 21:26:00 Test Item Value Reference Range Interpretation Comments APPEARANCE (test code = Hazy Clear A 5547806737) COLOR (test code = Yellow Yellow 0223557252) PH (test code = 4.8-8.0 3785411144) SP GRAVITY (test code = 1.003-1.030 0747255028) GLU U QUAL (test code = Normal Normal 5864602699) BLOOD (test code = Negative Negative Interfere nce from 2991996964) ascorbic acid m ay cause false neg ative results. KETONES (test code = Negative Negative 1661170428) PROTEIN (test code = Negative Negative 2887-8) UROBILIN (test code = Normal Normal 2991734389) BILIRUBIN (test code = Negative Negative 7914118655) NITRITE (test code = Negative Negative 2651835923) LEUK FAM (test code = 75/uL Negative A 7028569414) RBC/HPF (test code = See_Comment [Autom ated message] 3353661216) The system Qu[employer] generated this result transmitted ref erence range: 0 - 3 HP F. The reference range was not used to int erpret this result as normal/abnormal . WBC/HPF (test code = See_Comment [Autom ated message] 0272918723) The system [employer] generated this result transmitted ref erence range: 0 - 5 HP F. The reference range was not used to int erpret this result as normal/abnormal . BACTERIA (test code = Negative Negative 7547606464) SQ EPITH (test code = See_Comment H [Auto mated message] 0162618331) The system QuVIS generated this result transmitted ref erence range: <=2 HPF. The reference range was not used to int erpret this result as normal/abnormal . ASCORBIC ACID (test code 20 mg/dL = 5405848762) Lab Interpretation (test Abnormal code = 83142-5) [facility] with Yvtbynkiucoo9253-16-06 21:12:00 Test Item Value Reference Range Interpretation Comments WBC (test code = See_Comment H [Automated 4590-2) message] The sy stem which generated this result transmitted reference range : 4.30 - 11.10 10*3/?L. The reference range was not used to interpret this result as normal/abnormal . RBC (test code = See_Comment L [Automated 789-8) message] The sy stem which [...] RDW-SD (test code = 39.3 fL 39-49.9 48970-6) RDW-CV (test code = 12.0 % 12-15.5 788-0) PLT (test code = See_Comment [Automated 777-3) message] The sy stem which generated this result transmitted reference range : 166 - 358 10*3/ ?L. The reference r tammi was not used to interpret this result as normal/abnormal . MPV (test code = 10.6 fL 9.5-12.9 77219-3) NRBC/100 WBC (test See_Comment [Automat ed code = 4581032450) message] The system which generated this result transmitted reference range : 0.0 - 10.0 /100 WBCs. The refer ence range was not u sed to interpret th is result as normal/abnormal . NRBC x10^3 (test code <0.01 See_Comment [Auto mated = 6828117236) message] The s ystem which generated this result transmitted reference range : 10*3/?L. The reference range was not used to interpret this result as normal/abnormal . GRAN MAT (NEUT) % 72.7 % (test code = 770-8) IMM GRAN % (test code 0.50 % = 6169452409) LYMPH % (test code = 17.6 % 736-9) MONO % (test code = 8.4 % 5905-5) EOS % (test code = 0.6 % 713-8) BASO % (test code = 0.2 % 706-2) GRAN MAT x10^3(ANC) 8.41 10*3/uL 1.88-7.09 H (test code = 6097310737) IMM GRAN x10^3 (test 0.06 10*3/uL 0-0.06 code = 8367869389) LYMPH x10^3 (test code 2.03 10*3/uL 1.32-3.29 = 731-0) MONO x10^3 (test code 0.97 10*3/uL 0.33-0.92 H = 742-7) EOS x10^3 (test code = 0.07 10*3/uL 0.03-0.39 711-2) BASO x10^3 (test code <0.03 0.01-0.07 = 704-7) Lab Interpretation Abnormal (test code = 17924-0) [facility]OVID[facility] (ID NOW RAPID TESTING)2020-08-24 21:09:00 Test Item Value Reference Range Interpretation Comments SARS-CoV-2 Rapid ID NOW Positive Not Detected A (test code = 31215-6) MIGUEL ANGEL (test code = MIGUEL ANGEL) ID NOW COVID-19 Assay is an isothermal nucleic acid amplification test intended for the qualitative detection of nucleic acid from SARS-CoV-2 viral RNA in nasopharyngeal (HEALTH SCI[employer] SPECIALIST) specimens. It is used under Emergency Use [...] indicated. Lab Interpretation Abnormal (test code = 17921-7) [facility] [id number] 17:08:00 Test Item Value Reference Range Interpretation [...] POCT U APPEAR (test code = 3267) [facility] URINALYSIS W SPECIFIC [id number] 17:18:00 Test Item Value Reference Range Interpretation [...] POCT U APPEAR (test code = 3267) [facility] URINALYSIS W SPECIFIC [id number] 17:18:00 Test Item Value Reference Range Interpretation [...] POCT U APPEAR (test code = 3267) [facility] URINALYSIS W SPECIFIC [id number] 16:09:00 Test Item Value Reference Range Interpretation [...] POCT U APPEAR (test code = 3267) [facility] URINALYSIS W SPECIFIC [id number] 16:11:00 Test Item Value Reference Range Interpretation [...] POCT U APPEAR (test code = 3267) [facility] [facility] W SPECIFIC [id number] 16:10:00 Test Item Value Reference Range Interpretation [...] POCT U APPEAR (test code = 3267) [facility] URINALYSIS W SPECIFIC [id number] 15:06:00 Test Item Value Reference Range Interpretation [...] POCT U APPEAR (test code = 3267) [facility] URINALYSIS W SPECIFIC [id number] 15:06:00 Test Item Value Reference Range Interpretation [...] POCT U APPEAR (test code = 3267) [facility] URINALYSIS W SPECIFIC [id number] 15:06:00 Test Item Value Reference Range Interpretation Comments POCT U SP GRAV (test code = . 1.005-1.025 3255) POCT PH U (test code = 3254) . 5-8 POCT U LEUK EST (test code = . Negative - Negative 3) POCT U NIT (test code = 3262) [...] POCT U APPEAR (test code = 3267) [facility] URINALYSIS W SPECIFIC [id number] 15:06:00 Test Item Value Reference Range Interpretation Comments POCT U SP GRAV (test code = . 1.005-1.025 3255) POCT PH U (test code = 3254) . 5-8 POCT U LEUK EST (test code = . Negative - Negative 3) POCT U NIT (test code = 3262) [...] POCT U APPEAR (test code = 3267) [facility] URINALYSIS W SPECIFIC [id number] 15:06:00 Test Item Value Reference Range Interpretation [...] POCT U APPEAR (test code = 3267) [facility] [id number] 14:56:00 Test Item Value Reference Range Interpretation Comments POCT PREG (test code = 1605) Positive On board controls acceptable with C Yes Line (test code = 3574) POCT PREG LOT # (test code = 3575) POCT PREG TEST DATE (test code = 3576) [facility] URINALYSIS W/O SPECIFIC [id number] 14:56:00 Test Item Value Reference Range Interpretation [...] code = 3257) Neg Negative - Negative [id number]:56:[facility] Test Item Value Reference Range Interpretation Comments POCT PREG (test code = 1605) Positive On board controls acceptable with C Yes Line (test code = 3574) POCT PREG LOT # (test code = 3575) POCT PREG TEST DATE (test code = 3576) [facility] [id number] 14:56:00 Test Item Value Reference Range Interpretation [...] code = 3257) Neg Negative - Negative [facility] [id number] 16:03:00 Test Item Value Reference Range Interpretation Comments POCT PREG (test code = 1605) Positive On board controls acceptable with Yes C Line (test code = 3574) POCT PREG LOT # (test code = 3575) [id number] POCT PREG TEST DATE (test 07/05/2021 code = 3576) Lab Interpretation (test code = Abnormal 51266-5) [facility]"
[2022-10-20 23:24] LABS: Urine Blood Negative (Negative); Urine Glucose Negative (Negative); Urine Protein Negative (Negative); Urine Specific Gravity 1.015 (1.005-1.030)
[2022-10-20 23:32] LABS: Absolute Lymphocytes (CBC) 0.9 K/uL (0.7-4.9); Hematocrit 37.9 % (36.0-45.0); Lymphocytes % 7.3 % (15.3-44.8); MCV 90.7 fL (80-100); MPV 8.8 fL (7.6-11.3); RBC Red Blood Cell Count 4.18 M/uL (3.86-4.86)
[2022-10-20] MEDS ORDERED: ONDANSETRON 4 MG/2 ML VIAL ONE (23:44)
[2022-10-20] MEDS ORDERED: Ringers Lactate 1,000 ML IV ONE (23:44)
[2022-10-20] MEDS ORDERED: FAMOTIDINE 20 MG/2 ML VIAL IV ONE (23:44)
[2022-10-21 00:02] LABS: Potassium 3.6 mmol/L (3.5-5.1)
[2022-10-21 00:03] LABS: Urine Specific Gravity/Preg 1.015 (1.005-1.030)
[2022-10-21 00:38] LABS: SARS-COV-2 RT PCR NEGATIVE (NEGATIVE)
--- NOTE | 2022-10-21 00:41 | EDPHYS ---
Physician Documentation [facility] Name: Tea Collazo Age: 22 yrs Sex: Female : 2000 Arrival Date: 10/20/2022 Time: 22:39 Bed 15 Private MD: ED Physician Shay Ball HPI: 10/20 23:05 This 22 yrs old Black Female presents to ER via Ambulatory with complaints of cp Nausea/Vomiting, Abdominal Pain. 23:05 The patient presents to the emergency department with abdominal pain, of the mid and cp lower abdomen, described as crampy, nausea and vomiting. 23:05 The estimated gestational age is 19 weeks. course: care: private OB cp physician, Dr. Mason, Leakage of Fluid: none appreciated. Previous pregnancies: in previous pregnancies patient has had . Associated signs and symptoms: Pertinent negatives: diarrhea, fever, vaginal bleeding, hematemesis. 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 - Social history:: Smoking status: Patient denies any tobacco usage or history of. ROS: 23:10 Constitutional: Negative for body aches, chills, fever. cp 23:10 Respiratory: Negative for cough, shortness of breath, wheezing. cp 23:10 Abdomen/GI: Positive for abdominal pain, nausea and vomiting. 23:10 Eyes: Negative for injury, pain, redness, and discharge. cp 23:10 ENT: Negative for drainage from ear(s), ear pain, sore throat, difficulty swallowing, difficulty handling secretions. 23:10 Cardiovascular: Negative for chest pain, palpitations. 23:10 Back: Negative for pain at rest, pain with movement. 23:10 : Negative for urinary symptoms, flank pain, vaginal bleeding, vaginal discharge. 23:10 Neuro: Negative for altered mental status, dizziness, headache, weakness. 23:10 All other systems are negative. Exam: 23:15 Constitutional: The patient appears in no acute distress, alert, awake, non-toxic, well cp developed, well nourished. 23:15 Head/Face: Normocephalic, atraumatic. cp 23:15 Eyes: Periorbital structures: appear normal, Conjunctiva: normal, no exudate, no injection, Sclera: no appreciated abnormality, Lids and lashes: appear normal, bilaterally. 23:15 ENT: External ear(s): are unremarkable, Nose: is normal, Mouth: Lips: moist, Oral mucosa: pink and intact, moist, Posterior pharynx: Airway: no evidence of obstruction, patent, swelling, is not appreciated, erythema, is not appreciated. 23:15 Chest/axilla: Inspection: normal. 23:15 Cardiovascular: Rate: normal, Rhythm: regular. 23:15 Respiratory: the patient does not display signs of respiratory distress, Respirations: normal, no use of accessory muscles, no retractions, labored breathing, is not present, Breath sounds: are clear throughout, no decreased breath sounds, no stridor, no wheezing. 23:15 Abdomen/GI: Inspection: abdomen appears normal, Bowel sounds: active, all quadrants, Palpation: soft, in all quadrants, mild abdominal tenderness, in the right lower quadrant and left lower quadrant, rebound tenderness, is not appreciated, involuntary guarding, is not appreciated. 23:15 Back: pain, is absent, ROM is normal. 23:15 Skin: no rash present. 23:15 Neuro: Orientation: to person, place \T\ time. Mentation: is normal, Motor: moves all fours, strength is normal, Sensation: is normal. Vital Signs: 22:49 BP 137 / 95; Pulse 94; Resp 20; Temp 98.6; Pulse Ox 100% ; Weight 88.45 kg; Height 5 jb4 ft. 3 in. (160.02 cm); Pain 10/10; 23:55 BP 122 / 54; Pulse 89; Resp 16; Pulse Ox 100% on R/A; jb4 10/21 00:39 BP 112 / 58; Pulse 85; Resp 16 S; Pulse Ox 99% on R/A; ha1 01/15 22:49 Body Mass Index 34.54 (88.45 kg, 160.02 cm) jb4 MDM: 10/20 22:46 Patient medically screened. cp 23:30 Differential diagnosis: dehydration, electrolyte abnormality, appendicitis, cp cholecystitis. 10/21 00:33 Data reviewed: vital signs, nurses notes, lab test result(s), radiologic studies, cp ultrasound. Consideration of Admission/Observation Escalation of care including admission/observation considered. I considered the following discharge prescriptions or medication management in the emergency department Medications were administered in the Emergency Department. See MAR. Counseling: I had a detailed discussion with the patient and/or guardian regarding: the historical points, exam findings, and any diagnostic results supporting the discharge/admit diagnosis, lab results, radiology results, to return to the emergency department if symptoms worsen or persist or if there are any questions or concerns that arise at home. Response to treatment: the patient's symptoms have markedly improved after treatment, Pain and nausea resolved, patient tolerating po fluids. 10/20 23: Order name: Abo/rh Typing; Complete Time: 00:15 cp 10/21 00:16 Interpretation: Reviewed. 10/20 23: Order name: Basic Metabolic Panel; Complete Time: 00:15 cp 10/21 00:16 Interpretation: Reviewed. 10/20 23: Order name: CBC with Diff; Complete Time: 00:15 10/21 00:16 Interpretation: Normal except: WBC 12.40; FLOR% 86.2; LYM% 7.3; NEUT A 10.7. 10/20 23:02 Order name: Quantitative Hcg; Complete Time: 00:15 cp 10/21 00:16 Interpretation: HCGQ 94872; Reviewed. 10/20 23:02 Order name: COVID-19/FLU A+B; Complete Time: 00:38 cp 10/21 00:38 Interpretation: Reviewed. 10/20 23:25 Order name: Urine Dipstick-Ancillary; Complete Time: 00:15 EDMS 10/21 00:16 Interpretation: Reviewed. 10/20 23:02 Order name: US OB Limited 10/20 23:02 Order name: IV Saline Lock; Complete Time: 23:17 cp 10/20 23: Order name: Labs collected and sent; Complete Time: 23:17 cp 10/20 23:02 Order name: NPO; Complete Time: 23:17 cp 10/20 23:26 Order name: Urine --Ancillary (enter results); Complete Time: 00:15 mw2 10/21 00:17 Interpretation: Reviewed. cp 10/20 23:02 Order name: Urine Dipstick-Ancillary (obtain specimen); Complete Time: 23:23 cp 10/20 23:02 Order name: Urine Test (obtain specimen); Complete Time: 23:23 cp 10/21 00:17 Order name: PO challenge; Complete Time: 00:37 cp Administered Medications: 10/20 23:53 Drug: Zofran (Ondansetron) 4 mg Route: IVP; Site: right antecubital; [facility] 10/21 00:43 Follow up: Response: No adverse reaction [facility] 10/20 23:53 Drug: Pepcid (famotidine) 20 mg Route: IVP; Site: right antecubital; [facility] 10/21 00:42 Follow up: Response: No adverse reaction [facility] 10/20 23:53 Drug: Lactated Ringers Solution 1000 ml Route: IV; Rate: 500 ml/hr; Site: right [facility] antecubital; 10/21 00:33 Follow up: Rate change 999 ml/hr; Changed to bolus per provider instruction [facility] 00:55 Follow up: Response: No adverse reaction; IV Status: Completed infusion; IV Intake: ha1 1000ml Disposition: 00:59 Co-signature as Attending Physician, Shay Ball MD I agree with the assessment and kdr plan of care. Disposition Summary: 10/21/22 00:40 Discharge Ordered Location: Home cp Problem: new cp Symptoms: have improved cp Condition: Stable cp Diagnosis - Other specified related conditions, second trimester cp - Nausea with vomiting, unspecified cp - Abdominal pain, unspecified cp Followup: cp - With: Private Physician - When: 2 - 3 days - Reason: Recheck today's complaints Discharge Instructions: - Discharge Summary Sheet cp - Abdominal Pain During cp - Nausea and Vomiting, Adult cp - Second Trimester of cp - Warning Signs During cp Forms: - Medication Reconciliation Form cp - Thank You Letter cp - Antibiotic Education cp - Prescription Opioid Use cp Prescriptions: - Zofran 4 mg Oral Tablet - take 1 tablet by ORAL route every 12 hours As needed; 20 tablet; Refills: 0, cp Product Selection Permitted - Pepcid 20 mg Oral Tablet - take 1 tablet by ORAL route once daily for 10 days; 10 tablet; Refills: 0, cp Product Selection Permitted Signatures: Dispatcher [employer] EDShay Blount MD MD kdr Isiah Iniguez PA PA cp Bryson, James RN RN jb4 Vandana Caba RN RN kb3 Precious Barrientos RN ha1 Corrections: (The following items were deleted from the chart) 10/20 22:52 22:51 Home Meds: Metoprolol Tartrate Oral; kb3 kb3
--- NOTE | 2022-10-21 00:41 | ER ---
Nurse's Notes [facility] Name: Tea Collazo Age: 22 yrs Sex: Female : 2000 Arrival Date: 10/20/2022 Time: 22:39 Bed 15 Private MD: Diagnosis: Other specified related conditions, second trimester;Nausea with vomiting, unspecified;Abdominal pain, unspecified Presentation: 10/20 22:49 Chief complaint: Patient states: suprapubic pain radiating into middle abdomen, N/V/D kb3 since this morning. + test at home, LMP 07/03/2022, EDC 03/11/2023 A1. Coronavirus screen: Vaccine status: Patient reports receiving the 2nd dose of the covid vaccine. Client denies travel out of the [place] in the last 14 days. Ebola Screen: Patient negative for fever greater than or equal to 101.5 degrees Fahrenheit, and additional compatible Ebola Virus Disease symptoms Patient denies exposure to infectious person. Patient denies travel to an Ebola-affected area in the 21 days before illness onset. Initial Sepsis Screen: Does the patient meet any 2 criteria? No. Patient's initial sepsis screen is negative. Does the patient have a suspected source of infection? No. Patient's initial sepsis screen is negative. Risk Assessment: Do you want to hurt yourself or someone else? Patient reports no desire to harm self or others. Onset of symptoms was October 20, 2022 at 08:00. 22:49 Method Of Arrival: Ambulatory kb3 22:49 Acuity: LARISA 3 kb3 Triage Assessment: 22:51 General: Appears in no apparent distress. uncomfortable, Behavior is calm, cooperative. kb3 Pain: Complains of pain in umbilical area, suprapubic area, right lower quadrant and left lower quadrant Pain does not radiate. Pain currently is 10 out of 10 on a pain scale. Quality of pain is described as unable to describe. GI: Reports lower abdominal pain, diarrhea, nausea, vomiting. 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 - Social history:: Smoking status: Patient denies any tobacco usage or history of. Screenin/16 00:39 Abuse screen: Denies threats or abuse. Denies injuries from another. Nutritional ha1 screening: No deficits noted. Tuberculosis screening: No symptoms or risk factors identified. Assessment: 10/20 23:00 General: Appears in no apparent distress. comfortable, Behavior is calm, cooperative, jb4 appropriate for age. Pain: Complains of pain in right lower quadrant and left lower quadrant Pain does not radiate. Pain currently is 10 out of 10 on a pain scale. Quality of pain is described as crampy. Neuro: Level of Consciousness is awake, alert, obeys commands, Oriented to person, place, time, situation. Cardiovascular: Patient's skin is warm and dry. Respiratory: Airway is patent Respiratory effort is even, unlabored, Respiratory pattern is regular, symmetrical. GI: Abdomen is flat, non-distended, Reports lower abdominal pain, nausea, vomiting. : No signs and/or symptoms were reported regarding the genitourinary system. EENT: No signs and/or symptoms were reported regarding the EENT system. Derm: Skin is intact, Skin is pink, warm \T\ dry. Musculoskeletal: Circulation, motion, and sensation intact. Range of motion: intact in all extremities. 23:55 Reassessment: Patient appears in no apparent distress at this time. Patient and/or jb4 family updated on plan of care and expected duration. Pain level reassessed. Patient is alert, oriented x 3, equal unlabored respirations, skin warm/dry/pink. 10/21 00:22 Reassessment: Patient appears in no apparent distress at this time. Patient and/or jb4 family updated on plan of care and expected duration. Pain level reassessed. Patient is alert, oriented x 3, equal unlabored respirations, skin warm/dry/pink. Patient denies pain at this time. Patient states feeling better. Patient states symptoms have improved. Vital Signs: 10/20 22:49 BP 137 / 95; Pulse 94; Resp 20; Temp 98.6; Pulse Ox 100% ; Weight 88.45 kg; Height 5 jb4 ft. 3 in. (160.02 cm); Pain 10/10; 23:55 BP 122 / 54; Pulse 89; Resp 16; Pulse Ox 100% on R/A; jb4 10/21 00:39 BP 112 / 58; Pulse 85; Resp 16 S; Pulse Ox 99% on R/A; ha1 10/20 22:49 Body Mass Index 34.54 (88.45 kg, 160.02 cm) 4 ED Course: 10/20 22:39 Patient arrived in ED. ja2 22:41 Isiah Iniguez PA is PHCP. cp 22:41 Shay Ball MD is Attending Physician. cp 22:45 Patient has correct armband on for positive identification. Placed in gown. Bed in low ha1 position. Call light in reach. Side rails up X 1. 22:51 Triage completed. kb3 22:51 Arm band placed on right wrist. kb3 23:10 Initial lab(s) drawn, by or, sent to lab. Inserted saline lock: 20 gauge in right jb4 antecubital area, using aseptic technique. Blood collected. 23:16 Augustin Bermeo, RN is Primary Nurse. jb4 23:17 COVID-19/FLU A+B Sent. jb4 23:17 Abo/rh Typing Sent. jb4 23:17 Basic Metabolic Panel Sent. jb4 23:17 CBC with Diff Sent. jb4 23:17 Quantitative Hcg Sent. jb4 10/21 00:01 US OB Limited In Process Unspecified. EDMS 00:53 No provider procedures requiring assistance completed. IV discontinued, intact, ha1 bleeding controlled, No redness/swelling at site. Pressure dressing applied. Administered Medications: 10/20 23:53 Drug: Zofran (Ondansetron) 4 mg Route: IVP; Site: right antecubital; 4 10/21 00:43 Follow up: Response: No adverse reaction ha1 10/20 23:53 Drug: Pepcid (famotidine) 20 mg Route: IVP; Site: right antecubital; 4 10/21 00:42 Follow up: Response: No adverse reaction 1 10/20 23:53 Drug: Lactated Ringers Solution 1000 ml Route: IV; Rate: 500 ml/hr; Site: right jb4 antecubital; 10/21 00:33 Follow up: Rate change 999 ml/hr; Changed to bolus per provider instruction jb4 00:55 Follow up: Response: No adverse reaction; IV Status: Completed infusion; IV Intake: ha1 1000ml Medication: 00:54 VIS not applicable for this client. ha1 Intake: 00:55 IV: 1000ml; Total: 1000ml. ha1 Outcome: 00:40 Discharge ordered by . cp 00:54 Discharged to home ambulatory. ha1 00:54 Condition: stable 00:54 Discharge instructions given to patient, Instructed on discharge instructions, follow up and referral plans. medication usage, Demonstrated understanding of instructions, follow-up care, medications, Prescriptions given X 2. 00:54 Patient left the ED. ha1 Signatures: Dispatcher [employer] EDMS Isiah Iniguez PA PA cp Bryson, James, HÉCTOR ANAYA jb4 Isabel Dickerson 2 Precious Barrientos RN RN ha1 Vandana Caba RN RN kb3 Corrections: (The following items were deleted from the chart) 10/20 22:52 22:51 Home Meds: Metoprolol Tartrate Oral; kb3 kb3 22:54 22:49 Chief complaint: Patient states: suprapubic pain, N/V/D since this morning. + kb3 test at home, LMP 07/03/2022, EDC 03/11/2023 A1 kb3 22:56 22:49 BP 137 / 95; Pulse 94bpm; Resp 20bpm; Pulse Ox 100%; Temp 98.6F; Height 5 ft. 3 jb4 in.; Pain 10/10; kb3
[2022-10-21 01:06] VITALS: TEMP 98.6
[2022-10-21 01:07] VITALS: BP 112/58; O2SAT 99
--- NOTE | 2022-10-21 14:13 | RAD REPORT ---
EXAM DESCRIPTION: US - OB Limited - 10/20/2022 11:59 pm CLINICAL HISTORY: The patient is 22 years old and is Female; nausea/vomiting TECHNIQUE: Real-time limited ultrasound of the maternal uterus with image documentation. COMPARISON: No relevant prior studies available. FINDINGS: POSITION: A single intrauterine gestation is present. A single intrauterine gestation is present at 19 weeks 6 days by ultrasound composite. HEART RATE: heart rate is 153 bpm. PLACENTA: The placenta is posterior in location. CERVIX: The cervix is closed measuring 3.9 cm. ADNEXA: Maternal adnexa are normal. IMPRESSION: Single IUP at 19 weeks 6 days by ultrasound composite with heart rate 153 bpm. No acute findings. 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 The interpreting radiologist is fully responsible for the content of the report.
== END 2022-10-21 00:54 | disposition home or self-care (01) ==
LOC: ER 22:35
DX: O26.892 Other specified pregnancy related conditions, second trimester (principal); O21.9 Vomiting of pregnancy, unspecified; O99.412 Diseases of the circulatory system complicating pregnancy, second trimester; I10 Essential (primary) hypertension; Z3A.19 19 weeks gestation of pregnancy; Z20.822 Contact with and (suspected) exposure to COVID-19; Z91.018 Allergy to other foods
CPT/HCPCS: 85025; 80048; 36415; 86900; 81025; 86901; 84702; 81003; 0240U; 76815; J7120; J2405; 96361; 96374; 96375; 99284

== ENCOUNTER 2023-03-02 15:07 | Emergency (ER) | payer OTHER ==
--- OUTSIDE RECORDS SUMMARY | 2023-03-02 15:15 | XMS REPORT | Continuity of Care Document ---
:2000 Author Organization [facility] t Address [address] [place] [address] Care Team Providers Name Role Phone Pcp, Patient Does Not Have A Primary Care Physician [phone] MARVIN GARCIA Attending Clinician Unavailable BRUNA MONTE Attending Clinician Unavailable BRUNA MONTE Attending Clinician Unavailable Marvin Garcia MD Attending Clinician [facility] Attending Clinician Unavailable Ultrasound, [facility] Attending Clinician Unavailable Danyel Richardson MD Attending Clinician [phone] DANYEL RICHARDSON Attending Clinician Unavailable Doctor Unassigned, Brea Attending Clinician Unavailable Brian Mills PA-C Attending Clinician JAYDA OTTO Attending Clinician Unavailable Jayda Otto MD Attending Clinician 2, [facility] Attending Clinician Unavailable BRIAN MILLS Attending Clinician Unavailable ASHA NELSON Attending Clinician Unavailable Lion García MD Attending Clinician JOHNNA HICKEY Attending Clinician Unavailable NILAM EVANS Attending Clinician Unavailable Edelmira MONTEZ, Johnna Soares Attending Clinician [facility]ending Clinician Unavailable Dread Rowe MD Attending Clinician Ultrasound, Latesh[facility] Attending Clinician Unavailable La Nena Rojas MD Attending Clinician Lucy Quezada Attending Clinician Visit, [facility] Nurse Attending Clinician Unavailable Chandni MONTEZ, Em Marinelli Attending Clinician EM RUSSELL Attending Clinician Unavailable MARY BASS Attending Clinician Unavailable JAYDA OTTO Admitting Clinician Unavailable DREAD ROWE Admitting Clinician Unavailable MARVIN GARCIA Admitting Clinician Unavailable Marvin Garcia MD Admitting Clinician Jayda Otto MD Admitting Clinician ASHA NELSON Admitting Clinician Unavailable Dread Rowe MD Admitting Clinician Payers Payer Name Policy Type Policy Number Effective Date Expiration Date [facility] [id number] 2020 [facility] [place] STAR 00:00:00 [facility] MEDICAID STAR [id number] 2020 2024 00:00:00 00:00:00 MEDICAID PENDING PENDING 2020 00:00:00 [id number] 2011 00:00:00 Problems Condition Condition Condition Status Onset Resolution Last Treating Co mments Source Name Details Category Date Date Treatment Clinician Date Chronic Chronic Disease Active Univers hypertensi hypertensi 5-16 it y of on on 00:00: [place] affecting affecting 00 Medi stephanie Bran ch Liveborn Liveborn Disease Active Unive rs , of infant, of 5-16 it y of worthy worthy 00:[place] , , [place] dical born in born in [facility] by by delivery delivery S/P tubal S/P tubal Disease Active Uni vers ligation ligation 5-16 ity of 00:00: [place] 00 Medical Branch Vitamin D Vitamin D Disease Active Uni vers deficiency deficiency 4-26 it y of 00:00: [place] [address] Medical Branch Obesity Obesity Disease Active Univers (BMI (BMI 4-25 ity of 30-39.9) 30-39.9) 00:00: [place] [facility] Right arm Right arm Disease Active Uni vers numbness numbness 4-25 ity of 00:00: [place] [address] Medical Branch Heartburn Heartburn Disease Active Uni vers in in 4-05 [place] 00:[place] in third in third 00 Medica l trimester trimester Bran ch Previous Previous Disease Active Unive rs 2-15 ity of section section 00:00: [place] [address] Medical Branch Sickle Sickle Disease Active Univers cell trait cell trait 2-15 it y of 00:00: [place] [address] Medical Branch History of History of Disease Active U nivers 2-15 ity of delivery delivery 00:00: [place] [address] Medical Branch History of History of Disease Active U nivers placental placental 2-15 ity of abruption abruption 00:[place] [facility] History of History of Disease Active U nivers IUFD IUFD 2-15 ity of 00:00: [place] [address] Medical Branch Encounter Encounter Disease Active Uni vers for tubal for tubal 2-15 ity of ligation ligation 00:00: [place] counseling counseling 00 [facility] Need for Need for Disease Active 2019-10 Unive rs Tdap Tdap 2-03 ity of vaccinatio vaccinatio 00:[place] [facility] 37 weeks Disease Active 2019-10 Unive rs gestation gestation 1-19 ity of of of 00:00: [place] 00 [facility] Obesity in Obesity in Disease Active 2019-10 U nivers 1-19 ity of 00:00: [address] 26 weeks 26 weeks Disease Active 2019-10 Unive rs gestation gestation 1-19 ity of of of 00:00: [place] 00 [facility] Chronic Chronic Disease Active 2019-10 Univers hypertensi hypertensi 1-19 it y of on in on in 00:00: [place] obstetric obstetric [address] [place] [address] context in context in Br anch second second trimester trimester COVID-19 COVID-19 Disease Active 2020 Unive rs virus virus 1-19 it[place] of infection infection 00:00[place] 00 [facility] Branch 24 weeks 24 weeks Disease Active 2020- Unive rs gestation gestation 1-19 ity of of of 00:00: [place] 00 [facility] Chronic Chronic Disease Active 2020 Univers hypertensi hypertensi 1-19 it y of on during on during 00:[place] , , 00 Me dical antepartum antepartum Br anch 34 weeks 34 weeks Disease Active 2019- Unive rs gestation gestation 1-19 ity of of of 00:00: [place] 00 [facility] Nausea and Nausea and Disease Active 2020-0 U nivers vomiting vomiting 7-15 ity of in in 00:00: [place] 00 [facility] prior to prior to Branch 22 weeks 22 weeks gestation gestation Gonorrhea Gonorrhea Disease Active 2020- Uni vers 7-15 ity of 00:00: [place] [address] Medical Branch Over Over Disease Active 2020- Univers weight weight 6-17 ity of 00:00: [place] 00 [facility] Branch Supervisio Supervisio Disease Active 2020-0 U nivers n of high n of high 6-17 ity of risk risk 00:00: [place] 00 [facility] in third in third Branch trimester trimester Primigravi Primigravi Disease Active 2020-0 U nivers da in da in 6-17 ity of second second 00:00: [place] trimester trimester 00 [facility] Elevated Elevated Disease Active 2020- Unive rs blood blood 6-17 ity of pressure pressure 00:00: [place] reading reading 00 Medical without without Branch diagnosis diagnosis of of hypertensi hypertensi on on Left Left Disease Active 2020-0 Univers breast breast 6-17 ity of lump lump 00:00: [place] 00 Medical Branch BMI BMI Disease Active 2020-0 Univers 25.0-25.9, 25.0-25.9, 6-17 it y of adult adult 00:00: [place] [address] Medical Branch Allergies, Adverse Reactions, Alerts Allergy Allergy Status Severity Reaction(s) Onset Inactive Treating Comm ents Source Name Type Date Date Clinician HONEY DRUG Active High Anaphylaxis Unive rs INGREDI 6-22 ity of 00:00: [place] 00 Medical [facility] Honey Propensi Active Anaphylaxis Uni vers ty to 03-27 ity of adverse 00:00: [place] reaction 00 Medical s Branch NO KNOWN Drug Active Univers ALLERGIE Class ity of S [facility] Social History Social Habit Start Date Stop Date Quantity Comments Source ASSERTION 2022-06-18 [facility] 00:00:00 [facility] Alcohol intake 2023-02-19 2023-02-19 Ex-drinker [facility] 00:00:00 00:00:00 (finding) [facility] Exposure to 2023-02-08 2023-02-18 Not sure [facility] SARS-CoV-2 00:00:00 05:08:00 [facility] (event) [facility] Tobacco use and 2022-11-07 2022-11-07 Smokeless tobacco Un iversity of exposure 00:00:00 00:00:00 non-user [facility] Sex Assigned At [birth year] Universit y of 00:00:00 00:00:00 [facility] Smoking Status Start Date Stop Date Source Never smoked tobacco [facility] Unknown if ever smoked [facility] Medications Ordered Filled Start Stop Current Ordering Indication Dosage Frequency Signature Comments Components Source Medication Medication Date Date Medication? Clinician (SIG) Name Name labetalol Yes Take by Unive rs HCl 5-19 mouth. ity of (LABETALOL 10:25: [place] ORAL) 24 Medical Branch ibuprofen Yes 600mg 600 mg, Univ ers (IBU) 5-18 Oral, Q6H ity of tablet 600 05:00: ABX, First [place] mg [address] [facility] 02/20/23 at 0000, Until Discontinu ed, Routine ibuprofen Yes 600mg 600 mg, Univ ers (IBU) 5-18 Oral, Q6H ity of tablet 600 05:00: ABX, First [place] mg [address] [facility] 02/20/23 at 0000, Until Discontinu ed, Routine 2022- No Take by Unive rs vit,[id number] 05-17 mouth. ity o f iron/folic 07:47: 00:00 [place] (PNV 29-1 52 :00 Medical ORAL) Branch 2022- No Take by Unive rs vit,calc02-19-17 mouth. ity o f iron/folic 07:47: 00:00 [place] (PNV 29-1 52 :00 Medical ORAL) Branch labetalol Yes Take by Unive rs HCl - mouth. ity of (LABETALOL 07:47: [place] ORAL) 50 Medical Branch ketorolac 2022- Yes 30mg 30 mg, Unive rs (TORADOL) 02-19 Slow IV ity of injection 05:00: 04:59 Push, Q6H [place] 30 mg 00 :00 ABX, 4 Medical doses, Branch First dose on Fri02/19/23 at 0000, Last dose on Fri02/19/23 at 1800, Routine ketorolac 2022- No 30mg 30 mg, Unive rs (TORADOL) 02-19 Slow IV ity of injection 05:00: 23:12 [place], Q6H [place] 30 mg 00 :00 ABX, 4 Medical doses, Branch First dose on Fri02/19/23 at 0000, Last dose on Fri02/19/23 at 1800, Routine acetaminoph Yes [id number] 650mg Take 2 Univers en 325 mg 5-17 tablets by ity of tablet 00:00: mouth every 6 Medical (six) Branch hours as needed for Pain (scale 1-3) or Pain (scale 4-6). Yes [id number] 1{tbl} Take 1 U nivers vitamin 5-17 tablet by ity of w/FA tablet 00:00: mouth in [place] 00 the Medical morning. Branch docusate Yes [id number] 200mg Take 2 Un vaishali 100 mg 5-17 capsules ity of capsule 00:00: by mouth 00 once daily Medical as needed Branch for Constipati on. ferrous Yes [id number] 325mg Take 1 Uni vers sulfate 325 5-17 tablet by ity of mg (65 mg 00:00: mouth in [facility] s iron) 00 the Medical tablet morning Branch and 1 tablet in the evening. ibuprofen Yes [id number] 600mg Take 1 U nivers 600 mg 5-17 tablet by ity of tablet 00:00: mouth [place] 00 every 6 Medical (six) Branch hours as needed (Pain). Take with food or milk. acetaminoph Yes [id number] 650mg Take 2 Univers en 325 mg 5-17 tablets by ity of tablet 00:00: mouth [place] 00 every 6 Medical (six) Branch hours as needed for Pain (scale 1-3) or Pain (scale 4-6). Yes [id number] 1{tbl} Take 1 U nivers vitamin 5-17 tablet by ity of w/FA tablet 00:00: mouth in [place] 00 the Medical morning. Branch docusate Yes [id number] 200mg Take 2 Un vaishali 100 mg 5-17 capsules ity of capsule 00:00: by mouth [place] 00 once daily Medical as needed Branch for Constipati on. ferrous Yes [id number] 325mg Take 1 Uni vers sulfate 325 5-17 tablet by ity of mg (65 mg 00:00: [place] iron) 00 the Medical tablet morning Branch and 1 tablet in the evening. ibuprofen Yes [id number] 600mg Take 1 U nivers 600 mg 5-17 tablet by ity of tablet 00:00: mouth [place] 00 every 6 Medical (six) Branch hours as needed (Pain). Take with food or milk. HYDROcodone 2022- Yes [id number] 1{tbl} Take 1 U nivers -acetaminop 5-17 05-25 tablet by it y of hen 5-325 00:00: 04:59 mouth [place] mg tablet 00 :00 every 6 Medical (six) Branch hours as needed for Pain (scale 7-10) (Alternate with Ibuprofen) for up to 7 days. Indication s: acute pain HYDROcodone 2022- Yes [id number] 1{tbl} Take 1 U nivers -acetaminop 5-17 05-25 tablet by it y of hen 5-325 00:00: 04:59 mouth [place] mg tablet 00 :00 every 6 Medical (six) Branch hours as needed for Pain (scale 7-10) (Alternate with Ibuprofen) for up to 7 days. Indication s: acute pain gabapentin 2022-0 2022- Yes [id number] 300mg Take 1 Univers 300 mg 5-17 05-23 capsule by ity of capsule 00:00: 04:59 mouth in [place] 00 :00 the Medical morning Branch and 1 capsule at noon and 1 capsule in the evening. Do all this for 5 days. gabapentin 2023-0 2023- Yes [id number] 300mg Take 1 Univers 300 mg 02-19 capsule by ity of capsule 00:00: 04:59 mouth in [place] 00 :00 the Medical morning Branch and 1 capsule at noon and 1 capsule in the evening. Do all this for 5 days. acetaminoph 2023-0 Yes 650mg 650 mg, Un vaishali en 5-16 Oral, Q6H ity of (TYLENOL) 23:00: ABX, First [place] tablet 650 00 dose on Medica l mg [facility] 02/18/23 at 1800, Until Discontinu ed, Routine acetaminoph 2023-0 Yes 650mg 650 mg, Un vaishali en 5-16 Oral, Q6H ity of (TYLENOL) 23:00: ABX, First [place] tablet 650 00 dose on Medica l mg [facility] 02/18/23 at 1800, Until Discontinu ed, Routine labetaloL 2023-0 Yes 200mg 200 mg, [facility] ers (NORMODYNE) 5-16 Oral, ity of tablet 200 22:00: DAILY AT [place] mg 00 1700, Medical First dose Branch on [facility] 02/18/23 at 1700, Until Discontinu ed, Routine labetaloL 2023-0 Yes 200mg 200 mg, Univ ers (NORMODYNE) 5-16 Oral, ity of tablet 200 22:00: DAILY AT [place] mg 00 1700, Medical First dose Branch on [facility] 02/18/23 at 1700, Until Discontinu ed, Routine gabapentin 2023-0 Yes 300mg 300 mg, Uni vers (NEURONTIN) 5-16 Oral, TID, it y of capsule 300 19:00: First dose [place] mg 00 on [facility] 02/18/23 at Branch 1400, Until Discontinu ed, Routine gabapentin 2023-0 Yes 300mg 300 mg, Uni vers (NEURONTIN) 5-16 Oral, TID, it y of capsule 300 19:00: First dose [place] mg 00 on [facility] 02/18/23 at Branch 1400, Until Discontinu ed, Routine lactated 2023-0 202- No 1000mL at 125 [facility] ers ringers IV 02-18 05-16 mL/hr, ity of infusion 13:45: 17:38 1,000 mL, [place] 1,000 mL 00 :00 IV Medical Infusion, Branch ONCE, 1 dose, On Fri02/18/23 at 0845, Routine rho(D) 2022-0 Yes 300ug 300 mcg, Univer s immune 5-16 Intramuscu ity of globulin 13:34: lar, ONCE, [place] (RHOGAM) 13 For 1 Medical syringe 300 dose, Branch mcg Conditiona l, Routine rho(D) 2022-0 Yes 300ug 300 mcg, Univer s immune 5-16 Intramuscu ity of globulin 13:34: lar, ONCE, [place] (RHOGAM) 13 For 1 Medical syringe 300 dose, Branch mcg Conditiona l, Routine HYDROcodone 0 Yes 1{tbl} 1 tablet, Univers -acetaminop 5-16 Oral, ity of hen (NORCO 13:34: Q6HPRN, [place] 5) 5-325 mg 10 Starting Medi stephanie tablet 1 on Fri [facility] tablet 02/18/23 at 0834, Until Discontinu ed, Routine, Pain (scale 7-10), Alternate with Ibuprofen diphenhydrA 2022-0 Yes 25mg 25 mg, Univ ers MINE 5-16 Slow IV ity of (BENADRYL) 13:34: Push, [place] injection 10 Q6HPRN, Medical 25 mg Starting Branch on Fri02/18/23 at 0834, Until Discontinu ed, Routine, Itching ondansetron 2022-0 Yes 4mg 4 mg, Slow Univers (ZOFRAN 5-16 IV Push, ity of (PF)) 13:34: Q8HPRN, [place] injection 4 10 Starting Medi stephanie mg on [facility] 02/18/23 at 0834, Until Discontinu ed, Routine, Nausea and Vomiting (N/V) bisacodyL 2022-0 Yes 10mg 10 mg, Univer s (DULCOLAX) 5-16 Rectal, ity of suppository 13:34: QDAILYPRN, [place] 10 mg 10 Starting Medical on [facility] 02/18/23 at 0834, Until Discontinu ed, Routine, Constipati on simethicone 2022-0 Yes 160mg 160 mg, Un vaishali (GAS RELIEF 5-16 Oral, ity of (SIMETHICON 13:34: PC+HSPRN, [place] E)) 10 Starting Medical chewable on Fri tablet 160 02/18/23 at mg 0834, Until Discontinu ed, Routine, Gas docusate 2022-0 Yes 200mg 200 mg, Unive rs (COLACE) 5-16 Oral, ity of capsule 200 13:34: QDAILYPRN, [place] mg 10 Starting Medical on Fri Branch 02/18/23 at 0834, Until Discontinu ed, Routine, Constipati on magnesium 2022-0 Yes 30mL 30 mL, Univer s hydroxide 5-16 Oral, ity of (MILK OF 13:34: QDAILYPRN, [place] MAGNESIA) 10 Starting Medica l 400 mg/5 mL on Fri suspension 02/18/23 at 30 mL 0834, Until Discontinu ed, Routine, Constipati on lactated 2022-0 Yes 1000mL at 125 Unive rs ringers IV 5-16 mL/hr, ity of infusion 13:34: 1,000 mL, [place] 1,000 mL 10 IV Medical Infusion, Branch PRN, 1 dose, Starting on Fri02/18/23 at 0834, Until Discontinu ed, Routine HYDROcodone 2022-0 Yes 1{tbl} 1 tablet, Univers -acetaminop 5-16 Oral, ity of hen (NORCO 13:34: Q6HPRN, [place] 5) 5-325 mg 10 Starting Medi stephanie tablet 1 on Fri tablet 02/18/23 at 0834, Until Discontinu ed, Routine, Pain (scale 7-10), Alternate with Ibuprofen diphenhydrA 2022-0 Yes 25mg 25 mg, Univ ers MINE 5-16 Slow IV ity of (BENADRYL) 13:34: Push, [place] injection 10 Q6HPRN, Medical 25 mg Starting Branch on Fri02/18/23 at 0834, Until Discontinu ed, Routine, Itching ondansetron 2022-0 Yes 4mg 4 mg, Slow Univers (ZOFRAN 5-16 IV Push, ity of (PF)) 13:34: Q8HPRN, [place] injection 4 10 Starting Medi stephanie mg on Fri Branch 02/18/23 at 0834, Until Discontinu ed, Routine, Nausea and Vomiting (N/V) bisacodyL 2023-0 Yes 10mg 10 mg, Univer s (DULCOLAX) 5-16 Rectal, ity of suppository 13:34: QDAILYPRN, [place] 10 mg 10 Starting Medical on [facility] Branch 02/18/23 at 0834, Until Discontinu ed, Routine, Constipati on simethicone 2023-0 Yes 160mg 160 mg, Un vaishali (GAS RELIEF 5-16 Oral, ity of (SIMETHICON 13:34: PC+HSPRN, [place] E)) 10 Starting Medical chewable on [facility] tablet 160 02/18/23 at mg 0834, Until Discontinu ed, Routine, Gas docusate 2023-0 Yes 200mg 200 mg, Unive rs (COLACE) 5-16 Oral, ity of capsule 200 13:34: QDAILYPRN, [place] mg 10 Starting Medical on [facility] 02/18/23 at 0834, Until Discontinu ed, Routine, Constipati on magnesium 3-0 Yes 30mL 30 mL, Univer s hydroxide 5-16 Oral, ity of (MILK OF 13:34: QDAILYPRN, [place] MAGNESIA) 10 Starting Medica l 400 mg/5 mL on [facility] suspension 02/18/23 at 30 mL 0834, Until Discontinu ed, Routine, Constipati on lactated 3-0 Yes 1000mL at 125 Unive rs ringers IV 5-16 mL/hr, ity of infusion 13:34: 1,000 mL, [place] 1,000 mL 10 IV Medical Infusion, Branch PRN, 1 dose, Starting on 02/18/23 at 0834, Until Discontinu ed, Routine diphenhydrA 2023-0 Yes 25mg 25 mg, Univ ers MINE 5-16 Oral, ity of (BENADRYL) 13:33: Q4HPRN, [place] tablet 25 59 Starting Medica l mg on [facility] 02/18/23 at 0833, Until Discontinu ed, Routine, Itching, PACU diphenhydrA 2023-0 Yes 25mg 25 mg, Univ ers MINE 5-16 Oral, ity of (BENADRYL) 13:33: Q4HPRN, [place] tablet 25 59 Starting Medica l mg on Fri Branch 02/18/23 at 0833, Until Discontinu ed, Routine, Itching, PACU naloxone 2022- Yes .4mg 0.4 mg, Unive rs (NARCAN) 02-18 Slow IV ity of injection 13:33: 13:32 [place], PRN [place] 0.4 mg 59 :59 - SEE Medical INSTRUCTIO Branch NS, Starting on Fri02/18/23 at 0833, Until [place] 02/20/23 at 0832, Routine, Analgesia Recovery, PACU sodium 2022-0 Yes PRN, Univers chloride 5-16 Starting ity of 0.9 % 13:09: on Fri [place] irrigation 02/18/23 at [facility] ical solution 0809, Branch Until Discontinu ed, Intra-op sodium 0 Yes PRN, Univers chloride 5-16 Starting ity of 0.9 % 13:09: on Fri [place] irrigation 02/18/23 at [facility] ical solution 0809, Branch Until Discontinu ed, Intra-op mupirocin 2022-0 Yes Intra-op Univ ers (BACTROBAN 5-16 ity of OINT) 2 % 13:08: [place] skin 00 Medical ointment [facility] mupirocin 0 Yes Intra-op Univ ers (BACTROBAN 5-16 ity of OINT) 2 % 13:08: [place] skin 00 Medical ointment [facility] sodium 2022- No 30mL 30 mL, Univers citrate-cit 02-18 Oral, ity of georgina acid 10:01: 11:31 PRE-PROCED [place] (BICITRA) 53 :00 URE ONCE, Medic al 500-334 1 dose, Branch mg/5 mL Starting solution 30 on Fri mL 02/18/23 at 0501, Until Discontinu ed, Routine, Surgery/Pr ocedure [id number] IV 2022- No 1000mL at 1-125 U nivers infusion 02-18- mL/hr, IV ity o f 1,000 mL 10:01: 13:34 Infusion, [place] 53 :26 TITRATE, Medical Starting Branch on Fri02/18/23 at 0501, Until Fri02/18/23 at 0834, Routine labetalol Yes Take by Unive rs HCl 4-26 mouth. ity of (LABETALOL 16:50: [place] ORAL) 25 Medical Branch Yes Take by Univer s vit,calc76/ 4-26 mouth. ity of iron/folic 16:50: [place] (PNV 29-1 25 Medical ORAL) Branch labetalol Yes Take by Unive rs HCl 4-26 mouth. ity of (LABETALOL 16:50: [place] ORAL) 25 Medical Branch Yes Take by Univer s vit,calc76/ 4-26 mouth. ity of iron/folic 16:50: [place] (PNV 29-1 25 Medical ORAL) Branch labetalol Yes Take by Unive rs HCl 4-26 mouth. ity of (LABETALOL 16:50: [place] ORAL) 25 Medical Branch Yes Take by Univer s vit,calc76/ 4-26 mouth. ity of iron/folic 16:50: [place] (PNV 29-1 25 Medical ORAL) Branch labetalol Yes Take by Unive rs HCl 4-26 mouth. ity of (LABETALOL 16:50: [place] ORAL) 25 Medical Branch Yes Take by Univer s vit,calc76/ 4-26 mouth. ity of iron/folic 16:50: [place] (PNV 29-1 25 Medical ORAL) Branch labetalol Yes Take by Unive rs HCl 4-26 mouth. ity of (LABETALOL 16:50: [place] ORAL) 25 Medical Branch Yes Take by Univer s vit,calc76/ 4-26 mouth. ity of iron/folic 16:50: [place] (PNV 29-1 25 Medical ORAL) Branch labetalol Yes Take by Unive rs HCl 4-26 mouth. ity of (LABETALOL 16:50: [place] ORAL) 25 Medical Branch Yes Take by Univer s vit,calc76/ 4-26 mouth. ity of iron/folic 16:50: [place] (PNV 29-1 25 Medical ORAL) Branch labetalol Yes Take by Unive rs HCl 4-26 mouth. ity of (LABETALOL 16:50: [place] ORAL) 25 Medical Branch Yes Take by Univer s vit,calc76/ 4-26 mouth. ity of iron/folic 16:50: [place] (PNV 29-1 25 Medical ORAL) Branch labetalol Yes Take by Unive rs HCl 4-26 mouth. ity of (LABETALOL 16:50: [place] ORAL) 25 Medical Branch Yes Take by Univer s vit,calc76/ 4-26 mouth. ity of iron/folic 16:50: [place] (PNV 29-1 25 Medical ORAL) Branch labetalol Yes Take by Unive rs HCl 4-26 mouth. ity of (LABETALOL 16:50: [place] ORAL) 25 Medical Branch Yes Take by Univer s vit,calc76/ 4-26 mouth. ity of iron/folic 16:50: [place] (PNV 29-1 25 Medical ORAL) [facility] labetalol Yes Take by Unive rs HCl 4-26 mouth. ity of (LABETALOL 16:31: [place] ORAL) 45 Medical Branch Yes Take by Univer s vit,calc76/ 4-26 mouth. ity of iron/folic 16:31: [place] (PNV 29-1 45 Medical ORAL) [facility] labetaloL Yes 200mg 200 mg, Univ ers (NORMODYNE) 4- Oral, ity of tablet 200 14:00: DAILY, [place] mg 00 First dose Medical on Fri01/29/23 at 0900, Until Discontinu ed, Routine Cholecalcif 2023-0 Yes [id number] 1999U Take 1 Univers aidee, 4-26 capsule by ity of Vitamin D3, 00:00: mouth in [place] (VITAMIN 00 the Medical D3) 50 mcg morning. Branc h (2,000 unit) capsule Cholecalcif 2023-0 Yes [id number] 1999U Take 1 Univers aidee, 4-26 capsule by ity of Vitamin D3, 00:00: mouth in [place] (VITAMIN 00 the Medical D3) 50 mcg morning. Branc h (2,000 unit) capsule Cholecalcif 2023-0 Yes [id number] 1999U Take 1 Univers aidee, 4-26 capsule by ity of Vitamin D3, 00:00: mouth in [place] (VITAMIN 00 the Medical D3) 50 mcg morning. Branc h (2,000 unit) capsule Cholecalcif 2023-0 Yes [id number] 2000U Take 1 Univers aidee, 4-26 capsule by ity of Vitamin D3, 00:00: mouth in [place] (VITAMIN 00 the Medical D3) 50 mcg morning. Branc h (2,000 unit) capsule Cholecalcif 2023-0 Yes [id number] 2000U Take 1 Univers aidee, 4-26 capsule by ity of Vitamin D3, 00:00: mouth in [place] (VITAMIN 00 the Medical D3) 50 mcg morning. Branc h (2,000 unit) capsule Cholecalcif 2023-0 Yes [id number] 2000U Take 1 Univers aidee, 4-26 capsule by ity of Vitamin D3, 00:00: mouth in [place] (VITAMIN 00 the Medical D3) 50 mcg morning. Branc h (2,000 unit) capsule Cholecalcif 2023-0 Yes [id number] 2000U Take 1 Univers aidee, 4-26 capsule by ity of Vitamin D3, 00:00: mouth in [place] (VITAMIN 00 the Medical D3) 50 mcg morning. Branc h (2,000 unit) capsule Cholecalcif 2023-0 Yes [id number] 2000U Take 1 Univers aidee, 4-26 capsule by ity of Vitamin D3, 00:00: mouth in [place] (VITAMIN 00 the Medical D3) 50 mcg morning. Branc h (2,000 unit) capsule Cholecalcif 2023-0 Yes [id number] 2000U Take 1 Univers aidee, 4-26 capsule by ity of Vitamin D3, 00:00: mouth in [place] (VITAMIN 00 the Medical D3) 50 mcg morning. Branc h (2,000 unit) capsule Cholecalcif 2023-0 Yes [id number] 2000U Take 1 Univers aidee, 4-26 capsule by ity of Vitamin D3, 00:00: mouth in [place] (VITAMIN 00 the Medical D3) 50 mcg morning. Branc h (2,000 unit) capsule Cholecalcif 2023-0 Yes [id number] 2000U Take 1 Univers aidee, 4-26 capsule by ity of Vitamin D3, 00:00: [place] (VITAMIN 00 the Medical D3) 50 mcg morning. Branc h (2,000 unit) capsule D5W-LR IV Yes 1000mL at 125 Univ ers infusion 4-25 mL/hr, IV ity of 1,000 mL 22:00: [place] 00 CONTINUOUS Medical , Starting Branch on Fri01/28/23 at 1700, Until Discontinu ed, Routine D5W-LR 2022- No 500mL at 999 [facility] Bolus 25 04-25 mL/hr, 500 ity of infusion 21:00: 21:55 mL, IV [place] 500 mL 00 :35 Infusion, Medical ONCE, 1 Branch dose, On Fri01/28/23 at 1600, Routine labetalol Yes Take by Unive rs HCl 4-25 mouth. ity of (LABETALOL 14:51: [place] ORAL) 03 Medical Branch Yes Take by Univer s vit,calc76/ 4-25 mouth. ity of iron/folic 14:51: [place] (PNV 29-1 03 Medical ORAL) Branch labetalol Yes Take by Unive rs HCl 4-06 mouth. ity of (LABETALOL 10:27: [place] ORAL) 08 Medical Branch Yes Take by Univer s vit,calc76/ 4-06 mouth. ity of iron/folic 10:27: [place] (PNV 29-1 08 Medical ORAL) Branch labetalol Yes Take by Unive rs HCl 4-06 mouth. ity of (LABETALOL 10:27: [place] ORAL) 08 Medical Branch Yes Take by Univer s vit,calc76/ 4-06 mouth. ity of iron/folic 10:27: [place] (PNV 29-1 08 Medical ORAL) Branch labetalol Yes Take by Unive rs HCl 4-06 mouth. ity of (LABETALOL 10:27: [place] ORAL) 08 Medical Branch Yes Take by Univer s vit,calc76/ 4-06 mouth. ity of iron/folic 10:27: [place] (PNV 29-1 08 Medical ORAL) Branch acetaminoph 0 No 650mg 650 mg, U nivers en - 04-06 Oral, ity of (TYLENOL) 02:45: 02:40 ONCE, 1 [place] tablet 650 00 :00 dose, On Medic al mg Fri01/08/23 Branch at 2145, Routine sodium 2022- No 30mL 30 mL, [facility] citrate-cit 01-09 04-06 Oral, ity of georgina acid 02:45: 02:38 ONCE, 1 [place] (BICITRA) 00 :00 dose, On Medica l 500-334 Fri01/08/23 Branch mg/5 mL at 2145, solution 30 Routine mL ondansetron 2022- No 4mg 4 mg, Slow [facility] (ZOFRAN 01-09 04-06 IV Push, ity of (PF)) 02:45: 02:02 ONCE, On [place] injection 4 00 :00 Fri01/08/23 Me dical mg at 2145, Branch For 1 dose
Do ses of ondansetro n 16 mg and above need to be administer ed via IV piggyback. For Dose >=24mg ECG monitoring is advisable.
NaCl 0.9% 2022- No 1000mL at 999 Uni vers (NS) bolus 01-09 04-06 mL/hr, ity of infusion 02:45: 03:02 1,000 mL, [place] as 1,000 mL 00 :47 IV Medical Infusion, Branch ONCE, 1 dose, On Fri01/08/23 at 2145, STAT ondansetron 2022-0 Yes [id number] 4mg Take 1 [facility] 4 mg 4-06 tablet by ity of disintegrat 00:00: mouth [place] ing tablet 00 every 8 Medica l (eight) Branch hours as needed for Nausea and Vomiting (N/V). famotidine 3-0 Yes [id number] 20mg Take 1 U nivers 20 mg 4-06 tablet by ity of tablet 00:00: mouth in [place] 00 the Medical morning Branch and 1 tablet in the evening. ondansetron 3-0 Yes [id number] 4mg Take 1 [facility] 4 mg 4-06 tablet by ity of disintegrat 00:00: mouth [place] ing tablet 00 every 8 Medica l (eight) Branch hours as needed for Nausea and Vomiting (N/V). famotidine 3-0 Yes [id number] 20mg Take 1 U nivers 20 mg 4-06 tablet by ity of tablet 00:00: mouth in [place] 00 the Medical morning Branch and 1 tablet in the evening. ondansetron 2023-0 Yes [id number] 4mg Take 1 [facility] 4 mg 4-06 tablet by ity of disintegrat 00:00: mouth [place] ing tablet 00 every 8 Medica l (eight) Branch hours as needed for Nausea and Vomiting (N/V). famotidine 2023-0 Yes [id number] 20mg Take 1 U nivers 20 mg 4-06 tablet by ity of tablet 00:00: mouth in [place] 00 the Medical morning Branch and 1 tablet in the evening. ondansetron 2023-0 Yes [id number] 4mg Take 1 [facility] 4 mg 4-06 tablet by ity of disintegrat 00:00: mouth [place] ing tablet 00 every 8 Medica l (eight) Branch hours as needed for Nausea and Vomiting (N/V). famotidine 2023-0 Yes [id number] 20mg Take 1 U nivers 20 mg 4-06 tablet by ity of tablet 00:00: mouth in [place] the Medical morning Branch and 1 tablet in the evening. ondansetron 2023-0 Yes [id number] 4mg Take 1 [facility] 4 mg 4-06 tablet by ity of disintegrat 00:00: mouth [place] ing tablet 00 every 8 Medica l (eight) Branch hours as needed for Nausea and Vomiting (N/V). famotidine 2023-0 Yes [id number] 20mg Take 1 U nivers 20 mg 4-06 tablet by ity of tablet 00:00: mouth in [place] the Medical morning Branch and 1 tablet in the evening. ondansetron 2023-0 Yes [id number] 4mg Take 1 [facility] 4 mg 4-06 tablet by ity of disintegrat 00:00: mouth [place] ing tablet 00 every 8 Medica l (eight) Branch hours as needed for Nausea and Vomiting (N/V). famotidine 2023-0 Yes [id number] 20mg Take 1 U nivers 20 mg 4-06 tablet by ity of tablet 00:00: mouth in [place] 00 the Medical morning Branch and 1 tablet in the evening. ondansetron 2023-0 Yes [id number] 4mg Take 1 [facility] 4 mg 4-06 tablet by ity of disintegrat 00:00: mouth [place] ing tablet 00 every 8 Medica l (eight) Branch hours as needed for Nausea and Vomiting (N/V). ondansetron 2023-0 Yes [id number] 4mg Take 1 [facility] 4 mg 4-06 tablet by ity of disintegrat 00:00: mouth [place] ing tablet 00 every 8 Medica l (eight) Branch hours as needed for Nausea and Vomiting (N/V). ondansetron 2023-0 Yes [id number] 4mg Take 1 [facility] 4 mg 4-06 tablet by ity of disintegrat 00:00: mouth [place] ing tablet 00 every 8 Medica l (eight) Branch hours as needed for Nausea and Vomiting (N/V). famotidine 2023-0 Yes [id number] 20mg Take 1 U nivers 20 mg 4-06 tablet by ity of tablet 00:00: mouth in [place] 00 the Medical morning Branch and 1 tablet in the evening. ondansetron 2023-0 Yes [id number] 4mg Take 1 [facility] 4 mg 4-06 tablet by ity of disintegrat 00:00: mouth [place] ing tablet 00 every 8 Medica l (eight) Branch hours as needed for Nausea and Vomiting (N/V). famotidine 2023-0 Yes [id number] 20mg Take 1 U nivers 20 mg 4-06 tablet by ity of tablet 00:00: mouth in [place] 00 the Medical morning Branch and 1 tablet in the evening. ondansetron 2023-0 Yes [id number] 4mg Take 1 [facility] 4 mg 4-06 tablet by ity of disintegrat 00:00: mouth [place] ing tablet 00 every 8 Medica l (eight) Branch hours as needed for Nausea and Vomiting (N/V). famotidine 2023-0 Yes [id number] 20mg Take 1 U nivers 20 mg 4-06 tablet by ity of tablet 00:00: mouth in [place] 00 the Medical morning Branch and 1 tablet in the evening. ondansetron 2023-0 Yes [id number] 4mg Take 1 [facility] 4 mg 4-06 tablet by ity of disintegrat 00:00: mouth [place] ing tablet 00 every 8 Medica l (eight) Branch hours as needed for Nausea and Vomiting (N/V). famotidine 2023-0 Yes [id number] 20mg Take 1 U nivers 20 mg 4-06 tablet by ity of tablet 00:00: mouth in [place] 00 the Medical morning Branch and 1 tablet in the evening. ondansetron 2023-0 Yes [id number] 4mg Take 1 [facility] 4 mg 4-06 tablet by ity of disintegrat 00:00: mouth [place] ing tablet 00 every 8 Medica l (eight) Branch hours as needed for Nausea and Vomiting (N/V). famotidine 2023-0 Yes [id number] 20mg Take 1 U nivers 20 mg 4-06 tablet by ity of tablet 00:00: mouth in [place] 00 the Medical morning Branch and 1 tablet in the evening. ondansetron 2023-0 Yes [id number] 4mg Take 1 [facility] 4 mg 4-06 tablet by ity of disintegrat 00:00: mouth [place] ing tablet 00 every 8 Medica l (eight) Branch hours as needed for Nausea and Vomiting (N/V). famotidine 2023-0 Yes [id number] 20mg Take 1 U nivers 20 mg 4-06 tablet by ity of tablet 00:00: mouth in [place] [address] the Medical morning Branch and 1 tablet in the evening. ondansetron 2023-0 Yes [id number] 4mg Take 1 [facility] 4 mg 4-06 tablet by ity of disintegrat 00:00: mouth [place] ing tablet 00 every 8 Medica l (eight) Branch hours as needed for Nausea and Vomiting (N/V). famotidine 2023-0 Yes [id number] 20mg Take 1 U nivers 20 mg 4-06 tablet by ity of tablet 00:00: mouth in [place] [address] the Medical morning Branch and 1 tablet in the evening. ondansetron 2023-0 Yes [id number] 4mg Take 1 [facility] 4 mg 4-06 tablet by ity of disintegrat 00:00: mouth [place] ing tablet 00 every 8 Medica l (eight) Branch hours as needed for Nausea and Vomiting (N/V). famotidine 2023-0 Yes [id number] 20mg Take 1 U nivers 20 mg 4-06 tablet by ity of tablet 00:00: mouth in [place] [address] the Medical morning Branch and 1 tablet in the evening. famotidine 2023-0 2023- No [id number] 20mg Take 1 [facility] 20 mg 4-06 05-17 tablet by ity of tablet 00:00: 00:00 mouth in [place] 00 :00 the Medical morning Branch and 1 tablet in the evening. famotidine 3- No [id number] 20mg Take 1 [facility] 20 mg 4-06 05-17 tablet by ity of tablet 00:00: 00:00 mouth in [place] 00 :00 the Medical morning Branch and 1 tablet in the evening. labetalol 0 Yes Take by Unive rs HCl 4-05 mouth. ity of (LABETALOL 23:43: [place] ORAL) 14 Medical Branch 0 Yes Take by Univer s vit,calc76/ 4-05 mouth. ity of iron/folic 23:43: [place] (PNV 29-1 14 Medical ORAL) Branch famotidine 0 Yes [id number] 20mg Take 1 U nivers 20 mg 4-05 tablet by ity of tablet 00:00: mouth in [place] 00 the Medical morning Branch and 1 tablet in the evening. famotidine 0 Yes [id number] 20mg Take 1 U nivers 20 mg 4-05 tablet by ity of tablet 00:00: mouth in [place] 00 the Medical morning Branch and 1 tablet in the evening. famotidine 0 3- No [id number] 20mg Take 1 [facility] 20 mg 4-05 04-06 tablet by ity of tablet 00:00: 00:00 mouth in [place] 00 :00 the Medical morning Branch and 1 tablet in the evening. 0 Yes Take by Univer s vit,calc76/ 3-22 mouth. ity of iron/folic 10:45: [place] (PNV 29-1 59 Medical ORAL) Branch 2022-0 Yes Take by Univer s vit,calc76/ 3-22 mouth. ity of iron/folic 10:45: [place] (PNV 29-1 59 Medical ORAL) Branch 2022-0 Yes Take by Univer s vit,calc76/ 3-01 mouth. ity of iron/folic 14:06: [place] (PNV 29-1 43 Medical ORAL) Branch 2022-0 Yes Take by Univer s vit,calc76/ 3-01 mouth. ity of iron/folic 14:06: [place] (PNV 29-1 43 Medical ORAL) Branch 2022-0 Yes Take by Univer s vit,calc76/ 3-01 mouth. ity of iron/folic 14:06: [place] (PNV 29-1 43 Medical ORAL) Branch 0 Yes Take by Univer s vit,calc76/ 2-15 mouth. ity of iron/folic 16:14: [place] (PNV 29-1 38 Medical ORAL) Branch 0 Yes Take by Univer s vit,calc76/ 2-15 mouth. ity of iron/folic 16:14: [place] (PNV 29-1 38 Medical ORAL) Branch 0 Yes Take by Univer s vit,calc76/ 2-15 mouth. ity of iron/folic 16:14: [place] (PNV 29-1 38 Medical ORAL) Branch aspirin 81 0 Yes [id number] 81mg Take 1 Univers mg EC 2-15 tablet by ity of tablet 00:00: mouth in [place] 00 the Medical morning. Branch aspirin 81 2022-0 Yes [id number] 81mg Take 1 Univers mg EC 2-15 tablet by ity of tablet 00:00: mouth in [place] the Medical morning. Branch aspirin 81 2022-0 Yes [id number] 81mg Take 1 Univers mg EC 2-15 tablet by ity of tablet 00:00: mouth in [place] the Medical morning. Branch aspirin 81 2022-0 Yes [id number] 81mg Take 1 [facility] mg EC 2-15 tablet by ity of tablet 00:00: mouth in [place] 00 the Medical morning. Branch aspirin 81 2022-0 Yes [id number] 81mg Take 1 [facility] mg EC 2-15 tablet by ity of tablet 00:00: mouth in [place] 00 the Medical morning. Branch aspirin 81 2022-0 Yes [id number] 81mg Take 1 [facility] mg EC 2-15 tablet by ity of tablet 00:00: mouth in [place] 00 the Medical morning. Branch aspirin 81 2022-0 Yes [id number] 81mg Take 1 [facility] mg EC 2-15 tablet by ity of tablet 00:00: mouth in [place] 00 the Medical morning. Branch aspirin 81 2022-0 Yes [id number] 81mg Take 1 [facility] mg EC 2-15 tablet by ity of tablet 00:00: mouth in [place] 00 the Medical morning. Branch aspirin 81 2022-0 Yes [id number] 81mg Take 1 [facility] mg EC 2-15 tablet by ity of tablet 00:00: mouth in [place] 00 the Medical morning. Branch aspirin 81 2023-0 Yes [id number] 81mg Take 1 [facility] mg EC 2-15 tablet by ity of tablet 00:00: mouth in [place] 00 the Medical morning. Branch aspirin 81 2023-0 Yes [id number] 81mg Take 1 [facility] mg EC 2-15 tablet by ity of tablet 00:00: mouth in [place] the Medical morning. Branch aspirin 81 2023-0 Yes [id number] 81mg Take 1 [facility] mg EC 2-15 tablet by ity of tablet 00:00: mouth in [place] the Medical morning. Branch aspirin 81 2023-0 Yes [id number] 81mg Take 1 [facility] mg EC 2-15 tablet by ity of tablet 00:00: mouth in [place] the Medical morning. Branch aspirin 81 2023-0 Yes [id number] 81mg Take 1 [facility] mg EC 2-15 tablet by ity of tablet 00:00: mouth in [place] the Medical morning. Branch aspirin 81 3-0 Yes [id number] 81mg Take 1 [facility] mg EC 2-15 tablet by ity of tablet 00:00: mouth in [place] the Medical morning. Branch aspirin 81 3-0 Yes [id number] 81mg Take 1 [facility] mg EC 2-15 tablet by ity of tablet 00:00: mouth in [place] the Medical morning. Branch aspirin 81 2023-0 Yes [id number] 81mg Take 1 [facility] mg EC 2-15 tablet by ity of tablet 00:00: mouth in [place] the Medical morning. Branch aspirin 81 2023-0 Yes [id number] 81mg Take 1 [facility] mg EC 2-15 tablet by ity of tablet 00:00: mouth in [place] the Medical morning. Branch aspirin 81 2023-0 Yes [id number] 81mg Take 1 [facility] mg EC 2-15 tablet by ity of tablet 00:00: mouth in [place] 00 the Medical morning. Branch aspirin 81 2023-0 Yes [id number] 81mg Take 1 [facility] mg EC 2-15 tablet by ity of tablet 00:00: mouth in [place] 00 the Medical morning. Branch aspirin 81 2023-0 Yes [id number] 81mg Take 1 [facility] mg EC 2-15 tablet by ity of tablet 00:00: mouth in [place] 00 the Medical morning. Branch aspirin 81 2023-0 Yes [id number] 81mg Take 1 [facility] mg EC 2-15 tablet by ity of tablet 00:00: mouth in [place] 00 the Medical morning. Branch aspirin 81 0 Yes [id number] 81mg Take 1 [facility] mg EC 2-15 tablet by ity of tablet 00:00: mouth in [place] 00 the Medical morning. Branch aspirin 81 0 3- No [id number] 81mg Take 1 [facility] mg EC 2-15 05-17 tablet by ity of tablet 00:00: 00:00 mouth in [place] 00 :00 the Medical morning. Branch aspirin 81 0 2022- No [id number] 81mg Take 1 [facility] mg EC 2-15 05-17 tablet by ity of tablet 00:00: 00:00 mouth in [place] 00 :00 the Medical morning. Branch labetalol Yes Take by Unive rs HCl 2-02 mouth. ity of (LABETALOL 09:32: [place] ORAL) [facility] Yes Take by Un[facility] rs HCl 2-02 mouth. ity of (LABETALOL 09:32: [place] ORAL) [facility] labetalol Yes Take by Unive rs HCl 2-02 mouth. ity of (LABETALOL 09:32: [place] ORAL) [facility] Branch labetalol Yes Take by Unive rs HCl 2-02 mouth. ity of (LABETALOL 09:32: [place] ORAL) [facility] labetalol Yes Take by Unive rs HCl 2-02 mouth. ity of (LABETALOL 09:32: [place] ORAL) [facility] Branch labetalol Yes Take by Unive rs HCl 2-02 mouth. ity of (LABETALOL 09:32: [place] ORAL) [facility] Branch labetalol Yes Take by Unive rs HCl 2-02 mouth. ity of (LABETALOL 09:32: [place] ORAL) [facility] Branch labetalol Yes Take by Unive rs HCl 2-02 mouth. ity of (LABETALOL 09:32: [place] ORAL) [facility] labetalol Yes Take by Unive rs HCl 2-02 mouth. ity of (LABETALOL 09:32: [place] ORAL) Medical Branch labetalol Yes Take by Unive rs HCl 2-02 mouth. ity of (LABETALOL 09:32: [place] ORAL) Medical Branch labetalol Yes Take by Unive rs HCl 2-02 mouth. ity of (LABETALOL 09:32: [place] ORAL) Medical Branch labetalol Yes Take by Unive rs HCl 2-02 mouth. ity of (LABETALOL 09:32: [place] ORAL) Medical Branch amoxicillin Yes [id number] 500mg Take 1 [facility] 500 mg 6-23 capsule by ity of capsule 00:00: mouth 3 [place] 00 (three) Medical times Branch daily. amoxicillin Yes [id number] 500mg Take 1 [facility] 500 mg 6-23 capsule by ity of capsule 00:00: mouth 3 [place] 00 (three) Medical times Branch daily. amoxicillin Yes [id number] 500mg Take 1 [facility] 500 mg 6-23 capsule by ity of capsule 00:00: mouth 3 [place] 00 (three) Medical times Branch daily. amoxicillin Yes [id number] 500mg Take 1 [facility] 500 mg 6-23 capsule by ity of capsule 00:00: mouth 3 [place] 00 (three) Medical times Branch daily. amoxicillin 2022- No [id number] 500mg Take 1 [facility] 500 mg 6-23 02-02 capsule by ity of capsule 00:00: 00:00 mouth 3 [place] 00 :00 (three) Medical times Branch daily. 2020-0 Yes [id number] 1{packe Take 1 Univers vit 7-15 t} Packet by ity of 33-iron-fol 00:00: mouth [place] ic-dha 00 daily. Medical (SELECT-OB Branch + DHA) 29 mg iron-1 mg -250 mg combo pack 2020-0 Yes [id number] 1{packe Take 1 Univers vit 7-15 t} Packet by ity of 33-iron-fol 00:00: mouth [place] ic-dha 00 daily. Medical (SELECT-OB Branch + DHA) 29 mg iron-1 mg -250 mg combo pack 2020-0 Yes [id number] 1{packe Take 1 Univers vit 7-15 t} Packet by ity of 33-iron-fol 00:00: mouth [place] ic-dha 00 daily. Medical (SELECT-OB Branch + DHA) 29 mg iron-1 mg -250 mg combo pack 2020-0 Yes [id number] 1{packe Take 1 Univers vit 7-15 t} Packet by ity of 33-iron-fol 00:00: mouth [place] ic-dha 00 daily. Medical (SELECT-OB Branch + DHA) 29 mg iron-1 mg -250 mg combo pack 2020-0 Yes [id number] 1{packe Take 1 [facility] vit 7-15 t} Packet by ity of 33-iron-fol 00:00: mouth [place] ic-dha 00 daily. Medical (SELECT-OB Branch + DHA) 29 mg iron-1 mg -250 mg combo pack 2020-0 Yes [id number] 1{packe Take 1 Univers vit 7-15 t} Packet by ity of 33-iron-fol 00:00: mouth [place] ic-dha 00 daily. Medical (SELECT-OB Branch + DHA) 29 mg iron-1 mg -250 mg combo pack 2020-0 Yes [id number] 1{packe Take 1 Univers vit 7-15 t} Packet by ity of 33-iron-fol 00:00: mouth [place] ic-dha 00 daily. Medical (SELECT-OB Branch + DHA) 29 mg iron-1 mg -250 mg combo pack 2020-0 Yes [id number] 1{packe Take 1 Univers vit 7-15 t} Packet by ity of 33-iron-fol 00:00: mouth [place] ic-dha 00 daily. Medical (SELECT-OB Branch + DHA) 29 mg iron-1 mg -250 mg combo pack 2020-0 Yes [id number] 1{packe Take 1 Univers vit 7-15 t} Packet by ity of 33-iron-fol 00:00: mouth [place] ic-dha 00 daily. Medical (SELECT-OB Branch + DHA) 29 mg iron-1 mg -250 mg combo pack 2020-0 Yes [id number] 1{packe Take 1 Univers vit 7-15 t} Packet by ity of 33-iron-fol 00:00: mouth [place] ic-dha 00 daily. Medical (SELECT-OB Branch + DHA) 29 mg iron-1 mg -250 mg combo pack 2020-0 Yes [id number] 1{packe Take 1 Univers vit 7-15 t} Packet by ity of 33-iron-fol 00:00: mouth [place] ic-dha 00 daily. Medical (SELECT-OB Branch + DHA) 29 mg iron-1 mg -250 mg combo pack 2020-0 Yes [id number] 1{packe Take 1 Univers vit 7-15 t} Packet by ity of 33-iron-fol 00:00: mouth [place] ic-dha 00 daily. Medical (SELECT-OB Branch + DHA) 29 mg iron-1 mg -250 mg combo pack 2020-0 Yes [id number] 1{packe Take 1 Univers vit 7-15 t} Packet by ity of 33-iron-fol 00:00: mouth [place] ic-dha 00 daily. Medical (SELECT-OB Branch + DHA) 29 mg iron-1 mg -250 mg combo pack 2020-0 Yes [id number] 1{packe Take 1 Univers vit 7-15 t} Packet by ity of 33-iron-fol 00:00: mouth [place] ic-dha 00 daily. Medical (SELECT-OB Branch + DHA) 29 mg iron-1 mg -250 mg combo pack 2020-0 Yes [id number] 1{packe Take 1 Univers vit 7-15 t} Packet by ity of 33-iron-fol 00:00: mouth [place] ic-dha 00 daily. Medical (SELECT-OB Branch + DHA) 29 mg iron-1 mg -250 mg combo pack 2020-0 Yes [id number] 1{packe Take 1 Univers vit 7-15 t} Packet by ity of 33-iron-fol 00:00: mouth [place] ic-dha 00 daily. Medical (SELECT-OB Branch + DHA) 29 mg iron-1 mg -250 mg combo pack 2020-0 Yes [id number] 1{packe Take 1 Univers vit 7-15 t} Packet by ity of 33-iron-fol 00:00: mouth [place] ic-dha 00 daily. Medical (SELECT-OB Branch + DHA) 29 mg iron-1 mg -250 mg combo pack 2020-0 Yes [id number] 1{packe Take 1 Univers vit 7-15 t} Packet by ity of 33-iron-fol 00:00: mouth [place] ic-dha 00 daily. Medical (SELECT-OB Branch + DHA) 29 mg iron-1 mg -250 mg combo pack 2020-0 Yes [id number] 1{packe Take 1 Univers vit 7-15 t} Packet by ity of 33-iron-fol 00:00: mouth [place] ic-dha 00 daily. Medical (SELECT-OB Branch + DHA) 29 mg iron-1 mg -250 mg combo pack 2020-0 Yes [id number] 1{packe Take 1 Univers vit 7-15 t} Packet by ity of 33-iron-fol 00:00: mouth [place] ic-dha 00 daily. Medical (SELECT-OB Branch + DHA) 29 mg iron-1 mg -250 mg combo pack 2020-0 Yes [id number] 1{packe Take 1 Univers vit 7-15 t} Packet by ity of 33-iron-fol 00:00: mouth [place] ic-dha 00 daily. Medical (SELECT-OB Branch + DHA) 29 mg iron-1 mg -250 mg combo pack 2020-0 Yes [id number] 1{packe Take 1 Univers vit 7-15 t} Packet by ity of 33-iron-fol 00:00: mouth [place] ic-dha 00 daily. Medical (SELECT-OB Branch + DHA) 29 mg iron-1 mg -250 mg combo pack 2020-0 Yes [id number] 1{packe Take 1 Univers vit 7-15 t} Packet by ity of 33-iron-fol 00:00: mouth [place] ic-dha 00 daily. Medical (SELECT-OB Branch + DHA) 29 mg iron-1 mg -250 mg combo pack 2020-0 Yes [id number] 1{packe Take 1 Univers vit 7-15 t} Packet by ity of 33-iron-fol 00:00: mouth [place] ic-dha 00 daily. Medical (SELECT-OB Branch + DHA) 29 mg iron-1 mg -250 mg combo pack 2020-0 Yes [id number] 1{packe Take 1 Univers vit 7-15 t} Packet by ity of 33-iron-fol 00:00: mouth [place] ic-dha 00 daily. Medical (SELECT-OB Branch + DHA) 29 mg iron-1 mg -250 mg combo pack 2020-0 Yes [id number] 1{packe Take 1 [facility] vit 7-15 t} Packet by ity of 33-iron-fol 00:00: mouth [place] ic-dha 00 daily. Medical (SELECT-OB Branch + DHA) 29 mg iron-1 mg -250 mg combo pack 2020-0 2023- No [id number] 1{packe Take 1 Univers vit 7-15 11-07 t} Packet by ity of 33-iron-fol 00:00: 00:00 [place] ic[place] 00 :00 daily. Medical (SELECT-OB Branch + DHA) 29 mg iron-1 mg -250 mg combo pack cefTRIAXone 2019- No 250mg Univ ers (ROCEPHIN) 03-27 ity of 250 mg in 20:45: 19:50 [...]
D uration of Therapy: 7 days azithromyci 2020- No [id number] 1000mg Take 2 Univers n 500 mg 6-18 06-20 tablets by ity of tablet 00:00: 04:59 mouth [place] 00 :00 daily for Medical 1 day. [facility] azithromyci 2019- No [id number] 1000mg Take 2 Univers n 500 mg 6-18 06-20 tablets by ity of tablet 00:00: 04:59 mouth [place] 00 :00 daily for Medical 1 day. [facility] azithromyci 2019- No [id number] 1000mg Take 2 Univers n 500 mg 6-18 06-20 tablets by ity of tablet 00:00: 04:59 mouth [place] 00 :00 daily for Medical 1 day. Branch acetaminoph 2019- No 1000mg 1,000 mg, Univers en 03-21 Oral, ity of (TYLENOL) 17:30: 16:21 ONCE, 1 [place] :[place] dose, Tue Medical 1,000 mg 03/21/20 at [facility] h 1230, Routine No known No Univers medications ity [facility] [place] [facility] No known No Univers medications ity of [place] [facility] No known No Univers medications ity of [facility] Immunizations Ordered Filled Immunization Date Status Comments [facility] e Immunization Name Name TD 2022-12-25 Completed University of 00:00:00 [facility] Branch TDAP 2022-12-25 Completed University of 00:00:00 [facility] Branch TDAP 2022-12-25 Completed University of 00:00:00 [facility] TDAP 2022-12-25 Completed University of 00:00:00 [facility] TDAP 2022-12-25 Completed University of 00:00:00 [facility] Branch TDAP 2022-12-25 Completed University of 00:00:00 [facility] TDAP 2022-12-25 Completed University of 00:00:00 [facility] TDAP 2022-12-25 Completed University of 00:00:00 [facility] TDAP 2022-12-25 Completed University of 00:00:00 [facility] TDAP 2022-12-25 Completed University of 00:00:00 [facility] TDAP 2022-12-25 Completed University of 00:00:00 [facility] TDAP 2022-12-25 Completed University of 00:00:00 [facility] TDAP 2022-12-25 Completed University of 00:00:00 [facility] TDAP 2022-12-25 Completed University of 00:00:00 [facility] TDAP 2022-12-25 Completed University of 00:00:00 [facility] TDAP 2022-12-25 Completed University of 00:00:00 [facility] TDAP 2022-12-25 Completed University of 00:00:00 [facility] TDAP 2022-12-25 Completed University of 00:00:00 [facility] TDAP 2022-12-25 Completed University of 00:00:00 [facility] Influenza Virus 2022-11-07 Completed Universit y of [facility], 00:00:00 [place] Me dical Preserv and ABX Branch Free 6 MO-64 YRS Influenza Virus 2022-11-07 Completed Universit y of [facility], 00:00:00 [place] Me dical Preserv and ABX Branch Free 6 MO-64 YRS Influenza Virus 2022-11-07 Completed Universit y of [facility]ine [facility], 00:00:00 [place] Me dical Preserv and ABX Branch Free 6 MO-64 YRS Influenza Virus 2022-11-07 Completed Universit y of Vaccine [facility], 00:00:00 [place] Me dical Preserv and ABX Branch Free 6 MO-64 YRS Influenza Virus 2022-11-07 Completed Universit y of Vaccine [facility], 00:00:00 [place] Me dical Preserv and ABX Branch Free 6 MO-63 YRS Influenza Virus 2022-11-07 Completed [facility], 00:[facility]:00 [place] [facility] Free 6 MO-64 YRS Influenza Virus 2022-11-07 Completed [facility], 00:00:00 [place] [facility] Free 6 MO-64 YRS Influenza Virus 2022-11-07 Completed [facility], 00:00:00 [place] [facility] Free 6 MO-64 YRS Influenza Virus 2022-11-07 Completed [facility], 00:00:00 [place] [facility] Free 6 MO-64 YRS Influenza Virus 2022-11-07 Completed [facility], 00:00:00 [place] [facility] Free 6 MO-64 YRS Influenza Virus 2022-11-07 Completed [facility], 00:00:00 [place] [facility] Free 6 MO-64 YRS Influenza Virus 2022-11-07 Completed [facility], 00:00:00 [place] [facility] Free 6 MO-64 YRS Influenza Virus 2022-11-07 Completed [facility], 00:00:00 [place] [facility] Free 6 MO-64 YRS Influenza Virus 2022-11-07 Completed [facility], 00:00:00 [place] [facility] Free 6 MO-64 YRS Influenza Virus 2022-11-07 Completed [facility], 00:00:00 [place] [facility] Free 6 MO-64 YRS Influenza Virus 2022-11-07 Completed [facility], 00:00:00 [place] [facility] Free 6 MO-64 YRS Influenza Virus 2022-11-07 Completed [facility], 00:00:00 [place] [facility] Free 6 MO-64 YRS Influenza Virus 2022-11-07 Completed [facility], 00:00:00 [place] [facility] Free 6 MO-64 YRS Influenza Virus 2022-11-07 Completed [facility], 00:00:00 [place] [facility] ABX [facility] Free 6 MO-64 YRS Influenza Virus 2022-11-07 Completed [facility], 00:00:00 [place] [facility] ABX [facility] Free 6 MO-64 YRS Influenza Virus 2022-11-07 Completed [facility], 00:00:00 [place] [facility] AB[facility] Free 6 MO-64 YRS Influenza Virus 2022-11-07 Completed [facility], 00:00:00 [place] [facility] ABX [facility] Free 6 MO-64 YRS Influenza Virus 2022-11-07 Completed [facility], 00:00:00 [place] [facility] ABX [facility] Free 6 MO-64 YRS Influenza Virus 2022-11-07 Completed [facility], 00:00:00 [place] [facility] ABX [facility] Free 6 MO-64 YRS Influenza Virus 2022-11-07 Completed [facility], 00:00:00 [place] [facility] ABX [facility] Free 6 MO-64 YRS Influenza Virus 2022-11-07 Completed [facility], 00:00:00 [place] [facility] ABX [facility] Free 6 MO-64 YRS Influenza Virus 2022-11-07 Completed [facility], 00:00:00 [place] [facility] ABX [facility] Free 6 MO-64 YRS Influenza Virus 2022-11-07 Completed [facility], 00:00:00 [place] [facility] ABX [facility] Free 6 MO-64 YRS Influenza Virus 2022-11-07 Completed [facility], 00:00:00 [place] [facility] AB[facility] Free 6 MO-64 YRS TDAP 2020-09-07 Completed [facility] 00:00:00 [facility] TDAP 2020-09-07 Completed [facility] 00:00:00 [facility] TDAP 2020-09-07 Completed [facility] 00:00:00 [facility] TDAP 2020-09-07 Completed [facility] 00[facility]00:00 [facility] TDAP 2020-09-07 Completed [facility] 00:00:00 [facility] TDAP 2020-09-07 Completed [facility] 00:00:00 [facility] TDAP 2020-09-07 Completed [facility] 00:00:00 [facility] TDAP 2020-09-07 Completed [facility] 00:00:00 [facility] TDAP 2020-09-07 Completed [facility] 00:00:00 [facility] TDAP 2020-09-07 Completed [facility] 00:00:00 [facility] TDAP 2020-09-07 Completed [facility] 00:00:00 [facility] TDAP 2020-09-07 Completed [facility] 00:00:00 [facility] TDAP 2020-09-07 Completed [facility] 00:00:00 [facility] TDAP 2020-09-07 Completed [facility] 00:00:00 [facility] TDAP 2020-09-07 Completed [facility] 00:00:00 [facility] TDAP 2020-09-07 Completed [facility] 00:00:00 [facility] TDAP 2020-09-07 Completed [facility] 00:00:00 [facility] TDAP 2020-09-07 Completed [facility] 00:00:00 [facility] TDAP 2020-09-07 Completed [facility] 00:00:00 [facility] TDAP 2020-09-07 Completed [facility] 00:00:00 [facility] TDAP 2020-09-07 Completed [facility] 00:00:00 [facility] TDAP 2020-09-07 Completed [facility] 00:00:00 [facility] TDAP 2020-09-07 Completed [facility] 00:00:00 [facility] TDAP 2020-09-07 Completed [facility] 00:00:00 [facility] TDAP 2020-09-07 Completed [facility] 00:00:00 [facility] TDAP 2020-09-07 Completed [facility] 00:00:00 [facility] TDAP 2020-09-07 Completed [facility] 00:00:00 [facility] TDAP 2020-09-07 Completed [facility] 00:00:00 [facility] TDAP 2020-09-07 Completed [facility] 00:00:00 [facility] TDAP 2020-09-07 Completed [facility] 00:00:00 [facility] TDAP 2020-09-07 Completed [facility] 00:00:00 [facility] TDAP 2020-09-07 Completed [facility] 00:00:00 [facility] TDAP 2020-09-07 Completed [facility] 00:00:00 [facility] TDAP 2020-09-07 Completed [facility] 00:00:00 [facility] TDAP 2020-09-07 Completed [facility] 00:00:00 [facility] Influenza Virus 2020-07-13 Completed [facility] [...] [facility] .5 mL 00:00:00 [facility] 6+ MO [facility] Influenza Virus 2020-07-13 Completed [facility] .5 mL 00:00:00 [facility] 6+ MO [facility] Influenza Virus 2020-07-13 Completed [facility] .5 mL 00:00:00 [facility] 6+ MO [facility] Influenza Virus 2020-07-13 Completed [facility] .5 mL 00:00:00 [facility] 6+ MO [facility] Influenza Virus 2020-07-13 Completed [facility] .5 mL 00:00:00 [facility] 6+ [place] [facility] Influenza Virus 2020-07-13 Completed [facility] .5 mL 00:00:00 [facility] 6+ MO [facility] Influenza Virus 2020-07-13 Completed [facility] .5 mL 00:00:00 [facility] 6+ [place] [facility] Influenza Virus 2020-07-13 Completed [facility] .5 mL 00:00:00 [facility] 6+ MO [facility] Influenza Virus 2020-07-13 Completed [facility] .5 mL 00:00:00 [facility] 6+ MO [facility] Influenza Virus 2020-07-13 Completed [facility] .5 mL 00:00:00 [facility] 6+ MO [facility] Influenza Virus 2020-07-13 Completed [facility] .5 mL 00:00:00 [facility] 6+ MO Branch Influenza Virus 2020-07-13 Completed [facility] .5 mL 00:00:00 [facility] 6+ MO Branch Vital Signs Vital Name Observation Time Observation Value Comments Source Systolic blood 2023-02-21 14:42:00 137 mm[Hg] [facility] of pressure [facility] Diastolic blood 2023-02-21 14:42:00 68 mm[Hg] Unive rsity of pressure [facility] Heart rate 2023-02-21 12:37:00 79 /min [facility] Body temperature 2023-02-21 12:37:00 36.61 [facility] Oxygen saturation in 2023-02-21 12:37:00 100 /min [facility] Arterial blood by [facility] Pulse oximetry Branch Respiratory rate 2023-02-21 06:11:00 16 /min [facility] height 2023-02-18 10:10:00 160 cm [facility] Body weight 2023-02-18 10:10:00 98.062 kg [facility] BMI 2023-02-18 10:10:00 38.30 kg/m2 [facility] Systolic blood 2023-02-18 14:30:00 131 mm[Hg] [facility] of pressure [facility] Diastolic blood 2023-02-18 14:30:00 66 mm[Hg] Un[facility] rsity of pressure [facility] Heart rate 2023-02-18 14:30:00 65 /min [facility] Body temperature 2023-02-18 14:30:00 36.44 Bel [facility] ers[facility] of [facility] Oxygen saturation in 2023-02-18 14:30:00 100 /min [facility] Arterial blood by [facility] Pulse oximetry Branch Respiratory rate 2023-02-18 13:30:00 17 /min Univ ersity of [facility] Body height 2023-02-18 10:10:00 160 cm [facility] Body weight 2023-02-18 10:10:00 98.062 kg [facility] BMI 2023-02-18 10:10:00 38.30 kg/m2 [facility] Systolic blood 2023-02-17 19:29:00 139 mm[Hg] [facility]ity of pressure [facility] Diastolic blood 2023-02-17 19:29:00 80 mm[Hg] Unive rsity of pressure [facility] Heart rate 2023-02-17 19:29:00 78 /min [facility] Body temperature 2023-02-17 19:29:00 36.89 Bel [facility] ersity of [facility] Respiratory rate 2023-02-17 19:29:00 18 /min Univ ersity of [facility] Body height 2023-02-17 19:29:00 160 cm [facility] Body weight 2023-02-17 19:29:00 97.977 kg [facility] BMI 2023-02-17 19:29:00 38.26 kg/m2 [facility] Systolic blood 2023-02-13 18:31:00 143 mm[Hg] [facility] of pressure [facility] Diastolic blood 2023-02-13 18:31:00 77 mm[Hg] Unive rsity of pressure [facility] Heart rate 2023-02-13 18:11:00 81 /min [facility] Body temperature 2023-02-13 18:11:00 36.72 Bel [facility] Respiratory rate 2023-02-13 18:11:00 18 /min Univ ersity [facility] Body height 2023-02-13 18:11:00 160 cm [facility] Body weight 2023-02-13 18:11:00 97.523 kg [facility] BMI 2023-02-13 18:11:00 38.09 kg/m2 [facility] Systolic blood 2023-02-10 19:40:00 122 mm[Hg] [facility] pressure [facility] Diastolic blood 2023-02-10 19:40:00 73 mm[Hg] Unive rsity of pressure [facility] Heart rate 2023-02-10 19:39:00 90 /min [facility] Body temperature 2023-02-10 19:39:00 36.5 Bel [facility] Body height 2023-02-10 19:39:00 160 cm [facility] Body weight 2023-02-10 19:39:00 97.886 kg [facility] BMI 2023-02-10 19:39:00 38.23 kg/m2 [facility] Body weight 2023-02-06 20:10:00 97.796 kg [facility] BMI 2023-02-06 20:10:00 38.19 kg/m2 [facility] Systolic blood 2023-02-06 20:10:00 133 mm[Hg] [facility] of pressure [facility] Diastolic blood 2023-02-06 20:10:00 73 mm[Hg] Unive rsity of pressure [facility] Heart rate 2023-02-06 20:10:00 84 /min [facility] Body temperature 2023-02-06 20:10:00 36.67 Bel [facility] Body height 2023-02-06 20:10:00 160 cm [facility] Systolic blood 2023-02-03 20:32:00 132 mm[Hg] [facility]ity of pressure [facility] Diastolic blood 2023-02-03 20:32:00 85 mm[Hg] Unive rsity of pressure [facility] Heart rate 2023-02-03 20:02:00 76 /min [facility] Body temperature 2023-02-03 20:02:00 36.72 Bel [facility] Respiratory rate 2023-02-03 20:02:00 18 /min Univ ersity [facility] Body height 2023-02-03 20:02:00 160 cm [facility] Body weight 2023-02-03 20:02:00 98.431 kg [facility] BMI 2023-02-03 20:02:00 38.44 kg/m2 [facility] Systolic blood 2023-01-30 18:58:00 137 mm[Hg] [facility] pressure [facility] Diastolic blood 2023-01-30 18:58:00 82 mm[Hg] Unive rsity of pressure [facility] Heart rate 2023-01-30 18:58:00 89 /min [facility] Body temperature 2023-01-30 18:58:00 36.72 Bel [facility] Respiratory rate 2023-01-30 18:58:00 18 /min Univ ersity [facility] Body height 2023-01-30 18:58:00 160 cm [facility] Body weight 2023-01-30 18:58:00 98.431 kg [facility] BMI 2023-01-30 18:58:00 38.44 kg/m2 [facility] Body temperature 2023-01-29 19:45:00 36.56 Bel [facility] Respiratory rate 2023-01-29 19:45:00 18 /min Univ ersity of [facility] Oxygen saturation in 2023-01-29 19:45:00 100 /min [facility] of Arterial blood by [facility] Pulse oximetry Branch Systolic blood 2023-01-29 12:40:00 129 mm[Hg] Univer sity of pressure [facility] Diastolic blood 2023-01-29 12:40:00 65 mm[Hg] Unive rsity of pressure [facility] Heart rate 2023-01-29 07:30:00 75 /min [facility] Body height 2023-01-28 19:40:00 160 cm [facility] Body weight 2023-01-28 19:40:00 96.662 kg [facility] BMI 2023-01-28 19:40:00 37.75 kg/m2 [facility] Systolic blood 2023-01-27 19:44:00 130 mm[Hg] [facility]iver [facility]ity of pressure [facility] Diastolic blood 2023-01-27 19:44:00 83 mm[Hg] Unive rsity of pressure [facility] Heart rate 2023-01-27 19:44:00 76 /min [facility] Body temperature 2023-01-27 19:44:00 36.67 Bel [facility] Body height 2023-01-27 19:44:00 160 cm [facility] Body weight 2023-01-27 19:44:00 97.523 kg [facility] BMI 2023-01-27 19:44:00 38.09 kg/m2 [facility] Systolic blood 2023-01-22 18:45:00 131 mm[Hg] Univer [facility]ity of pressure [facility] Diastolic blood 2023-01-22 18:45:00 79 mm[Hg] Unive rsity of pressure [facility] Heart rate 2023-01-22 18:45:00 71 /min [facility] Body temperature 2023-01-22 18:45:00 36.39 Bel [facility] Respiratory rate 2023-01-22 18:45:00 18 /min Univ ersity [facility] Body height 2023-01-22 18:45:00 160 cm [facility] Body weight 2023-01-22 18:45:00 97.07 kg [facility] BMI 2023-01-22 18:45:00 37.91 kg/m2 [facility] Systolic blood 2023-01-09 03:30:00 134 mm[Hg] Univer sity of pressure [facility] Diastolic blood 2023-01-09 03:30:00 56 mm[Hg] Unive rsity of pressure [facility] Heart rate 2023-01-09 03:30:00 83 /min [facility] Oxygen saturation in 2023-01-09 03:30:00 100 /min [facility] of Arterial blood by [facility] Pulse oximetry Branch Body temperature 2023-01-09 01:25:00 37.28 Bel Univ ersity of [facility] Respiratory rate 2023-01-09 01:25:00 18 /min Univ ersity of [facility] Systolic blood 2023-01-08 18:59:00 131 mm[Hg] Univer sity of pressure [facility] Diastolic blood 2023-01-08 18:59:00 79 mm[Hg] Unive rsity of pressure [facility] Heart rate 2023-01-08 18:59:00 87 /min [facility] of [facility] Body temperature 2023-01-08 18:59:00 36.67 Bel [facility] ers[facility] Respiratory rate 2023-01-08 18:59:00 16 /min Univ ersity of [facility] Body height 2023-01-08 18:59:00 160 cm [facility] Body weight 2023-01-08 18:59:00 95.709 kg [facility] of [facility] BMI 2023-01-08 18:59:00 37.38 kg/m2 [facility] Systolic blood 2022-12-25 15:45:00 128 mm[Hg] Univer sity of pressure [facility] Diastolic blood 2022-12-25 15:45:00 77 mm[Hg] Unive rsity of pressure [facility] Heart rate 2022-12-25 15:45:00 71 /min [facility] of [facility] Body temperature 2022-12-25 15:45:00 36.67 Bel Univ ersity of [facility] Body height 2022-12-25 15:45:00 160 cm [facility] Body weight 2022-12-25 15:45:00 94.62 kg [facility] BMI 2022-12-25 15:45:00 36.95 kg/m2 [facility] Systolic blood 2022-12-04 20:05:00 125 mm[Hg] Univer sity of pressure [facility] Diastolic blood 2022-12-04 20:05:00 74 mm[Hg] Unive rsity of pressure [facility] Heart rate 2022-12-04 20:05:00 76 /min [facility] Body temperature 2022-12-04 20:05:00 36.72 Bel [facility] Respiratory rate 2022-12-04 20:05:00 18 /min Univ ersity [facility] Body height 2022-12-04 20:05:00 160 cm [facility] Body weight 2022-12-04 20:05:00 94.348 kg [facility] BMI 2022-12-04 20:05:00 36.85 kg/m2 [facility] Body height 2022-11-20 22:10:00 160 cm [facility] Body weight 2022-11-20 22:10:00 91.173 kg [facility] BMI 2022-11-20 22:10:00 35.61 kg/m2 [facility] Systolic blood 2022-11-20 22:10:00 117 mm[Hg] Univer sity of pressure [facility] Diastolic blood 2022-11-20 22:10:00 73 mm[Hg] Unive rsity of pressure [facility] Heart rate 2022-11-20 22:10:00 69 /min [facility] Body temperature 2022-11-20 22:10:00 36.72 [facility] Respiratory rate 2022-11-20 22:10:00 18 /min Univ ersity [facility] Systolic blood 2022-11-07 15:16:00 130 mm[Hg] Univer sity of pressure [facility] Diastolic blood 2022-11-07 15:16:00 77 mm[Hg] Unive rsity of pressure [facility] Heart rate 2022-11-07 15:16:00 79 /min [facility] Body temperature 2022-11-07 15:16:00 36.5 Bel [facility] Body height 2022-11-07 15:16:00 160 cm [facility] Body weight 2022-11-07 15:16:00 90.901 kg [facility] BMI 2022-11-07 15:16:00 35.50 kg/m2 [facility] Systolic blood 2021-03-28 17:23:00 143 mm[Hg] Univer sity of pressure [facility] Diastolic blood 2021-03-28 17:23:00 77 mm[Hg] Unive rsity of pressure [facility] Heart rate 2021-03-28 17:23:00 65 /min [facility] Body temperature 2021-03-28 17:23:00 36.94 Bel [facility] Respiratory rate 2021-03-28 17:23:00 16 /min Univ ersity [facility] Body height 2021-03-28 17:23:00 160 cm [facility] Body weight 2021-03-28 17:23:00 74.844 kg [facility] BMI 2021-03-28 17:23:00 29.23 kg/m2 [facility] Oxygen saturation in 2021-03-28 17:23:00 100 /min University Arterial blood by [facility] Pulse oximetry Branch Systolic blood 2021-03-28 17:23:00 143 mm[Hg] Univer sity of pressure [facility] Diastolic blood 2021-03-28 17:23:00 77 mm[Hg] Unive rsity of pressure [facility] Heart rate 2021-03-28 17:23:00 65 /min [facility] Body temperature 2021-03-28 17:23:00 36.94 Bel [facility] Respiratory rate 2021-03-28 17:23:00 16 /min Univ ersity [facility] Body height 2021-03-28 17:23:00 160 cm [facility] Body weight 2021-03-28 17:23:00 74.844 kg [facility] BMI 2021-03-28 17:23:00 29.23 kg/m2 [facility] Oxygen saturation in 2021-03-28 17:23:00 100 /min University Arterial blood by [facility] Pulse oximetry Branch Systolic blood 2020-09-07 15:46:00 180 mm[Hg] Univer sity of pressure [facility] Diastolic blood 2020-09-07 15:46:00 100 mm[Hg] Unive rsity of pressure [facility] Heart rate 2020-09-07 15:07:00 108 /min [facility] of [facility] Body temperature 2020-09-07 15:07:00 35.78 Bel Univ ersity of [facility] Respiratory rate 2020-09-07 15:07:00 16 /min Univ ersity of [facility] Body height 2020-09-07 15:07:00 160 cm [facility] Body weight 2020-09-07 15:07:00 86.41 kg [facility] BMI 2020-09-07 15:07:00 33.75 kg/m2 [facility] Systolic blood 2020-09-07 15:46:00 180 mm[Hg] Univer sity of pressure [facility] Diastolic blood 2020-09-07 15:46:00 100 mm[Hg] Unive rsity of pressure [facility] Heart rate 2020-09-07 15:07:00 108 /min [facility] Body temperature 2020-09-07 15:07:00 35.78 Bel [facility] Respiratory rate 2020-09-07 15:07:00 16 /min Univ ersity of [facility] Body height 2020-09-07 15:07:00 160 cm [facility] Body weight 2020-09-07 15:07:00 86.41 kg [facility] BMI 2020-09-07 15:07:00 33.75 kg/m2 [facility] Systolic blood 2020-08-24 23:30:00 151 mm[Hg] Univer sity of pressure [facility] Diastolic blood 2020-08-24 23:30:00 90 mm[Hg] Unive rsity of pressure [facility] Heart rate 2020-08-24 23:30:00 53 /min [facility] Oxygen saturation in 2020-08-24 23:30:00 100 /min University Arterial blood by [facility] Pulse oximetry Branch Respiratory rate 2020-08-24 23:00:00 20 /min Univ ersity of [facility] Body temperature 2020-08-24 20:47:00 36.67 Bel [facility] Systolic blood 2020-08-24 17:07:00 154 mm[Hg] Univer sity of pressure [facility] Diastolic blood 2020-08-24 17:07:00 100 mm[Hg] Unive rsity of pressure [facility] Heart rate 2020-08-24 17:06:00 97 /min [facility] Body temperature 2020-08-24 17:06:00 36.33 Bel [facility] Respiratory rate 2020-08-24 17:06:00 16 /min Univ ersity of [facility] Body height 2020-08-24 17:06:00 160 cm [facility] Body weight 2020-08-24 17:06:00 82.328 kg [facility] BMI 2020-08-24 17:06:00 32.15 kg/m2 [facility] Systolic blood 2020-08-10 17:16:00 143 mm[Hg] Univer sity of pressure [facility] Diastolic blood 2020-08-10 17:16:00 91 mm[Hg] Unive rsity of pressure [facility] Heart rate 2020-08-10 17:15:00 56 /min [facility] Body temperature 2020-08-10 17:15:00 36.78 Bel [facility] Respiratory rate 2020-08-10 17:15:00 16 /min Univ ersity of [facility] Body height 2020-08-10 17:15:00 157.5 cm [facility] Body weight 2020-08-10 17:15:00 79.062 kg [facility] BMI 2020-08-10 17:15:00 31.88 kg/m2 [facility] Systolic blood 2020-07-13 16:11:00 140 mm[Hg] Univer sity of pressure [facility] Diastolic blood 2020-07-13 16:11:00 86 mm[Hg] [facility] Heart rate 2020-07-13 16:08:00 74 /min [facility] Body temperature 2020-07-13 16:08:00 36.78 Bel [facility] Respiratory rate 2020-07-13 16:08:00 16 /min [facility] Body height 2020-07-13 16:08:00 160 cm [facility] Body weight 2020-07-13 16:08:00 74.435 kg [facility] BMI 2020-07-13 16:08:00 29.07 kg/m2 [facility] Systolic blood 2020-06-15 16:11:00 143 mm[Hg] [facility] Diastolic blood 2020-06-15 16:11:00 86 mm[Hg] [facility] Heart rate 2020-06-15 16:10:00 59 /min [facility] Body temperature 2020-06-15 16:10:00 36.61 Bel [facility] Respiratory rate 2020-06-15 16:10:00 16 /min [facility] Body height 2020-06-15 16:10:00 157.5 cm [facility] Body weight 2020-06-15 16:10:00 74.662 kg [facility] BMI 2020-06-15 16:10:00 30.11 kg/m2 [facility] Systolic blood 2020-05-17 16:11:00 137 mm[Hg] [facility] Diastolic blood 2020-05-17 16:11:00 82 mm[Hg] [facility] Heart rate 2020-05-17 16:08:00 68 /min [facility] Body temperature 2020-05-17 16:08:00 37.06 Bel [facility] Respiratory rate 2020-05-17 16:08:00 16 /min [facility] Body height 2020-05-17 16:08:00 160 cm [facility] Body weight 2020-05-17 16:08:00 74.118 kg [facility] BMI 2020-05-17 16:08:00 28.95 kg/m2 [facility] Systolic blood 2020-04-19 15:03:00 138 mm[Hg] [facility] Diastolic blood 2020-04-19 15:03:00 85 mm[Hg] [facility] Heart rate 2020-04-19 15:03:00 70 /min [facility] Body temperature 2020-04-19 15:03:00 36.78 Bel [facility] Respiratory rate 2020-04-19 15:03:00 16 /min [facility] Body height 2020-04-19 15:03:00 160 cm [facility] Body weight 2020-04-19 15:03:00 67.217 kg [facility] BMI 2020-04-19 15:03:00 26.25 kg/m2 [facility] Systolic blood 2020-03-27 19:36:00 157 mm[Hg] [facility] Diastolic blood 2020-03-27 19:36:00 95 mm[Hg] [facility] Heart rate 2020-03-27 19:21:00 71 /min [facility] Body temperature 2020-03-27 19:21:00 36.61 Bel [facility] Respiratory rate 2020-03-27 19:21:00 16 /min [facility] Body height 2020-03-27 19:21:00 157.5 cm [facility] Body weight 2020-03-27 19:21:00 64.921 kg [facility] BMI 2020-03-27 19:21:00 26.18 kg/m2 [facility] Systolic blood 2020-03-22 15:12:00 142 mm[Hg] [facility] Diastolic blood 2020-03-22 15:12:00 72 mm[Hg] [facility] Heart rate 2020-03-22 14:57:00 56 /min [facility] Body temperature 2020-03-22 14:57:00 35.94 Bel [facility] Respiratory rate 2020-03-22 14:57:00 16 /min [facility] Body height 2020-03-22 14:57:00 160 cm [facility] Body weight 2020-03-22 14:57:00 67.274 kg [facility] BMI 2020-03-22 14:57:00 26.27 kg/m2 [facility] Systolic blood 2020-03-21 15:33:00 152 mm[Hg] Univer sity of pressure [facility] Diastolic blood 2020-03-21 15:33:00 106 mm[Hg] Unive rsity of pressure [facility] Heart rate 2020-03-21 15:33:00 71 /min Universi [facility] of [facility] Body temperature 2020-03-21 15:33:00 36.89 Bel [facility] Respiratory rate 2020-03-21 15:33:00 17 /min [facility] Body height 2020-03-21 15:33:00 160 cm Universi ty of [facility] Body weight 2020-03-21 15:33:00 68.04 kg Universi ty [facility] BMI 2020-03-21 15:33:00 26.57 kg/m2 Universi ty [facility] Oxygen saturation in 2020-03-21 15:33:00 99 /min [facility] Arterial blood by [facility] Pulse oximetry Branch Procedures Procedure Date / Time Performing Clinician Source Performed CBC WITH DIFF 2023-02-19 09:05:00 Marvin Garcia [facility] CBC WITH DIFF 2023-02-19 09:05:00 Marvin Garcia [facility] SURGICAL PATHOLOGY EXAM 2023-02-18 13:13:00 Marvin Garcia [facility] SURGICAL PATHOLOGY EXAM 2023-02-18 13:13:00 Marvin Garcia [facility] SECTION 2023-02-18 11:51:00 Marvin Garcia [facility] TUBAL LIGATION 2023-02-18 11:51:00 Marvin Garcia [facility] SECTION 2023-02-18 11:51:00 Marvin Garcia [facility] TUBAL LIGATION 2023-02-18 11:51:00 Marvin Garcia [facility] CBC WITH DIFF 2023-02-18 10:51:00 Marvin Garcia [facility] HEPATITIS B SURFACE 2023-02-18 10:51:00 Marvin Garcia [facility] ANTIGEN Medical Branch HB ABO GROUPING 2023-02-18 10:51:00 aMrvin Garcia [facility] RHO (D) IMMUNE GLOBULIN 2023-02-18 10:51:00 Marvin Garcia [facility] ADC OR RICKY ONLY - 2023-02-18 10:51:00 Marvin Garcia [facility] HIV 1/2 AG-AB WITH 2023-02-18 10:51:00 Marvin Garcia [facility] REFLEX Medical Branch CBC WITH DIFF 2023-02-18 10:51:00 Marvin Garcia [facility] HEPATITIS B SURFACE 2023-02-18 10:51:00 Marvin Garcia [facility] ANTIGEN Medical Branch HB ABO GROUPING 2023-02-18 10:51:00 Marvin Garcia [facility] RHO (D) IMMUNE GLOBULIN 2023-02-18 10:51:00 Marvin Garcia [facility] ADC OR RICKY ONLY - 2023-02-18 10:51:00 Marvin Garcia [facility] HIV 1/2 AG-AB WITH 2023-02-18 10:51:00 Marvin Garcia [facility] REFLEX [facility] NON-STRESS TEST 2023-02-17 20:20:45 Jose Marvin Alonso [facility] NOTICE OF PRIVACY 2023-02-17 20:12:27 Doctor Unassigned, No Univ [facility] Medical Branch NOTICE OF PRIVACY 2023-02-17 20:12:27 Doctor Unassigned, No Univ [facility] Medical Branch CONSENT/REFUSAL FOR 2023-02-17 20:10:43 Doctor Unassigned, No [facility] [place] [facility] Name Medical Branch CONSENT/REFUSAL FOR 2023-02-17 20:10:43 Doctor Unassigned, No [facility] [place] [facility] Name Medical Branch ASSIGNMENT OF BENEFITS 2023-02-17 20:10:13 Doctor Unassigned, No [facility] ASSIGNMENT OF BENEFITS 2023-02-17 20:10:13 Doctor Unassigned, No [facility] NON-STRESS TEST 2023-02-13 18:56:00 Marvin Garcia [facility] POCT URINALYSIS W/O 2023-02-13 00:00:00 JoseMarvin Gavin [facility] NON-STRESS TEST 2023-02-10 21:30:06 GarciaMarvin [facility] >14 WEEKS US 2023-02-06 23:07:39 Marvin Garcia [facility] NON-STRESS TEST 2023-02-06 23:05:59 Marvin Garcia [facility] DSU PRE-OP 2023-02-06 05:01:00 Doctor Unassigned, No [facility] POCT URINALYSIS W/O 2023-02-06 00:00:00 Marvin Garcia Gavin [facility] NON-STRESS TEST 2023-02-03 20:29:39 Marvin Garcia [facility] NON-STRESS TEST 2023-01-30 23:14:28 Marvin Garcia [facility] >14 WEEKS US 2023-01-30 23:13:34 Marvin Garcia [facility] US DUPLEX VENOUS ARM 2023-01-29 15:23:51 Hector Ryder [facility] RIGHT - BY VASCULAR LAB [facility] VITAMIN B12, LEVEL 2023-01-29 12:24:[address] [facility] FOLATE 2023-01-29 12:24:00 Hector Ryder [facility] IRON PANEL 2023-01-29 12:24:00 Hector Ryder [facility] PROTHROMBIN TIME / INR 2023-01-29 12:24:00 Hector Ryder [facility] ACTIVATED PARTIAL 2023-01-29 12:24:00 Hector Ryder [facility] THRMPLAS [facility] VITAMIN D, 25-OH 2023-01-29 12:24:00 Hector Ryder [facility] FERRITIN SERUM 2023-01-29 00:13:00 [facility] BASIC METABOLIC PANEL 2023-01-29 00:13:00 Michael Kiser [facility] (NA, K, CL, CO2, Medical Branch GLUCOSE, BUN, CREATININE, CA) CBC WITH DIFF 2023-01-28 21:55:00 Jose [facility] HB ABO GROUPING 2023-01-28 21:55:00 Jose [facility] CONSENT/REFUSAL FOR 2023-01-28 19:33:07 Doctor Unassigned, No [facility] NON-STRESS TEST 2023-01-27 21:45:45 Jose [facility] POCT URINALYSIS W/O 2023-01-27 19:55:00 Marvin Garcia [facility] NON-STRESS TEST 2023-01-22 19:36:27 Lina [facility] POCT URINALYSIS W/O 2023-01-22 00:00:00 Lina Brian [facility] SPECIFIC [facility] AMYLASE 2023-01-09 02:00:00 Adum, Jayda Nesha [facility] LIPASE 2023-01-09 02:00:00 Adum, [facility] COMP. METABOLIC PANEL 2023-01-09 02:00:00 Adcampbell, [facility] ([id number]) [facility] CBC WITH DIFF 2023-01-09 02:00:00 Adcampbell, Haskell Nesha [facility] ASSIGNMENT OF BENEFITS 2023-01-09 01:08:17 Doctor Unassigned, No [facility] CONSENT/REFUSAL FOR 2023-01-09 01:00:26 Doctor Unassigned, No [facility] POCT URINALYSIS W/O 2023-01-08 00:00:00 Marvin Garcia [facility] TDAP VACCINE, >11 YRS, 2022-12-25 15:46:50 Marvin Garcia [facility] Medical Branch POCT URINALYSIS W/O 2022-12-25 00:00:00 Marvin Garcia [facility] PATIENT FINANCIAL 2022-12-04 19:44:32 Doctor Unassigned, No [facility] POCT URINALYSIS W/O 2022-12-04 00:00:00 Brian Mills [facility] POCT URINALYSIS W/O 2022-11-20 00:00:00 Marvin Garcia [facility] EXTERNAL PROVIDER 2022-11-18 06:01:00 Doctor Unassigned, No [facility] FLU VACC ([id number]), 6 2022-11-07 15:24:24 Marvin Garcia [facility] MO-64 YRS, .5ML, IM, Medical [facility] QUAD (FLUCELVAX) ASSIGNMENT OF BENEFITS 2022-11-07 14:44:01 Doctor Unassigned, No [facility] POCT TEST 2022-11-07 00:00:00 Marvin Garcia [facility] POCT URINALYSIS W/O 2022-11-07 00:00:00 Marvin Garcia [facility] URINALYSIS 2021-03-28 18:19:00 Lion García [facility] HEPATIC FUNCTION PANEL 2021-03-28 17:46:00 Lion García [facility] ([id number]) (ALB,T.PRO,BILI Medical Branch T,BU/BC,ALT,AST,ALK PHOS) BASIC METABOLIC PANEL 2021-03-28 17:46:00 Lion García [facility] (NA, K, CL, CO2, Medical Branch GLUCOSE, BUN, CREATININE, CA) CBC WITH DIFF 2021-03-28 17:46:00 Lion García [facility] AUTHORIZATION FOR 2020-09-11 06:01:00 Doctor Unassigned, No [facility] RELEASE OF PHI Name Medical Branch TDAP VACCINE, >11 YRS, 2020-09-07 15:03:46 Johnna Hickey [facility] Medical Branch POCT URINALYSIS 2020-09-07 00:00:[address] [facility] SGOT (ASPARTATE AMINO 2020-08-24 21:01:00 [facility] TRANSFER) Medical Branch CREATININE 2020-08-24 21:01:00 [facility] ALANINE AMINO 2020-08-24 21:01:00 [facility], [facility] TRANSFERASE(SGPT Medical Branch LACTATE DEHYDROGENASE 2020-08-24 21:01:00 [facility] URIC ACID 2020-08-24 21:01:00 [facility] CBC WITH DIFF 2020-08-24 21:01:00 [facility] URINALYSIS 2020-08-24 21:01:00 [place] [facility], [facility] PROTEIN CREAT RATIO 2020-08-24 21:01:00 Nu [place], [facility] URINE RANDOM Medical Branch COVID-19 (ID NOW RAPID 2020-08-24 20:36:00 Dread Rowe [facility] TESTING) Medical Branch POCT URINALYSIS 2020-08-24 00:00:[address] [facility] POCT URINALYSIS 2020-08-10 00:00:[address] [facility] FLU VACC ([id number]), 6+ 2020-07-13 16:21:35 Johnna Hickey [facility] MONTHS, IM, QUAD Medical Branch POCT URINALYSIS 2020-07-13 00:00:[address] [facility] POCT URINALYSIS 2020-06-15 00:00:[address] [facility] POCT URINALYSIS 2020-05-17 00:00:[address] [facility] POCT URINALYSIS 2020-04-19 15:06:[address] [facility] POCT TEST 2020-03-22 14:56:00 [facility] POCT URINALYSIS W/O 2020-03-22 14:56:00 [facility] SPECIFIC GRAVITY [facility] POCT TEST 2020-03-21 15:58:00 Em Russell [facility] NOTICE OF PRIVACY 2020-03-21 15:27:48 Doctor Unassigned, No Univ [facility] PRACTICES Name [facility] CONSENT/REFUSAL FOR 2020-03-21 15:27:09 Doctor Unassigned, No [facility] Encounters Start End Encounter Admission Attending Care Care Encounter Source Date/Time Date/Time Type Type Clinicians Facility Department ID 2023-01-08 Outpatient X [facility] ERICK [id number] Univers 23:43:22 ity [facility] 2021-11-14 Outpatient [facility] [id number] [place] 01:04:55 Health 2021-08-06 Emergency [facility] [id number] Univers 03:15:28 ity of [facility] 2021-08-04 Outpatient P [facility] ERICK [id number] Univers 06:46:37 ity [facility] 2021-08-04 Outpatient [facility] [id number] Univers 06:42:00 ity of [facility] 2023-03-04 2023-03-04 Outpatient R BRUNA MONTE [facility] U TMB [id number] Univers 15:45:00 15:45:00 RACHEL MONTESOL ity [facility] 2023-02-18 2023-02-21 Inpatient P MARVIN GARCIA [facility] ERICK [id number] Univers 05:00:00 10:22:00 ity [facility] 2023-02-18 2023-02-21 [facility] Marvin Garcia [facility] 1.2.840.114 [id number] Univers 05:00:00 10:22:00 Encounter Cam JORDAN [id number] ity of [facility] [id number] [id number] [facility] 083 Branch 2023-02-18 2023-02-18 Surgery Marvin Garcia [facility] [id number] Univers 07:50:00 09:37:00 Cam [place] [id number] i ty of [id number] [id number] [facility] 013 Branch 2023-02-17 2023-02-17 Outpatient R MARVIN GARCIA [facility] [id number] Univers 14:00:00 14:56:36 ity of [facility] 2023-02-17 2023-02-17 Routine Room, [facility] 1.2.840.1 14 [id number] Univers 14:00:00 14:56:36 Marvin Garcia [place] [id number] ity of [place] [id number] Mt dical NAL [address] [place] [address] 2023-02-13 2023-02-13 Routine Room, [facility] 1.2.840.1 14 [id number] Univers 13:00:00 13:53:07 Marvin Garcia [id number] ity of Visit [facility] [id number] [id number] Mt dical NAL [address] [facility] 2023-02-13 2023-02-13 Outpatient R JOSE MARVIN [facility] [id number] Univers 13:00:00 13:53:07 ity of [facility] 2023-02-11 2023-02-11 Cook Dinner Ultrasound, [facility] 1.2 .840.114 [id number] Univers 14:00:00 15:00:00 Visit Danyel Richardson 350.1 .13.10 ity of [facility] [id number] [id number] Mt dical NAL 134 [facility] 2023-02-11 2023-02-11 Outpatient P CAROL [facility] [id number] Univers 14:00:00 14:00:00 KOUTROUVELI it y of S, [place] [facility] 2023-02-10 2023-02-10 Routine Room, [facility] 1.2.840.1 14 [id number] Univers 14:00:00 15:19:00 Marvin Garcia [place] [id number] ity of [place] [id number] Mt dical NAL [address] [place] [address] 2023-02-10 2023-02-10 Outpatient R MARVIN GARCIA [facility] [id number] Univers 14:00:00 15:19:00 ity of [facility] 2023-02-06 2023-02-06 Outpatient R JOSE MARVIN [facility] [id number] Univers 15:00:00 15:59:45 ity of [facility] 2023-02-06 2023-02-06 Routine Room, [facility] 1.2.840.1 14 [id number] Univers 15:00:00 15:59:45 Marvin Garcia [place] [id number] ity of [place] [id number] Mt dical NAL [address] [place] [address] 2023-02-06 2023-02-06 Orders Doctor JANEY 1.2.840.114 [id number] Univers 00:00:00 00:00:00 Only Unassigned, TRICIA 350.1.13.10 ity of [place] [facility] 4.2.7.2.686 Varun as [id number] [address] 2023-02-03 2023-02-03 Outpatient R MARVIN GARCIA [facility] [id number] Univers 15:00:00 15:28:32 ity of [facility] 2023-02-03 2023-02-03 Routine Room, [facility] 1.2.840.1 14 [id number] Univers 15:00:00 15:28:32 Marvin Garcia [place] 350.1.13.10 ity of [place] 4[place] [id number] Mt dical NAL [address] [place] [address] 2023-01-30 2023-01-30 Outpatient R MARVIN GARCIA [facility] [id number] Univers 14:00:00 14:52:01 ity of [facility] 2023-01-30 2023-01-30 Routine Room, [facility] 1.2.840.1 14 [id number] Univers 14:00:00 14:52:01 Marvin Garcia [place] 350.1.13.10 ity of [place] 4[place] [id number] Mt dical [address] 2023-01-28 2023-01-29 Outpatient X MARVIN GARCIA [facility] ERICK [id number] Univers 14:42:00 16:20:00 ity of [facility] 2023-01-28 2023-01-29 Emergency Marvin Garcia [facility] 1.2.840.114 [id number] Univers 14:42:00 16:20:00 Cam [place] 350.1.13.10 i ty of [place] [id number] [address] 2023-01-27 2023-01-27 Outpatient R MARVIN GARCIA [facility] [id number] Univers 15:00:00 15:47:47 ity of [facility] 2023-01-27 2023-01-27 Routine Room, [facility] 1.2.840.1 14 [id number] Univers 15:00:00 15:47:47 Marvin Garcia [place] 350.1.13.10 ity of [place] [id number] Mt dical NAL [address] [place] [address] 2023-01-22 2023-01-22 Routine Brian Mills [facility] 1.2.840.11 [id number] Univers 14:45:00 14:45:00 Marvin Garcia [place] 350.1.13.10 ity of [place] 4[place] [id number] Mt dic[address] 2023-01-22 2023-01-22 Outpatient R MARVIN GARCIA [facility] [id number] Univers 14:45:00 14:25:09 ity of [facility] 2023-01-09 2023-01-09 Telephone Jose [facility] 1.2.840.114 [id number] Univers 00:00:00 00:00:00 Cam [place] 350.1.13.10 i ty of [place] [id number] Mt dic[address] 2023-01-08 2023-01-08 Outpatient X ADUM, [facility] ERICK [id number] Univers 20:10:00 23:10:00 JAYDA ity of [facility] 2023-01-08 2023-01-08 [facility] [id number] Univers 20:10:00 23:10:00 Jayda L [place] 350.1.13.10 ity of [place] [id number] [address] 2023-01-08 2023-01-08 Routine Garcia [facility] 1.2.383.503 [id number] Univers 14:45:00 14:45:00 Cam [place] 350.1.13.10 ity of [place] [id number] [address] 2023-01-08 2023-01-08 Outpatient R MARVIN GARCIA [facility] [id number] Univers 14:45:00 14:29:58 ity of [facility] 2022-12-25 2022-12-25 Outpatient R GARCIA [facility] [id number] Univers 10:45:00 11:09:38 ity of [facility] 2022-12-25 2022-12-25 Routine Garcia [facility] [id number] Univers 10:45:00 11:09:38 Cam [place] 350.1.13.10 ity of [place] [id number] Mt dical NAL 134 [facility] 2022-12-25 2022-12-25 Cook Dinner 2, Adc Lab [facility] 1.2.840.114 [id number] Univers 09:30:00 09:45:00 Visit Marvin Garcia 350.1.13.10 ity of [place] [id number] Mt dical NAL 353 [facility] 2022-12-04 2022-12-04 Outpatient R LINA [facility] [id number] Univers 14:15:00 14:56:46 BRIAN ity [facility] 2022-12-04 2022-12-04 [facility] [id number] Univers 14:15:00 14:56:46 Brian [place] 350.1.13.10 ity of [place] [id number] Mt dical [address] 2022-12-04 2022-12-04 Orders Doctor JANEY 1.2.840.114 [id number] Univers 00:00:00 00:00:00 Only Unassigned, TRICIA 350.1.13.10 ity of [place] [facility] 4.2.7.2.686 Varun as [id number] [address] 2022-11-21 2022-11-21 Outpatient R [facility] [id number] Univers 11:00:00 11:00:00 ity of [facility] 2022-11-20 2022-11-20 Outpatient R MARVIN GARCIA [facility] [id number] Univers 16:00:00 16:55:44 ity of [facility] 2022-11-20 2022-11-20 Routine Marvin Garcia [facility] [id number] Univers 16:00:00 16:55:44 Gavin [place] 350.1.13.10 ity of [place] [id number] Mt dical NAL [address] [place] [address] 2022-11-18 2022-11-18 Orders Doctor JANEY 1.2.840.114 [id number] Univers 00:00:00 00:00:00 Only Unassigned, TRICIA 350.1.13.10 ity of [place] [facility] 4.2.7.2.686 Varun as [id number] [facility] 009 Alliance 2022-11-07 2022-11-07 Cook Dinner 2, Adc Lab [facility] 1.2.840.114 [id number] Univers 11:15:00 11:30:00 Visit Marvin Garcia 350.1.13.10 ity of [place] [id number] [facility] [address] [facility] 2022-11-07 2022-11-07 Outpatient R MARVIN GARCIA [facility] [id number] Univers 09:00:00 10:19:00 ity of [facility] 2022-11-07 2022-11-07 Initial Brian Mills [facility] 1.2.840.11 [id number] Univers 09:00:00 10:19:00 Marvin Garcia 350.1.13.10 ity of [place] [id number] Mt [address] 2022-11-07 2022-11-07 Orders Doctor JANEY 1.2.840.114 [id number] Univers 00:00:00 00:00:00 Only Unassigned, TRICIA 350.1.13.10 ity of [facility] 4.2.7.2.686 Varun as [id number] [facility] [address] 2022-11-07 2022-11-07 Telephone [facility] 1.2.840.114 [id number] Univers 00:00:00 00:00:00 Gavin ORTEGA 350.1.13.10 i ty of [facility] 4.2.7.2.[place] [id number] Mt dical [facility] 134 [facility] 2022-10-29 2022-10-29 Outpatient R MARVIN GARCIA [facility] [id number] Univers 15:45:00 15:45:00 ity of [facility] 2022-10-29 2022-10-29 Telephone Marvin Garcia [facility] 1.2.840.114 [id number] Univers 00:00:00 00:00:00 Gavin ORTEGA 350.1.13.10 i ty of [place].7.2.[place] [id number] Mt dical NAL 134 [facility] 2021-08-15 2021-08-15 Inpatient E NELSON, KM [facility] 7[address] 05:19:00 02:12:[address] [facility] l 2021-03-28 2021-03-28 Emergency [facility] 1.2.143.590 [id number] Univers 12:28:00 14:08:00 Lion Ortega 350.1.13.10 i ty of [place].2.[place] [id number] [address] 2021-03-28 2021-03-28 [facility] 1.2.470.656 [id number] 12:28:00 14:08:00 Lion Ortega 350.1.13.10 [place] 4.2.7.2.686 [place] [id number] 4 2020-10-12 2020-10-12 [facility]patient [facility] [id number] Univers 10:45:00 10:45:00 JOSE CRUZNDA ity o f [facility] 2020-09-21 2020-09-21 Outpatient R EDELMIRA [facility] [id number] Univers 08:30:00 08:30:00 JOSE CRUZNDA ity o f [facility] 2020-09-18 2020-09-18 Outpatient R AKINSIVIVIEN [facility] [id number] Univers 08:00:00 08:00:00 NILAM ity o f [facility] 2020-09-11 2020-09-11 Telephone [facility] 1.2.188.110 [id number] Univers 00:00:00 00:00:00 Segundoa R PRACTICE ARCHITECT 350.1.13.10 ity [facility] 4.2.7.2.686 Varun as MATERNAL [id number] Med ical & CHILD [address] [place] [address] 2020-09-11 2020-09-11 Orders Doctor JANEY 1.2.840.114 [id number] Univers 00:00:00 00:00:00 Only Unassigned, TRICIA 350.1.13.10 ity of [facility] 4.2.7.2.686 Varun as [id number] [address] 2020-09-11 2020-09-11 Telephone [facility] 1.2.386.014 [id number] 00:00:00 00:00:00 Roshunda R PRACTICE ARCHITECT 350.1.13.10 REGIONAL 4.2.7.2.686 MATERNAL [id number] & CHILD [address] [place] [address] 2020-09-11 2020-09-11 Orders Doctor JANEY 1.2.840.114 [id number] 00:00:00 00:00:00 Only Unassigned, TRICIA 350.1.13.10 [facility] 4.2.7.2.686 [id number] [facility] 2020-09-08 2020-09-08 Outpatient F[facility] [id number] Univers 08:30:00 08:30:00 JOSE CRUZNDA ity o f [facility] 2020-09-07 2020-09-07 Routine [facility] 1.2.840.114 [id number] Univers 08:47:13 09:56:09 Roshunda R PRACTICE ARCHITECT 350.1.13.10 ity of Visit REGIONAL 4.2.7.2.686 Varun as MATERNAL [id number] [facility] ical & CHILD [address] [place] [address] 2020-09-07 2020-09-07 Routine [facility] 1.2.840.114 [id number] 08:47:13 09:56:09 Roshunda R PRACTICE ARCHITECT 350.1.13.10 Visit REGIONAL 4.2.7.2.686 MATERNAL [id number] & CHILD [address] [place] [address] 2020-09-07 2020-09-07 Outpatient [facility] [id number] Univers 08:45:00 08:45:00 ROSHUNDA ity o f [facility] 2020-08-29 2020-08-29 Cook Dinner Lab, [facility] 1.2.840. 114 [id number] Univers 08:24:12 08:34:11 Visit Hickey, Johnna R PRACTICE ARCHITECT 350.1.13.10 ity of REGIONAL 4.2.7.2.686 Varun as MATERNAL [id number] [facility] ical & CHILD [address] [place] [address] 2020-08-29 2020-08-29 Cook Dinner Lab, [facility] 1.2.840.114 [id number] 08:24:12 08:34:11 Visit [facility] PRACTICE ARCHITECT 350.1.13.10 REGIONAL 4.2.7.2.686 MATERNAL [id number] & [address] 2020-08-29 2020-08-29 Outpatient R [facility] [id number] Univers 08:00:00 08:00:00 ity of [facility] 2020-08-24 2020-08-24 [facility] 1.2.634.099 [id number] Univers 14:10:00 18:15:00 Encounter Dread CLARKE 350.1.13.10 ity of [place].2.[place] [id number] [address] 2020-08-24 2020-08-24 [facility]ine [facility] 1.2.840.114 [id number] Univers 10:59:45 11:26:10 Rosreginanda R PRACTICE ARCHITECT 350.1.13.10 ity of Visit REGIONAL 4.2.7.2.686 Varun as MATERNAL [id number] [facility] ical & CHILD [address] [place] [address] 2020-08-24 2020-08-24 Outpatient [facility] [id number] Univers 11:00:00 11:00:00 ROSREGINANDA ity o f [facility] 2020-08-10 2020-08-10 [facility]ine [facility] 1.2.840.114 [id number] Univers 10:59:05 11:14:05 Rosreginanda R PRACTICE ARCHITECT 350.1.13.10 ity of Visit REGIONAL 4.2.7.2.686 Varun as MATERNAL [id number] Med ical & CHILD [address] [place] [address] 2020-08-10 2020-08-10 Outpatient R EDELMIRA [facility] [id number] Univers 11:00:00 11:00:00 JOSE CRUZNDA ity o f [facility] 2020-07-13 2020-07-13 [facility] 1.2.840.114 [id number] Univers 11:00:20 11:28:29 Rosreginanda R PRACTICE ARCHITECT 350.1.13.10 ity of Visit REGIONAL 4.2.7.2.686 Varun as MATERNAL [id number] Med ical & CHILD [address] [place] [address] 2020-07-13 2020-07-13 Outpatient R EDELMIRA [facility] [id number] Univers 11:00:00 11:00:00 JOSE CRUZNDA ity o f [facility] 2020-07-11 2020-07-11 Cook Dinner Ultrasound, [facility] 1.2 .840.114 [id number] Univers 10:05:09 11:05:09 Visit La Nean Rojas PRACTICE ARCHITECT 350.1.13.10 ity of REGIONAL 4.2.7.2.686 Varun as MATERNAL [id number] Med ical & CHILD [facility] 2020-07-11 2020-07-11 Outpatient P [facility] [id number] Univers 10:00:00 10:00:00 ity of [facility] 2020-07-11 2020-07-11 Abstract [facility] 1.2.840.114 [id number] Univers 00:00:00 00:00:00 Rosberthaa R PRACTICE ARCHITECT 350.1.13.10 ity of [place] 4.2.7.2.686 Varun as MATERNAL [id number] Med ical & CHILD [address] [place] [address] 2020-06-28 2020-06-28 Telephone Damien [facility] 1.2.840.114 [id number] Univers 00:00:00 00:00:00 Lucy Walton PRACTICE ARCHITECT 350.1.13.10 ity of REGIONAL 4.2.7.2.686 Varun as MATERNAL [id number] Med ical & CHILD [address] [place] [address] 2020-06-15 2020-06-15 Routine Edelmira [facility] 1.2.840.114 [id number] Univers 10:55:39 11:26:19 Roshunda R PRACTICE ARCHITECT 350.1.13.10 ity of Visit REGIONAL 4.2.7.2.686 Varun as MATERNAL [id number] [facility] [address] [place] [address] 2020-06-15 2020-06-15 Outpatient R EDELMIRA [facility] [id number] Univers 10:45:00 10:45:00 ROSHUNDA ity o f [facility] 2020-05-17 2020-05-17 Routine Edelmira [facility] 1.2.840.114 [id number] Univers 10:25:19 11:25:41 Roshunda R PRACTICE ARCHITECT 350.1.13.10 ity of Visit REGIONAL 4.2.7.2.686 Varun as MATERNAL [id number] [facility] & [address] 2020-05-17 2020-05-17 Outpatient R EDELMIRA [facility] [id number] Univers 10:45:00 10:45:00 ROSHUNDA ity o f [facility] 2020-05-09 2020-05-09 Abstract Edelmira [facility] 1.2.840.114 [id number] Univers 00:00:00 00:00:00 Roshunda R PRACTICE ARCHITECT 350.1.13.10 ity of [place] 4.2.7.2.686 Varun as MATERNAL [id number] [facility] & CHILD [address] [place] [address] 2020-05-08 2020-05-08 Cook Dinner Ultrasound, Corona-Mfkaran [facility] 1.2 .840.114 [id number] Univers 11:36:57 12:06:57 Visit Carol Tineosami Danyel PRACTICE ARCHITECT 350.1. 13.10 ity of REGIONAL 4.2.7.2.686 Varun as MATERNAL [id number] [facility] 2020-05-08 2020-05-08 Outpatient P [facility] [id number] Univers 11:30:00 11:30:00 ity of [facility] 2020-04-19 2020-04-19 Routine Edelmira [facility] 1.2.840.114 [id number] Univers 09:47:03 10:21:03 Roshunda R PRACTICE ARCHITECT 350.1.13.10 ity of Visit REGIONAL 4.2.7.2.686 Varun as MATERNAL [id number] [facility] & CHILD [address] [place] [address] 2020-04-19 2020-04-19 Outpatient R EDELMIRA [facility] [id number] Univers 09:30:00 09:30:00 ROSHUNDA ity o f [facility] 2020-03-27 2020-03-27 [facility] 1.2 .840.114 [id number] Univers 14:12:56 15:21:18 Visit Mireille Hickeyboby R PRACTICE ARCHITECT 350.1.13.10 ity of REGIONAL 4.2.7.2.686 Varun as MATERNAL [id number] [facility] & [address] 2020-03-27 2020-03-27 Outpatient R [facility] [id number] Univers 13:30:00 13:30:00 ity of [facility] 2020-03-23 2020-03-23 Telephone [facility] [id number] Univers 00:00:00 00:00:00 Roshunda R PRACTICE ARCHITECT 350.1.13.10 ity of REGIONAL 4.2.7.2.686 Varun as MATERNAL [id number] [facility] & [address] 2020-03-22 2020-03-22 Initial [facility] 1.2.840.114 [id number] Univers 09:37:22 11:02:45 Roshunda R PRACTICE ARCHITECT 350.1.13.10 ity of Visit [facility] 4.2.7.2.686 Varun as MATERNAL [id number] [facility] & [address] 2020-03-22 2020-03-22 Outpatient R EDELMIRA [facility] [id number] Univers 09:15:00 09:15:00 ROSHUNDA ity o f [facility] 2020-03-22 2020-03-22 [facility] [id number] Univers 08:45:00 08:45:00 JOHNNA beavers o marisol [facility] 2020-03-21 2020-03-21 [facility] 1.2.840.114 [id number] Univers 10:29:34 11:25:00 Em Marin[place].1.13.10 [place] 4.2.7.2.686 [facility] [id number] [place] 693634 [facility] 2020-03-21 2020-03-21 Emergency [facility] [id number] Univers 10:29:34 10:29:34 EM [facility] 2016-11-13 2016-11-13 Emergency X SHELIA [facility] ERT [id number] Univers 00:25:49 01:36:00 MARY [facility] Results Test Description Test Time Test Comments Results Result Comments Source [facility] OR [place] ONLY - RPR 2023-02-19 06:48:24 Test Item Value Reference Range Interpretation Comme nts RPR (Qualitative) (test code = 55876-7) Nonreactive Nonreactive Lab Interpretation (test code = 08485-7) Normal [facility] OR [place] ONLY - [id number] 06:48:24 Test Item Value Reference Range Interpretation Comments RPR (Qualitative) (test code = Nonreactive Nonreactive 19709-4) Lab Interpretation (test code = Normal 15918-2) [facility] (D) IMMUNE [id number] 16:19:45 Test Item Value Reference Range Interpretation Comments RHIG CANDIDATE? No- see comment Patient i s not a (test code = candidate for R hIg- 5188) Patient is Rh Positive.Perfor med at [facility] Laboratory Services - [facility] Blood [address] [place] [address]Odqi Free: [phone] A No. [id number] [facility] (D) IMMUNE [id number] 16:19:45 Test Item Value Reference Range Interpretation Comments RHIG CANDIDATE? No- see comment Patient i s not a (test code = candidate for R hIg- 5188) Patient is Rh Positive.Perfor med at [facility] Laboratory Services - [facility] Blood [address] [place], [place] [address]Toll Free: [phone] A No. [id number] [facility] (D) IMMUNE [id number] 16:19:45 Test Item Value Reference Range Interpretation Comments RHIG CANDIDATE? No- see comment Patient i s not a (test code = candidate for R hIg- 5188) Patient is Rh Positive.Perfor med at [facility] Laboratory Services - [facility] Blood [address] [place], [place] [address]Toll Free: [phone] A No. [id number] [facility] (D) IMMUNE [id number] 16:19:45 Test Item Value Reference Range Interpretation Comments RHIG CANDIDATE? No- see comment Patient i s not a (test code = candidate for R hIg- 5188) Patient is Rh Positive.Perfor med at [facility] Laboratory [facility] - [facility] Blood [address] [place] [address] Free: [phone] A No. [id number] [facility] B Surface [id number] 15:28:19 Test Item Value Reference Range Interpretation Comments HBsAg Semi-Quantitative (test code = 0.04 Negative 5195-3) [facility] B Surface [id number] 15:28:19 Test Item Value Reference Range Interpretation Comments HBsAg Semi-Quantitative (test code = 0.04 Negative 5195-3) [facility] WITH [id number] 12:40:41 Test Item Value Reference Range Interpretation Comments HIV 0.12 Negative Semi-quantitative (test code = 22920-5) MIGUEL ANGEL (test code = Non-reactive for HIV-1 MIGUEL ANGEL) antigen and HIV-1/HIV-2 antibodies. ?No laboratory evidence of HIV infection. ?Repeat in 2-4 weeks if acute HIV infection is suspected. [facility]-AB WITH [id number] 12:40:41 Test Item Value Reference Range Interpretation Comments HIV 0.12 Negative Semi-quantitative (test code = 09417-9) MIGUEL ANGEL (test code = Non-reactive for HIV-1 MIGUEL ANGEL) antigen and HIV-1/HIV-2 antibodies. ?No laboratory evidence of HIV infection. ?Repeat in 2-4 weeks if acute HIV infection is suspected. [facility] with [id number] 11:22:57 Test Item Value Reference Range Interpretation Comments WBC (test code = 13.61 See_Comment H [Automated 6690-2) message] The sy stem which generated this result transmitted reference range : 4.30 - 11.10 10*3/?L. The reference range was not used to interpret this result as normal/abnormal . RBC (test code = 3.87 See_Comment L [Automated 789-8) message] The sy stem which generated this result transmitted reference range : 3.93 - 5.25 10*6/?L. The reference range was not used to interpret this result as normal/abnormal . HGB (test code = 11.3 g/dL 11.6-15.0 L 718-7) HCT (test code = 33.1 % 35.7-45.2 L 4544-3) MCV (test code = 85.5 fL 80.6-95.5 787-2) MCH (test code = 29.2 pg 25.9-32.8 785-6) MCHC (test code = 34.1 g/dL 31.6-35.1 786-4) RDW-SD (test code = 38.1 fL 39.0-49.9 L 10049-6) RDW-CV (test code = 12.4 % 12.0-15.5 788-0) PLT (test code = 279 See_Comment [Automated 777-3) message] The sy stem which generated this result transmitted reference range : 166 - 358 10*3/ ?L. The reference r tammi was not used to interpret this result as normal/abnormal . MPV (test code = 10.9 fL 9.5-12.9 56797-3) NRBC/100 WBC (test 0.0 See_Comment [Automat ed code = 8039724068) message] The system which generated this result transmitted reference range : 0.0 - 10.0 /100 WBCs. The refer ence range was not u sed to interpret th is result as normal/abnormal . NRBC x10^3 (test code See_Comment [Auto mated = 3592614125) message] The s ystem which generated this result transmitted reference range : 10*3/?L. The reference range was not used to interpret this result as normal/abnormal . GRAN MAT (NEUT) % 66.9 % (test code = 770-8) IMM GRAN % (test code 0.70 % = 2192578123) LYMPH % (test code = 21.9 % 736-9) MONO % (test code = 7.9 % 5905-5) EOS % (test code = 2.4 % 713-8) BASO % (test code = 0.2 % 706-2) GRAN MAT x10^3(ANC) 9.11 10*3/uL 1.88-7.09 H (test code = 5487949551) IMM GRAN x10^3 (test 0.09 10*3/uL 0.00-0.06 H code = 8704913159) LYMPH x10^3 (test code 2.98 10*3/uL 1.32-3.29 = 731-0) MONO x10^3 (test code 1.08 10*3/uL 0.33-0.92 H = 742-7) EOS x10^3 (test code = 0.32 10*3/uL 0.03-0.39 711-2) BASO x10^3 (test code 0.03 10*3/uL 0.01-0.07 = 704-7) Lab Interpretation Abnormal (test code = 68732-6) [facility] with [id number] 11:22:57 Test Item Value Reference Range Interpretation Comments WBC (test code = 13.61 See_Comment H [Automated 1890-2) message] The sy stem which generated this result transmitted reference range : 4.30 - 11.10 10*3/?L. The reference range was not used to interpret this result as normal/abnormal . RBC (test code = 3.87 See_Comment L [Automated 199-8) message] The sy stem which generated this result transmitted reference range : 3.93 - 5.25 10*6/?L. The reference range was not used to interpret this result as normal/abnormal . HGB (test code = 11.3 g/dL 11.6-15.0 L 718-7) HCT (test code = 33.1 % 35.7-45.2 L 4544-3) MCV (test code = 85.5 fL 80.6-95.5 787-2) MCH (test code = 29.2 pg 25.9-32.8 785-6) MCHC (test code = 34.1 g/dL 31.6-35.1 786-4) RDW-SD (test code = 38.1 fL 39.0-49.9 L 37165-1) RDW-CV (test code = 12.4 % 12.0-15.5 788-0) PLT (test code = 279 See_Comment [Automated 777-3) message] The sy stem which generated this result transmitted reference range : 166 - 358 10*3/ ?L. The reference r tammi was not used to interpret this result as normal/abnormal . MPV (test code = 10.9 fL 9.5-12.9 23383-1) NRBC/100 WBC (test 0.0 See_Comment [Automat ed code = 7485000875) message] The system which generated this result transmitted reference range : 0.0 - 10.0 /100 WBCs. The refer ence range was not u sed to interpret th is result as normal/abnormal . NRBC x10^3 (test code See_Comment [Auto mated = 5248475326) message] The s ystem which generated this result transmitted reference range : 10*3/?L. The reference range was not used to interpret this result as normal/abnormal . GRAN MAT (NEUT) % 66.9 % (test code = 770-8) IMM GRAN % (test code 0.70 % = 6660193223) LYMPH % (test code = 21.9 % 736-9) MONO % (test code = 7.9 % 5905-5) EOS % (test code = 2.4 % 713-8) BASO % (test code = 0.2 % 706-2) GRAN MAT x10^3(ANC) 9.11 10*3/uL 1.88-7.09 H (test code = 8597948980) IMM GRAN x10^3 (test 0.09 10*3/uL 0.00-0.06 H code = 2324178558) LYMPH x10^3 (test code 2.98 10*3/uL 1.32-3.29 = 731-0) MONO x10^3 (test code 1.08 10*3/uL 0.33-0.92 H = 742-7) EOS x10^3 (test code = 0.32 10*3/uL 0.03-0.39 711-2) BASO x10^3 (test code 0.03 10*3/uL 0.01-0.07 = 704-7) Lab Interpretation Abnormal (test code = 30868-7) [facility] [id number] 11:20:00 Test Item Value Reference Range Interpretation Comments ABO & RH (test code = 20) O Positive IAT (test code = 1185) Negative [facility] and Screen - ONCE [id number] 11:20:00 Test Item Value Reference Range Interpretation Comments ABO & RH (test code = 20) O Positive IAT (test code = 1185) Negative [facility]/O SPECIFIC [id number] 19:06:00 Test Item Value Reference Range Interpretation Comments POCT PH U (test code = 3254) n/a 5-8 POCT U LEUK EST (test code = 3263) n/a Negative - Negative POCT U NIT (test code = 3262) n/a Negative - Negative POCT U PROT (test code = 3259) neg Negative - Negative POCT U GLU (test code = 3256) neg Negative - Negative POCT U KETONE (test code = 3258) n/a Negative - Negative POCT U BLD (test code = 3257) n/a Negative - Negative [facility]/O SPECIFIC [id number] 20:08:00 Test Item Value Reference Range Interpretation Comments POCT PH U (test code = 3254) 6 mg/dl 5-8 POCT U LEUK EST (test code = Negative Negative - Negative 3263) POCT U NIT (test code = 3262) Negative Negative - Negative POCT U PROT (test code = 3259) Negative Negative - Negative POCT U GLU (test code = 3256) Normal Negative - Negative POCT U KETONE (test code = 3258) Negative Negative - Negative POCT U BLD (test code = 3257) Negative Negative - Negative [facility]ERR[facility] [id number] 17:51:16 Test Item Value Reference Range Interpretation Comments FERRITIN (test code = 6.8 ng/mL 6.0-137.0 4818366909) MIGUEL ANGEL (test code = MIGUEL ANGEL) Biotin has been reported to cause a negative bias, interpret results relative to patient's use of biotin. Lab Interpretation (test Normal code = 09906-2) [facility] METABOLIC PANEL (NA, K, CL, CO2, GLUCOSE, BUN, CREATININE, CA)2023-01-29 01:03:48 Test Item Value Reference Range Interpretation Comments NA (test code = 135 mmol/L 135-145 9033743128) K (test code = 3.5 mmol/L 3.5-5.0 3224382650) CL (test code = 109 mmol/L 98-108 H 0336827462) CO2 TOTAL (test code = 23 mmol/L 23-31 2107791968) AGAP (test code = 3 2-16 5857186244) BUN (test code = 3 mg/dL 7-23 L 2730574266) GLUCOSE (test code = 108 mg/dL 70-110 0333389480) CREATININE (test code = 0.66 mg/dL 0.50-1.04 6492321346) CALCIUM (test code = 8.6 mg/dL 8.6-10.6 2544167037) eGFR (test code = 111.0 mL/min/1.73m2 9844331885) MIGUEL ANGEL (test code = MIGUEL ANGEL) Association of Glomerular Filtration Rate (GFR) and Staging of Kidney Disease* + --+ --+ ------+| GFR (mL/min/1.73 m2) ?| With Kidney Damage ?| ?Without Kidney Damage+ --------+ --------+ +| ?>90 ?| ?Stage one ?| ? Normal ?+ ---+ ---+ -------+| ?60-89 ?| ?Stage two ?| ? Decreased GFR ? + --+ --+ ------+| ?30-59 ?| ?Stage three ?| ? Stage three ? + --+ --+ ------+| ?15-29 ?| ?Stage four ? | ? Stage four ?+ ---+ ---+ -------+| ?<15 (or dialysis) ? ?| ?Stage five ? | ? Stage five ?+ ---+ ---+ -------+ *Each stage assumes the associated GFR level [...] or urine or abnormalities in imaging tests). Lab Interpretation Abnormal (test code = 44172-0) [facility] WITH [id number] 23:14:13 Test Item Value Reference Range Interpretation Comments WBC (test code = 12.67 See_Comment H [Automated 5490-2) message] The sy stem which generated this result transmitted reference range : 4.30 - 11.10 10*3/?L. The reference range was not used to interpret this result as normal/abnormal . RBC (test code = 3.88 See_Comment L [Automated 509-8) message] The sy stem which generated this result transmitted reference range : 3.93 - 5.25 10*6/?L. The reference range was not used to interpret this result as normal/abnormal . HGB (test code = 11.3 g/dL 11.6-15.0 L 718-7) HCT (test code = 33.9 % 35.7-45.2 L 4544-3) MCV (test code = 87.4 fL 80.6-95.5 787-2) MCH (test code = 29.1 pg 25.9-32.8 785-6) MCHC (test code = 33.3 g/dL 31.6-35.1 786-4) RDW-SD (test code = 39.2 fL 39.0-49.9 58952-0) RDW-CV (test code = 12.3 % 12.0-15.5 788-0) PLT (test code = 248 See_Comment [Automated 987-3) message] The sy stem which generated this result transmitted reference range : 166 - 358 10*3/ ?L. The reference r tammi was not used to interpret this result as normal/abnormal . MPV (test code = 11.5 fL 9.5-12.9 13454-9) IPF % (test code = 6.0 % 1.3-7.7 Platelet count [id number]) measured by fluorescence method. NRBC/100 WBC (test 0.0 See_Comment [Automat ed code = [id number]) message] The system which generated this result transmitted reference range : 0.0 - 10.0 /100 WBCs. The refer ence range was not u sed to interpret th is result as normal/abnormal . NRBC x10^3 (test code See_Comment [Auto mated = [id number]) message] The s ystem which generated this result transmitted reference range : 10*3/?L. The reference range was not used to interpret this result as normal/abnormal . GRAN MAT (NEUT) % 70.7 % (test code = 770-8) IMM GRAN % (test code 0.70 % = [id number]) LYMPH % (test code = 17.0 % 736-9) MONO % (test code = 9.6 % 5905-5) EOS % (test code = 1.6 % 713-8) BASO % (test code = 0.4 % 706-2) GRAN MAT x10^3(ANC) 8.97 10*3/uL 1.88-7.09 H (test code = [id number]) IMM GRAN x10^3 (test 0.09 10*3/uL 0.00-0.06 H code = [id number]) LYMPH x10^3 (test code 2.15 10*3/uL 1.32-3.29 = 731-0) MONO x10^3 (test code 1.21 10*3/uL 0.33-0.92 H = 742-7) EOS x10^3 (test code = 0.20 10*3/uL 0.03-0.39 711-2) BASO x10^3 (test code 0.05 10*3/uL 0.01-0.07 = 704-7) Lab Interpretation Abnormal (test code = 97363-9) [facility] - [facility]CE [id number] 22:19:00 Test Item Value Reference Range Interpretation Comments ABO & RH (test code = 20) O Positive IAT (test code = 1185) Negative [facility]O SPECIFIC [id number] 19:56:00 Test Item Value Reference Range Interpretation Comments POCT PH U (test code = 3254) n/a 5-8 POCT U LEUK EST (test code = n/a Negative - Negative 3263) POCT U NIT (test code = 3262) n/a Negative - Negative POCT U PROT (test code = 3259) normal Negative - Negative POCT U GLU (test code = 3256) negative Negative - Negative POCT U KETONE (test code = 3258) n/a Negative - Negative POCT U BLD (test code = 3257) n/a Negative - Negative [facility]/O SPECIFIC [id number] 19:56:00 Test Item Value Reference Range Interpretation Comments POCT PH U (test code = 3254) n/a 5-8 POCT U LEUK EST (test code = n/a Negative - Negative 3263) POCT U NIT (test code = 3262) n/a Negative - Negative POCT U PROT (test code = 3259) normal Negative - Negative POCT U GLU (test code = 3256) negative Negative - Negative POCT U KETONE (test code = 3258) n/a Negative - Negative POCT U BLD (test code = 3257) n/a Negative - Negative [facility]/O SPECIFIC [id number] 18:49:00 Test Item Value Reference Range Interpretation Comments POCT PH U (test code = 3254) n/a 5-8 POCT U LEUK EST (test code = 3263) n/a Negative - Negative POCT U NIT (test code = 3262) n/a Negative - Negative POCT U PROT (test code = 3259) neg Negative - Negative POCT U GLU (test code = 3256) neg Negative - Negative POCT U KETONE (test code = 3258) n/a Negative - Negative POCT U BLD (test code = 3257) n/a Negative - Negative [facility] URINALYSIS W/O SPECIFIC [id number] 19:03:00 Test Item Value Reference Range Interpretation Comments POCT PH U (test code = 3254) n/a 5-8 POCT U LEUK EST (test code = 3263) n/a Negative - Negative POCT U NIT (test code = 3262) n/a Negative - Negative POCT U PROT (test code = 3259) Neg Negative - Negative POCT U GLU (test code = 3256) Neg Negative - Negative POCT U KETONE (test code = 3258) n/a Negative - Negative POCT U BLD (test code = 3257) n/a Negative - Negative [facility] URINALYSIS W/O SPECIFIC [id number] 15:44:00 Test Item Value Reference Range Interpretation Comments POCT PH U (test code = 3254) n/a 5-8 POCT U LEUK EST (test code = n/a Negative - Negative 3263) POCT U NIT (test code = 3262) n/a Negative - Negative POCT U PROT (test code = 3259) Negative Negative - Negative POCT U GLU (test code = 3256) Normal Negative - Negative POCT U KETONE (test code = 3258) n/a Negative - Negative POCT U BLD (test code = 3257) n/a Negative - [facility] [id number] 20:07:00 Test Item Value Reference Range Interpretation Comments POCT PH U (test code = 3254) n/a 5-8 POCT U LEUK EST (test code = 3263) n/a Negative - Negative POCT U NIT (test code = 3262) n/a Negative - Negative POCT U PROT (test code = 3259) neg Negative - Negative POCT U GLU (test code = 3256) neg Negative - Negative POCT U KETONE (test code = 3258) n/a Negative - Negative POCT U BLD (test code = 3257) n/a Negative - Negative [facility] SPECIFIC [id number] 20:07:00 Test Item Value Reference Range Interpretation Comments POCT PH U (test code = 3254) n/a 5-8 POCT U LEUK EST (test code = 3263) n/a Negative - Negative POCT U NIT (test code = 3262) n/a Negative - Negative POCT U PROT (test code = 3259) neg Negative - Negative POCT U GLU (test code = 3256) neg Negative - Negative POCT U KETONE (test code = 3258) n/a Negative - Negative POCT U BLD (test code = 3257) n/a Negative - Negative [facility] [id number] 22:09:00 Test Item Value Reference Range Interpretation Comments POCT PH U (test code = 3254) n/a 5-8 POCT U LEUK EST (test code = n/a Negative - Negative 3263) POCT U NIT (test code = 3262) n/a Negative - Negative POCT U PROT (test code = 3259) negative Negative - Negative POCT U GLU (test code = 3256) negative Negative - Negative POCT U KETONE (test code = 3258) n/a Negative - Negative POCT U BLD (test code = 3257) n/a Negative - Negative [facility] URINALYSIS W/O SPECIFIC [id number] 22:09:00 Test Item Value Reference Range Interpretation Comments POCT PH U (test code = 3254) n/a 5-8 POCT U LEUK EST (test code = n/a Negative - Negative 3263) POCT U NIT (test code = 3262) n/a Negative - Negative POCT U PROT (test code = 3259) negative Negative - Negative POCT U GLU (test code = 3256) negative Negative - Negative POCT U KETONE (test code = 3258) n/a Negative - Negative POCT U BLD (test code = 3257) n/a Negative - Negative [facility] [id number] 15:28:00 Test Item Value Reference Range Interpretation Comments POCT PREG (test code = 1605) Positive On board controls acceptable with C Yes Line (test code = 3574) POCT PREG LOT # (test code = 3575) POCT PREG TEST DATE (test code = 3576) [facility] URINALYSIS W/O SPECIFIC [id number] 15:28:00 Test Item Value Reference Range Interpretation Comments POCT PH U (test code = 3254) n/a 5-8 POCT U LEUK EST (test code = n/a Negative - Negative 3263) POCT U NIT (test code = 3262) n/a Negative - Negative POCT U PROT (test code = 3259) Negative Negative - Negative POCT U GLU (test code = 3256) Normal Negative - Negative POCT U KETONE (test code = 3258) n/a Negative - Negative POCT U BLD (test code = 3257) n/a Negative - Negative [facility] HospitalUrinalysis2021-06-[facility] 18:40:09 Test Item Value Reference Range Interpretation Comments APPEARANCE (test code = Clear Clear 7596092779) COLOR (test code = Yellow Yellow 1531740478) PH (test code = 4.8-8.0 3007600331) SP GRAVITY (test code = 1.003-1.030 2673001963) GLU U QUAL (test code = Normal Normal 7609095678) BLOOD (test code = Negative Negative 2375289609) KETONES (test code = Negative Negative 5012839293) PROTEIN (test code = Negative Negative 2887-8) UROBILIN (test code = Normal Normal 5818452711) BILIRUBIN (test code = Negative Negative 1324024374) NITRITE (test code = Negative Negative 7303515148) LEUK FAM (test code = 500/uL Negative A 1766271572) RBC/HPF (test code = See_Comment [Autom ated message] 3887967558) The system [employer] generated this result transmitted ref erence range: 0 - 3 HP F. The reference range was not used to int erpret this result as normal/abnormal . WBC/HPF (test code = See_Comment H [Autom ated message] 6524292996) The system [employer] generated this result transmitted ref erence range: 0 - 5 HP F. The reference range was not used to int erpret this result as normal/abnormal . BACTERIA (test code = Few Negative A 1991848572) SQ EPITH (test code = HPF 6115132529) OSVALDO EPITH (test code = See_Comment [Aut omated message] 5868351015) The system [employer] generated this result transmitted ref erence range: <=1 HPF. The reference range was not used to int erpret this result as normal/abnormal . Lab Interpretation (test Abnormal code = 47304-4) [facility] Metabolic Panel (NA, K, CL, CO2, GLUCOSE, BUN, CREATININE, CA)2021-03-28 18:15:18 Test Item Value Reference Range Interpretation Comments NA (test code = 135 mmol/L 135-145 7816918033) K (test code = 4.2 mmol/L 3.5-5.0 5120087005) CL (test code = 105 mmol/L 98-108 9064483304) CO2 TOTAL (test code 23 mmol/L 23-31 = 1129499850) AGAP (test code = 2-16 2472213250) BUN (test code = 8 mg/dL 7-23 7438850792) GLUCOSE (test code = 86 mg/dL 70-110 9898235309) CREATININE (test code 0.75 mg/dL 0.50-1.04 = 5754691416) CALCIUM (test code = 9.7 mg/dL 8.6-10.6 9779400928) eGFR (test code = mL/min/1.73m2 3839051795) MIGUEL ANGEL (test code = MIGUEL ANGEL) [...] or urine or abnormalities in imaging tests). [facility]Hep[facility] (ALB, T.PRO, BILI T, BU/BC, ALT, AST, ALK PHOS)2021-03-28 18:15:18 Test Item Value Reference Range Interpretation Comments TOTAL BILI (test code = 0722304097) 1.3 mg/dL 0.1-1.1 H BILI UNCON (test code = 0391349791) 1.2 mg/dL 0.1-1.1 H BILI CONJ (test code = 9982752544) 0.0 mg/dL 0.0-0.3 T PROTEIN (test code = 8891211488) 8.0 g/dL 6.3-8.2 ALBUMIN (test code = 7963937011) 4.4 g/dL 3.5-5.0 ALK PHOS (test code = 1569784952) 67 U/L 34-122 ALTv (test code = 1742-6) 12 U/L 5-35 AST(SGOT) (test code = 1424987842) 20 U/L 13-40 Lab Interpretation (test code = Abnormal 96704-5) [facility] HospitalCBC with [id number] 17:51:55 Test Item Value Reference Range Interpretation Comments WBC (test code = See_Comment H [Automated 4574-2) message] The sy stem which generated this result transmitted reference range : 4.30 - 11.10 10*3/?L. The reference range was not used to interpret this result as normal/abnormal . RBC (test code = See_Comment [Automated 164-1) message] The sy stem which generated this [...] RDW-SD (test code = 44.0 fL 39.0-49.9 03054-6) RDW-CV (test code = 14.2 % 12.0-15.5 788-0) PLT (test code = See_Comment [Automated 777-3) message] The sy stem which generated this result transmitted reference range : 166 - 358 10*3/ ?L. The reference r tammi was not used to interpret this result as normal/abnormal . MPV (test code = 10.6 fL 9.5-12.9 25226-7) NRBC/100 WBC (test See_Comment [Automat ed code = 6616449951) message] The system which generated this result transmitted reference range : 0.0 - 10.0 /100 WBCs. The refer ence range was not u sed to interpret th is result as normal/abnormal . NRBC x10^3 (test code <0.01 See_Comment [Auto mated = 5170945017) message] The s ystem which generated this result transmitted reference range : 10*3/?L. The reference range was not used to interpret this result as normal/abnormal . GRAN MAT (NEUT) % 71.1 % (test code = 770-8) IMM GRAN % (test code 0.50 % = 5708139467) LYMPH % (test code = 20.9 % 736-9) MONO % (test code = 6.6 % 5905-5) EOS % (test code = 0.6 % 713-8) BASO % (test code = 0.3 % 706-2) GRAN MAT x10^3(ANC) 8.38 10*3/uL 1.88-7.09 H (test code = 5555703491) IMM GRAN x10^3 (test 0.06 10*3/uL 0.00-0.06 code = 9044354687) LYMPH x10^3 (test code 2.47 10*3/uL 1.32-3.29 = 731-0) MONO x10^3 (test code 0.78 10*3/uL 0.33-0.92 = 742-7) EOS x10^3 (test code = 0.07 10*3/uL 0.03-0.39 711-2) BASO x10^3 (test code 0.03 10*3/uL 0.01-0.07 = 704-7) Lab Interpretation Abnormal (test code = 72867-3) [facility] W SPECIFIC [id number] 15:09:00 Test Item Value Reference Range Interpretation [...] POCT U APPEAR (test code = 3267) [facility] HospitalUric Acid [id number] 21:47:00 Test Item Value Reference Range Interpretation Comments URIC ACID (test code = 7118077858) 6.5 mg/dL 2.9-6 H Lab Interpretation (test code = Abnormal 94075-1) [facility] HospitalSerum [id number] 21:47:00 Test Item Value Reference Range Interpretation Comments CREATININE (test code 0.72 mg/dL 0.5-1.04 = 6215517694) eGFR Calculation mL/min/1.73m2 (Non-) (test code = 5798012713) eGFR Calculation mL/min/1.73m2 () (test code = 7737387688) MIGUEL ANGEL (test code = MIGUEL ANGEL) [...] or urine or abnormalities in imaging tests). [facility] HospitalSGOT (Asparate Amino Transfer)2020-08-24 21:47:00 Test Item Value Reference Range Interpretation Comments AST(SGOT) (test code = 3632958816) 20 U/L 13-40 Lab Interpretation (test code = Normal 83443-2) [facility] HospitalAlanine Amino Transferase (SGPT)2020-08-24 21:47:00 Test Item Value Reference Range Interpretation Comments ALTv (test code = 1742-6) 16 U/L 5-35 Lab Interpretation (test code = Normal 79014-5) [facility] HospitalLactate [id number] 21:46:00 Test Item Value Reference Range Interpretation Comments LDH (test code = 4888722201) 411 U/L 300-600 Lab Interpretation (test code = Normal 58144-2) [facility] HospitalProtein CREAT Ratio Urine [id number] 21:45:00 Test Item Value Reference Range Interpretation Comments T. PROT U (test code = 2888-6) 11 mg/dL CREAT U (test code = 3955170498) 70.5 mg/dL Protein/Creatinine Ratio Urine 0.0-2.0 (test code = 9356027342) [facility] HospitalUrinalysis2020-11-19 21:26:00 Test Item Value Reference Range Interpretation Comments APPEARANCE (test code = Hazy Clear A 5297190771) COLOR (test code = Yellow Yellow 2679906988) PH (test code = 4.8-8.0 5890358095) SP GRAVITY (test code = 1.003-1.030 1259396877) GLU U QUAL (test code = Normal Normal 1984337843) BLOOD (test code = Negative Negative Interfere nce from 8993599531) ascorbic acid m ay cause false neg ative results. KETONES (test code = Negative Negative 0232747245) PROTEIN (test code = Negative Negative 2887-8) UROBILIN (test code = Normal Normal 8740653251) BILIRUBIN (test code = Negative Negative 7643473563) NITRITE (test code = Negative Negative 5344298142) LEUK FAM (test code = 75/uL Negative A 2048211290) RBC/HPF (test code = See_Comment [Autom ated message] 8329487792) The system [employer] generated this result transmitted ref erence range: 0 - 3 HP F. The reference range was not used to int erpret this result as normal/abnormal . WBC/HPF (test code = See_Comment [Autom ated message] 9012822480) The system [employer] generated this result transmitted ref erence range: 0 - 5 HP F. The reference range was not used to int erpret this result as normal/abnormal . BACTERIA (test code = Negative Negative 7357397040) SQ EPITH (test code = See_Comment H [Auto mated message] 4270534817) The system [employer] generated this result transmitted ref erence range: <=2 HPF. The reference range was not used to int erpret this result as normal/abnormal . ASCORBIC ACID (test code 20 mg/dL = 4256740112) Lab Interpretation (test Abnormal code = 52297-1) [facility] HospitalCB with [id number] 21:12:00 Test Item Value Reference Range Interpretation [...] RDW-SD (test code = 39.3 fL 39-49.9 48794-1) RDW-CV (test code = 12.0 % 12-15.5 788-0) PLT (test code = See_Comment [Automated 777-3) message] The sy stem which generated this result transmitted reference range : 166 - 358 10*3/ ?L. The reference r tammi was not used to interpret this result as normal/abnormal . MPV (test code = 10.6 fL 9.5-12.9 78570-0) NRBC/100 WBC (test See_Comment [Automat ed code = 5876734497) message] The system which generated this result transmitted reference range : 0.0 - 10.0 /100 WBCs. The refer ence range was not u sed to interpret th is result as normal/abnormal . NRBC x10^3 (test code <0.01 See_Comment [Auto mated = 6513757159) message] The s ystem which generated this result transmitted reference range : 10*3/?L. The reference range was not used to interpret this result as normal/abnormal . GRAN MAT (NEUT) % 72.7 % (test code = 770-8) IMM GRAN % (test code 0.50 % = 3958269903) LYMPH % (test code = 17.6 % 736-9) MONO % (test code = 8.4 % 5905-5) EOS % (test code = 0.6 % 713-8) BASO % (test code = 0.2 % 706-2) GRAN MAT x10^3(ANC) 8.41 10*3/uL 1.88-7.09 H (test code = 9759679630) IMM GRAN x10^3 (test 0.06 10*3/uL 0-0.06 code = 9966504150) LYMPH x10^3 (test code 2.03 10*3/uL 1.32-3.29 = 731-0) MONO x10^3 (test code 0.97 10*3/uL 0.33-0.92 H = 742-7) EOS x10^3 (test code = 0.07 10*3/uL 0.03-0.39 711-2) BASO x10^3 (test code <0.03 0.01-0.07 = 704-7) Lab Interpretation Abnormal (test code = 05214-9) [facility] HospitalCOVID-19 (ID NOW RAPID TESTING)2020-08-24 21:09:00 Test Item Value Reference Range Interpretation Comments SARS-CoV-2 Rapid ID NOW Positive Not Detected A (test code = 59867-6) MIGUEL ANGEL (test code = MIGUEL ANGEL) ID NOW COVID-19 Assay is an isothermal nucleic acid amplification test intended for the qualitative detection of nucleic acid from SARS-CoV-2 viral RNA in nasopharyngeal (PRODUCTION WORKER) specimens. It is used under Emergency Use [...] indicated. Lab Interpretation Abnormal (test code = 25808-7) [facility] URINALYSIS W SPECIFIC [id number] 17:08:00 Test Item Value Reference Range Interpretation [...] POCT U APPEAR (test code = 3267) [facility] URINALYSIS W SPECIFIC [id number] 17:18:00 Test Item Value Reference Range Interpretation [...] POCT U APPEAR (test code = 3267) [facility] URINALYSIS W SPECIFIC [id number] 17:18:00 Test Item Value Reference Range Interpretation [...] POCT U APPEAR (test code = 3267) [facility] URINALYSIS W SPECIFIC [id number] 16:09:00 Test Item Value Reference Range Interpretation [...] POCT U APPEAR (test code = 3267) [facility] URINALYSIS W SPECIFIC [id number] 16:11:00 Test Item Value Reference Range Interpretation [...] POCT U APPEAR (test code = 3267) [facility] URINALYSIS W SPECIFIC [id number] 16:10:00 Test Item Value Reference Range Interpretation [...] POCT U APPEAR (test code = 3267) [facility] URINALYSIS W SPECIFIC [id number] 15:06:00 Test Item Value Reference Range Interpretation [...] POCT U APPEAR (test code = 3267) [facility] URINALYSIS W SPECIFIC [id number] 15:06:00 Test Item Value Reference Range Interpretation [...] POCT U APPEAR (test code = 3267) [facility] URINALYSIS W SPECIFIC [id number] 15:06:00 Test Item Value Reference Range Interpretation [...] POCT U APPEAR (test code = 3267) [facility] URINALYSIS W SPECIFIC [id number] 15:06:00 Test Item Value Reference Range Interpretation [...] POCT U APPEAR (test code = 3267) [facility] URINALYSIS W SPECIFIC [id number] 15:06:00 Test Item Value Reference Range Interpretation [...] POCT U APPEAR (test code = 3267) [facility] [id number] 14:56:00 Test Item Value Reference Range Interpretation Comments POCT PREG (test code = 1605) Positive On board controls acceptable with C Yes Line (test code = 3574) POCT PREG LOT # (test code = 3575) POCT PREG TEST DATE (test code = 3576) [facility] URINALYSIS W/O SPECIFIC [id number] 14:56:00 Test Item Value Reference Range Interpretation [...] code = 3257) Neg Negative - Negative [facility] HospitalPORI [id number] 14:56:00 Test Item Value Reference Range Interpretation Comments POCT PREG (test code = 1605) Positive On board controls acceptable with C Yes Line (test code = 3574) POCT PREG LOT # (test code = 3575) POCT PREG TEST DATE (test code = 3576) [facility] URINALYSIS W/O SPECIFIC [id number] 14:56:00 Test Item Value Reference Range Interpretation [...] code = 3257) Neg Negative - Negative [facility] HospitalPORI [id number] 16:03:00 Test Item Value Reference Range Interpretation Comments POCT PREG (test code = 1605) Positive On board controls acceptable with Yes C Line (test code = 3574) POCT PREG LOT # (test code = 3575) [id number] POCT PREG TEST DATE (test 07/05/2021 code = 3576) Lab Interpretation (test code = Abnormal 08206-8) [facility]"
--- NOTE | 2023-03-02 15:35 | RAD REPORT ---
EXAM DESCRIPTION: RAD - Hand Right 3 View - 03/02/2023 3:26 pm CLINICAL HISTORY: PAIN COMPARISON: No comparisons FINDINGS/IMPRESSION: No acute fracture. No malalignment. No significant focal degenerative changes. No radiopaque foreign body identified.
--- NOTE | 2023-03-02 16:38 | EDPHYS ---
Physician Documentation [facility] Name: Tea Collazo Age: 22 yrs Sex: Female : 2000 Arrival Date: 03/02/2023 Time: 15:07 Bed 10 Private MD: ED Physician Isiah Glover HPI: 03/02 16:30 This 22 yrs old Black Female presents to ER via EMS with complaints of right index, cut apryl on glass. 16:30 The patient or guardian reports decreased range of motion, pain, tenderness. The apryl complaints affect the DIP of right index finger. Context: The problem was sustained on a street or driveway. Onset: The symptoms/episode began/occurred just prior to arrival. Modifying factors: The symptoms are alleviated by elevation, holding still, the symptoms are aggravated by movement, dependent position. Associated signs and symptoms: The patient has no apparent associated signs or symptoms. Severity of symptoms: At their worst the symptoms were mild, in the emergency department the symptoms are unchanged. The patient has not experienced similar symptoms in the past. 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 - Family history:: not pertinent. ROS: 16:30 Constitutional: Negative for fever, chills, and weight loss, Eyes: Negative for injury, apryl pain, redness, and discharge, ENT: Negative for injury, pain, and discharge, Neck: Negative for injury, pain, and swelling, Cardiovascular: Negative for chest pain, palpitations, and edema, Respiratory: Negative for shortness of breath, cough, wheezing, and pleuritic chest pain, Abdomen/GI: Negative for abdominal pain, nausea, vomiting, diarrhea, and constipation, Back: Negative for injury and pain, : Negative for injury, bleeding, discharge, and swelling, Skin: Negative for injury, rash, and discoloration, Neuro: Negative for headache, weakness, numbness, tingling, and seizure, Psych: Negative for depression, anxiety, suicide ideation, homicidal ideation, and hallucinations, Allergy/Immunology: Negative for hives, rash, and allergies, Endocrine: Negative for neck swelling, polydipsia, polyuria, polyphagia, and marked weight changes, Hematologic/Lymphatic: Negative for swollen nodes, abnormal bleeding, and unusual bruising. 16:30 MS/extremity: Positive for decreased range of motion, laceration, pain, tenderness, of the dorsal aspect of distal phalanx of right index finger. Exam: 16:30 Constitutional: This is a well developed, well nourished patient who is awake, alert, apryl and in no acute distress. Head/Face: Normocephalic, atraumatic. Eyes: Pupils equal round and reactive to light, extra-ocular motions intact. Lids and lashes normal. Conjunctiva and sclera are non-icteric and not injected. Cornea within normal limits. Periorbital areas with no swelling, redness, or edema. ENT: Nares patent. No nasal discharge, no septal abnormalities noted. Tympanic membranes are normal and external auditory canals are clear. Oropharynx with no redness, swelling, or masses, exudates, or evidence of obstruction, uvula midline. Mucous membranes moist. Neck: Trachea midline, no thyromegaly or masses palpated, and no cervical lymphadenopathy. Supple, full range of motion without nuchal rigidity, or vertebral point tenderness. No Meningismus. Chest/axilla: Normal chest wall appearance and motion. Nontender with no deformity. No lesions are appreciated. Cardiovascular: Regular rate and rhythm with a normal S1 and S2. No gallops, murmurs, or rubs. Normal PMI, no JVD. No pulse deficits. Respiratory: Lungs have equal breath sounds bilaterally, clear to auscultation and percussion. No rales, rhonchi or wheezes noted. No increased work of breathing, no retractions or nasal flaring. Abdomen/GI: Soft, non-tender, with normal bowel sounds. No distension or tympany. No guarding or rebound. No evidence of tenderness throughout. Back: No spinal tenderness. No costovertebral tenderness. Full range of motion. Skin: Warm, dry with normal turgor. Normal color with no rashes, no lesions, and no evidence of cellulitis. Neuro: Awake and alert, GCS 15, oriented to person, place, time, and situation. Cranial nerves II-XII grossly intact. Motor strength 5/5 in all extremities. Sensory grossly intact. Cerebellar exam normal. Normal gait. Psych: Awake, alert, with orientation to person, place and time. Behavior, mood, and affect are within normal limits. 16:30 Musculoskeletal/extremity: Extremities: grossly normal except: noted in the dorsal aspect of distal phalanx of right index finger: decreased ROM, laceration, pain. Vital Signs: 15:27 BP 161 / 93; Pulse 104; Resp 17; Temp 98.9; Pulse Ox 98% ; Weight 94.35 kg; Pain 2/10; ap3 15:27 Pain Scale: Adult ap3 MDM: 15:12 Patient medically screened. apryl 16:34 Differential diagnosis: closed fracture. Data reviewed: vital signs, nurses notes, apryl radiologic studies, plain films. Consideration of Admission/Observation Escalation of care including admission/observation considered. I considered the following discharge prescriptions or medication management in the emergency department Medications were administered in the Emergency Department. See MAR. Test considered but Not performed: Labs: no labs. Care significantly affected by the following chronic conditions: Hypertension, depression. Counseling: I had a detailed discussion with the patient and/or guardian regarding: the historical points, exam findings, and any diagnostic results supporting the discharge/admit diagnosis, radiology results, the need for outpatient follow up. 03/02 15:12 Order name: Hand Right 3 View XRAY [facility] 03/02 15:12 Order name: Ice pack; Complete Time: 15:41 [facility] 03/02 16:30 Order name: Wound Care; Complete Time: 16:31 apryl Administered Medications: 16:48 Drug: Mupirocin Topical Ointment 2 % 1 application Route: Topical; Site: wound; 16:48 Drug: Cephalexin PO 500 mg Route: PO; hb Disposition Summary: 03/02/23 16:38 Discharge Ordered Location: Home apryl Problem: new apryl Symptoms: have improved apryl Condition: Stable apryl Diagnosis - Laceration without foreign body of right hand - index apryl Followup: apryl - With: Private Physician - When: 2 - 3 days - Reason: Recheck today's complaints, Continuance of care, Re-evaluation by your physician Discharge Instructions: - Discharge Summary Sheet apryl - Laceration Care, Adult apryl - Laceration Care, Adult, [id number] apryl Forms: - Medication Reconciliation Form apryl - Thank You Letter apryl - Antibiotic Education apryl - Prescription Opioid Use apryl Prescriptions: - Centany 2 % Topical ointment - apply 1 application by TOPICAL route 3 times per day; 15 gram; Refills: 0, apryl Product Selection Permitted - Cephalexin 500 mg Oral Capsule - take 1 capsule by ORAL route every 6 hours for 7 days; 28 capsule; Refills: 0, apryl Product Selection Permitted Signatures: Dispatcher [employer] Isiah Soliz MD MD cha Baxter, Heather, RN RN Tierney Grider RN RN ap3
--- NOTE | 2023-03-02 16:38 | ER ---
Nurse's Notes [facility] Name: Tea Collazo Age: 22 yrs Sex: Female : 2000 Arrival Date: 03/02/2023 Time: 15:07 Bed 10 Private MD: Diagnosis: Laceration without foreign body of right hand-index Presentation: 03/02 15:11 Chief complaint: EMS states: patient punched a car window with a hammer and now has ap3 laceration to her right pointer finger. patient believes there is glass in the wound. PD accompanies patient. Coronavirus screen: At this time, the client does not indicate any symptoms associated with coronavirus-19. Ebola Screen: No symptoms or risks identified at this time. Initial Sepsis Screen: Does the patient meet any 2 criteria? No. Patient's initial sepsis screen is negative. Does the patient have a suspected source of infection? No. Patient's initial sepsis screen is negative. Risk Assessment: Do you want to hurt yourself or someone else? Patient reports no desire to harm self or others. Onset of symptoms was March 02, 2023. 15:11 Method Of Arrival: EMS: [facility] ap3 15:11 Acuity: LARISA 4 ap3 Triage Assessment: 15:28 General: Appears in no apparent distress. Behavior is calm, cooperative. Pain: ap3 Complains of pain in Right index finger. Neuro: Level of Consciousness is awake, alert, obeys commands, Oriented to person, place, time, situation. Cardiovascular: Patient's skin is warm and dry. Respiratory: Airway is patent Respiratory effort is even, unlabored, Respiratory pattern is regular, symmetrical. Derm: Wound noted Right index finger. 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 - Family history:: not pertinent. Screenin:13 [facility] ED Fall Risk Assessment (Adult) History of falling in the last 3 months, ap3 including since admission No falls in past 3 months (0 pts). Nutritional screening: No deficits noted. Tuberculosis screening: No symptoms or risk factors identified. 15:28 Abuse screen: Denies threats or abuse. ap3 Vital Signs: 15:27 BP 161 / 93; Pulse 104; Resp 17; Temp 98.9; Pulse Ox 98% ; Weight 94.35 kg; Pain 2/10; ap3 15:27 Pain Scale: Adult ap3 ED Course: 15:11 Patient arrived in ED. ap3 15:12 Isiah Glover MD is Attending Physician. [facility] 15:13 Triage completed. ap3 15:27 Hand Right 3 View XRAY In Process Unspecified. EDMS 15:28 Arm band placed on left wrist. ap3 15:29 Patient has correct armband on for positive identification. Bed in low position. Call ap3 light in reach. Side rails up X2. Security at bedside. 15:41 Tierney Grider, RN is Primary Nurse. ap3 15:49 Irrigation of laceration on Right index finger irrigated with normal saline Hibiclens ap3 solution Patient tolerated well. Administered Medications: 16:48 Drug: Mupirocin Topical Ointment 2 % 1 application Route: Topical; Site: wound; hb 16:48 Drug: Cephalexin PO 500 mg Route: PO; hb Outcome: 16:38 Discharge ordered by . [facility] 16:48 Discharged to home ambulatory. hb 16:48 Condition: stable 16:48 Discharge instructions given to patient, Instructed on discharge instructions, follow up and referral plans. medication usage, wound care, Demonstrated understanding of instructions, follow-up care, medications, Prescriptions given X 2. 16:49 Patient left the ED. hb Signatures: Dispatcher [employer] [facility] Isiah Glover MD MD cha Baxter, Heather, RN RN Tierney Grider, HÉCTOR RN ap3
[2023-03-02] MEDS ORDERED: MUPIROCIN 2% OINT 22GM TUBE TOP ONE (16:40)
[2023-03-02] MEDS ORDERED: CEPHALEXIN 250 MG CAP ONE (16:51)
[2023-03-02 17:02] VITALS: BP 161/93; TEMP 98.9; O2SAT 98
== END 2023-03-02 16:49 | disposition home or self-care (01) ==
LOC: ER 15:07
DX: S61.210A Laceration without foreign body of right index finger without damage to nail, initial encounter (principal); Z91.018 Allergy to other foods
CPT/HCPCS: 99285

== ENCOUNTER 2023-05-17 07:02 | Emergency (ER) | payer OTHER ==
--- OUTSIDE RECORDS SUMMARY | 2023-05-17 07:13 | XMS REPORT | Continuity of Care Document ---
:2000 Author Organization [facility] t Address [address] [facility] [address] [place] [address] Care Team Providers Name Role Phone PCP, PATIENT DOES NOT HAVE A Primary Care Physician Unavaila MARVIN Angeles Attending Clinician Unavailable BRUNA MONTE Attending Clinician Unavailable BRUNA MONTE Attending Clinician Unavailable Marvin Garcia MD Attending Clinician [facility], [facility] Attending Clinician Unavailable Ultrasound, [facility] Attending Clinician Unavailable Danyel Richardson MD Attending Clinician [phone] DANYEL RICHARDSON Attending Clinician Unavailable Doctor Unassigned, [place] Attending Clinician Unavailable Brian Mills PA-C Attending Clinician JAYDA OTTO Attending Clinician Unavailable Jayda Otto MD Attending Clinician 2, [facility] Attending Clinician Unavailable BRIAN MILLS Attending Clinician Unavailable ASHA NELSON Attending Clinician Unavailable Lion García MD Attending Clinician JOHNNA HICKEY Attending Clinician Unavailable NILAM EVANS Attending Clinician Unavailable Edelmira MONTEZ, Johnna Soares Attending Clinician [facility] Unavailable Dread Rowe MD Attending Clinician Ultrasound, [place] Attending Clinician Unavailable La Nena Rojas MD Attending Clinician Lucy Quezada Attending Clinician [facility] Attending Clinician Unavailable Chandni MONTEZ, Em Marinelli Attending Clinician EM RUSSELL Attending Clinician Unavailable MARY BASS Attending Clinician Unavailable JAYDA OTTO Admitting Clinician Unavailable DREAD ROWE Admitting Clinician Unavailable MARVIN GARCIA Admitting Clinician Unavailable Marvin Garcia MD Admitting Clinician Jayda Otto MD Admitting Clinician ASHA NELSON Admitting Clinician Unavailable Dread Roew MD Admitting Clinician Payers Payer Name Policy Type Policy Number Effective Date Expiration Date [facility] [id number] 2020 [facility] [place] STAR 00:00:00 [facility] MEDICAID STAR [id number] 2020 2024 00:00:00 00:00:00 MEDICAID PENDING PENDING 2020 00:00:00 [id number] 2011 00:00:00 Problems Condition Condition Condition Status Onset Resolution Last Treating Co mments Source Name Details Category Date Date Treatment Clinician Date Chronic Chronic Disease Active Univers hypertensi hypertensi 5-16 it y of on on 00:00: [place] affecting affecting 00 Medi stephanie Bran ch Liveborn Liveborn Disease Active Unive rs infant, of , of 5-16 [place] of worthy worthy [place] , [place] born in born in [facility] by by delivery delivery S/P tubal S/P tubal Disease Active Uni vers ligation ligation 5-16 ity of 00:00: [place] 00 Medical Branch Vitamin D Vitamin D Disease Active Uni vers deficiency deficiency 4-26 it y of 00:00: [place] [address] Medical Branch Obesity Obesity Disease Active Univers (BMI (BMI 4-25 ity of 30-39.9) 30-39.9) 00:00: [place] Medical [facility] Right arm Right arm Disease Active Uni vers numbness numbness 4-25 ity of 00:00: [place] [address] Medical Branch Heartburn Heartburn Disease Active Uni vers in in 4-05 [place] in third in third 00 Medica l trimester trimester Bran ch Previous Previous Disease Active Unive rs 2-15 ity of section section 00:00: [place] [address] Medical Branch Sickle Sickle Disease Active Univers cell trait cell trait 2-15 it y of 00:00: [place] [address] Medical Branch History of History of Disease Active U nivers 2-15 ity of delivery delivery 00:00: [place] [address] Medical Branch History of History of Disease Active U nivers placental placental 2-15 ity of abruption [place]ruption 00:[place] History of History of Disease Active U nivers IUFD IUFD 2-15 ity of 00:00: [place] [address] Medical Branch Encounter Encounter Disease Active Uni vers for tubal for tubal 2-15 ity of ligation ligation 00:00: [place] counseling counseling 00 [facility] Need for Need for Disease Active 2019-10 Unive rs Tdap Tdap 2-03 ity of vaccinatio vaccinatio 00:[place] 00 [facility] 37 weeks 37 weeks Disease Active 2019-10 Unive rs gestation gestation 1-19 ity of of of 00:00: [place] 00 [facility] Obesity in Obesity in Disease Active 2019-10 U nivers 1-19 ity of 00:00: [address] 26 weeks 26 weeks Disease Active 2019-10 Unive rs gestation gestation 1-19 ity of of of 00:00: [place] 00 [facility] Chronic Chronic Disease Active 2019-10 Univers hypertensi hypertensi 1-19 it y of on in on in 00:00: [place] obstetric obstetric [address] [place] [address] context in context in Br anch second second trimester trimester COVID-19 COVID-19 Disease Active 2020 Unive rs virus virus 1-19 ity of infection infection 00:00[place] 00 [facility] 24 weeks 24 weeks Disease Active 2020- Unive rs gestation gestation 1-19 ity of of of 00:00: [place] 00 [facility] Chronic Chronic Disease Active 2020 Univers hypertensi hypertensi 1-19 it y of on during on during 00:[place] , [place] Me dical antepartum antepartum Br anch 34 weeks 34 weeks Disease Active 2019- Unive rs gestation gestation 1-19 ity of of of 00:00: [place] 00 [facility] Nausea and Nausea and Disease Active 2020-0 U nivers vomiting vomiting 7-15 ity of in in 00:00: [place] [address] [facility] prior to prior to Branch 22 weeks 22 weeks gestation gestation Gonorrhea Gonorrhea Disease Active 2020- Uni vers 7-15 ity of 00:00: [place] [address] Medical Branch Over Over Disease Active 2020- Univers weight weight 6-17 ity of 00:00: [place] 00 [facility] Supervisio Supervisio Disease Active 2020-0 U nivers n of high n of high 6-17 ity of risk risk 00:00: [place] [address] [facility] in third in third Branch trimester trimester Primigravi Primigravi Disease Active 2020-0 U nivers da in da in 6-17 ity of second second 00:00: [place] trimester trimester 00 [facility] Elevated Elevated Disease Active 2020- Unive rs blood blood 6-17 ity of pressure pressure 00:00: [place] reading reading 00 Medical without without Branch diagnosis diagnosis of of hypertensi hypertensi on on Left Left Disease Active 2020-0 Univers breast breast 6-17 ity of lump lump 00:00: [place] 00 Medical Branch BMI BMI Disease Active 2020-0 Univers 25.0-25.9, 25.0-25.9, 6-17 it y of adult adult 00:00: [place] [address] Medical Branch Allergies, Adverse Reactions, Alerts Allergy Allergy Status Severity Reaction(s) Onset Inactive Treating Comm ents Source Name Type Date Date Clinician HONEY DRUG Active High Anaphylaxis Unive rs INGREDI 6-22 ity of 00:00: [place] 00 Medical Branch Honey Propensi Active Anaphylaxis Uni vers ty to 03-27 ity of adverse 00:00: [place] reaction 00 Medical s Branch NO KNOWN Drug Active Univers ALLERGIE Class ity of S [facility] Social History Social Habit Start Date Stop Date Quantity Comments Source ASSERTION 2022-06-18 [facility] 00:00:00 [facility] Alcohol intake 2023-02-19 2023-02-19 Ex-drinker [facility] 00:00:00 00:00:00 (finding) [facility] Exposure to 2023-02-08 2023-02-18 Not sure [facility] SARS-CoV-2 00:00:00 05:08:00 [facility] (event) [place] Tobacco use and 2022-11-07 2022-11-07 Smokeless tobacco Un iversity of exposure 00:00:00 00:00:00 non-user [facility] Sex Assigned At [birth year] Universit y of 00:00:00 00:00:00 [facility] Smoking Status Start Date Stop Date Source Never smoked tobacco [facility] Unknown if ever smoked [facility] Medications Ordered Filled Start Stop Current [...] First [place] mg [address] [facility] 02/20/23 at 0000, Until Discontinu ed, Routine ibuprofen Yes 600mg 600 mg, Univ ers (IBU) 5-18 Oral, Q6H ity of tablet 600 05:00: ABX, First [place] mg [address] dose [address] [facility] 02/20/23 at 0000, Until Discontinu ed, Routine 2022- No Take by Unive rs vit,[id number] 05-17 mouth. ity o f iron/folic 07:47: 00:00 [place] (PNV 29-1 52 :00 Medical ORAL) Branch 2022- No Take by Unive rs vit,calc02-19-17 mouth. ity o f iron/folic 07:47: 00:00 [place] (PNV 29-1 52 :00 Medical ORAL) Branch [...] on Fri02/19/23 at 1800, Routine acetaminoph Yes [id number] 650mg Take 2 Univers en 325 mg 5-17 tablets by ity of tablet 00:00: mouth every 6 Medical (six) Branch hours as needed for Pain (scale 1-3) or Pain (scale 4-6). Yes [id number] 1{tbl} Take 1 U nivers vitamin 5-17 tablet by ity of w/FA tablet 00:00: [place] in [place] 00 the Medical morning. Branch docusate Yes [id number] 200mg Take 2 Un vaishali 100 mg 5-17 capsules ity of capsule 00:00: by mouth 00 once daily Medical as needed Branch for Constipati on. ferrous Yes [id number] 325mg Take 1 Uni vers sulfate 325 5-17 tablet by ity of mg (65 mg 00:00: mouth in [facility] s iron) 00 the Medical tablet morning Branch and 1 tablet in the evening. ibuprofen Yes [id number] 600mg Take 1 U nivers 600 mg 5-17 tablet by ity of tablet 00:00: mouth [place] 00 every 6 Medical (six) Branch hours as needed (Pain). Take with food or milk. acetaminoph Yes [id number] 650mg Take 2 Univers en 325 mg 5-17 tablets by ity of tablet 00:00: mouth [place] 00 every 6 Medical (six) Branch hours as needed for Pain (scale 1-3) or Pain (scale 4-6). Yes [id number] 1{tbl} Take 1 U nivers vitamin 5-17 tablet by ity of w/FA tablet 00:00: [place] in [place] 00 the Medical morning. Branch docusate Yes [id number] 200mg Take 2 Un vaishali 100 mg 5-17 capsules ity of capsule 00:00: by mouth [place] 00 once daily Medical as needed Branch for Constipati on. ferrous Yes [id number] 325mg Take 1 Uni vers sulfate 325 5-17 tablet by ity of mg (65 mg 00:00: [place] iron) 00 the Medical tablet morning Branch and 1 tablet in the evening. ibuprofen Yes [id number] 600mg Take 1 U nivers 600 mg [...] s: acute pain gabapentin 2022-0 2022- Yes [id number] 300mg Take 1 Univers 300 mg 5-17 05-23 capsule by ity of capsule 00:00: 04:59 mouth in [place] 00 :00 the Medical morning Branch and 1 capsule at noon and 1 capsule in the evening. Do all this for 5 days. gabapentin 2023-0 2023- Yes [id number] 300mg Take 1 Univers 300 mg 02-19 capsule by ity of capsule 00:00: 04:59 mouth in [place] 00 :00 the Medical morning Branch and 1 capsule at noon and 1 capsule in the evening. Do all this for 5 days. acetaminoph 2023-0 Yes 650mg 650 mg, Un vaishali en 5-16 Oral, Q6H ity of (TYLENOL) 23:00: ABX, First [place] tablet 650 00 dose on Medica l mg [facility] 02/18/23 at 1800, Until Discontinu ed, Routine acetaminoph 2023-0 Yes 650mg 650 mg, Un vaishali en 5-16 Oral, Q6H ity of (TYLENOL) 23:00: ABX, First [place] tablet 650 00 dose on Medica l mg [facility] 02/18/23 at 1800, Until Discontinu ed, Routine labetaloL 2023-0 Yes 200mg 200 mg, [facility] ers (NORMODYNE) 5-16 Oral, ity of tablet 200 22:00: DAILY AT [place] mg 00 1700, Medical First dose Branch on [facility] 02/18/23 at 1700, Until Discontinu ed, Routine labetaloL 2023-0 Yes 200mg 200 mg, Univ ers (NORMODYNE) 5-16 Oral, ity of tablet 200 22:00: DAILY AT [place] mg 00 1700, Medical First dose Branch on [facility] 02/18/23 at 1700, Until Discontinu ed, Routine gabapentin 2023-0 Yes 300mg 300 mg, Uni vers (NEURONTIN) 5-16 Oral, TID, it y of capsule 300 19:00: First dose [place] mg 00 on [facility] 02/18/23 at Branch 1400, Until Discontinu ed, Routine gabapentin 2023-0 Yes 300mg 300 mg, Uni vers (NEURONTIN) 5-16 Oral, TID, it y of capsule 300 19:00: First dose [place] mg 00 on [facility] 02/18/23 at Branch 1400, Until Discontinu ed, Routine lactated 2023-0 202- No 1000mL at 125 [facility] ers ringers IV 02-18 05-16 [...] Starting Medi stephanie tablet 1 on Fri [place] tablet 02/18/23 at 0834, Until Discontinu ed, [...] 4 10 Starting Medi stephanie mg on [facility] 02/18/23 at 0834, Until Discontinu ed, Routine, Nausea and Vomiting (N/V) bisacodyL 2022-0 Yes 10mg 10 mg, Univer s (DULCOLAX) 5-16 Rectal, ity of suppository 13:34: QDAILYPRN, [place] 10 mg 10 Starting Medical on [facility] 02/18/23 at 0834, Until Discontinu ed, Routine, [...] [place] 10 mg 10 Starting Medical on [facility] Branch 02/18/23 at 0834, Until Discontinu ed, Routine, Constipati on simethicone 2023-0 Yes 160mg 160 mg, Un vaishali (GAS RELIEF 5-16 Oral, ity of (SIMETHICON 13:34: PC+HSPRN, [place] E)) 10 Starting Medical chewable on [facility] tablet 160 02/18/23 at mg 0834, Until Discontinu ed, Routine, Gas docusate 2023-0 Yes 200mg 200 mg, Unive rs (COLACE) 5-16 Oral, ity of capsule 200 13:34: QDAILYPRN, [place] mg 10 Starting Medical on [facility] 02/18/23 at 0834, Until Discontinu ed, Routine, Constipati on magnesium 3-0 Yes 30mL 30 mL, Univer s hydroxide 5-16 Oral, ity of (MILK OF 13:34: QDAILYPRN, [place] MAGNESIA) 10 Starting Medica l 400 mg/5 mL on [facility] suspension 02/18/23 at 30 mL 0834, Until [...] 25 59 Starting Medica l mg on [facility] 02/18/23 at 0833, Until Discontinu ed, Routine, [...] ity of 0.9 % 13:09: on Fri [place] irrigation 02/18/23 at [facility] ical solution 0809, Branch Until Discontinu ed, Intra-op sodium 0 Yes PRN, Univers chloride 5-16 Starting ity of 0.9 % 13:09: on Fri [place] irrigation 02/18/23 at [facility] ical solution 0809, Branch Until Discontinu ed, Intra-op mupirocin 2022-0 Yes Intra-op Univ ers (BACTROBAN 5-16 ity of OINT) 2 % 13:08: [place] skin 00 Medical ointment [place] mupirocin 0 Yes Intra-op Univ ers (BACTROBAN 5-16 ity of OINT) 2 % 13:08: [place] skin 00 Medical ointment [place] sodium 2022- No 30mL 30 mL, Univers [...] vit,calc76/ 4-26 mouth. ity of iron/folic 16:50: [place] (PNV 29-1 25 Medical ORAL) Branch labetalol Yes Take by Unive rs HCl 4-26 mouth. ity of (LABETALOL 16:50: [place] ORAL) 25 Medical Branch Yes Take by Univer s vit,calc76/ 4-26 mouth. ity of iron/folic 16:50: [place] (PNV 29-1 25 Medical ORAL) Branch labetalol Yes Take by Unive rs HCl 4-26 mouth. ity of (LABETALOL 16:50: [place] ORAL) 25 Medical Branch Yes Take by Univer s vit,calc76/ 4-26 mouth. ity of iron/folic 16:50: [place] (PNV 29-1 25 Medical ORAL) [place] labetalol Yes Take by Unive rs HCl 4-26 mouth. ity of (LABETALOL 16:31: [place] ORAL) 45 Medical Branch Yes Take by Univer s vit,calc76/ 4-26 mouth. ity of iron/folic 16:31: [place] (PNV 29-1 45 Medical ORAL) [place] labetaloL Yes 200mg 200 mg, Univ ers (NORMODYNE) 4- Oral, ity of tablet 200 14:00: DAILY, [place] mg 00 First dose Medical on Fri01/29/23 at 0900, Until Discontinu ed, Routine Cholecalcif 2023-0 Yes [id number] 1999U Take 1 Univers aidee, 4-26 capsule by ity of Vitamin D3, 00:00: mouth in [place] (VITAMIN 00 the Medical D3) 50 mcg morning. Branc h (2,000 unit) capsule Cholecalcif 2023-0 Yes [id number] 1999U Take 1 Univers aidee, 4-26 capsule by ity of Vitamin D3, 00:00: mouth in [place] (VITAMIN 00 the Medical D3) 50 mcg morning. Branc h (2,000 unit) capsule Cholecalcif 2023-0 Yes [id number] 1999U Take 1 Univers aidee, 4-26 capsule by ity of Vitamin D3, 00:00: mouth in [place] (VITAMIN 00 the Medical D3) 50 mcg morning. Branc h (2,000 unit) capsule Cholecalcif 2023-0 Yes [id number] 2000U Take 1 Univers aidee, 4-26 capsule by ity of Vitamin D3, 00:00: mouth in [place] (VITAMIN 00 the Medical D3) 50 mcg morning. Branc h (2,000 unit) capsule Cholecalcif 2023-0 Yes [id number] 2000U Take 1 Univers aidee, 4-26 capsule by ity of Vitamin D3, 00:00: mouth in [place] (VITAMIN 00 the Medical D3) 50 mcg morning. Branc h (2,000 unit) capsule Cholecalcif 2023-0 Yes [id number] 2000U Take 1 Univers aidee, 4-26 capsule by ity of Vitamin D3, 00:00: mouth in [place] (VITAMIN 00 the Medical D3) 50 mcg morning. Branc h (2,000 unit) capsule Cholecalcif 2023-0 Yes [id number] 2000U Take 1 Univers aidee, 4-26 capsule by ity of Vitamin D3, 00:00: mouth in [place] (VITAMIN 00 the Medical D3) 50 mcg morning. Branc h (2,000 unit) capsule Cholecalcif 2023-0 Yes [id number] 2000U Take 1 Univers aidee, 4-26 capsule by ity of Vitamin D3, 00:00: mouth in [place] (VITAMIN 00 the Medical D3) 50 mcg morning. Branc h (2,000 unit) capsule Cholecalcif 2023-0 Yes [id number] 2000U Take 1 Univers aidee, 4-26 capsule by ity of Vitamin D3, 00:00: mouth in [place] (VITAMIN 00 the Medical D3) 50 mcg morning. Branc h (2,000 unit) capsule Cholecalcif 2023-0 Yes [id number] 2000U Take 1 Univers aidee, 4-26 capsule by ity of Vitamin D3, 00:00: mouth in [place] (VITAMIN 00 the Medical D3) 50 mcg morning. Branc h (2,000 unit) capsule Cholecalcif 2023-0 Yes [id number] 2000U Take 1 Univers aidee, 4-26 capsule [...] vit,calc76/ 4-25 mouth. ity of iron/folic 14:51: [place] (PNV 29-1 03 Medical ORAL) Branch labetalol Yes Take by Unive rs HCl 4-06 mouth. ity of (LABETALOL 10:27: [place] ORAL) 08 Medical Branch Yes Take by Univer s vit,calc76/ 4-06 mouth. ity of iron/folic 10:27: [place] (PNV 29-1 08 Medical ORAL) Branch labetalol Yes Take by Unive rs HCl 4-06 mouth. ity of (LABETALOL 10:27: [place] ORAL) 08 Medical Branch Yes Take by Univer s vit,calc76/ 4-06 mouth. ity of iron/folic 10:27: [place] (PNV 29-1 08 Medical ORAL) Branch labetalol Yes Take by Unive rs HCl 4-06 mouth. ity of (LABETALOL 10:27: [place] ORAL) 08 Medical Branch Yes Take by Univer s vit,calc76/ 4-06 mouth. ity of iron/folic 10:27: [place] (PNV 29-1 08 Medical ORAL) Branch acetaminoph [...] Fri01/08/23 at 2145, STAT ondansetron 2022-0 Yes [id number] 4mg Take 1 Univers 4 mg 4-06 tablet by ity of disintegrat 00:00: mouth [place] ing tablet 00 every 8 Medica l (eight) Branch hours as needed for Nausea and Vomiting (N/V). famotidine 3-0 Yes [id number] 20mg Take 1 U nivers 20 mg 4-06 tablet by ity of tablet 00:00: mouth in [place] 00 the Medical morning Branch and 1 tablet in the evening. ondansetron 3-0 Yes [id number] 4mg Take 1 Univers 4 mg 4-06 tablet by ity of disintegrat 00:00: mouth [place] ing tablet 00 every 8 Medica l (eight) Branch hours as needed for Nausea and Vomiting (N/V). famotidine 3-0 Yes [id number] 20mg Take 1 U nivers 20 mg 4-06 tablet by ity of tablet 00:00: mouth in [place] 00 the Medical morning Branch and 1 tablet in the evening. ondansetron 2023-0 Yes [id number] 4mg Take 1 Univers 4 mg 4-06 tablet by ity of disintegrat 00:00: mouth [place] ing tablet 00 every 8 Medica l (eight) Branch hours as needed for Nausea and Vomiting (N/V). famotidine 2023-0 Yes [id number] 20mg Take 1 U nivers 20 mg 4-06 tablet by ity of tablet 00:00: mouth in [place] 00 the Medical morning Branch and 1 tablet in the evening. ondansetron 2023-0 Yes [id number] 4mg Take 1 Univers 4 mg 4-06 tablet by ity of disintegrat 00:00: mouth [place] ing tablet 00 every 8 Medica l (eight) Branch hours as needed for Nausea and Vomiting (N/V). famotidine 2023-0 Yes [id number] 20mg Take 1 U nivers 20 mg 4-06 tablet by ity of tablet 00:00: mouth in [place] the Medical morning Branch and 1 tablet in the evening. ondansetron 2023-0 Yes [id number] 4mg Take 1 Univers 4 mg 4-06 tablet by ity of disintegrat 00:00: mouth [place] ing tablet 00 every 8 Medica l (eight) Branch hours as needed for Nausea and Vomiting (N/V). famotidine 2023-0 Yes [id number] 20mg Take 1 U nivers 20 mg 4-06 tablet by ity of tablet 00:00: mouth in [place] the Medical morning Branch and 1 tablet in the evening. ondansetron 2023-0 Yes [id number] 4mg Take 1 Univers 4 mg 4-06 tablet by ity of disintegrat 00:00: mouth [place] ing tablet 00 every 8 Medica l (eight) Branch hours as needed for Nausea and Vomiting (N/V). famotidine 2023-0 Yes [id number] 20mg Take 1 U nivers 20 mg 4-06 tablet by ity of tablet 00:00: mouth in [place] 00 the Medical morning Branch and 1 tablet in the evening. ondansetron 2023-0 Yes [id number] 4mg Take 1 Univers 4 mg 4-06 tablet by ity of disintegrat 00:00: mouth [place] ing tablet 00 every 8 Medica l (eight) Branch hours as needed for Nausea and Vomiting (N/V). ondansetron 2023-0 Yes [id number] 4mg Take 1 Univers 4 mg 4-06 tablet by ity of disintegrat 00:00: mouth [place] ing tablet 00 every 8 Medica l (eight) Branch hours as needed for Nausea and Vomiting (N/V). ondansetron 2023-0 Yes [id number] 4mg Take 1 Univers 4 mg 4-06 tablet by ity of disintegrat 00:00: mouth [place] ing tablet 00 every 8 Medica l (eight) Branch hours as needed for Nausea and Vomiting (N/V). famotidine 2023-0 Yes [id number] 20mg Take 1 U nivers 20 mg 4-06 tablet by ity of tablet 00:00: mouth in [place] 00 the Medical morning Branch and 1 tablet in the evening. ondansetron 2023-0 Yes [id number] 4mg Take 1 Univers 4 mg 4-06 tablet by ity of disintegrat 00:00: mouth [place] ing tablet 00 every 8 Medica l (eight) Branch hours as needed for Nausea and Vomiting (N/V). famotidine 2023-0 Yes [id number] 20mg Take 1 U nivers 20 mg 4-06 tablet by ity of tablet 00:00: mouth in [place] 00 the Medical morning Branch and 1 tablet in the evening. ondansetron 2023-0 Yes [id number] 4mg Take 1 Univers 4 mg 4-06 tablet by ity of disintegrat 00:00: mouth [place] ing tablet 00 every 8 Medica l (eight) Branch hours as needed for Nausea and Vomiting (N/V). famotidine 2023-0 Yes [id number] 20mg Take 1 U nivers 20 mg 4-06 tablet by ity of tablet 00:00: mouth in [place] 00 the Medical morning Branch and 1 tablet in the evening. ondansetron 2023-0 Yes [id number] 4mg Take 1 Univers 4 mg 4-06 tablet by ity of disintegrat 00:00: mouth [place] ing tablet 00 every 8 Medica l (eight) Branch hours as needed for Nausea and Vomiting (N/V). famotidine 2023-0 Yes [id number] 20mg Take 1 U nivers 20 mg 4-06 tablet by ity of tablet 00:00: mouth in [place] 00 the Medical morning Branch and 1 tablet in the evening. ondansetron 2023-0 Yes [id number] 4mg Take 1 Univers 4 mg 4-06 tablet by ity of disintegrat 00:00: mouth [place] ing tablet 00 every 8 Medica l (eight) Branch hours as needed for Nausea and Vomiting (N/V). famotidine 2023-0 Yes [id number] 20mg Take 1 U nivers 20 mg 4-06 tablet by ity of tablet 00:00: mouth in [place] 00 the Medical morning Branch and 1 tablet in the evening. ondansetron 2023-0 Yes [id number] 4mg Take 1 Univers 4 mg 4-06 tablet by ity of disintegrat 00:00: mouth [place] ing tablet 00 every 8 Medica l (eight) Branch hours as needed for Nausea and Vomiting (N/V). famotidine 2023-0 Yes [id number] 20mg Take 1 U nivers 20 mg 4-06 tablet by ity of tablet 00:00: mouth in [place] [address] the Medical morning Branch and 1 tablet in the evening. ondansetron 2023-0 Yes [id number] 4mg Take 1 Univers 4 mg 4-06 tablet by ity of disintegrat 00:00: mouth [place] ing tablet 00 every 8 Medica l (eight) Branch hours as needed for Nausea and Vomiting (N/V). famotidine 2023-0 Yes [id number] 20mg Take 1 U nivers 20 mg 4-06 tablet by ity of tablet 00:00: mouth in [place] [address] the Medical morning Branch and 1 tablet in the evening. ondansetron 2023-0 Yes [id number] 4mg Take 1 Univers 4 mg 4-06 tablet by ity of disintegrat 00:00: mouth [place] ing tablet 00 every 8 Medica l (eight) Branch hours as needed for Nausea and Vomiting (N/V). famotidine 2023-0 Yes [id number] 20mg Take 1 U nivers 20 mg 4-06 tablet by ity of tablet 00:00: mouth in [place] [address] the Medical morning Branch and 1 tablet in the evening. famotidine 2023-0 2023- No [id number] 20mg Take 1 Univers 20 mg 4-06 05-17 tablet by ity of tablet 00:00: 00:00 mouth in [place] 00 :00 the Medical morning Branch and 1 tablet in the evening. famotidine 3- No [id number] 20mg Take 1 Univers 20 mg 4-06 05-17 tablet by ity of tablet 00:00: 00:00 mouth in [place] 00 :00 the Medical morning Branch and 1 tablet in the evening. labetalol 0 Yes Take by Unive rs HCl 4-05 mouth. ity of (LABETALOL 23:43: [place] ORAL) 14 Medical Branch 0 Yes Take by Univer s vit,calc76/ 4-05 mouth. ity of iron/folic 23:43: [place] (PNV 29-1 14 Medical ORAL) Branch famotidine 0 Yes [id number] 20mg Take 1 U nivers 20 mg 4-05 tablet by ity of tablet 00:00: mouth in [place] 00 the Medical morning Branch and 1 tablet in the evening. famotidine 0 Yes [id number] 20mg Take 1 U nivers 20 mg 4-05 tablet by ity of tablet 00:00: mouth in [place] 00 the Medical morning Branch and 1 tablet in the evening. famotidine 0 3- No [id number] 20mg Take 1 Univers 20 mg 4-05 04-06 tablet by ity of tablet 00:00: 00:00 mouth in [place] 00 :00 the Medical morning Branch and [...] Medical ORAL) Branch aspirin 81 0 Yes [id number] 81mg Take 1 Univers mg EC 2-15 tablet by ity of tablet 00:00: mouth in [place] 00 the Medical morning. Branch aspirin 81 2022-0 Yes [id number] 81mg Take 1 Univers mg EC 2-15 tablet by ity of tablet 00:00: mouth in [place] the Medical morning. Branch aspirin 81 2022-0 Yes [id number] 81mg Take 1 Univers mg EC 2-15 tablet by ity of tablet 00:00: mouth in [place] the Medical morning. Branch aspirin 81 2022-0 Yes [id number] 81mg Take 1 Univers mg EC 2-15 tablet by ity of tablet 00:00: mouth in [place] 00 the Medical morning. Branch aspirin 81 2022-0 Yes [id number] 81mg Take 1 Univers mg EC 2-15 tablet by ity of tablet 00:00: mouth in [place] 00 the Medical morning. Branch aspirin 81 2022-0 Yes [id number] 81mg Take 1 Univers mg EC 2-15 tablet by ity of tablet 00:00: mouth in [place] 00 the Medical morning. Branch aspirin 81 2022-0 Yes [id number] 81mg Take 1 Univers mg EC 2-15 tablet by ity of tablet 00:00: mouth in [place] 00 the Medical morning. Branch aspirin 81 2022-0 Yes [id number] 81mg Take 1 Univers mg EC 2-15 tablet by ity of tablet 00:00: mouth in [place] 00 the Medical morning. Branch aspirin 81 2022-0 Yes [id number] 81mg Take 1 Univers mg EC 2-15 tablet by ity of tablet 00:00: mouth in [place] 00 the Medical morning. Branch aspirin 81 2023-0 Yes [id number] 81mg Take 1 Univers mg EC 2-15 tablet by ity of tablet 00:00: mouth in [place] 00 the Medical morning. Branch aspirin 81 2023-0 Yes [id number] 81mg Take 1 Univers mg EC 2-15 tablet by ity of tablet 00:00: mouth in [place] the Medical morning. Branch aspirin 81 2023-0 Yes [id number] 81mg Take 1 Univers mg EC 2-15 tablet by ity of tablet 00:00: mouth in [place] the Medical morning. Branch aspirin 81 2023-0 Yes [id number] 81mg Take 1 Univers mg EC 2-15 tablet by ity of tablet 00:00: mouth in [place] the Medical morning. Branch aspirin 81 2023-0 Yes [id number] 81mg Take 1 Univers mg EC 2-15 tablet by ity of tablet 00:00: mouth in [place] the Medical morning. Branch aspirin 81 3-0 Yes [id number] 81mg Take 1 Univers mg EC 2-15 tablet by ity of tablet 00:00: mouth in [place] the Medical morning. Branch aspirin 81 3-0 Yes [id number] 81mg Take 1 Univers mg EC 2-15 tablet by ity of tablet 00:00: mouth in [place] the Medical morning. Branch aspirin 81 2023-0 Yes [id number] 81mg Take 1 Univers mg EC 2-15 tablet by ity of tablet 00:00: mouth in [place] the Medical morning. Branch aspirin 81 2023-0 Yes [id number] 81mg Take 1 Univers mg EC 2-15 tablet by ity of tablet 00:00: mouth in [place] the Medical morning. Branch aspirin 81 2023-0 Yes [id number] 81mg Take 1 Univers mg EC 2-15 tablet by ity of tablet 00:00: mouth in [place] 00 the Medical morning. Branch aspirin 81 2023-0 Yes [id number] 81mg Take 1 Univers mg EC 2-15 tablet by ity of tablet 00:00: mouth in [place] 00 the Medical morning. Branch aspirin 81 2023-0 Yes [id number] 81mg Take 1 Univers mg EC 2-15 tablet by ity of tablet 00:00: mouth in [place] 00 the Medical morning. Branch aspirin 81 2023-0 Yes [id number] 81mg Take 1 Univers mg EC 2-15 tablet by ity of tablet 00:00: mouth in [place] 00 the Medical morning. Branch aspirin 81 0 Yes [id number] 81mg Take 1 Univers mg EC 2-15 tablet by ity of tablet 00:00: mouth in [place] 00 the Medical morning. Branch aspirin 81 0 3- No [id number] 81mg Take 1 Univers mg EC 2-15 05-17 tablet by ity of tablet 00:00: 00:00 mouth in [place] 00 :00 the Medical morning. Branch aspirin 81 0 2022- No [id number] 81mg Take 1 Univers mg EC 2-15 05-17 tablet by ity of tablet 00:00: 00:00 mouth in [place] 00 :00 the Medical morning. Branch labetalol Yes Take by Unive rs HCl 2-02 mouth. ity of (LABETALOL 09:32: [place] ORAL) [facility] labetalol Yes Take by Unive rs HCl 2-02 mouth. ity of (LABETALOL 09:32: [place] ORAL) [facility] labetalol Yes Take by Unive rs HCl 2-02 mouth. ity of (LABETALOL 09:32: [place] ORAL) [facility] Branch labetalol Yes Take by Unive rs HCl 2-02 mouth. ity of (LABETALOL 09:32: [place] ORAL) [facility] labetalol Yes Take by Unive rs HCl 2-02 mouth. ity of (LABETALOL 09:32: [place] ORAL) [facility] Branch labetalol Yes Take by Unive rs HCl 2-02 mouth. ity of (LABETALOL 09:32: [place] ORAL) [facility] Branch labetalol Yes Take by Unive rs HCl 2-02 mouth. ity of (LABETALOL 09:32: [place] ORAL) [facility] labetalol Yes Take by Unive rs HCl 2-02 mouth. ity of (LABETALOL 09:32: [place] ORAL) [facility] labetalol Yes Take by Unive rs [...] 09:32: [place] ORAL) Medical Branch amoxicillin Yes [id number] 500mg Take 1 Univers 500 mg 6-23 capsule by ity of capsule 00:00: mouth 3 [place] 00 (three) Medical times Branch daily. amoxicillin Yes [id number] 500mg Take 1 Univers 500 mg 6-23 capsule by ity of capsule 00:00: mouth 3 [place] 00 (three) Medical times Branch daily. amoxicillin Yes [id number] 500mg Take 1 Univers 500 mg 6-23 capsule by ity of capsule 00:00: mouth 3 [place] 00 (three) Medical times Branch daily. amoxicillin Yes [id number] 500mg Take 1 Univers 500 mg 6-23 capsule by ity of capsule 00:00: mouth 3 [place] 00 (three) Medical times Branch daily. amoxicillin 2022- No [id number] 500mg Take 1 Univers 500 mg 6-23 02-02 capsule by ity of capsule 00:00: 00:00 mouth 3 [place] 00 :00 (three) Medical times Branch daily. 2020-0 Yes [id number] 1{packe Take 1 Univers vit 7-15 t} Packet by ity of 33-iron-fol 00:00: mouth [place] ic-dha 00 daily. Medical (SELECT-OB Branch + DHA) 29 mg iron-1 mg -250 mg combo pack 2020-0 Yes [id number] 1{packe Take 1 Univers vit 7-15 t} Packet by ity of 33-iron-fol 00:00: mouth [place] ic-dha 00 daily. Medical (SELECT-OB Branch + DHA) 29 mg iron-1 mg -250 mg combo pack 2020-0 Yes [id number] 1{packe Take 1 Univers vit 7-15 t} Packet by ity of 33-iron-fol 00:00: mouth [place] ic-dha 00 daily. Medical (SELECT-OB Branch + DHA) 29 mg iron-1 mg -250 mg combo pack 2020-0 Yes [id number] 1{packe Take 1 Univers vit 7-15 t} Packet by ity of 33-iron-fol 00:00: mouth [place] ic-dha 00 daily. Medical (SELECT-OB Branch + DHA) 29 mg iron-1 mg -250 mg combo pack 2020-0 Yes [id number] 1{packe Take 1 Univers vit 7-15 t} Packet by ity of 33-iron-fol 00:00: mouth [place] ic-dha 00 daily. Medical (SELECT-OB Branch + DHA) 29 mg iron-1 mg -250 mg combo pack 2020-0 Yes [id number] 1{packe Take 1 Univers vit 7-15 t} Packet by ity of 33-iron-fol 00:00: mouth [place] ic-dha 00 daily. Medical (SELECT-OB Branch + DHA) 29 mg iron-1 mg -250 mg combo pack 2020-0 Yes [id number] 1{packe Take 1 Univers vit 7-15 t} Packet by ity of 33-iron-fol 00:00: mouth [place] ic-dha 00 daily. Medical (SELECT-OB Branch + DHA) 29 mg iron-1 mg -250 mg combo pack 2020-0 Yes [id number] 1{packe Take 1 Univers vit 7-15 t} Packet by ity of 33-iron-fol 00:00: mouth [place] ic-dha 00 daily. Medical (SELECT-OB Branch + DHA) 29 mg iron-1 mg -250 mg combo pack 2020-0 Yes [id number] 1{packe Take 1 Univers vit 7-15 t} Packet by ity of 33-iron-fol 00:00: mouth [place] ic-dha 00 daily. Medical (SELECT-OB Branch + DHA) 29 mg iron-1 mg -250 mg combo pack 2020-0 Yes [id number] 1{packe Take 1 Univers vit 7-15 t} Packet by ity of 33-iron-fol 00:00: mouth [place] ic-dha 00 daily. Medical (SELECT-OB Branch + DHA) 29 mg iron-1 mg -250 mg combo pack 2020-0 Yes [id number] 1{packe Take 1 Univers vit 7-15 t} Packet by ity of 33-iron-fol 00:00: mouth [place] ic-dha 00 daily. Medical (SELECT-OB Branch + DHA) 29 mg iron-1 mg -250 mg combo pack 2020-0 Yes [id number] 1{packe Take 1 Univers vit 7-15 t} Packet by ity of 33-iron-fol 00:00: mouth [place] ic-dha 00 daily. Medical (SELECT-OB Branch + DHA) 29 mg iron-1 mg -250 mg combo pack 2020-0 Yes [id number] 1{packe Take 1 Univers vit 7-15 t} Packet by ity of 33-iron-fol 00:00: mouth [place] ic-dha 00 daily. Medical (SELECT-OB Branch + DHA) 29 mg iron-1 mg -250 mg combo pack 2020-0 Yes [id number] 1{packe Take 1 Univers vit 7-15 t} Packet by ity of 33-iron-fol 00:00: mouth [place] ic-dha 00 daily. Medical (SELECT-OB Branch + DHA) 29 mg iron-1 mg -250 mg combo pack 2020-0 Yes [id number] 1{packe Take 1 Univers vit 7-15 t} Packet by ity of 33-iron-fol 00:00: mouth [place] ic-dha 00 daily. Medical (SELECT-OB Branch + DHA) 29 mg iron-1 mg -250 mg combo pack 2020-0 Yes [id number] 1{packe Take 1 Univers vit 7-15 t} Packet by ity of 33-iron-fol 00:00: mouth [place] ic-dha 00 daily. Medical (SELECT-OB Branch + DHA) 29 mg iron-1 mg -250 mg combo pack 2020-0 Yes [id number] 1{packe Take 1 Univers vit 7-15 t} Packet by ity of 33-iron-fol 00:00: mouth [place] ic-dha 00 daily. Medical (SELECT-OB Branch + DHA) 29 mg iron-1 mg -250 mg combo pack 2020-0 Yes [id number] 1{packe Take 1 Univers vit 7-15 t} Packet by ity of 33-iron-fol 00:00: mouth [place] ic-dha 00 daily. Medical (SELECT-OB Branch + DHA) 29 mg iron-1 mg -250 mg combo pack 2020-0 Yes [id number] 1{packe Take 1 Univers vit 7-15 t} Packet by ity of 33-iron-fol 00:00: mouth [place] ic-dha 00 daily. Medical (SELECT-OB Branch + DHA) 29 mg iron-1 mg -250 mg combo pack 2020-0 Yes [id number] 1{packe Take 1 Univers vit 7-15 t} Packet by ity of 33-iron-fol 00:00: mouth [place] ic-dha 00 daily. Medical (SELECT-OB Branch + DHA) 29 mg iron-1 mg -250 mg combo pack 2020-0 Yes [id number] 1{packe Take 1 Univers vit 7-15 t} Packet by ity of 33-iron-fol 00:00: mouth [place] ic-dha 00 daily. Medical (SELECT-OB Branch + DHA) 29 mg iron-1 mg -250 mg combo pack 2020-0 Yes [id number] 1{packe Take 1 Univers vit 7-15 t} Packet by ity of 33-iron-fol 00:00: mouth [place] ic-dha 00 daily. Medical (SELECT-OB Branch + DHA) 29 mg iron-1 mg -250 mg combo pack 2020-0 Yes [id number] 1{packe Take 1 Univers vit 7-15 t} Packet by ity of 33-iron-fol 00:00: mouth [place] ic-dha 00 daily. Medical (SELECT-OB Branch + DHA) 29 mg iron-1 mg -250 mg combo pack 2020-0 Yes [id number] 1{packe Take 1 Univers vit 7-15 t} Packet by ity of 33-iron-fol 00:00: mouth [place] ic-dha 00 daily. Medical (SELECT-OB Branch + DHA) 29 mg iron-1 mg -250 mg combo pack 2020-0 Yes [id number] 1{packe Take 1 Univers vit 7-15 t} Packet by ity of 33-iron-fol 00:00: mouth [place] ic-dha 00 daily. Medical (SELECT-OB Branch + DHA) 29 mg iron-1 mg -250 mg combo pack 2020-0 Yes [id number] 1{packe Take 1 Univers vit 7-15 t} Packet by ity of 33-iron-fol 00:00: mouth [place] ic-dha 00 daily. Medical (SELECT-OB Branch + DHA) 29 mg iron-1 mg -250 mg combo pack 2020-0 2023- No [id number] 1{packe Take 1 Univers vit 7-15 11-07 [...] of Therapy: 7 days azithromyci 2020- No [id number] 1000mg Take 2 Univers n 500 mg 6-18 06-20 tablets by ity of tablet 00:00: 04:59 mouth [place] 00 :00 daily for Medical 1 day. [place] azithromyci 2019- No [id number] 1000mg Take 2 Univers n 500 mg 6-18 06-20 tablets by ity of tablet 00:00: 04:59 mouth [place] 00 :00 daily for Medical 1 day. [place] azithromyci 2019- No [id number] 1000mg Take 2 Univers n 500 mg 6-18 06-20 tablets by ity of tablet 00:00: 04:59 mouth [place] 00 :00 daily for Medical 1 day. Branch acetaminoph 2019- No 1000mg 1,000 mg, Univers en 03-21 Oral, ity of (TYLENOL) 17:30: 16:21 ONCE, 1 [place] :[place] dose, Tue Medical 1,000 mg 03/21/20 at [facility] h 1230, Routine No known No Univers medications ity [facility] No known No Univers medications ity of [place] [facility] No known No Univers medications ity of [facility] Immunizations Ordered Filled Immunization Date Status Comments [facility] e Immunization Name Name TD 2022-12-25 Completed University of 00:00:00 [facility] Branch TDAP 2022-12-25 Completed University of 00:00:00 [facility] Branch TDAP 2022-12-25 Completed University of 00:00:00 [facility] TDAP 2022-12-25 Completed University of 00:00:00 [facility] TDAP 2022-12-25 Completed University of 00:00:00 [facility] Branch TDAP 2022-12-25 Completed University of 00:00:00 [facility] TDAP 2022-12-25 Completed University of 00:00:00 [facility] TDAP 2022-12-25 Completed University of 00:00:00 [facility] TDAP 2022-12-25 Completed University of 00:00:00 [facility] TDAP 2022-12-25 Completed University of 00:00:00 [facility] TDAP 2022-12-25 Completed University of 00:00:00 [facility] TDAP 2022-12-25 Completed University of 00:00:00 [facility] TDAP 2022-12-25 Completed University of 00:00:00 [facility] TDAP 2022-12-25 Completed University of 00:00:00 [facility] TDAP 2022-12-25 Completed University of 00:00:00 [facility] TDAP 2022-12-25 Completed University of 00:00:00 [facility] TDAP 2022-12-25 Completed University of 00:00:00 [facility] TDAP 2022-12-25 Completed University of 00:00:00 [facility] TDAP 2022-12-25 Completed University of 00:00:00 [facility] Influenza Virus 2022-11-07 Completed Universit y of Vacc[facility] IM, 00:00:00 [place] Me dical Preserv and ABX Branch Free 6 MO-64 YRS Influenza Virus 2022-11-07 Completed Universit y of [facility] IM, 00:00:00 [place] Me dical Preserv and ABX Branch Free 6 MO-64 YRS Influenza Virus 2022-11-07 Completed Universit y of [facility] IM, 00:00:00 [place] Me dical Preserv and ABX Branch Free [...] Branch TDAP 2020-09-07 Completed University of 00:00:00 [place] [facility] TDAP 2020-09-07 Completed University of 00:00:00 [place] [facility] TDAP 2020-09-07 Completed University of 00:00:00 [place] [facility] TDAP 2020-09-07 Completed University of 00:00:00 [place] [facility] TDAP 2020-09-07 Completed University of 00:00:00 [place] [facility] TDAP 2020-09-07 Completed University of 00:00:00 [place] [facility] TDAP 2020-09-07 Completed University of 00:00:00 [place] [facility] TDAP 2020-09-07 Completed University of 00:00:00 [place] [facility] TDAP 2020-09-07 Completed University of 00:00:00 [place] [facility] TDAP 2020-09-07 Completed University of 00:00:00 [place] [facility] TDAP 2020-09-07 Completed University of 00:00:00 [place] [facility] TDAP 2020-09-07 Completed University of 00:00:00 [place] [facility] TDAP 2020-09-07 Completed University of 00:00:00 [place] [facility] TDAP 2020-09-07 Completed University of 00:00:00 [place] [facility] TDAP 2020-09-07 Completed University of 00:00:00 [place] [facility] TDAP 2020-09-07 Completed University of 00:00:00 [place] [facility] TDAP 2020-09-07 Completed University of 00:00:00 [place] [facility] TDAP 2020-09-07 Completed University of 00:00:00 [place] [facility] TDAP 2020-09-07 Completed University of 00:00:00 [place] [facility] TDAP 2020-09-07 Completed University of 00:00:00 [place] [facility] TDAP 2020-09-07 Completed University of 00:00:00 [place] [facility] TDAP 2020-09-07 Completed University of 00:00:00 [place] [facility] TDAP 2020-09-07 Completed University of 00:00:00 [place] [facility] TDAP 2020-09-07 Completed University of 00:00:00 [place] [facility] TDAP 2020-09-07 Completed University of 00:00:00 [place] [facility] TDAP 2020-09-07 Completed University of 00:00:00 [place] [facility] TDAP 2020-09-07 Completed University of 00:00:00 [place] [facility] TDAP 2020-09-07 Completed University of 00:00:00 [place] [facility] TDAP 2020-09-07 Completed University of 00:00:00 [place] [facility] TDAP 2020-09-07 Completed University of 00:00:00 [place] [facility] TDAP 2020-09-07 Completed University of 00:00:00 [place] [facility] TDAP 2020-09-07 Completed University of 00:00:00 [place] [facility] [place] TDAP 2020-09-07 Completed University of 00:00:00 [place] [facility] TDAP 2020-09-07 Completed University of 00:00:00 [place] [facility] [place] Influenza Virus 2020-07-13 Completed Universit y of [...] y of Vaccine Quad .5 mL 00:00:00 [place] [facility] IM 6+ MO Branch Influenza Virus 2020-07-13 Completed Universit y of [facility] .5 mL 00:00:00 [place] [facility] IM 6+ MO Branch Influenza Virus 2020-07-13 Completed Universit y of [facility] .5 mL 00:00:00 [place] [facility] IM 6+ MO Branch Influenza Virus 2020-07-13 Completed Universit y of [facility] .5 mL 00:00:00 [place] [facility] IM 6+ MO Branch Influenza Virus 2020-07-13 Completed Universit y of [facility] .5 mL 00:00:00 [place] [facility] IM 6+ MO Branch Influenza Virus 2020-07-13 Completed Universit y of [facility] .5 mL 00:00:00 [place] [facility] IM 6+ MO Branch Influenza Virus 2020-07-13 Completed Universit y of [facility] .5 mL 00:00:00 [place] [facility] IM 6+ MO Branch Influenza Virus 2020-07-13 Completed Universit y of [facility] .5 mL 00:00:00 [place] [facility] 6+ MO Branch Influenza Virus 2020-07-13 Completed Universit y of [facility] .5 mL 00:00:00 [place] [facility] IM 6+ MO Branch Influenza Virus 2020-07-13 Completed Universit y of [facility] .5 mL 00:00:00 [place] [facility] 6+ MO Branch Influenza Virus 2020-07-13 Completed Universit y of [facility] .5 mL [facility] 6[facility] Influenza Virus 2020-07-13 Completed Universit y of [facility] .5 mL 00:00:00 [facility] 6[facility] MO Branch Vital Signs Vital Name Observation Time Observation Value Comments Source Systolic blood 2023-02-21 14:42:00 137 mm[Hg] Univer sity of pressure [facility] Diastolic blood 2023-02-21 14:42:00 68 mm[Hg] Unive rsity of pressure [facility] Heart rate 2023-02-21 12:37:00 79 /[facility] Body temperature 2023-02-21 12:37:00 36.61 [facility] Oxygen saturation in 2023-02-21 12:37:00 100 /min [facility] Arterial blood by [facility] Pulse oximetry Branch Respiratory rate 2023-02-21 06:11:00 16 /min [facility] 2023-02-18 10:10:00 160 cm Universi ty of [place] [facility] Body weight 2023-02-18 10:10:00 98.062 kg Universi ty of [place] [facility] BMI 2023-02-18 10:10:00 38.30 kg/m2 Universi ty of [place] [facility] Systolic blood 2023-02-18 14:30:00 131 mm[Hg] Univer sity of pressure [place] [facility] Diastolic blood 2023-02-18 14:30:00 66 mm[Hg] Unive rsity of pressure [place] [facility] Heart rate 2023-02-18 14:30:00 65 /min Universi ty of [facility] Body temperature 2023-02-18 14:30:00 36.44 Bel Univ ersity of [facility] Oxygen saturation in 2023-02-18 14:30:00 100 /min University of Arterial blood by [facility] Pulse oximetry Branch Respiratory rate 2023-02-18 13:30:00 17 /min Univ ersity of [facility] Body height 2023-02-18 10:10:00 160 cm Universi ty of [place] [facility] Body weight 2023-02-18 10:10:00 98.062 kg Universi ty of [place] [facility] BMI 2023-02-18 10:10:00 38.30 kg/m2 Universi ty of [place] [facility] Systolic blood 2023-02-17 19:29:00 139 mm[Hg] Univer sity of pressure [place] [facility] Diastolic blood 2023-02-17 19:29:00 80 mm[Hg] Unive rsity of pressure [place] [facility] Heart rate 2023-02-17 19:29:00 78 /min Universi ty of [place] [facility] Body temperature 2023-02-17 19:29:00 36.89 Bel Univ ersity of [facility] Respiratory rate 2023-02-17 19:29:00 18 /min Univ ersity of [facility] Body height 2023-02-17 19:29:00 160 cm Universi ty of [place] [facility] Body weight 2023-02-17 19:29:00 97.977 kg Universi ty of [place] [facility] BMI 2023-02-17 19:29:00 38.26 kg/m2 Universi ty of [facility] Systolic blood 2023-02-13 18:31:00 143 mm[Hg] Univer sity of pressure [place] [facility] Diastolic blood 2023-02-13 18:31:00 77 mm[Hg] Unive rsity of pressure [place] [facility] Heart rate 2023-02-13 18:11:00 81 /min Universi ty of [place] [facility] Body temperature 2023-02-13 18:11:00 36.72 [facility] Univ ersity of [place] [facility] Respiratory rate 2023-02-13 18:11:00 18 /min Univ ersity of [place] [facility] Body height 2023-02-13 18:11:00 160 cm Universi ty of [place] [facility] Body weight 2023-02-13 18:11:00 97.523 kg Universi ty of [place] [facility] BMI 2023-02-13 18:11:00 38.09 kg/m2 Universi ty of [place] [facility] Systolic blood 2023-02-10 19:40:00 122 mm[Hg] Univer sity of pressure [place] [facility] Diastolic blood 2023-02-10 19:40:00 73 mm[Hg] Unive rsity of pressure [place] [facility] Heart rate 2023-02-10 19:39:00 90 /min Universi ty of [place] [facility] Body temperature 2023-02-10 19:39:00 36.5 [facility] Univ ersity of [place] [facility] Body height 2023-02-10 19:39:00 160 cm Universi ty of [place] [facility] Body weight 2023-02-10 19:39:00 97.886 kg Universi ty of [place] [facility] BMI 2023-02-10 19:39:00 38.23 kg/m2 Universi ty of [place] [facility] Body weight 2023-02-06 20:10:00 97.796 kg Universi ty of [place] [facility] BMI 2023-02-06 20:10:00 38.19 kg/m2 Universi ty of [place] [facility] Systolic blood 2023-02-06 20:10:00 133 mm[Hg] Univer sity of pressure [place] [facility] Diastolic blood 2023-02-06 20:10:00 73 mm[Hg] Unive rsity of pressure [place] [facility] Heart rate 2023-02-06 20:10:00 84 /min Universi ty of [place] [facility] Body temperature 2023-02-06 20:10:00 36.67 [facility] Univ ersity of [place] [facility] Body height 2023-02-06 20:10:00 160 cm Universi ty of [place] [facility] Systolic blood 2023-02-03 20:32:00 132 mm[Hg] Univer sity of pressure [place] [facility] Diastolic blood 2023-02-03 20:32:00 85 mm[Hg] Unive rsity of pressure [place] [facility] Heart rate 2023-02-03 20:02:00 76 /min Universi ty of [place] [facility] Body temperature 2023-02-03 20:02:00 36.72 [facility] Univ ersity of [place] [facility] Respiratory rate 2023-02-03 20:02:00 18 /min Univ ersity of [place] [facility] Body height 2023-02-03 20:02:00 160 cm Universi ty of [place] [facility] Body weight 2023-02-03 20:02:00 98.431 kg Universi ty of [place] [facility] BMI 2023-02-03 20:02:00 38.44 kg/m2 [facility]i ty of [place] [facility] Systolic blood 2023-01-30 18:58:00 137 mm[Hg] Univer sity of pressure [place] [facility] Diastolic blood 2023-01-30 18:58:00 82 mm[Hg] Unive rsity of pressure [place] [facility] Heart rate 2023-01-30 18:58:00 89 /min Universi ty of [place] [facility] Body temperature 2023-01-30 18:58:00 36.72 [facility] Univ ersity of [place] [facility] Respiratory rate 2023-01-30 18:58:00 18 /min Univ ersity of [place] [facility] Body height 2023-01-30 18:58:00 160 cm Universi ty of [place] [facility] Body weight 2023-01-30 18:58:00 98.431 kg Universi ty of [place] [facility] BMI 2023-01-30 18:58:00 38.44 kg/m2 Universi ty of [place] [facility] Body temperature 2023-01-29 19:45:00 36.56 [place] Univ ersity of [place] [facility] Respiratory rate 2023-01-29 19:45:00 18 /min Univ ersity of [facility] Oxygen saturation in 2023-01-29 19:45:00 100 /min University of Arterial blood by [facility] Pulse oximetry Branch Systolic blood 2023-01-29 12:40:00 129 mm[Hg] [facility] Diastolic blood 2023-01-29 12:40:00 65 mm[Hg] [facility] Heart rate 2023-01-29 07:30:00 75 /min [facility] Body height 2023-01-28 19:40:00 160 cm [facility] Body weight 2023-01-28 19:40:00 96.662 kg [facility] BMI 2023-01-28 19:40:00 37.75 kg/m2 [facility] Systolic blood 2023-01-27 19:44:00 130 mm[Hg] [facility] Diastolic blood 2023-01-27 19:44:00 83 mm[Hg] [facility] Heart rate 2023-01-27 19:44:00 76 /min [facility] Body temperature 2023-01-27 19:44:00 36.67 Bel [facility] Body height 2023-01-27 19:44:00 160 cm [facility] Body weight 2023-01-27 19:44:00 97.523 kg [facility] BMI 2023-01-27 19:44:00 38.09 kg/m2 [facility] Systolic blood 2023-01-22 18:45:00 131 mm[Hg] [facility] Diastolic blood 2023-01-22 18:45:00 79 mm[Hg] [facility] Heart rate 2023-01-22 18:45:00 71 /min [facility] Body temperature 2023-01-22 18:45:00 36.39 Bel [facility] Respiratory rate 2023-01-22 18:45:00 18 /min [facility] Body height 2023-01-22 18:45:00 160 cm [facility] Body weight 2023-01-22 18:45:00 97.07 kg [facility] BMI 2023-01-22 18:45:00 37.91 kg/m2 [facility] Systolic blood 2023-01-09 03:30:00 134 mm[Hg] [facility] Diastolic blood 2023-01-09 03:30:00 56 mm[Hg] [facility] Heart rate 2023-01-09 03:30:00 83 /min [facility] ty of [facility] Oxygen saturation in 2023-01-09 03:30:00 100 /min University of Arterial blood by [facility] Pulse oximetry Branch Body temperature 2023-01-09 01:25:00 37.28 Bel Univ ersity of [facility] Respiratory rate 2023-01-09 01:25:00 18 /min Univ ersity of [facility] Systolic blood 2023-01-08 18:59:00 131 mm[Hg] [facility] Diastolic blood 2023-01-08 18:59:00 79 mm[Hg] Unive rsity of pressure [facility] Heart rate 2023-01-08 18:59:00 87 /min [facility] ty of [facility] Body temperature 2023-01-08 18:59:00 36.67 Bel Univ ersity of [facility] Respiratory rate 2023-01-08 18:59:00 16 /min Univ ersity of [facility] Body height 2023-01-08 18:59:00 160 cm [facility] [place] Body weight 2023-01-08 18:59:00 95.709 kg [facility] ty of [facility] BMI 2023-01-08 18:59:00 37.38 kg/m2 [facility] Systolic blood 2022-12-25 15:45:00 128 mm[Hg] [facility] Diastolic blood 2022-12-25 15:45:00 77 mm[Hg] [facility] Heart rate 2022-12-25 15:45:00 71 /min [facility] ty of [facility] Body temperature 2022-12-25 15:45:00 36.67 Bel Univ [facility] of [facility] Body height 2022-12-25 15:45:00 160 cm [facility] Body weight 2022-12-25 15:45:00 94.62 kg [facility] BMI 2022-12-25 15:45:00 36.95 kg/m2 [facility] Systolic blood 2022-12-04 20:05:00 125 mm[Hg] [facility] Diastolic blood 2022-12-04 20:05:00 74 mm[Hg] [facility] Heart rate 2022-12-04 20:05:00 76 /min [facility] Body temperature 2022-12-04 20:05:00 36.72 Bel [facility] Respiratory rate 2022-12-04 20:05:00 18 /min [facility] Body height 2022-12-04 20:05:00 160 cm [facility] Body weight 2022-12-04 20:05:00 94.348 kg [facility] BMI 2022-12-04 20:05:00 36.85 kg/m2 [facility] Respiratory rate 2022-11-20 22:10:00 18 /min [facility] Body height 2022-11-20 22:10:00 160 cm [facility] Body weight 2022-11-20 22:10:00 91.173 kg [facility] BMI 2022-11-20 22:10:00 35.61 kg/m2 [facility] Systolic blood 2022-11-20 22:10:00 117 mm[Hg] [facility] Diastolic blood 2022-11-20 22:10:00 73 mm[Hg] [facility] Heart rate 2022-11-20 22:10:00 69 /min [facility] Body temperature 2022-11-20 22:10:00 36.72 Bel [facility] Systolic blood 2022-11-07 15:16:00 130 mm[Hg] [facility] Diastolic blood 2022-11-07 15:16:00 77 mm[Hg] [facility] Heart rate 2022-11-07 15:16:00 79 /min [facility] Body temperature 2022-11-07 15:16:00 36.5 Bel [facility] Body height 2022-11-07 15:16:00 160 cm [facility] Body weight 2022-11-07 15:16:00 90.901 kg [facility] BMI 2022-11-07 15:16:00 35.50 kg/m2 [facility] Systolic blood 2021-03-28 17:23:00 143 mm[Hg] [facility] Diastolic blood 2021-03-28 17:23:00 77 mm[Hg] [facility] Heart rate 2021-03-28 17:23:00 65 /min [facility] Body temperature 2021-03-28 17:23:00 36.94 Bel Univ ersity of [facility] Respiratory rate 2021-03-28 17:23:00 16 /min [facility] Body height 2021-03-28 17:23:00 160 cm [facility] Body weight 2021-03-28 17:23:00 74.844 kg [facility] BMI 2021-03-28 17:23:00 29.23 kg/m2 [facility] Oxygen saturation in 2021-03-28 17:23:00 100 /min University Arterial blood by [facility] Pulse oximetry Branch Systolic blood 2021-03-28 17:23:00 143 mm[Hg] [facility] Diastolic blood 2021-03-28 17:23:00 77 mm[Hg] [facility] Heart rate 2021-03-28 17:23:00 65 /min [facility] Body temperature 2021-03-28 17:23:00 36.94 Bel Univ ersity of [facility] Respiratory rate 2021-03-28 17:23:00 16 /min [facility] Body height 2021-03-28 17:23:00 160 cm [facility] Body weight 2021-03-28 17:23:00 74.844 kg [facility] BMI 2021-03-28 17:23:00 29.23 kg/m2 [facility] Oxygen saturation in 2021-03-28 17:23:00 100 /min University Arterial blood by [facility] Pulse oximetry Branch Systolic blood 2020-09-07 15:46:00 180 mm[Hg] [facility]ity of pressure [facility] Diastolic blood 2020-09-07 15:46:00 100 mm[Hg] Unive rsity of pressure [facility] Heart rate 2020-09-07 15:07:00 108 /min [facility] Body temperature 2020-09-07 15:07:00 35.78 Bel Univ [facility] Respiratory rate 2020-09-07 15:07:00 16 /min Univ [facility] of [facility] Body height 2020-09-07 15:07:00 160 cm [facility] [place] Body weight 2020-09-07 15:07:00 86.41 kg [facility] [place] BMI 2020-09-07 15:07:00 33.75 kg/m2 [facility] Systolic blood 2020-09-07 15:46:00 180 mm[Hg] Univer [facility] of pressure [facility] Diastolic blood 2020-09-07 15:46:00 100 mm[Hg] Unive rsity of pressure [facility] Heart rate 2020-09-07 15:07:00 108 /min [facility] [place] Body temperature 2020-09-07 15:07:00 35.78 Bel Univ [facility] Respiratory rate 2020-09-07 15:07:00 16 /min Univ ersity of [facility] Body height 2020-09-07 15:07:00 160 cm [facility] [place] Body weight 2020-09-07 15:07:00 86.41 kg [facility] BMI 2020-09-07 15:07:00 33.75 kg/m2 [facility] Systolic blood 2020-08-24 23:30:00 151 mm[Hg] [facility] Diastolic blood 2020-08-24 23:30:00 90 mm[Hg] Unive rsity of pressure [facility] Heart rate 2020-08-24 23:30:00 53 /min [facility] Oxygen saturation in 2020-08-24 23:30:00 100 /min University Arterial blood by [facility] Pulse oximetry Branch Respiratory rate 2020-08-24 23:00:00 20 /min Univ ersity of [facility] Body temperature 2020-08-24 20:47:00 36.67 Bel Univ ersity of [facility] Systolic blood 2020-08-24 17:07:00 154 mm[Hg] [facility]ity of pressure [facility] Diastolic blood 2020-08-24 17:07:00 100 mm[Hg] [facility] Heart rate 2020-08-24 17:06:00 97 /min [facility] ty [facility] Body temperature 2020-08-24 17:06:00 36.33 Bel Univ ersity of [facility] Respiratory rate 2020-08-24 17:06:00 16 /min Univ ersity of [facility] Body height 2020-08-24 17:06:00 160 cm [facility] ty [facility] Body weight 2020-08-24 17:06:00 82.328 kg [facility] BMI 2020-08-24 17:06:00 32.15 kg/m2 [facility] Systolic blood 2020-08-10 17:16:00 143 mm[Hg] [facility] Diastolic blood 2020-08-10 17:16:00 91 mm[Hg] [facility] Heart rate 2020-08-10 17:15:00 56 /min [facility] [place] Body temperature 2020-08-10 17:15:00 36.78 Bel Univ ersity of [facility] Respiratory rate 2020-08-10 17:15:00 16 /min Univ ersity of [facility] Body height 2020-08-10 17:15:00 157.5 cm [facility] Body weight 2020-08-10 17:15:00 79.062 kg [facility] BMI 2020-08-10 17:15:00 31.88 kg/m2 [facility] Systolic blood 2020-07-13 16:11:00 140 mm[Hg] [facility] Diastolic blood 2020-07-13 16:11:00 86 mm[Hg] [facility] Heart rate 2020-07-13 16:08:00 74 /min [facility] Body temperature 2020-07-13 16:08:00 36.78 Bel [facility] Respiratory rate 2020-07-13 16:08:00 16 /min [facility] Body height 2020-07-13 16:08:00 160 cm [facility] Body weight 2020-07-13 16:08:00 74.435 kg [facility] BMI 2020-07-13 16:08:00 29.07 kg/m2 [facility] Systolic blood 2020-06-15 16:11:00 143 mm[Hg] [facility] Diastolic blood 2020-06-15 16:11:00 86 mm[Hg] [facility] Heart rate 2020-06-15 16:10:00 59 /min [facility] Body temperature 2020-06-15 16:10:00 36.61 Bel [facility] Respiratory rate 2020-06-15 16:10:00 16 /min [facility] Body height 2020-06-15 16:10:00 157.5 cm [facility] Body weight 2020-06-15 16:10:00 74.662 kg [facility] BMI 2020-06-15 16:10:00 30.11 kg/m2 [facility] Systolic blood 2020-05-17 16:11:00 137 mm[Hg] [facility] Diastolic blood 2020-05-17 16:11:00 82 mm[Hg] [facility] Heart rate 2020-05-17 16:08:00 68 /min [facility] Body temperature 2020-05-17 16:08:00 37.06 Bel [facility] Respiratory rate 2020-05-17 16:08:00 16 /min [facility] Body height 2020-05-17 16:08:00 160 cm [facility] Body weight 2020-05-17 16:08:00 74.118 kg [facility] BMI 2020-05-17 16:08:00 28.95 kg/m2 [facility] Systolic blood 2020-04-19 15:03:00 138 mm[Hg] [facility] Diastolic blood 2020-04-19 15:03:00 85 mm[Hg] [facility] Heart rate 2020-04-19 15:03:00 70 /min [facility] Body temperature 2020-04-19 15:03:00 36.78 Bel [facility] Respiratory rate 2020-04-19 15:03:00 16 /min [facility] Body height 2020-04-19 15:03:00 160 cm [facility] Body weight 2020-04-19 15:03:00 67.217 kg [facility] BMI 2020-04-19 15:03:00 26.25 kg/m2 [facility] Systolic blood 2020-03-27 19:36:00 157 mm[Hg] [facility] Diastolic blood 2020-03-27 19:36:00 95 mm[Hg] [facility] Heart rate 2020-03-27 19:21:00 71 /min [facility] Body temperature 2020-03-27 19:21:00 36.61 Bel [facility] Respiratory rate 2020-03-27 19:21:00 16 /min [facility] Body height 2020-03-27 19:21:00 157.5 cm [facility] Body weight 2020-03-27 19:21:00 64.921 kg [facility] BMI 2020-03-27 19:21:00 26.18 kg/m2 [facility] Systolic blood 2020-03-22 15:12:00 142 mm[Hg] [facility] Diastolic blood 2020-03-22 15:12:00 72 mm[Hg] [facility] Heart rate 2020-03-22 14:57:00 56 /min [facility] Body temperature 2020-03-22 14:57:00 35.94 Bel [facility] Respiratory rate 2020-03-22 14:57:00 16 /min [facility] Body height 2020-03-22 14:57:00 160 cm [facility] ty of [facility] Body weight 2020-03-22 14:57:00 67.274 kg [facility] ty [facility] BMI 2020-03-22 14:57:00 26.27 kg/m2 [facility] Systolic blood 2020-03-21 15:33:00 152 mm[Hg] Univer sity of pressure [facility] Diastolic blood 2020-03-21 15:33:00 106 mm[Hg] Unive rsity of pressure [facility] Heart rate 2020-03-21 15:33:00 71 /min [facility] ty [facility] Body temperature 2020-03-21 15:33:00 36.89 Bel [facility] Respiratory rate 2020-03-21 15:33:00 17 /min [facility] 2020-03-21 15:33:00 160 cm [facility] ty of [facility] Body weight 2020-03-21 15:33:00 68.04 kg Universi ty [facility] BMI 2020-03-21 15:33:00 26.57 kg/m2 Universi ty [facility] Oxygen saturation in 2020-03-21 15:33:00 99 /min [facility] Arterial blood by [facility] Pulse oximetry Branch Procedures Procedure Date / Time Performing Clinician Source Performed CBC WITH DIFF 2023-02-19 09:05:00 Marvin Garcia [facility] CBC WITH DIFF 2023-02-19 09:05:00 Marvin Garcia [facility] SURGICAL PATHOLOGY EXAM 2023-02-18 13:13:00 Marvin Garcia [facility] SURGICAL PATHOLOGY EXAM 2023-02-18 13:13:00 Marvin Garcia [facility] SECTION 2023-02-18 11:51:00 Marvin Garcia [facility] TUBAL LIGATION 2023-02-18 11:51:00 Marvin Garcia [facility] SECTION 2023-02-18 11:51:00 Marvin Garcia [facility] TUBAL LIGATION 2023-02-18 11:51:00 Marvin Garcia [facility] CBC WITH DIFF 2023-02-18 10:51:00 Marvin Garcia [facility] HEPATITIS B SURFACE 2023-02-18 10:51:00 Marvin Garcia [facility] ANTIGEN Medical Branch HB ABO GROUPING 2023-02-18 10:51:00 Marvin Garcia [facility] RHO (D) IMMUNE GLOBULIN 2023-02-18 10:51:00 Marvin Garcia [facility] ADC OR RICKY ONLY - 2023-02-18 10:51:00 Marvin Garcia [facility] [place] HIV 1/2 AG-AB WITH 2023-02-18 10:51:00 Marvin Garcia [facility] REFLEX Medical Branch CBC WITH DIFF 2023-02-18 10:51:00 Marvin Garcia [facility] HEPATITIS B SURFACE 2023-02-18 10:51:00 Marvin Garcia [facility] ANTIGEN Medical Branch HB ABO GROUPING 2023-02-18 10:51:00 Marvin Garcia [facility] RHO (D) IMMUNE GLOBULIN 2023-02-18 10:51:00 Marvin Garcia [facility] ADC OR RICKY ONLY - 2023-02-18 10:51:00 Marvin Garcia [facility] [place] HIV 1/2 AG-AB WITH 2023-02-18 10:51:00 Marvin Garcia [facility] REFLEX Medical [place] NON-STRESS TEST 2023-02-17 20:20:45 Jose Marvin [facility] NOTICE OF PRIVACY 2023-02-17 20:12:27 Doctor Unassigned, No Univ ersity of [facility] NOTICE OF PRIVACY 2023-02-17 20:12:27 Doctor Unassigned, No Univ [facility] CONSENT/REFUSAL FOR 2023-02-17 20:10:43 Doctor Unassigned, No [facility] [place] [facility] Name Medical Branch CONSENT/REFUSAL FOR 2023-02-17 20:10:43 Doctor Unassigned, No [facility] [place] [facility] Name Medical [facility] ASSIGNMENT OF BENEFITS 2023-02-17 20:10:13 Doctor Unassigned, No [facility] ASSIGNMENT OF BENEFITS 2023-02-17 20:10:13 Doctor Unassigned, No [facility] NON-STRESS TEST 2023-02-13 18:56:00 Marvin Garcia [facility] POCT URINALYSIS W/O 2023-02-13 00:00:00 JoseMarvin Gavin [facility] NON-STRESS TEST 2023-02-10 21:30:06 [facility] >14 WEEKS US 2023-02-06 23:07:39 Marvin Garcia [facility] NON-STRESS TEST 2023-02-06 23:05:59 Marvin Garcia [facility] DSU PRE-OP 2023-02-06 05:01:00 Doctor Unassigned, No [facility] POCT URINALYSIS W/O 2023-02-06 00:00:00 Marvin Garcia Gavin [facility] NON-STRESS TEST 2023-02-03 20:29:39 Marvin Garcia [facility] NON-STRESS TEST 2023-01-30 23:14:28 Marvin Garcia [facility] >14 WEEKS US 2023-01-30 23:13:34 Marvin Garcia [facility] US DUPLEX VENOUS ARM 2023-01-29 15:23:51 Hector Ryder [facility] RIGHT - BY VASCULAR LAB [facility] VITAMIN B12, LEVEL 2023-01-29 12:24:00 Hector Ryder [facility] FOLATE 2023-01-29 12:24:00 Hector Ryder [facility] IRON PANEL 2023-01-29 12:24:00 Hector Ryder [facility] PROTHROMBIN TIME / INR 2023-01-29 12:24:00 Hector Ryder [facility] ACTIVATED PARTIAL 2023-01-29 12:24:00 Hector Ryder [facility] THRMPLAS [facility] VITAMIN D, 25-OH 2023-01-29 12:24:00 Hector Ryder [facility] FERRITIN SERUM 2023-01-29 00:13:00 [facility] BASIC METABOLIC PANEL 2023-01-29 00:13:00 Michael Kiser [facility] (NA, K, CL, CO2, Medical Branch GLUCOSE, BUN, CREATININE, CA) CBC WITH DIFF 2023-01-28 21:55:00 Jose [facility] HB ABO GROUPING 2023-01-28 21:55:00 Jose [facility] CONSENT/REFUSAL FOR 2023-01-28 19:33:07 Doctor [facility]igned, [facility] NON-STRESS TEST 2023-01-27 21:45:45 Jose [facility] POCT URINALYSIS W/O 2023-01-27 19:55:00 Marvin Garcia [facility] NON-STRESS TEST 2023-01-22 19:36:27 Lina [facility] POCT URINALYSIS W/O 2023-01-22 00:00:00 Lina Brian [facility] SPECIFIC [facility] AMYLASE 2023-01-09 02:00:00 Adum, Jayda [facility] LIPASE 2023-01-09 02:00:00 Adum, [facility] COMP. METABOLIC PANEL 2023-01-09 02:00:00 Adcampbell, [facility] ([id number]) [facility] CBC WITH DIFF 2023-01-09 02:00:00 Adcampbell, [place] [facility] ASSIGNMENT OF BENEFITS 2023-01-09 01:08:17 Doctor Unassigned, No [facility] CONSENT/REFUSAL FOR 2023-01-09 01:00:26 Doctor Unassigned, No [facility] POCT URINALYSIS W/O 2023-01-08 00:00:00 Marvin Garcia [facility] TDAP VACCINE, >11 YRS, 2022-12-25 15:46:50 Marvin Garcia [facility] Medical Branch POCT URINALYSIS W/O 2022-12-25 00:00:00 Marvin Garcia [facility] PATIENT FINANCIAL 2022-12-04 19:44:32 Doctor Unassigned, No [facility] POCT URINALYSIS W/O 2022-12-04 00:00:00 Brian Mills [facility] POCT URINALYSIS W/O 2022-11-20 00:00:00 Marvin Garcia [facility] EXTERNAL PROVIDER 2022-11-18 06:01:00 Doctor Unassigned, No [facility] [place] FLU VACC ([id number]), 6 2022-11-07 15:24:24 Marvin Garcia [facility] MO-63 YRS, .5ML, IM, Medical Bra [facility] QUAD (FLUCELVAX) ASSIGNMENT OF BENEFITS 2022-11-07 14:44:01 Doctor Unassigned, No [facility] POCT TEST 2022-11-07 00:00:00 Marvin Garcia [facility] POCT URINALYSIS W/O 2022-11-07 00:00:00 Marvin Garcia [facility] URINALYSIS 2021-03-28 18:19:00 Lion García [facility] HEPATIC FUNCTION PANEL 2021-03-28 17:46:00 Loin García [facility] ([id number]) (ALB,T.PRO,BILI Medical Branch T,BU/BC,ALT,AST,ALK PHOS) BASIC METABOLIC PANEL 2021-03-28 17:46:00 Lion García [facility] (NA, K, CL, CO2, Medical Branch GLUCOSE, BUN, CREATININE, CA) CBC WITH DIFF 2021-03-28 17:46:00 Lion García [facility] AUTHORIZATION FOR 2020-09-11 06:01:00 Doctor Unassigned, No [facility] RELEASE OF PHI Name Medical Branch TDAP VACCINE, >11 YRS, 2020-09-07 15:03:46 Johnna Hickey [facility] Medical Branch POCT URINALYSIS 2020-09-07 00:00:00 Johnna Hickey [facility] SGOT (ASPARTATE AMINO 2020-08-24 21:01:00 [facility] TRANSFER) Medical Branch CREATININE 2020-08-24 21:01:00 [place] [facility] ALANINE AMINO 2020-08-24 21:01:00 [place], [facility] TRANSFERASE(SGPT Medical Branch LACTATE DEHYDROGENASE 2020-08-24 21:01:00 [place] [facility] URIC ACID 2020-08-24 21:01:00 [place], [facility] CBC WITH DIFF 2020-08-24 21:01:00 [place] [facility] URINALYSIS 2020-08-24 21:01:00 [place], [facility] PROTEIN CREAT RATIO 2020-08-24 21:01:00 [place] Healthcare URINE RANDOM Medical Branch COVID-19 (ID NOW RAPID 2020-08-24 20:36:00 Dread [facility] TESTING) Medical Branch POCT URINALYSIS 2020-08-24 00:00:00 Johnna Hickey [facility] POCT URINALYSIS 2020-08-10 00:00:00 Johnna Hickey [facility] FLU VACC ([phone]), 6+ 2020-07-13 16:21:35 Johnna Hickey [facility] MONTHS, IM, QUAD Medical Branch POCT URINALYSIS 2020-07-13 00:00:00 Johnna Hickey [facility] POCT URINALYSIS 2020-06-15 00:00:00 Johnna Hickey [facility] POCT URINALYSIS 2020-05-17 00:00:00 Johnna Hickey [facility] POCT URINALYSIS 2020-04-19 15:06:00 Johnna Hickey [facility] POCT TEST 2020-03-22 14:56:00 [facility] POCT URINALYSIS W/O 2020-03-22 14:56:00 [facility] SPECIFIC [facility] POCT TEST 2020-03-21 15:58:00 Em [facility] NOTICE OF PRIVACY 2020-03-21 15:27:48 Doctor Unassigned, No Univ [facility] PRACTICES Name Medical Branch CONSENT/REFUSAL FOR 2020-03-21 15:27:09 Doctor Unassigned, No [facility] Name [facility] Encounters Start End Encounter Admission Attending Care Care Encounter Source Date/Time Date/Time Type Type Clinicians Facility Department ID 2023-01-08 Outpatient X [facility] ERICK [id number] Univers 23:43[facility]22 [facility]-11-14 [facility]patient [facility] [id number] [place] 01:04:55 Health 2021-08-06 Emergency [facility] [id number] Univers 03:15:28 ity [facility] 2021-08-04 Outpatient P [facility] ERICK [id number] Univers 06:46:37 [facility] 2021-08-04 Outpatient [facility] [id number] Univers 06:42:00 ity [facility] 2023-04-01 2023-04-01 Outpatient R MARVIN GARCIA [facility] [id number] Univers 15:30:00 15:30:00 ity [facility] 2023-03-04 2023-03-04 Outpatient R BRUNA MONTE [facility] U TMB [id number] Univers 15:45:00 15:45:00 [facility] 2023-02-18 2023-02-21 Inpatient P MARVIN GARCIA [facility] ERICK [id number] Univers 05:00:00 10:22:00 ity [facility] 2023-02-18 2023-02-21 [facility] Marvin Garcia [facility] 1.2.840.114 [id number] Univers 05:00:00 10:22:00 Encounter Gavin VIVASTON 350.1.13.10 it[place] [id number] [facility] [address] [place] 2023-02-18 2023-02-18 Surgery Marvin Garcai [facility] 1.2.512.205 [id number] Univers 07:50:00 09:37:00 Cam [place] 350.1.13.10 i ty of [facility] 4.2.7.2.686 [place] [facility] [id number] [facility] 013 Branch 2023-02-17 2023-02-17 Outpatient R MARVIN GARCIA [facility] [id number] Univers 14:00:00 14:56:36 ity of [facility] 2023-02-17 2023-02-17 Routine Room, [facility] 1.2.840.1 14 [id number] Univers 14:00:00 14:56:36 Marvin GarciaTON 350.1.13.10 ity of Visit [place] [id number] Ma dical NAL [address] [place] [address] 2023-02-13 2023-02-13 Routine Room, [facility] 1.2.840.1 14 [id number] Univers 13:00:00 13:53:07 Marvin GarciaTON 350.1.13.10 ity of [facility] 4.2.7.2.[place] [id number] Ma dical NAL [address] [place] [address] 2023-02-13 2023-02-13 Outpatient R MARVIN GARCIA [facility] [id number] Univers 13:00:00 13:53:07 ity [facility] 2023-02-11 2023-02-11 Junior 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 Engineer Ultrasound, [facility] 1.2 .840.114 [id number] Univers 14:00:00 15:00:00 Visit Danyel Richardson 350.1 .13.10 ity of [place] [id number] Ma dical NAL [address] [place] [address] 2023-02-11 2023-02-11 Outpatient P CAROL [facility] [id number] Univers 14:00:00 14:00:00 KOUTROUVELI it y of S, [place] [facility] 2023-02-10 2023-02-10 Routine Room, [facility] 1.2.840.1 14 [id number] Univers 14:00:00 15:19:00 Marvin Garcia 350.1.13.10 ity of Visit [place] 4.2.7.2.[place] [id number] Ma dical NAL [address] [place] [address] 2023-02-10 2023-02-10 Outpatient R JOSE MARVIN [facility] [id number] Univers 14:00:00 15:19:00 ity of [facility] 2023-02-06 2023-02-06 Outpatient R JOSE [facility] [id number] Univers 15:00:00 15:59:45 ity of [facility] 2023-02-06 2023-02-06 Routine Room, [facility] 1.2.840.1 14 [id number] Univers 15:00:00 15:59:45 Marvin Garcia 350.1.13.10 ity of [place].2.[place] [id number] Ma dical NAL [address] [place] [address] 2023-02-06 2023-02-06 Orders Doctor JANEY 1.2.840.114 [id number] Univers 00:00:00 00:00:00 Only Unassigned, TRICIA 350.1.13.10 ity of [place] [facility] 4.2.7.2.686 Varun as [id number] [address] 2023-02-03 2023-02-03 Outpatient R MARVIN GARCIA [facility] [id number] Univers 15:00:00 15:28:32 ity of [facility] 2023-02-03 2023-02-03 Routine Room, [facility] 1.2.840.1 14 [id number] Univers 15:00:00 15:28:32 Marvin Garcia 350.1.13.10 ity of [place] [id number] Ma dical [address] 2023-01-30 2023-01-30 Outpatient R MARVIN GARCIA [facility] [id number] Univers 14:00:00 14:52:01 ity of [facility] 2023-01-30 2023-01-30 Routine Room, [facility] 1.2.840.1 14 [id number] Univers 14:00:00 14:52:01 Marvin Garcia 350.1.13.10 ity of Visit [place] 4.2.7.2.[place] [id number] Ma dic[address] 2023-01-28 2023-01-29 Outpatient X MARVIN GARCIA [facility] ERICK [id number] Univers 14:42:00 16:20:00 ity of [facility] 2023-01-28 2023-01-29 Emergency Marvin Garcia [facility] 1.2.840.114 10 [id number] Univers 14:42:00 16:20:00 Gavin [place] 350.1.13.10 i ty of [place] 4.2.7.2.[place] C[place] [id number] [address] 2023-01-27 2023-01-27 Outpatient R MARVIN GARCIA [facility] [id number] Univers 15:00:00 15:47:47 ity of [facility] 2023-01-27 2023-01-27 Routine Room, [facility] 1.2.840.1 14 [id number] Univers 15:00:00 15:47:47 Marvin Garcia 350.1.13.10 ity of Visit [place].2.[place] [id number] Ma dical NAL [address] [place] [address] 2023-01-22 2023-01-22 Routine Brian Mills [facility] 1.2.840.11 4 [id number] Univers 14:45:00 14:45:00 Opal Garciashena [place] 350.1.13.10 ity of Visit [place].7.2.686 [place] [id number] [address] 2023-01-22 2023-01-22 Outpatient R MARVIN GARCIA [facility] [id number] Univers 14:45:00 14:25:09 ity of [facility] 2023-01-09 2023-01-09 Telephone Jose [facility] 1.2.840.114 10 [id number] Univers 00:00:00 00:00:00 Cam [place] 350.1.13.10 i ty of [place]2.[place].2.[place] [id number] [address] 2023-01-08 2023-01-08 Outpatient X AD, [facility] ERICK [id number] Univers 20:10:00 23:10:00 JAYDA ity [facility] 2023-01-08 2023-01-08 [facility] 1.2.502.399 [id number] Univers 20:10:00 23:10:00 Jayda [place] 350.1.13.10 ity of [place]2.7.2.[place] C[place] [id number] [address] 2023-01-08 2023-01-08 Routine Jose [facility] 1.2.911.037 [id number] Univers 14:45:00 14:45:00 Cam [place] 350.1.13.10 ity of Visit [place] 4.2.7.2.686 [place] [id number] Ma dic[address] 2023-01-08 2023-01-08 Outpatient R JOSE MARVIN [facility] [id number] Univers 14:45:00 14:29:58 ity [facility] 2022-12-25 2022-12-25 Outpatient R MARVIN GARCIA [facility] [id number] Univers 10:45:00 11:09:38 ity [facility] 2022-12-25 2022-12-25 Routine Jose [facility] 1.2.525.003 [id number] Univers 10:45:00 11:09:38 Cam [place] 350.1.13.10 ity of Visit [place].2.[place] [id number] Ma dical NAL [address] [facility] 2022-12-25 2022-12-25 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, Adc Lab [facility] 1.2.840.114 [id number] Univers 09:30:00 09:45:00 Visit Marvin Garcia 350.1.13.10 ity of [place]2.7.2.[place] [phone] Ma dical NAL 353 [facility] 2022-12-04 2022-12-04 Outpatient R LINA [facility] [id number] Univers 14:15:00 14:56:46 BRIAN ity [facility] 2022-12-04 2022-12-04 Routine Lina [facility] 1.2.251.377 [id number] Univers 14:15:00 14:56:46 Brian VIVASDANG 350.1.13.10 ity of Visit [place]2.[place].2.[place] [phone] Ma dical NAL [address] [facility] 2022-12-04 2022-12-04 Orders Doctor JANEY 1.2.840.114 [id number] Univers 00:00:00 00:00:00 Only Unassigned, TRICIA 350.1.13.10 ity of [place] [facility] 4.2.7.2.686 Varun as [id number] [address] 2022-11-21 2022-11-21 Outpatient R [facility] [id number] Univers 11:00:00 11:00:00 ity of [facility] 2022-11-20 2022-11-20 Outpatient R MARVIN GARCIA [facility] [id number] Univers 16:00:00 16:55:44 ity of [facility] 2022-11-20 2022-11-20 Routine Marvin Garcia [facility] 1.2.035.811 [id number] Univers 16:00:00 16:55:44 Cam [place] 350.1.13.10 ity of Visit [place] 4[place]2.[place].2.686 [place] [id number] Ma dical NAL [address] [facility] 2022-11-18 2022-11-18 Orders Doctor JANEY 1.2.840.114 [id number] Univers 00:00:00 00:00:00 Only Unassigned, TRICIA 350.1.13.10 ity of [place] [facility] 4.2.7.2.686 Varun as [id number] [address] 2022-11-07 2022-11-07 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, 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 Lab [facility] 1.2.840.114 [id number] Univers 11:15:00 11:30:00 Visit Marvin Garcia Gavin [place] 350.1.13.10 ity of [place]2.7.2.[place] [id number] Ma dical NAL [address] [facility] 2022-11-07 2022-11-07 Outpatient R MARVIN GARCIA [facility] [id number] Univers 09:00:00 10:19:00 ity of [facility] 2022-11-07 2022-11-07 Initial Brian Mills [facility] 1.2.840.11 4 [id number] Univers 09:00:00 10:19:00 Marvin Garcia Gavin [place] 350.1.13.10 ity of Visit [place] [id number] Ma dical NAL 134 [facility] 2022-11-07 2022-11-07 Orders Doctor JANEY 1.2.840.114 [id number] Univers 00:00:00 00:00:00 Only Unassigned, TRICIA 350.1.13.10 ity of [place] [facility] 4.2.7.2.686 Varun as [id number] [address] 2022-11-07 2022-11-07 Telephone Marvin Garcia [facility] 1.2.840.114 10 [id number] Univers 00:00:00 00:00:00 Cam JORDAN 350.1.13.10 i ty [facility] 4.2.7.2.686 [place] [id number] Ma dical NAL [address] [facility] 2022-10-29 2022-10-29 Outpatient R MARVIN GARCIA [facility] [id number] Univers 15:45:00 15:45:00 ity [facility] 2022-10-29 2022-10-29 Telephone Marvin Garcia [facility] 1.2.840.114 10 [id number] Univers 00:00:00 00:00:00 Gavin [place] 350.1.13.10 i ty of [place] 4.2.7.2.686 [facility] [phone] Ma dical NAL [address] [facility] 2021-08-15 2021-08-15 Inpatient [facility] 05:19:00 02:12:00 ASHA Lopez [facility] l 2021-03-28 2021-03-28 Emergency [facility] 1.2.009.258 [id number] Univers 12:28:00 14:08:00 Lion [place] 350.1.13.10 i ty of [place] 4.2.7.2.[address] [facility] [id number] [facility] [address] [place] [address] 2021-03-28 2021-03-28 Emergency [facility] 1.2.890.305 [id number] 12:28:00 14:08:00 Lion [place] 350.1.13.10 [place] 4.2.7.2.686 [place] [id number] 4 2020-10-12 2020-10-12 Outpatient R EDELMIRA [facility] [id number] Univers 10:45:00 10:45:00 NOLBERTOA seany o f [facility] 2020-09-21 2020-09-21 Outpatient R EDELMIRA [facility] [id number] Univers 08:30:00 08:30:00 NOLBERTOA seany o f [facility] 2020-09-18 2020-09-18 Outpatient R CRISTINA [facility] [id number] Univers 08:00:00 08:00:00 NILAM beavers o f [facility] 2020-09-11 2020-09-11 Telephone [facility] 1.2.006.585 [id number] Univers 00:00:00 00:00:00 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 350.1.13.10 ity of REGIONAL 4.2.7.2.686 Varun as MATERNAL [id number] Med ical & CHILD [address] [place] [address] 2020-09-11 2020-09-11 Orders Doctor JANEY 1.2.840.114 [id number] Univers 00:00:00 00:00:00 Only Unassigned, TRICIA 350.1.13.10 ity of [place] [facility] 4.2.7.2.686 Varun as [id number] [address] 2020-09-11 2020-09-11 Telephone [facility] 1.2.152.754 [id number] 00:00:00 00:00:00 Roshunda 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 350.1.13.10 REGIONAL 4.2.7.2.686 MATERNAL [id number] & CHILD [address] [place] [address] 2020-09-11 2020-09-11 Orders Doctor JANEY 1.2.840.114 [id number] 00:00:00 00:00:00 Only Unassigned, TRICIA 350.1.13.10 [place] [facility] 4.2.7.2.686 [id number] [facility] 2020-09-08 2020-09-08 Outpatient R EDELMIRA [facility] [id number] Univers 08:30:00 08:30:00 ROSHUNDA ity o f [facility] 2020-09-07 2020-09-07 Routine [facility] 1.2.840.114 [id number] Univers 08:47:13 09:56:09 Roshunda 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 350.1.13.10 ity of Visit REGIONAL 4.2.7.2.686 Varun as MATERNAL [id number] Med ical & CHILD [address] [place] [address] 2020-09-07 2020-09-07 Routine [facility] 1.2.840.114 [id number] 08:47:13 09:56:09 Roshunda 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 350.1.13.10 Visit REGIONAL 4.2.7.2.686 MATERNAL [id number] & CHILD [address] [place] [address] 2020-09-07 2020-09-07 Outpatient R EDELMIRA [facility] [id number] Univers 08:45:00 08:45:00 MIREILLEREGINANDBernardino beavers o f [facility] 2020-08-29 2020-08-29 Junior 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 Engineer Lab, [facility] 1.2.840. 114 [id number] Univers 08:24:12 08:34:11 Visit Mireille Hickeyboby 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 350.1.13.10 ity of REGIONAL 4.2.7.2.686 Varun as MATERNAL [id number] Med ical & CHILD [address] [place] [address] 2020-08-29 2020-08-29 Junior 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 Engineer Lab, [facility] 1.2.840.114 [id number] 08:24:12 08:34:11 Visit [facility] FRONT END WEB DEVELOPER 350.1.13.10 REGIONAL 4.2.7.2.686 MATERNAL [id number] & CHILD [address] [place] [address] 2020-08-29 2020-08-29 Outpatient R [facility] [id number] Univers 08:00:00 08:00:00 ity of [facility] 2020-08-24 2020-08-24 [facility] 1.2.242.089 [id number] Univers 14:10:00 18:15:00 Encounter Dread CLARKE 350.1.13.10 ity of [place].2.[place] [id number] [address] 2020-08-24 2020-08-24 Routine [facility] 1.2.840.114 [id number] Univers 10:59:45 11:26:10 Rosreginalylea 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 350.1.13.10 ity of Visit REGIONAL 4.2.7.2.686 Avrun as MATERNAL [id number] [facility] ical & CHILD [address] [place] [address] 2020-08-24 2020-08-24 [facility] [id number] Univers 11:00:00 11:00:00 JOHNNA beavers o f [facility] 2020-08-10 2020-08-10 Routine [facility] 1.2.840.114 [id number] Univers 10:59:05 11:14:05 Roshunda 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 350.1.13.10 ity of Visit REGIONAL 4.2.7.2.686 Varun as MATERNAL [id number] [facility] & CHILD [address] [place] [address] 2020-08-10 2020-08-10 Outpatient [facility] [id number] Univers 11:00:00 11:00:00 ROSHUNDA ity o f [facility] 2020-07-13 2020-07-13 Routine [facility] 1.2.840.114 [id number] Univers 11:00:20 11:28:29 Rosreginanda 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 350.1.13.10 ity of Visit REGIONAL 4.2.7.2.686 Varun as MATERNAL [id number] [facility] & CHILD [address] [place] [address] 2020-07-13 2020-07-13 Outpatient [facility] [id number] Univers 11:00:00 11:00:00 ROSREGINANDA ity o f [facility] 2020-07-11 2020-07-11 Junior 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 Engineer Ultrasound, [facility] 1.2 .840.114 [id number] Univers 10:05:09 11:05:09 Visit La Nena Rojas FRONT END WEB DEVELOPER 350.1.13.10 ity of REGIONAL 4.2.7.2.686 Varun as MATERNAL [id number] [facility] & CHILD [address] [place] [address] 2020-07-11 2020-07-11 Outpatient P [facility] [id number] Univers 10:00:00 10:00:00 ity of [facility] 2020-07-11 2020-07-11 Abstract [facility] 1.2.840.114 [id number] Univers 00:00:00 00:00:00 Rosreginanda 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 350.1.13.10 ity of REGIONAL 4.2.7.2.686 Varun as MATERNAL [id number] [facility] & CHILD [address] [place] [address] 2020-06-28 2020-06-28 Telephone [facility] 1.2.840.114 [id number] Univers 00:00:00 00:00:00 Lucy Walton FRONT END WEB DEVELOPER 350.1.13.10 ity of REGIONAL 4.2.7.2.686 Varun as MATERNAL [id number] [facility] ical & CHILD [address] [place] [address] 2020-06-15 2020-06-15 Routine Edelmira [facility] 1.2.840.114 [id number] Univers 10:55:39 11:26:19 Roshunda 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 350.1.13.10 ity of Visit REGIONAL 4.2.7.2.686 Varun as MATERNAL [id number] [facility] & CHILD [address] [place] [address] 2020-06-15 2020-06-15 Outpatient R HICKEY [facility] [id number] Univers 10:45:00 10:45:00 ROSHUNDA ity o f [facility] 2020-05-17 2020-05-17 Routine Edelmira [facility] 1.2.840.114 [id number] Univers 10:25:19 11:25:41 Roshunda 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 350.1.13.10 ity of Visit REGIONAL 4.2.7.2.686 Varun as MATERNAL [id number] [facility] & CHILD [address] [place] [address] 2020-05-17 2020-05-17 [facility] [id number] Univers 10:45:00 10:45:00 ROSHUNDA ity o f [facility] 2020-05-09 2020-05-09 Abstract Hickey [facility] 1.2.840.114 [id number] Univers 00:00:00 00:00:00 Roshunda 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 350.1.13.10 ity of REGIONAL 4.2.7.2.686 Varun as MATERNAL [id number] [facility] & CHILD [address] [place] [address] 2020-05-08 2020-05-08 Junior 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 Engineer Ultrasound, [facility] 1.2 .840.114 [id number] Univers 11:36:57 12:06:57 Visit Farooq Danyel Campos FRONT END WEB DEVELOPER 350.1. 13.10 ity of REGIONAL 4.2.7.2.686 Varun as MATERNAL [id number] [facility] ical & CHILD [address] [facility] 2020-05-08 2020-05-08 Outpatient P [facility] [id number] Univers 11:30:00 11:30:00 ity of [facility] 2020-04-19 2020-04-19 Routine Edelmira [facility] 1.2.840.114 [id number] Univers 09:47:03 10:21:03 Roshunda 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 350.1.13.10 ity of Visit REGIONAL 4.2.7.2.686 Varun as MATERNAL [id number] Med ical & CHILD [address] [place] [address] 2020-04-19 2020-04-19 Outpatient R EDELMIRA [facility] [id number] Univers 09:30:00 09:30:00 ROSHUNDA ity o f [facility] 2020-03-27 2020-03-27 Nurse Visit, [facility] Nurse [facility] 1.2 .840.114 [id number] Univers 14:12:56 15:21:18 Visit Mireille Hickeyboby 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 350.1.13.10 ity of REGIONAL 4.2.7.2.686 Varun as MATERNAL [id number] [facility] & CHILD [address] [place] [address] 2020-03-27 2020-03-27 Outpatient R [facility] [id number] Univers 13:30:00 13:30:00 ity of [facility] 2020-03-23 2020-03-23 Telephone Edelmira [facility] 1.2.212.981 [id number] Univers 00:00:00 00:00:00 Rosreginanda 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 350.1.13.10 ity of REGIONAL 4.2.7.2.686 Varun as MATERNAL [id number] [facility] & CHILD [address] [place] [address] 2020-03-22 2020-03-22 Initial Edelmira [facility] 1.2.840.114 [id number] Univers 09:37:22 11:02:45 Roshunda 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 350.1.13.10 ity of Visit [facility] 4.2.7.2.686 Varun as MATERNAL [id number] [facility] & CHILD [address] [place] [address] 2020-03-22 2020-03-22 [facility] [id number] Univers 09:15:00 09:15:00 ROSHUNDA ity o f [facility] 2020-03-22 2020-03-22 Outpatient R EDELMIRA [facility] [id number] Univers 08:45:00 08:45:00 JOHNNA marinelli [facility] 2020-03-21 2020-03-21 [facility] [id number] Univers 10:29:34 11:25:00 Em [facility] [id number] [facility] 4.2.7.2.[address] [facility] [id number] [facility] [address] 2020-03-21 2020-03-21 Emergency X CHANDNI, [facility] ERT [id number] Univers 10:29:34 10:29:34 FATOUFLAKITOMarshall [facility] 2016-11-13 2016-11-13 Emergency X SHELIA [facility] ERT [id number] Univers 00:25:49 01:36:00 MARY [facility] Results Test Description Test Time Test Comments Results Result Comments Source [facility] OR [place] ONLY - RPR 2023-02-19 06:48:24 Test Item Value Reference Range Interpretation Comme nts RPR (Qualitative) (test code = 22848-5) Nonreactive Nonreactive Lab Interpretation (test code = 34378-1) Normal [facility] OR [place] ONLY - [id number] 06:48:24 Test Item Value Reference Range Interpretation Comments RPR (Qualitative) (test code = Nonreactive Nonreactive 56564-9) Lab Interpretation (test code = Normal 19932-9) [facility] (D) IMMUNE [id number] 16:19:45 Test Item Value Reference Range Interpretation Comments RHIG CANDIDATE? No- see comment Patient i s not a (test code = candidate for R hIg- 5188) Patient is Rh Positive.Perfor med at [facility] Laboratory Services - [facility] Blood [address] [place] [id number] Free: [phone] A No. [id number] [facility] (D) IMMUNE [id number] 16:19:45 Test Item Value Reference Range Interpretation Comments RHIG CANDIDATE? No- see comment Patient i s not a (test code = candidate for R hIg- 5188) Patient is Rh Positive.Perfor med at [facility] Laboratory Services - [facility] Blood [address] [place] [address] Free: [phone] A No. [id number] [facility] (D) IMMUNE [id number] 16:19:45 Test Item Value Reference Range Interpretation Comments RHIG CANDIDATE? No- see comment Patient i s not a (test code = candidate for R hIg- 5188) Patient is Rh Positive.Perfor med at [facility] Laboratory Services - [facility] Blood [address] [place], [place] [address]Toll Free: [phone] A No. [id number] [facility] (D) IMMUNE [id number] 16:19:45 Test Item Value Reference Range Interpretation Comments RHIG CANDIDATE? No- see comment Patient i s not a (test code = candidate for R hIg- 5188) Patient is Rh Positive.Perfor med at [facility] Laboratory Services - [facility] Blood [address] [place], [place] [address]Toll Free: [phone] A No. [id number] [facility] B Surface Pvtwkis1136-05-90 15:28:19 Test Item Value Reference Range Interpretation Comments HBsAg Semi-Quantitative (test code = 0.04 Negative 5195-3) [facility] B Surface Kygeahr8996-41-93 15:28:19 Test Item Value Reference Range Interpretation Comments HBsAg Semi-Quantitative (test code = 0.04 Negative 5195-3) [facility] WITH [id number] 12:40:41 Test Item Value Reference Range Interpretation Comments HIV 0.12 Negative Semi-quantitative (test code = 86742-6) MIGUEL ANGEL (test code = Non-reactive for HIV-1 MIGUEL ANGEL) antigen and HIV-1/HIV-2 antibodies. ?No laboratory evidence of HIV infection. ?Repeat in 2-4 weeks if acute HIV infection is suspected. [facility] WITH [id number] 12:40:41 Test Item Value Reference Range Interpretation Comments HIV 0.12 Negative Semi-quantitative (test code = 19896-1) MIGUEL ANGEL (test code = Non-reactive for HIV-1 MIGUEL ANGEL) antigen and HIV-1/HIV-2 antibodies. ?No laboratory evidence of HIV infection. ?Repeat in 2-4 weeks if acute HIV infection is suspected. [facility] with Bnhrieabnnub1171-32-20 11:22:57 Test Item Value Reference Range Interpretation Comments WBC (test code = 13.61 See_Comment H [Automated 0490-2) message] The sy stem which generated this [...] (test code = 38.1 fL 39.0-49.9 L 62417-9) RDW-CV (test code = 12.4 % 12.0-15.5 788-0) PLT (test code = 279 See_Comment [Automated 777-3) message] The sy stem which generated this result transmitted reference range : 166 - 358 10*3/ ?L. The reference r tammi was not used to interpret this result as normal/abnormal . MPV (test code = 10.9 fL 9.5-12.9 00356-4) NRBC/100 WBC (test 0.0 See_Comment [Automat ed code = 8586759909) message] The system which generated this result transmitted reference range : 0.0 - 10.0 /100 WBCs. The refer ence range was not u sed to interpret th is result as normal/abnormal . NRBC x10^3 (test code See_Comment [Auto mated = 2795803504) message] The s ystem which generated this result transmitted reference range : 10*3/?L. The reference range was not used to interpret this result as normal/abnormal . GRAN MAT (NEUT) % 66.9 % (test code = 770-8) IMM GRAN % (test code 0.70 % = 0379807341) LYMPH % (test code = 21.9 % 736-9) MONO % (test code = 7.9 % 5905-5) EOS % (test code = 2.4 % 713-8) BASO % (test code = 0.2 % 706-2) GRAN MAT x10^3(ANC) 9.11 10*3/uL 1.88-7.09 H (test code = 8213365430) IMM GRAN x10^3 (test 0.09 10*3/uL 0.00-0.06 H code = 3135434360) LYMPH x10^3 (test code 2.98 10*3/uL 1.32-3.29 = 731-0) MONO x10^3 (test code 1.08 10*3/uL 0.33-0.92 H = 742-7) EOS x10^3 (test code = 0.32 10*3/uL 0.03-0.39 711-2) BASO x10^3 (test code 0.03 10*3/uL 0.01-0.07 = 704-7) Lab Interpretation Abnormal (test code = 86014-2) [facility] with Pxdmfszqawxa1395-20-51 11:22:57 Test Item Value Reference Range Interpretation Comments WBC (test code = 13.61 See_Comment H [Automated 0690-2) message] The sy stem which generated this [...] (test code = 38.1 fL 39.0-49.9 L 25528-2) RDW-CV (test code = 12.4 % 12.0-15.5 788-0) PLT (test code = 279 See_Comment [Automated 777-3) message] The sy stem which generated this result transmitted reference range : 166 - 358 10*3/ ?L. The reference r tammi was not used to interpret this result as normal/abnormal . MPV (test code = 10.9 fL 9.5-12.9 19008-6) NRBC/100 WBC (test 0.0 See_Comment [Automat ed code = 0974508618) message] The system which generated this result transmitted reference range : 0.0 - 10.0 /100 WBCs. The refer ence range was not u sed to interpret th is result as normal/abnormal . NRBC x10^3 (test code See_Comment [Auto mated = 5344825617) message] The s ystem which generated this result transmitted reference range : 10*3/?L. The reference range was not used to interpret this result as normal/abnormal . GRAN MAT (NEUT) % 66.9 % (test code = 770-8) IMM GRAN % (test code 0.70 % = 1753933863) LYMPH % (test code = 21.9 % 736-9) MONO % (test code = 7.9 % 5905-5) EOS % (test code = 2.4 % 713-8) BASO % (test code = 0.2 % 706-2) GRAN MAT x10^3(ANC) 9.11 10*3/uL 1.88-7.09 H (test code = 4978206055) IMM GRAN x10^3 (test 0.09 10*3/uL 0.00-0.06 H code = 5112674038) LYMPH x10^3 (test code 2.98 10*3/uL 1.32-3.29 = 731-0) MONO x10^3 (test code 1.08 10*3/uL 0.33-0.92 H = 742-7) EOS x10^3 (test code = 0.32 10*3/uL 0.03-0.39 711-2) BASO x10^3 (test code 0.03 10*3/uL 0.01-0.07 = 704-7) Lab Interpretation Abnormal (test code = 68373-3) [facility] - [facility]CE [id number] 11:20:00 Test Item Value Reference Range Interpretation Comments ABO & RH (test code = 20) O Positive IAT (test code = 1185) Negative [facility] and Screen - ONCE [id number] 11:20:00 Test Item Value Reference Range Interpretation Comments ABO & RH (test code = 20) O Positive IAT (test code = 1185) Negative [facility]/O SPECIFIC [id number] 19:06:00 Test Item Value Reference Range Interpretation [...] code = 3257) n/a Negative - [facility] [id number] 20:08:00 Test Item Value Reference Range Interpretation [...] code = 3257) Negative Negative - Negative [facility]ERR[facility] [id number] 17:51:16 Test Item Value Reference Range Interpretation Comments FERRITIN (test code = 6.8 ng/mL 6.0-137.0 5848055501) MIGUEL ANGEL (test code = MIGUEL ANGEL) Biotin has been reported to cause a negative bias, interpret results relative to patient's use of biotin. Lab Interpretation (test Normal code = 83783-3) [facility] (NA, K, CL, CO2, GLUCOSE, BUN, CREATININE, [place])2023-01-29 01:03:48 Test Item Value Reference Range Interpretation Comments NA (test code = 135 mmol/L 135-145 9150783975) K (test code = 3.5 mmol/L 3.5-5.0 3562415879) CL (test code = 109 mmol/L 98-108 H 0157057306) CO2 TOTAL (test code = 23 mmol/L 23-31 4962976902) AGAP (test code = 3 2-16 9236027480) BUN (test code = 3 mg/dL 7-23 L 6619208613) GLUCOSE (test code = 108 mg/dL 70-110 0951971115) CREATININE (test code = 0.66 mg/dL 0.50-1.04 0964835820) CALCIUM (test code = 8.6 mg/dL 8.6-10.6 1922632946) eGFR (test code = 111.0 mL/min/1.73m2 8426145780) MIGUEL ANGEL (test code = MIGUEL ANGEL) [...] tests). Lab Interpretation Abnormal (test code = 40417-4) [facility] WITH [id number] 23:14:13 Test Item Value Reference Range Interpretation Comments WBC (test code = 12.67 See_Comment H [Automated 5090-2) message] The sy stem which generated this result transmitted reference range : 4.30 - 11.10 10*3/?L. The reference range was not used to interpret this result as normal/abnormal . RBC (test code = 3.88 See_Comment L [Automated 059-8) message] The sy stem which generated this [...] RDW-SD (test code = 39.2 fL 39.0-49.9 89050-2) RDW-CV (test code = 12.3 % 12.0-15.5 788-0) PLT (test code = 248 See_Comment [Automated 777-3) message] The sy stem which generated this result transmitted reference range : 166 - 358 10*3/ ?L. The reference r tammi was not used to interpret this result as normal/abnormal . MPV (test code = 11.5 fL 9.5-12.9 78124-9) IPF % (test code = 6.0 % 1.3-7.7 Platelet count 1892686000) measured by fluorescence method. NRBC/100 WBC (test 0.0 See_Comment [Automat ed code = 8302224117) message] The system which generated this result transmitted reference range : 0.0 - 10.0 /100 WBCs. The refer ence range was not u sed to interpret th is result as normal/abnormal . NRBC x10^3 (test code See_Comment [Auto mated = 6839329916) message] The s ystem which generated this result transmitted reference range : 10*3/?L. The reference range was not used to interpret this result as normal/abnormal . GRAN MAT (NEUT) % 70.7 % (test code = 770-8) IMM GRAN % (test code 0.70 % = 5787574684) LYMPH % (test code = 17.0 % 736-9) MONO % (test code = 9.6 % 5905-5) EOS % (test code = 1.6 % 713-8) BASO % (test code = 0.4 % 706-2) GRAN MAT x10^3(ANC) 8.97 10*3/uL 1.88-7.09 H (test code = 6869808727) IMM GRAN x10^3 (test 0.09 10*3/uL 0.00-0.06 H code = 9919964571) LYMPH x10^3 (test code 2.15 10*3/uL 1.32-3.29 = 731-0) MONO x10^3 (test code 1.21 10*3/uL 0.33-0.92 H = 742-7) EOS x10^3 (test code = 0.20 10*3/uL 0.03-0.39 711-2) BASO x10^3 (test code 0.05 10*3/uL 0.01-0.07 = 704-7) Lab Interpretation Abnormal (test code = 52301-4) [facility]CE [id number] 22:19:00 Test Item Value Reference Range Interpretation Comments ABO & RH (test code = 20) O Positive IAT (test code = 1185) Negative [facility] W/O SPECIFIC [id number] 19:56:00 Test Item Value Reference Range Interpretation [...] code = 3257) n/a Negative - Negative [facility] W/O SPECIFIC [id number] 19:56:00 Test Item Value Reference Range Interpretation [...] code = 3257) n/a Negative - Negative [facility] W/O SPECIFIC [id number] 18:49:00 Test Item Value Reference Range Interpretation [...] code = 3257) n/a Negative - Negative [facility] URINALYSIS W/O SPECIFIC [id number] 19:03:00 Test Item Value Reference Range Interpretation [...] code = 3257) n/a Negative - Negative [facility] URINALYSIS W/O SPECIFIC [id number] 15:44:00 Test Item Value Reference Range Interpretation [...] code = 3257) n/a Negative - Negative [facility] URINALYSIS W/O SPECIFIC [id number] 20:07:00 Test Item Value Reference Range Interpretation [...] code = 3257) n/a Negative - Negative [facility] URINALYSIS W/O SPECIFIC [id number] 20:07:00 Test Item Value Reference Range Interpretation [...] code = 3257) n/a Negative - Negative [facility] URINALYSIS W/O SPECIFIC [id number] 22:09:00 Test Item Value Reference Range Interpretation [...] code = 3257) n/a Negative - Negative [facility] URINALYSIS W/O SPECIFIC [id number] 22:09:00 Test Item Value Reference Range Interpretation [...] code = 3257) n/a Negative - Negative [facility] [id number] 15:28:00 Test Item Value Reference Range Interpretation Comments POCT PREG (test code = 1605) Positive On board controls acceptable with C Yes Line (test code = 3574) POCT PREG LOT # (test code = 3575) POCT PREG TEST DATE (test code = 3576) [facility] W/O SPECIFIC [id number] 15:28:00 Test Item Value Reference Range Interpretation [...] code = 3257) n/a Negative - Negative [facility]fieldUrinalysis2021-06-23 18:40:09 Test Item Value Reference Range Interpretation Comments APPEARANCE (test code = Clear Clear 7158892779) COLOR (test code = Yellow Yellow 3711103771) PH (test code = 4.8-8.0 2919968262) SP GRAVITY (test code = 1.003-1.030 3733098065) GLU U QUAL (test code = Normal Normal 6323856384) BLOOD (test code = Negative Negative 8828897797) KETONES (test code = Negative Negative 0421003257) PROTEIN (test code = Negative Negative 2887-8) UROBILIN (test code = Normal Normal 6253600249) BILIRUBIN (test code = Negative Negative 7872652672) NITRITE (test code = Negative Negative 3853965592) LEUK FAM (test code = 500/uL Negative A 1430112153) RBC/HPF (test code = See_Comment [Autom ated message] 2921275580) The system [email or web address] generated this result transmitted ref erence range: 0 - 3 HP F. The reference range was not used to int erpret this result as normal/abnormal . WBC/HPF (test code = See_Comment H [Autom ated message] 6712415854) The system [email or web address] generated this result transmitted ref erence range: 0 - 5 HP F. The reference range was not used to int erpret this result as normal/abnormal . BACTERIA (test code = Few Negative A 8297606911) SQ EPITH (test code = HPF 2261621285) OSVALDO EPITH (test code = See_Comment [Aut omated message] 2840734970) The system [email or web address] generated this result transmitted ref erence range: <=1 HPF. The reference range was not used to int erpret this result as normal/abnormal . Lab Interpretation (test Abnormal code = 53005-3) [facility] Metabolic Panel (NA, K, CL, CO2, GLUCOSE, BUN, CREATININE, [place])2021-03-28 18:15:18 Test Item Value Reference Range Interpretation Comments NA (test code = 135 mmol/L 135-145 3214808626) K (test code = 4.2 mmol/L 3.5-5.0 2400875396) CL (test code = 105 mmol/L 98-108 4351790002) CO2 TOTAL (test code 23 mmol/L 23-31 = 1262555742) AGAP (test code = 2-16 8890235004) BUN (test code = 8 mg/dL 7-23 6280955542) GLUCOSE (test code = 86 mg/dL 70-110 9680101519) CREATININE (test code 0.75 mg/dL 0.50-1.04 = 7304888274) CALCIUM (test code = 9.7 mg/dL 8.6-10.6 9442835864) eGFR (test code = mL/min/1.73m2 2125018234) MIGUEL ANGEL (test code = MIGUEL ANGEL) [...] or urine or abnormalities in imaging tests). [facility] (ALB, T.PRO, BILI T, BU/BC, ALT, AST, ALK PHOS)2021-03-28 18:15:18 Test Item Value Reference Range Interpretation Comments TOTAL BILI (test code = 6981247019) 1.3 mg/dL 0.1-1.1 H BILI UNCON (test code = 3759689941) 1.2 mg/dL 0.1-1.1 H BILI CONJ (test code = 6498258695) 0.0 mg/dL 0.0-0.3 T PROTEIN (test code = 2357491069) 8.0 g/dL 6.3-8.2 ALBUMIN (test code = 6970981153) 4.4 g/dL 3.5-5.0 ALK PHOS (test code = 0045640852) 67 U/L 34-122 ALTv (test code = 1742-6) 12 U/L 5-35 AST(SGOT) (test code = 2447123552) 20 U/L 13-40 Lab Interpretation (test code = Abnormal 79902-0) [facility] with [id number] 17:51:55 Test Item Value Reference Range Interpretation Comments WBC (test code = See_Comment H [Automated 9832-2) message] The sy stem which generated this result transmitted reference range : 4.30 - 11.10 10*3/?L. The reference range was not used to interpret this result as normal/abnormal . RBC (test code = See_Comment [Automated 889-8) message] The sy stem which generated this [...] RDW-SD (test code = 44.0 fL 39.0-49.9 26667-4) RDW-CV (test code = 14.2 % 12.0-15.5 788-0) PLT (test code = See_Comment [Automated 777-3) message] The sy stem which generated this result transmitted reference range : 166 - 358 10*3/ ?L. The reference r tammi was not used to interpret this result as normal/abnormal . MPV (test code = 10.6 fL 9.5-12.9 72980-3) NRBC/100 WBC (test See_Comment [Automat ed code = 1006343314) message] The system which generated this result transmitted reference range : 0.0 - 10.0 /100 WBCs. The refer ence range was not u sed to interpret th is result as normal/abnormal . NRBC x10^3 (test code <0.01 See_Comment [Auto mated = 6257744214) message] The s ystem which generated this result transmitted reference range : 10*3/?L. The reference range was not used to interpret this result as normal/abnormal . GRAN MAT (NEUT) % 71.1 % (test code = 770-8) IMM GRAN % (test code 0.50 % = 4519772506) LYMPH % (test code = 20.9 % 736-9) MONO % (test code = 6.6 % 5905-5) EOS % (test code = 0.6 % 713-8) BASO % (test code = 0.3 % 706-2) GRAN MAT x10^3(ANC) 8.38 10*3/uL 1.88-7.09 H (test code = 8796271368) IMM GRAN x10^3 (test 0.06 10*3/uL 0.00-0.06 code = 7185374789) LYMPH x10^3 (test code 2.47 10*3/uL 1.32-3.29 = 731-0) MONO x10^3 (test code 0.78 10*3/uL 0.33-0.92 = 742-7) EOS x10^3 (test code = 0.07 10*3/uL 0.03-0.39 711-2) BASO x10^3 (test code 0.03 10*3/uL 0.01-0.07 = 704-7) Lab Interpretation Abnormal (test code = 07175-9) [facility] W SPECIFIC [id number] 15:09:00 Test Item Value Reference Range Interpretation [...] POCT U APPEAR (test code = 3267) [facility]fieldUric Acid [id number] 21:47:00 Test Item Value Reference Range Interpretation Comments URIC ACID (test code = 5833947534) 6.5 mg/dL 2.9-6 H Lab Interpretation (test code = Abnormal 06151-2) [facility]fieldSerum [id number] 21:47:00 Test Item Value Reference Range Interpretation Comments CREATININE (test code 0.72 mg/dL 0.5-1.04 = 5036256007) eGFR Calculation mL/min/1.73m2 (Non-) (test code = 8664652828) eGFR Calculation mL/min/1.73m2 () (test code = 7686307733) MIGUEL ANGEL (test code = MIGUEL ANGEL) [...] or urine or abnormalities in imaging tests). [facility]field[facility]OT (Asparate Amino Transfer)2020-08-24 21:47:00 Test Item Value Reference Range Interpretation Comments AST(SGOT) (test code = 1546191475) 20 U/L 13-40 Lab Interpretation (test code = Normal 70003-5) [facility]fieldAlanine Amino Transferase (SGPT)2020-08-24 21:47:00 Test Item Value Reference Range Interpretation Comments ALTv (test code = 1742-6) 16 U/L 5-35 Lab Interpretation (test code = Normal 91653-7) [facility]fieldLactate Twrfefjngwujw2268-85-73 21:46:00 Test Item Value Reference Range Interpretation Comments LDH (test code = 8628417130) 411 U/L 300-600 Lab Interpretation (test code = Normal 01509-0) [facility]fieldProtein CREAT Ratio Urine [id number] 21:45:00 Test Item Value Reference Range Interpretation Comments T. PROT U (test code = 2888-6) 11 mg/dL CREAT U (test code = 1129930027) 70.5 mg/dL Protein/Creatinine Ratio Urine 0.0-2.0 (test code = 4534147777) [facility]fieldUrinalysis2020-11-19 21:26:00 Test Item Value Reference Range Interpretation Comments APPEARANCE (test code = Hazy Clear A 0668527772) COLOR (test code = Yellow Yellow 5202597763) PH (test code = 4.8-8.0 6661207963) SP GRAVITY (test code = 1.003-1.030 5115992216) GLU U QUAL (test code = Normal Normal 4818660228) BLOOD (test code = Negative Negative Interfere nce from 9300411778) ascorbic acid m ay cause false neg ative results. KETONES (test code = Negative Negative 4370315996) PROTEIN (test code = Negative Negative 2887-8) UROBILIN (test code = Normal Normal 7304228859) BILIRUBIN (test code = Negative Negative 9201298281) NITRITE (test code = Negative Negative 3007879564) LEUK FAM (test code = 75/uL Negative A 9946720986) RBC/HPF (test code = See_Comment [Autom ated message] 4292944069) The system [email or web address] generated this result transmitted ref erence range: 0 - 3 HP F. The reference range was not used to int erpret this result as normal/abnormal . WBC/HPF (test code = See_Comment [Autom ated message] 0234814485) The system [email or web address] generated this result transmitted ref erence range: 0 - 5 HP F. The reference range was not used to int erpret this result as normal/abnormal . BACTERIA (test code = Negative Negative 6637068964) SQ EPITH (test code = See_Comment H [Auto mated message] 3236801509) The system [email or web address] generated this result transmitted ref erence range: <=2 HPF. The reference range was not used to int erpret this result as normal/abnormal . ASCORBIC ACID (test code 20 mg/dL = 5842557655) Lab Interpretation (test Abnormal code = 65930-2) [facility] with Zndkxhrkzdhp5602-78-82 21:12:00 Test Item Value Reference Range Interpretation [...] RDW-SD (test code = 39.3 fL 39-49.9 45089-1) RDW-CV (test code = 12.0 % 12-15.5 788-0) PLT (test code = See_Comment [Automated 777-3) message] The sy stem which generated this result transmitted reference range : 166 - 358 10*3/ ?L. The reference r tammi was not used to interpret this result as normal/abnormal . MPV (test code = 10.6 fL 9.5-12.9 38929-9) NRBC/100 WBC (test See_Comment [Automat ed code = 5825077124) message] The system which generated this result transmitted reference range : 0.0 - 10.0 /100 WBCs. The refer ence range was not u sed to interpret th is result as normal/abnormal . NRBC x10^3 (test code <0.01 See_Comment [Auto mated = 2788708525) message] The s ystem which generated this result transmitted reference range : 10*3/?L. The reference range was not used to interpret this result as normal/abnormal . GRAN MAT (NEUT) % 72.7 % (test code = 770-8) IMM GRAN % (test code 0.50 % = 7903041801) LYMPH % (test code = 17.6 % 736-9) MONO % (test code = 8.4 % 5905-5) EOS % (test code = 0.6 % 713-8) BASO % (test code = 0.2 % 706-2) GRAN MAT x10^3(ANC) 8.41 10*3/uL 1.88-7.09 H (test code = 0798167905) IMM GRAN x10^3 (test 0.06 10*3/uL 0-0.06 code = 0681932137) LYMPH x10^3 (test code 2.03 10*3/uL 1.32-3.29 = 731-0) MONO x10^3 (test code 0.97 10*3/uL 0.33-0.92 H = 742-7) EOS x10^3 (test code = 0.07 10*3/uL 0.03-0.39 711-2) BASO x10^3 (test code <0.03 0.01-0.07 = 704-7) Lab Interpretation Abnormal (test code = 84877-8) [facility] (ID NOW RAPID TESTING)2020-08-24 21:09:00 Test Item Value Reference Range Interpretation Comments SARS-CoV-2 Rapid ID NOW Positive Not Detected A (test code = 24753-1) MIGUEL ANGEL (test code = MIGUEL ANGEL) ID NOW COVID-19 Assay is an isothermal nucleic acid amplification test intended for the qualitative detection of nucleic acid from SARS-CoV-2 viral RNA in nasopharyngeal ([employer]) specimens. It is used under Emergency [...] indicated. Lab Interpretation Abnormal (test code = 34933-7) [facility] URINALYSIS W SPECIFIC [id number] 17:08:00 Test Item Value Reference Range Interpretation [...] POCT U APPEAR (test code = 3267) [facility] URINALYSIS W SPECIFIC [id number] 17:18:00 Test Item Value Reference Range Interpretation [...] POCT U APPEAR (test code = 3267) [facility] URINALYSIS W SPECIFIC [id number] 17:18:00 Test Item Value Reference Range Interpretation [...] POCT U APPEAR (test code = 3267) [facility] URINALYSIS W SPECIFIC [id number] 16:09:00 Test Item Value Reference Range Interpretation [...] POCT U APPEAR (test code = 3267) [facility] URINALYSIS W SPECIFIC [id number] 16:11:00 Test Item Value Reference Range Interpretation [...] POCT U APPEAR (test code = 3267) [facility] URINALYSIS W SPECIFIC [id number] 16:10:00 Test Item Value Reference Range Interpretation [...] POCT U APPEAR (test code = 3267) [facility] URINALYSIS W SPECIFIC [id number] 15:06:00 Test Item Value Reference Range Interpretation [...] POCT U APPEAR (test code = 3267) [facility] URINALYSIS W SPECIFIC [id number] 15:06:00 Test Item Value Reference Range Interpretation [...] POCT U APPEAR (test code = 3267) [facility] URINALYSIS W SPECIFIC [id number] 15:06:00 Test Item Value Reference Range Interpretation [...] POCT U APPEAR (test code = 3267) [facility] URINALYSIS W SPECIFIC [id number] 15:06:00 Test Item Value Reference Range Interpretation [...] POCT U APPEAR (test code = 3267) [facility] URINALYSIS W SPECIFIC [id number] 15:06:00 Test Item Value Reference Range Interpretation [...] POCT U APPEAR (test code = 3267) [facility] [id number] 14:56:00 Test Item Value Reference Range Interpretation Comments POCT PREG (test code = 1605) Positive On board controls acceptable with C Yes Line (test code = 4479) POCT PREG LOT # (test code = 1699) POCT PREG TEST DATE (test code = 3576) [facility] URINALYSIS W/O SPECIFIC [id number] 14:56:00 Test Item Value Reference Range Interpretation [...] code = 3257) Neg Negative - [id number] 14:56[facility]00 Test Item Value Reference Range Interpretation Comments POCT PREG (test code = 1605) Positive On board controls acceptable with C Yes Line (test code = 3574) POCT PREG LOT # (test code = 3575) POCT PREG TEST DATE (test code = 3576) [facility] URINALYSIS W/O SPECIFIC [id number] 14:56:00 Test Item Value Reference Range Interpretation [...] code = 3257) Neg Negative - Negative [facility] [id number] 16:03:00 Test Item Value Reference Range Interpretation Comments POCT PREG (test code = 1605) Positive On board controls acceptable with Yes C Line (test code = 3574) POCT PREG LOT # (test code = 3575) [id number] POCT PREG TEST DATE (test 07/05/2021 code = 3576) Lab Interpretation (test code = Abnormal 03373-6) [facility]"
[2023-05-17 07:49] LABS: Absolute Lymphocytes (CBC) 1.2 K/uL (0.7-4.9); Hematocrit 39.1 % (36.0-45.0); Lymphocytes % 14.1 % (15.3-44.8); MCV 87.3 fL (80-100); MPV 8.1 fL (7.6-11.3); Platelets 307 thou/uL (152-406); RBC Red Blood Cell Count 4.48 M/uL (3.86-4.86)
[2023-05-17 07:53] LABS: Protime INR 1.05
[2023-05-17 08:06] LABS: ALT/SGPT 40 U/L (13-56); AST/SGOT 20 U/L (15-37); Albumin 3.9 g/dL (3.4-5.0); Alkaline Phosphatase 90 U/L (45-117); BUN Blood Urea Nitrogen 10 mg/dL (7-18); Bicarbonate 22 mEq/L (21-32); Bilirubin Direct 0.2 mg/dL (0-0.2); Bilirubin Indirect, Calculated 0.6 mg/dL (0.2-0.8); Bilirubin Total 0.8 mg/dL (0.2-1.0); Glomerular Filtration Rate 70 ml/min (=/>90); Glucose Level 110 mg/dL (74-106); Potassium 3.7 mEq/L (3.5-5.1); Protein, Total 7.9 g/dL (6.4-8.2); Sodium Level 136 mEq/L (136-145)
[2023-05-17 09:11] LABS: Specific Gravity 1.013 (1.005-1.030)
[2023-05-17 09:29] LABS: Barbiturates NEGATIVE (NEGATIVE); Benzodiazepines NEGATIVE (NEGATIVE); Cocaine NEGATIVE (NEGATIVE); METHAMPHETAM NEGATIVE (NEGATIVE); Methadone NEGATIVE (NEGATIVE); Opiates NEGATIVE (NEGATIVE); Phencyclidine NEGATIVE (NEGATIVE); THC Cannibis POSITIVE (NEGATIVE)
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
[2023-05-17] MEDS ORDERED: ACETAMINOPHEN 500 MG TAB ONE (22:39)
[2023-05-18] MEDS ORDERED: ONDANSETRON 4 MG (ODT) TAB ONE (10:23)
[2023-05-18 15:12] VITALS: TEMP 98.1
[2023-05-18 15:14] VITALS: BP 124/72; O2SAT 99
== END 2023-05-18 14:49 | disposition home or self-care (01) ==
LOC: ER 07:02
DX: R45.851 Suicidal ideations (principal); R45.850 Homicidal ideations; Z91.018 Allergy to other foods
CPT/HCPCS: 85025; 80048; 36415; 81025; 85610; 80076; 85730; 80307; 99285; 80143; 80179; 82077; Q0162

== ENCOUNTER → 2023-11-27 | Emergency (ER) | payer OTHER ==
[~2023-11-27] MED LIST: ACETAMINOPHEN 500 MG TAB ONE; KETOROLAC 30 MG/ML INJ ONE; methocarbamoL 500 MG TAB ONE
[2023-11-27 13:17] LABS: Specific Gravity 1.015 (1.005-1.030)
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
[2023-11-27 15:08] VITALS: BP 125/71; TEMP 97.9; O2SAT 99
== END ==
LOC: ER 11:52
DX: M54.50 Low back pain, unspecified (principal); M54.2 Cervicalgia; Z91.018 Allergy to other foods
CPT/HCPCS: 72125; 72131; 81025; 96372; 99284

== ENCOUNTER 2024-01-04 12:53 | Emergency (ER) | payer OTHER, SELFPAY ==
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
--- NOTE | 2024-01-04 13:37 | ER ---
Nurse's Notes [facility] Name: Tea Collazo Age: 23 yrs Sex: Female : 2000 Arrival Date: 01/04/2024 Time: 12:53 Bed 9 Private MD: Diagnosis: dog bite/puncture wound left thigh Presentation: 01/03 13:09 Chief complaint: Patient states: pt was running and a dog attacked her. pt has wound to as6 left thigh. pt does not know the kind of dog and where it came from. Coronavirus screen: At this time, the client does not indicate any symptoms associated with coronavirus-19. Ebola Screen: No symptoms or risks identified at this time. Initial Sepsis Screen: Does the patient meet any 2 criteria? No. Patient's initial sepsis screen is negative. Does the patient have a suspected source of infection? No. Patient's initial sepsis screen is negative. Risk Assessment: Do you want to hurt yourself or someone else? Patient reports no desire to harm self or others. Onset of symptoms was January 03, 2024. 13:09 Acuity: LARISA 4 as6 13:09 Method Of Arrival: Ambulatory as6 Triage Assessment: 14:00 Bite description: bite sustained to lateral aspect of left thigh by a dog, animal db information: vaccination(s) is current. General: Appears in no apparent distress. Behavior is calm, cooperative. CLERICAL SPECIALIST: 13:07 LMP 12/2023, unknown as6 Historical: - Allergies: 13:08 HONEY; as6 - PMHx: 13:08 Depression; Hypertension; as6 - PSHx: 13:08 section; as6 13:11 section; Ligation of fallopian tube; as6 - Immunization history:: Last tetanus immunization: up to date. - Social history:: Smoking status: Patient reports the use of cigarette tobacco products, Reported history of juuling and/or vaping. Screenin:00 [facility] ED Fall Risk Assessment (Adult) History of falling in the last 3 months, db including since admission No falls in past 3 months (0 pts) Confusion or Disorientation No (0 pts) Intoxicated or Sedated No (0 pts) Impaired Gait No (0 pts) Mobility Assist Device Used No (0 pt) Altered Elimination No (0 pt) Score/Fall Risk Level 0 - 2 = Low Risk Oriented to surroundings. Abuse screen: Denies threats or abuse. Denies injuries from another. Nutritional screening: No deficits noted. Tuberculosis screening: No symptoms or risk factors identified. Assessment: 14:00 General: Appears in no apparent distress. uncomfortable, Behavior is calm, cooperative. db 14:00 Pain: Complains of pain in lateral aspect of left thigh Pain does not radiate. Pain db currently is 10 out of 10 on a pain scale. Quality of pain is described as aching, throbbing, Pain began 1 day ago. Is continuous. Derm: Skin 3 puncture wounds with multiple scratches to left outer thigh. Wounds are scabbed over Skin is dry, Skin is pink, warm \T\ dry. Skin temperature is warm Wound noted lateral aspect of left thigh Wound is 3 puncture wounds with multiple scratches to left outer thigh. No drainage noted. Wounds are scabbed over. Redness and bruising noted to area surrounding wound Bruising that is dark purple, on lateral aspect of left thigh. Vital Signs: 13:07 BP 157 / 97; Pulse 75; Resp 18 S; Temp 98.7(O); Pulse Ox 100% on R/A; Weight 79.38 kg as6 (R); Height 5 ft. 3 in. (R); Pain 8/10; 14:25 BP 137 / 80; Pulse 85; Resp 18; Temp 98.2; Pulse Ox 99% ; Pain 7/10; db 13:07 Body Mass Index 31.00 (79.38 kg, 160.02 cm) as6 13:07 Pain Scale: Adult as6 14:25 Pain Scale: Adult db ED Course: 13:01 Patient arrived in ED. ra3 13:02 Liana Gandara PA-C is PHCP. sb4 13:02 Drea Augustine MD is Attending Physician. sb4 13:07 Arm band placed on. as6 13:11 Triage completed. as6 13:47 lAycia Bergeron, HÉCTOR is Primary Nurse. db 14:00 Patient has correct armband on for positive identification. Provided Education on: db Wound care. Warm blanket given. Ice pack to injury. 14:00 No provider procedures requiring assistance completed. Patient did not have IV access db during this emergency room visit. Patient maintains SpO2 saturation greater than 95% on room air. Dressings: non-adherent dressing x 1 lateral aspect of left thigh 4X4s X 1; lateral aspect of left thigh Jah wrap. Administered Medications: 13:58 Drug: Amoxicillin-Clavulanate PO 875 mg PO once Route: PO; db 14:25 Follow up: Response: No adverse reaction db 13:58 Drug: Hydrocodone-Acetaminophen PO (7.5 mg-325 mg) 1 tabs PO once Route: PO; db 14:25 Follow up: Response: No adverse reaction db Medication: 14:00 VIS not applicable for this client. db Outcome: 13:37 Discharge ordered by MD. sanz 14:35 Discharged to home ambulatory, db 14:35 Condition: stable 14:35 Discharge instructions given to patient, Instructed on discharge instructions, follow up and referral plans. medication usage, wound care, Demonstrated understanding of instructions, follow-up care, medications, wound care, 14:36 Patient left the ED. db Signatures: Doug Estrella RN RN as6 Alycia Bergeron RN RN db Liana Gandara, PA-C PA-C [email or web address] Maite Luna ra3 Corrections: (The following items were deleted from the chart) 13:08 13:08 PMHx: SUICIDE ATTEMPT; as6 as6 13:11 13:08 Immunization history: Last tetanus immunization: unknown, as6 as6
[2024-01-04] MEDS ORDERED: HYDROCODONE/APAP 7.5/325 MG TAB ONE (13:53)
[2024-01-04] MEDS ORDERED: AMOX/K CLAV 875 MG TAB ONE (13:53)
[2024-01-04 16:53] VITALS: BP 137/80; TEMP 98.2; O2SAT 99
== END 2024-01-04 14:36 | disposition home or self-care (01) ==
LOC: ER 12:53
DX: S71.132A Puncture wound without foreign body, left thigh, initial encounter (principal); W54.0XXA Bitten by dog, initial encounter
CPT/HCPCS: 99284